=== PATIENT | male | born 1960 | race American Indian/Alaskan Native ===

== ENCOUNTER 2024-12-19 07:49 | Inpatient (IN) | payer OTHER ==
[~2024-12-19] VITALS: Ht 162.6 cm; Wt 119.7 kg
[2024-12-19] VITALS (8 sets, daily range): BP systolic 121–123; BP diastolic 53–71; PULSE 64–81; RESP 16–18; TEMP 98–98.7; O2SAT 94–100
--- NOTE | 2024-12-19 08:15 | ED.PDOC ---
GI ASSESSMENT HPI Comments 64 y/o M, BIBA, with PMHx of CVA, COPD, HTN, anemia, and asthma presents to the ED for CC of abdominal pain. EMS reports, patient is coming from home where he c/o RLQ abdominal pain radiating to his right groin area d/t preexisting right inguinal hernia x5days. EMS relays, patient reports taking tramadol at 0630 with no relief of symptoms. Patient denies fever, dysuria, fever, chills, sweats, nausea, vomiting, or diarrhea. No other associated symptoms, modifiers, recent injuries or sick contacts present at this time. Chief Complaint: Abdominal Pain Time Seen by MD: 08:05 Reviewed Notes: Nurses Notes, System Dispatcher Notes, Medications, Allergies Allergies: Coded Allergies: Ibuprofen (Verified Allergy, Severe, 12/19/24) Information Source: Patient, Emergency Med Personnel Mode of Arrival: EMS Timing: Days Duration: Since onset Prehospital treatment: None Quality: None Vomitus: None Stool: Normal Severity: Moderate Recent: None Recent Hx of: None Pain Location: RLQ Modifying Factors: Nothing Associated sign and symptoms: Abdominal Pain Past Medical History PAST MEDICAL HISTORY: Anemia, Asthma, COPD, CVA, HTN Surgical History: Denies all surgeries Family History Family History: Unknown Social History Smoker: Non-Smoker Alcohol: Denies ETOH Use Drugs: Denies Drug Use Lives In: Home Constitutional: denies: chills, diaphoresis, fatigue, fever, malaise, sweats, weakness, others EENTM: denies: blurred vision, double vision, ear bleeding, ear discharge, ear drainage, ear pain, ear ringing, eye pain, eye redness, hearing loss, mouth pain, mouth swelling, nasal discharge, nose bleeding, nose congestion, nose pain, photophobia, tearing, throat pain, throat swelling, voice changes, others Respiratory: denies: cough, hemoptysis, orthopnea, SOB at rest, shortness of breath, SOB with excertion, stridor, wheezing, others Cardiovascular: denies: chest pain, dizzy spells, diaphoresis, Dyspnea on exertion, edema, irregular heart beat, left arm pain, lightheadedness, palpitations, PND, syncope, others Gastrointestinal: reports: abdominal pain; denies: abdomen distended, blood streaked bowels, constipated, diarrhea, dysphagia, difficulty swallowing, hematemesis, melena, nausea, poor appetite, poor fluid intake, rectal bleeding, rectal pain, vomiting, others Genitourinary: denies: burning, dysuria, flank pain, frequency, hematuria, incontinence, penile discharge, penile sore, pain, testicle pain, testicle swelling, urgency, others Neurological: denies: dizziness, fainting, headache, left sided numbness, left sided weakness, numbness, paresthesia, pre-existing deficit, right sided numbness, right sided weakness, seizure, speech problems, tingling, tremors, weakness, others Musculoskeletal: denies: back pain, gout, joint pain, joint swelling, muscle pain, muscle stiffness, neck pain, others Integumetry: denies: bruises, change in color, change in hair/nails, dryness, laceration, lesions, lumps, rash, wounds, others Allergic/Immunocompromised: denies: Difficulty Healing, Frequent Infections, Hives, Itching, others Hematologic/Lymphatic: denies: anemia, blood clots, easy bleeding, easy bruising, swollen glands, others Endocrine: denies: excessive hunger, excessive sweating, excessive thirst, excessive urination, flushing, intolerance to cold, intolerance to heat, unexplained weight gain, unexplained weight loss, others Psychiatric: denies: anxiety, bipolar disorder, depression, hopeless, panic disorder, schizophrenia, sleepless, suicidal, others All Other Systems: Reviewed and Negative Physical Exam General Appearance: Moderate Distress HEENT: Pharynx Normal Neck: Normal Inspection Respiratory: No Respiratory Distress Cardiovascular: No Edema Breast Exam: Deferred Gastrointestinal: RLQ, Tenderness Genitalia: Deferred Pelvic: Deferred Rectal: Deferred Extremities: Normal range of motion Neurologic: No Motor Deficits Cerebellar Function: NOT DONE Reflexes: NOT DONE Skin: Normal Color Lymphatic: NOT DONE Was a procedure done? Was a procedure done?: No GI differential Dx Differential Diagnosis: Constipation, Hernia, Urolithiasis, Dehydration, Electrolyte Imbalance, Food Poisoning X-Ray, Labs, Meds, VS Vital Signs Date Time Temp Pulse Resp B/P (MAP) Pulse Ox O2 Delivery O2 Flow Rate FiO2 12/19/24 11:03 18 97 Nasal Cannula* 3 32 12/19/24 11:03 97 Nasal Cannula 3.0 12/19/24 11:03 97 Nasal Cannula* 3 32 12/19/24 10:50 98.7 75 16 121/60 (80) 97 98.7 12/19/24 09:07 78 18 112/54 12/19/24 08:37 78 18 112/54 12/19/24 08:36 98.8 78 18 112/54 (73) 91 98.8 12/19/24 07:56 98.4 78 16 118/41 (66) 94 98.4 Lab Test 12/19/24 08:09 Range/Units White Blood Count 17.6 H 4.4-10.8 10^3/uL Red Blood Count 5.81 4.5-5.90 10^6/uL Hemoglobin 10.8 L 13.5-17.5 g/dL Hematocrit 36.1 L 41.0-53.0 % Mean Corpuscular Volume 62.1 L 80.0-100.0 fL Mean Corpuscular Hemoglobin 18.6 L 28.0-32.0 pg Mean Corpuscular Hemoglobin Concent 30.0 L 32.0-36.0 g/dL Red Cell Distribution Width 17.3 H 11.8-14.3 % Platelet Count 244 140-450 10^3/uL Mean Platelet Volume 8.9 6.9-10.8 fL Neutrophils (%) (Auto) 76.8 37.0-80.0 % Lymphocytes (%) (Auto) 13.7 10.0-50.0 % Monocytes (%) (Auto) 8.6 0.0-12.0 % Eosinophils (%) (Auto) 0.8 0.0-7.0 % Basophils (%) (Auto) 0.1 0.0-2.0 % Neutrophils # (Auto) 13.5 H 1.6-8.6 10 ^3/uL Lymphocytes # (Auto) 2.4 0.4-5.4 10 ^3/uL Monocytes # (Auto) 1.5 H 0-1.3 10 ^3/uL Eosinophils # (Auto) 0.1 0-0.8 10 ^3/uL Basophils # (Auto) 0 0-0.2 10 ^3/uL Nucleated Red Blood Cells 0.1 % Sodium Level 140 136-145 mmol/L Potassium Level 4.6 3.5-5.1 mmol/L Chloride Level 104 98-107 mmol/L Carbon Dioxide Level 30 20-31 mmol/L Anion Gap 6 5-15 Blood Urea Nitrogen 20 9-23 mg/dL Creatinine 1.01 0.700-1.30 mg/dL Glomerular Filtration Rate Calc 84 >90 mL/min BUN/Creatinine Ratio 19.8 10.0-20.0 Serum Glucose 86 74-106 mg/dL Calcium Level 9.8 8.7-10.4 mg/dL [place] [id number] Ph: [phone] DIAGNOSTIC IMAGING Diagnostic Imaging Report : [id number] Signed PATIENT: DIEGO HUTCHINSON ACCT: [id number] UNIT: [id number] : 1960 LOC: ER ROOM / BED: / AGE / SEX: 64 / M ADM STATUS: REG ER SERVICE [id number] ORDERING PHYSICIAN: MARIELENA AARON MD PROCEDURE(s): ABPLIV - CT AB PEL WITH IV CON ONLY REASON: rlq abdominal pain, c/f incarcerated inguinal hernia ORDER NUMBER(s): [id number], ACCESSION NUMBER(s): [id number] Exam: CT CT AB PEL WITH IV CON ONLY History: rlq abdominal pain, c/f incarcerated inguinal hernia Comparison Study: None TECHNIQUE: A digital business programmer image was obtained. During the uneventful, intravenous administration of contrast material, multislice data acquisition was obtained through the abdomen and pelvis. The data set was subsequently reconstructed into axial images. Images were reviewed on a work station using a combination of axial and multiplanar using a variety of window levels and settings. Radiation Dose Information: CT Dose: CTDI volume is 25.92 mGy. Dose-length product is 1736.84 mGy*cm FINDINGS: Lung Bases: No acute or significant lung base finding. Normal heart size. No pleural or pericardial effusion. Liver: The liver is normal in size. No focal lesions. Normal hepatic vascular enhancement. 2 cm left renal cyst. Gallbladder and Biliary Tree: Unremarkable Spleen: Unremarkable Pancreas: The pancreas is normal in appearance without focal lesions or abnormal enhancement. Adrenal Glands: Unremarkable Kidneys: Kidneys demonstrate normal symmetric enhancement without focal lesions, calculi or hydronephrosis. Bladder: Unremarkable Bowel: The stomach is grossly normal in appearance. Small bowel and colon are normal in caliber and distribution. The appendix is not visualized; however, no secondary findings of acute appendicitis identified. Ascites: Absent Lymphadenopathy: No mesenteric, retroperitoneal or periportal lymphadenopathy. Abdominal Wall and Mesentery: Asymmetric soft tissue swelling involving the right inguinal canal. There is suboptimal evaluation due to incomplete visualization of the right inguinal canal. Repeat CT recommended due to motion artifact. Vasculature: The visualized abdominal aorta is normal in size and caliber. Abdominal and pelvic vessels demonstrate normal enhancement. Pelvic Organs: Unremarkable Musculoskeletal: No aggressive focal bony lesions, acute fractures or dislocation. Soft tissues: Unremarkable. IMPRESSION: Asymmetric soft tissue swelling involving the right inguinal canal. There is suboptimal evaluation due to incomplete visualization of the right inguinal canal. Repeat CT recommended due to motion artifact. All CT scans at this medical facility are performed using dose modulation techniques as appropriate to a performed exam including the following: Automated exposure control was utilized; adjustment of the MA and/or KV according to patient size; and use of iterative reconstruction technique. ATED BY: DEVON ASH MD DICTATED DATE/TIME: 12/19/24 105 SIGNED BY: DEVON ASH MD SIGNED DATE/TIME: 12/19/24 1056 CC: Time of 1ST Reevaluation: 08:35 Reevaluation 1ST: Unchanged Patient Education/Counseling: Diagnosis, Treatment Family Education/Counseling: No Family Present SEPSIS Sepsis Screen Date sepsis recognized/suspect: Dec 19, 2024 Time Sepsis recognized/suspect: 07 Recent Procedure: No On Antibiotic Therapy: No Respiratory Rate >20: No Heart Rate >90: No Temp<36 C (96.8 F) or >38.3 C: No SBP <90 or MAP <65 mmHG: No New Acute Mental Status Change: No Is the patient on CPAP, BIPAP,: No Physician Orders Ct Ab Pel With Iv Con Only (12/19/24 07:58) Ct Ab Pel Wo Con-No Oral Or Iv (12/19/24 12:03) Vital Signs Date Time Temp Pulse Resp B/P (MAP) Pulse Ox O2 Delivery O2 Flow Rate FiO2 12/19/24 11:03 18 97 Nasal Cannula* 3 32 12/19/24 11:03 97 Nasal Cannula 3.0 12/19/24 11:03 97 Nasal Cannula* 3 32 12/19/24 10:50 98.7 75 16 121/60 (80) 97 98.7 12/19/24 09:07 78 18 112/54 12/19/24 08:37 78 18 112/54 12/19/24 08:36 98.8 78 18 112/54 (73) 91 98.8 12/19/24 07:56 98.4 78 16 118/41 (66) 94 98.4 Laboratory Tests Test 12/19/24 08:09 White Blood Count 17.6 10^3/uL (4.4-10.8) H Departure 1 Departure Time of Disposition: 18:25 (Patient presented with abdominal pain that was concerning for possible appendicits, gastritis, cholecystitis, colitis, gastroenteritis, sbo, or orther possible surgical emergency. Data: 1. I ordered and reviewed the result of at least 3 labs including a CBC, BMP, and Urinalysis. 2. I independently interpreted the following tests: CT Abdoment and Pelvis is concerning for possible inguinal hernia .Risk:This patient has a high risk of morbidity due to further diagnostic testing or treatment and may suffer from an acute abdominal process disorder. Workup reveals respiratory failure and intractable abdominal pain and patient should be admitted for further workup. and possible expert consultation. ) Impression: Primary Impression: Intractable abdominal pain Additional Impression: Acute and chronic respiratory failure Disposition: ADMITTED INPATIENT Admit to: Med Surg Condition: Serious Critical Care Note Critical Care Time?: Yes Critical care comment: Intractable abdominal pain Authorized and Performed by: Marielena Aaron MD Total critical care time: Approximately 44 minutes Due to a high probability of clinically significant, life threatening deterioration, the patient required my highest level of preparedness to intervene emergently and I personally spent this critical care time directly and personally managing the patient. This critical care time included obtaining a history; examining the patient; pulse oximetry; ordering and review of studies; arranging urgent treatment with development of a management plan; evaluation of patient's response to treatment; frequent reassessment; and, discussions with other providers. This critical care time was performed to assess and manage the high probability of imminent, life-threatening deterioration that could result in multi-organ failure. It was exclusive of separately billable procedures and treating other patients and teaching time. Please see my other sections and the rest of the note for further information on patient assessment and treatment. Stability Stability form required: No Heart Score Heart Score: Heart Score Response (Comments) Value History N/A 0 EKG N/A 0 Age N/A 0 Risk Factors N/A 0 Troponin N/A 0 Total 0 I personally scribed for MARIELENA AARON MD ([email or web address]) on 12/19/24 at 08:15. Electronically submitted by Ngoc Laird ([email or web address]). I personally scribed for MARIELENA AARON MD ([email or web address]) on 12/19/24 at 08:23. Electronically submitted by Ngoc Laird ([email or web address]). I personally scribed for MARIELENA AARON MD ([email or web address]) on 12/19/24 at 11:01. Electronically submitted by Ngoc Laird ([email or web address]). MARIELENA AARON MD Dec 19, 2024 08:15
[2024-12-19] MEDS: MORPHINE SULFATE 4 MG/ML SYR/VIAL IV ONE (08:37)
[2024-12-19] MEDS: ONDANSETRON HCL 4 MG/2 ML VIAL IV ONE (08:37)
[2024-12-19] MEDS: SODIUM CHLORIDE 0.9% 1,000 ML IV ONE (08:37)
[2024-12-19 08:40] LABS: Hematocrit 36.1 % (41.0-53.0); Hemoglobin 10.8 g/dL (13.5-17.5); Mean Corpuscular Hemoglobin 18.6 pg (28.0-32.0); Mean Corpuscular Volume 62.1 fL (80.0-100.0); Nucleated Red Blood Cells % 0.1 %
[2024-12-19 08:58] LABS: Chloride 104 mmol/L (98-107); Potassium 4.6 mmol/L (3.5-5.1); Sodium 140 mmol/L (136-145)
[2024-12-19 08:59] LABS: Anion Gap 6 (5-15); Calcium 9.8 mg/dL (8.7-10.4); Carbon Dioxide 30 mmol/L (20-31)
[2024-12-19 09:04] LABS: BUN/Creatinine Ratio 19.8 (10.0-20.0); Blood Urea Nitrogen 20 mg/dL (9-23); Glucose 86 mg/dL (74-106)
[2024-12-19] MEDS: IOHEXOL 300 MG/ML 100ML BOTTLE IJ ONE (09:28)
--- NOTE | 2024-12-19 10:59 | DVH ---
Exam: CT CT AB PEL WITH IV CON ONLY History: rlq abdominal pain, c/f incarcerated inguinal hernia Comparison Study: None TECHNIQUE: A digital mechanical car checker image was obtained. During the uneventful, intravenous administration of c ontrast material, multislice data acquisition was obtained through the abdomen and pelvis. The data s et was subsequently reconstructed into axial images. Images were reviewed on a work station using a c ombination of axial and multiplanar using a variety of window levels and settings. Radiation Dose Information: CT Dose: CTDI volume is 25.92 mGy. Dose-length product is 1736.84 mGy*cm FINDINGS: Lung Bases: No acute or significant lung base finding. Normal heart size. No pleural or pericardial effusion. Liver: The liver is normal in size. No focal lesions. Normal hepatic vascular enhancement. 2 cm left renal cyst. Gallbladder and Biliary Tree: Unremarkable Spleen: Unremarkable Pancreas: The pancreas is normal in appearance without focal lesions or abnormal enhancement. Adrenal Glands: Unremarkable Kidneys: Kidneys demonstrate normal symmetric enhancement without focal lesions, calculi or hydroneph rosis. Bladder: Unremarkable Bowel: The stomach is grossly normal in appearance. Small bowel and colon are normal in caliber and d istribution. The appendix is not visualized; however, no secondary findings of acute appendicitis id entified. Ascites: Absent Lymphadenopathy: No mesenteric, retroperitoneal or periportal lymphadenopathy. Abdominal Wall and Mesentery: Asymmetric soft tissue swelling involving the right inguinal canal. The re is suboptimal evaluation due to incomplete visualization of the right inguinal canal. Repeat CT r ecommended due to motion artifact. Vasculature: The visualized abdominal aorta is normal in size and caliber. Abdominal and pelvic vess els demonstrate normal enhancement. Pelvic Organs: Unremarkable Musculoskeletal: No aggressive focal bony lesions, acute fractures or dislocation. Soft tissues: Unremarkable. IMPRESSION: Asymmetric soft tissue swelling involving the right inguinal canal. There is suboptimal evaluation du e to incomplete visualization of the right inguinal canal. Repeat CT recommended due to motion artif act. All CT scans at this medical facility are performed using dose modulation techniques as appropriate t o a performed exam including the following: Automated exposure control was utilized; adjustment of e MA and/or KV according to patient size; and use of iterative reconstruction technique.
[2024-12-19] MEDS: ALBUTEROL SULF 2.5 MG/0.5ML(0.5%) NEB SOLN NEB ONE (11:03)
[2024-12-19] MEDS: IPRATROPIUM BROM 0.5 MG/2.5ML INH SOL NEB ONE (11:03)
--- NOTE | 2024-12-19 13:16 | DVH ---
EXAM: CT CT AB PEL WO CON-NO ORAL OR IV HISTORY: repeat per rads, right inguinal hernia, patient motion artifact COMPARISON: CT scan of the abdomen and pelvis dated 12/19/2024 TECHNIQUE: Helical CT images of the abdomen and pelvis were performed without IV contrast. Sagittal a nd coronal reformatted images were obtained. This CT exam was performed using one or more of the foll owing dose reduction techniques: Automated exposure control, adjustment of the mA and/or kv according to patient size, or the use of iterative reconstruction techniques. Radiation Dose: Abdomen/Pelvis: CTDIvol 25.28 mGy, DLP 1635.51 mGy*cm. FINDINGS: CT abdomen: There is peribronchial thickening in the lung bases. There is marked bilateral gynecomast ia. The heart is not enlarged. The liver, spleen, gallbladder, pancreas, right kidney, and bilateral adrenal glands are unremarkable. There is a left renal superior pole simple cortical cysts. No abdom inal aortic aneurysm. CT pelvis: No abnormal bowel dilatation, free air, or free fluid. The appendix and urinary bladder ar e unremarkable. There are fatty bilateral inguinal indirect hernias, larger on the right. There is f at stranding in the right inguinal region with multiple enlarged lymph nodes present. There is mild l umbar degenerative disc disease. There is a bone island in the left acetabulum. IMPRESSION: 1. Reactive airways disease. The lungs are not fully imaged here. 2. Bilateral fatty inguinal indirect hernias, larger on the right. 3. Fat stranding and lymphadenopathy of the right inguinal region which may be due to cellulitis, lym phadenitis, or early hidradenitis suppurativa. 4. No evidence of bowel obstruction, acute appendicitis, or other acute process in the abdomen or pel vis.
[2024-12-19] MEDS: SODIUM CHLORIDE 0.9% 1,000 ML IV SCH (14:30)
[2024-12-19] MEDS ORDERED: DOCUSATE SOD 100 MG CAP PO PRN (14:30)
--- NOTE | 2024-12-19 14:44 | DVHHP2 ---
History of Present Illness Reason for Visit: Abdominal pain History of Present Illness Emmy Baires is a 64-year-old male with past medical history of COPD on 3L/NC at home, asthma, anemia, and CVA, who came to the hospital due to abdominal pain. Patient states he has been experiencing RLQ abdominal pain for the last 5 days. The pain was continuing to worsen prompting him to come to the hospital. Patient states he has had an inguinal hernia for years, but these last 5 days it has become larger and more painful. States the pain is making it difficult for him to sleep and do his daily activities. 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 Heme/Onc: Anemia NOS Past Surgical History: Other (right hand) Smoke: <1 pack per day ALCOHOL: none Drugs: Marijuana Lives: Other (Community home) Domestic Violence: Neg Review of Systems Constitutional: No: Fever, Chills, Sweats, Weakness, Malaise, Other Eyes: No: Pain, Vision change, Conjunctivae inflammation, Eyelid inflammation, Other, Redness ENT: No: Ear pain, Ear discharge, Nose pain, Nose discharge, Nose congestion, Mouth pain, Mouth swelling, Throat pain, Throat swelling, Other Respiratory: No: Cough, Dry, Shortness of breath, SOB with excertion, Wheezing, Hemoptysis, Pleuritic Pain, Sputum, Wheezing, Other Cardiovascular: No: Chest Pain, Palpitations, Orthopnea, Paroxysmal Noc. Dyspnea, Edema, Lt Headedness, Other Gastrointestinal: Abdominal Pain (RLQ/Pelvic); No: Nausea, Vomiting, Diarrhea, Constipation, Melena, Hematochezia, Other Genitourinary: No Dysuria, No Frequency, No Incontinence, No Hematuria, No Retention, No Other Musculoskeletal: No: other, neck pain, shoulder pain, arm pain, back pain, hand pain, leg pain, foot pain Skin: No: Rash, Lesions, Jaundice, Bruising, Other Neurological: No: Weakness, Numbness, Incoordination, Change in speech, Confusion, Seizures, Other Allergies: Coded Allergies: Ibuprofen (Verified Allergy, Severe, 12/19/24) Exam Vital Signs Vital Signs Date Time Temp Pulse Resp B/P (MAP) Pulse Ox O2 Delivery O2 Flow Rate FiO2 12/19/24 11:03 18 97 Nasal Cannula* 3 32 12/19/24 10:50 98.7 75 121/60 (80) 98.7 General Appearance: Alert, Oriented X3, Cooperative, mild distress HEENT: Atraumatic, PERRLA Respiratory: Clear to auscultation, Normal air movement Cardiovascular: Regular rate, Normal S1, Normal S2 Abdominal: Normal bowel sounds, Soft, Other (RLQ/pelvic pain) Extremities: No clubbing, No cyanosis, No edema, Normal pulses Skin: No rashes, No breakdown, No significant lesion Neuro: Normal gait, Normal speech, Strength at 5/5 X4 ext Psych/Mental Status: Mental status NL, Mood NL Labs/Xrays Labs Test 12/19/24 08:09 Range/Units White Blood Count 17.6 H 4.4-10.8 10^3/uL Red Blood Count 5.81 4.5-5.90 10^6/uL Hemoglobin 10.8 L 13.5-17.5 g/dL Hematocrit 36.1 L 41.0-53.0 % Mean Corpuscular Volume 62.1 L 80.0-100.0 fL Mean Corpuscular Hemoglobin 18.6 L 28.0-32.0 pg Mean Corpuscular Hemoglobin Concent 30.0 L 32.0-36.0 g/dL Red Cell Distribution Width 17.3 H 11.8-14.3 % Platelet Count 244 140-450 10^3/uL Mean Platelet Volume 8.9 6.9-10.8 fL Neutrophils (%) (Auto) 76.8 37.0-80.0 % Lymphocytes (%) (Auto) 13.7 10.0-50.0 % Monocytes (%) (Auto) 8.6 0.0-12.0 % Eosinophils (%) (Auto) 0.8 0.0-7.0 % Basophils (%) (Auto) 0.1 0.0-2.0 % Neutrophils # (Auto) 13.5 H 1.6-8.6 10 ^3/uL Lymphocytes # (Auto) 2.4 0.4-5.4 10 ^3/uL Monocytes # (Auto) 1.5 H 0-1.3 10 ^3/uL Eosinophils # (Auto) 0.1 0-0.8 10 ^3/uL Basophils # (Auto) 0 0-0.2 10 ^3/uL Nucleated Red Blood Cells 0.1 % Sodium Level 140 136-145 mmol/L Potassium Level 4.6 3.5-5.1 mmol/L Chloride Level 104 98-107 mmol/L Carbon Dioxide Level 30 20-31 mmol/L Anion Gap 6 5-15 Blood Urea Nitrogen 20 9-23 mg/dL Creatinine 1.01 0.700-1.30 mg/dL Glomerular Filtration Rate Calc 84 >90 mL/min BUN/Creatinine Ratio 19.8 10.0-20.0 Serum Glucose 86 74-106 mg/dL Calcium Level 9.8 8.7-10.4 mg/dL EXAM: CT CT AB PEL WO CON-NO ORAL OR IV FINDINGS: CT abdomen: There is peribronchial thickening in the lung bases. There is marked bilateral gynecomastia. The heart is not enlarged. The liver, spleen, gallbladder, pancreas, right kidney, and bilateral adrenal glands are unremarkable. There is a left renal superior pole simple cortical cysts. No abdominal aortic aneurysm. CT pelvis: No abnormal bowel dilatation, free air, or free fluid. The appendix and urinary bladder are unremarkable. There are fatty bilateral inguinal indirect hernias, larger on the right. There is fat stranding in the right inguinal region with multiple enlarged lymph nodes present. There is mild lumbar degenerative disc disease. There is a bone island in the left acetabulum. IMPRESSION: 1. Reactive airways disease. The lungs are not fully imaged here. 2. Bilateral fatty inguinal indirect hernias, larger on the right. 3. Fat stranding and lymphadenopathy of the right inguinal region which may be due to cellulitis, lymphadenitis, or early hidradenitis suppurativa. 4. No evidence of bowel obstruction, acute appendicitis, or other acute process in the abdomen or pelvis. SEPSIS Sepsis Screen Date sepsis recognized/suspect: Dec 19, 2024 Time Sepsis recognized/suspect: 0836 Recent Procedure: No On Antibiotic Therapy: No Respiratory Rate >20: No Heart Rate >90: No Temp<36 C (96.8 F) or >38.3 C: No SBP <90 or MAP <65 mmHG: No New Acute Mental Status Change: No Is the patient on CPAP, BIPAP,: No Physician Orders Ct Ab Pel With Iv Con Only (12/19/24 07:58) Ct Ab Pel Wo Con-No Oral Or Iv (12/19/24 12:03) Vital Signs Date Time Temp Pulse Resp B/P (MAP) Pulse Ox O2 Delivery O2 Flow Rate FiO2 12/19/24 11:03 18 97 Nasal Cannula* 3 32 12/19/24 10:50 98.7 75 16 121/60 (80) 97 98.7 12/19/24 09:07 78 18 112/54 12/19/24 08:37 78 18 112/54 12/19/24 08:36 98.8 78 18 112/54 (73) 91 98.8 12/19/24 07:56 98.4 78 16 118/41 (66) 94 98.4 Laboratory Tests Test 12/19/24 08:09 White Blood Count 17.6 10^3/uL (4.4-10.8) H Medications Medications Dose Ordered Sig/Sandra Route Start Time Stop Time Status Last Admin Dose Admin Albuterol 5 mg ONCE ONCE NEB 12/19/24 11:00 12/19/24 11:01 DC 12/19/24 11:03 5 MG Ipratropium [place] 0.5 mg ONCE ONCE NEB 12/19/24 11:00 12/19/24 11:01 DC 12/19/24 11:03 0.5 MG Morphine Sulfate 4 mg ONCE ONCE IV 12/19/24 08:00 12/19/24 08:01 DC 12/19/24 08:37 4 MG Ondansetron HCl 4 mg ONCE ONCE IV 12/19/24 08:00 12/19/24 08:01 DC 12/19/24 08:37 4 MG Sodium Chloride 1,000 ml @ 1,000 mls/hr Q1H ONCE IV 12/19/24 08:00 12/19/24 08:59 DC 12/19/24 08:37 1,000 MLS/HR Assessment/Plan Assessment/Plan Assessment: Inguinal hernia, Leukocytosis, COPD, Asthma, Plan: Admit to Med-Surg, Surgical consult, NPO, IV antibiotics, PT/PTT, Chest X-Ray, Urine analysis, Blood cultures, Breathing treatments as needed, Supplemental oxygen as needed, Plan discussed with: Patient Date of Service: Dec 19, 2024 Billing Provider: WINNIE EARLY Common Visit Codes: [id number] INP/OBS CARE (MOD) WINNIE EARLY Dec 19, 2024 14:44
--- NOTE | 2024-12-19 15:03 | DVH ---
CHEST RADIOGRAPH Indication: Pre-Op Technique: XY CHEST XRAY 1 VIEW COMPARISON: None FINDINGS: The cardiac silhouette is unremarkable. The lungs demonstrate bilateral patchy airspace opacities. Th e pulmonary vasculature is prominent. There is no pleural effusion. There is no pneumothorax. IMPRESSION: Pulmonary vascular congestion and bilateral patchy airspace opacities.
[2024-12-19] MEDS: HYDROcodone-ACET 5/325MG TAB PO PRN (15:57)
[2024-12-19] MEDS: cefTRIAXone 1GM/50ML D5W 50 ML IV ONE (15:57)
[2024-12-19 16:33] LABS: INR 0.95 (0.9-1.15); Partial Thromboplastin Time 26.3 SEC (24.5-34.5); Prothrombin Time 10.1 sec (9.3-11.8)
[2024-12-19] MEDS: ALBUTEROL SULF 2.5 MG/0.5ML(0.5%) NEB SOLN NEB SCH (18:11)
[2024-12-19] MEDS: IPRATROPIUM BROM 0.5 MG/2.5ML INH SOL NEB SCH (18:11)
[2024-12-19 20:05] LABS: Urine Protein, UAD 1+ (Negative)
[2024-12-19] MEDS: IPRATROPIUM BROM 0.5 MG/2.5ML INH SOL NEB PRN (22:59)
[2024-12-19] MEDS: ALBUTEROL SULF 2.5 MG/0.5ML(0.5%) NEB SOLN NEB PRN (22:59)
[2024-12-20] VITALS (12 sets, daily range): BP systolic 104–135; BP diastolic 43–61; PULSE 64–107; RESP 16–20; TEMP 97.1–98.7; O2SAT 50–100
[2024-12-20] MEDS: KETOROLAC TROMETH 30 MG/ML 1ML VIAL IV ONE (03:41)
[2024-12-20 07:43] LABS: Mean Corpuscular Volume 62.4 fL (80.0-100.0)
[2024-12-20 07:51] LABS: Hematocrit 34.3 % (41.0-53.0); Hemoglobin 10.3 g/dL (13.5-17.5); Mean Corpuscular Hemoglobin 18.7 pg (28.0-32.0); Nucleated Red Blood Cells % 0.0 %
[2024-12-20 07:58] LABS: Albumin 3.9 g/dL (3.2-4.8); Alkaline Phosphatase 83 U/L (46-116); Anion Gap 5 (5-15); BUN/Creatinine Ratio 18.9 (10.0-20.0); Bilirubin, Total 0.4 mg/dL (0.2-1.0); Blood Urea Nitrogen 21 mg/dL (9-23); Calcium 9.5 mg/dL (8.7-10.4); Chloride 104 mmol/L (98-107); Glucose 93 mg/dL (74-106); Potassium 4.3 mmol/L (3.5-5.1); Sodium 141 mmol/L (136-145); Total Protein 6.1 g/dL (5.7-8.2)
[2024-12-20 08:04] LABS: Alanine Aminotransferase 9 U/L (7-40); Carbon Dioxide 32 mmol/L (20-31)
[2024-12-20] MEDS: cefTRIAXone 1GM/50ML D5W 50 ML IV SCH (09:00)
--- NOTE | 2024-12-20 11:01 | DVHPN2 ---
Subjective Still complaining of lower abdominal pain especially in the right inguinal area Reviewed: Care Plan, H&P, Labs, Medications, Previous Orders, Radiology Changes from previous H/P or p: No Changes Objective Vitals Vital Signs Date Time Temp Pulse Resp B/P (MAP) Pulse Ox O2 Delivery O2 Flow Rate FiO2 12/20/24 09:30 97.1 64 16 135/57 (83) 98 97.1 12/20/24 08:00 Nasal Cannula* 3 32 Intake/Output Intake and Output 12/20/24 07:00 Intake Total 1000 ml Balance 1000 ml Intake Oral 0 ml IV Total 1000 ml # Voids 1 General Appearance: Alert, Oriented X3, Cooperative, moderate distress, Other (Morbidly obese) HEENT: Atraumatic Lungs: Other (Decreased air entry bilaterally with scattered wheezing) Cardiovascular: Regular rate, Normal S1, Normal S2 Abdomen: Normal bowel sounds, Soft, Other (Severe tenderness in right inguinal area; mild tenderness in other abdominal areas) Neuro: Normal speech, Cranial nerves 3-12 NL Skin: Other (Could not tolerate looking at abdominal fall in the right inguinal area due to severe pain) Psych/Mental Status: Mental status NL, Mood NL Medications Current Medications Medications Dose Ordered Sig/Sandra Route Start Time Stop Time Status Last Admin Dose Admin Sodium Chloride 1,000 ml @ 60 mls/hr [id number] IV 12/19/24 14:30 12/20/24 06:25 60 MLS/HR Acetaminophen/ Hydrocodone Bitart 1 tab Q4HP PRN PO 12/19/24 14:30 12/20/24 03:40 1 TAB Ondansetron HCl 4 mg Q4HP PRN IV 12/19/24 14:30 Docusate Sodium 100 mg BIDPRN PRN PO 12/19/24 14:30 Acetaminophen 650 mg Q6HP PRN PO 12/19/24 14:30 Ipratropium [place] 0.5 mg Q6HWA NEB 12/19/24 18:00 12/20/24 06:46 0.5 MG Albuterol 2.5 mg Q6HWA NEB 12/19/24 18:00 12/20/24 06:46 2.5 MG Metronidazole 100 ml @ 100 mls/hr Q8HR IV 12/19/24 22:00 12/20/24 06:20 100 MLS/HR Albuterol 2.5 mg Q4HPRN PRN NEB 12/19/24 18:00 12/19/24 22:59 2.5 MG Ipratropium [place] 0.5 mg Q4HPRN PRN NEB 12/19/24 18:00 12/19/24 22:59 0.5 MG Piperacillin Sod/ Tazobactam Sod 100 ml @ 25 mls/hr Q8HR IV 12/20/24 14:00 UNV Laboratory Results Laboratory Tests 12/20/24 06:58 Chemistry Test 12/20/24 06:58 Albumin 3.9 g/dL (3.2-4.8) Calcium Level 9.5 mg/dL (8.7-10.4) Total Protein 6.1 g/dL (5.7-8.2) Coagulation Test 12/19/24 15:36 Prothrombin Time 10.1 sec (9.3-11.8) Prothrombin Time INR 0.95 (0.9-1.15) Activated Partial Thromboplast Time 26.3 SEC (24.5-34.5) LFT Test 12/20/24 06:58 Alanine Aminotransferase (ALT) 9 U/L (7-40) Alkaline Phosphatase 83 U/L (46-116) Aspartate Amino Transferase (AST) 12 U/L (13-40) L Total Bilirubin 0.4 mg/dL (0.2-1.0) Urinalysis Test 12/19/24 18:47 Urine Color Yellow (Yellow) Urine Clarity Clear (Clear) Urine pH 6.0 (5.0-9.0) Urine Specific [place] > 1.050 (1.001-1.035) Urine Protein 1+ (Negative) H Urine Ketones Negative (Negative) Urine Blood Negative /uL (Negative) Urine Nitrite Negative (Negative) Urine Bilirubin Negative (Negative) Urine Urobilinogen Normal mg/dL (Negative) Urine Leukocyte Esterase Negative /uL (Negative) Urine RBC 8 /hpf (0 - 3) Urine Microscopic WBC 1 /HPF (0-3) Urine Squamous Epithelial Cells Few /hpf (<5) Urine Bacteria None seen /hpf (None Seen) Urine Mucus Few (None Seen) Urine Glucose Normal mg/dL (Normal) Labs and/or images reviewed: Labs reviewed by me, Image(s) reviewed by me Assessment/Plan Assessment/Plan A 64-year-old morbidly obese male patient; with past medical history of COPD on home oxygen 3 L/min via nasal cannula, and marijuana use disorder; who presented to the emergency department with severe lower abdominal pain. #Severe lower abdominal pain; unclear etiology; could be related to suspected soft tissue infection of the abdominal wall #Sepsis due to suspected soft tissue infection of the abdominal wall #COPD on home oxygen; not in exacerbation #Marijuana use disorder #Morbid obesity Reviewed available lab work and imaging studies Reviewed blood cultures Surgery consulted Kept NPO until evaluation by surgery Counseled the patient on the importance of adopting healthy lifestyle with diet and exercise in order to lose weight Change IV antibiotics to IV Zosyn for broad-spectrum coverage; to continue IV metronidazole Counseled on marijuana use cessation for 16 minutes Continue IV fluids Continue pain management Continue nebulizers and oxygen therapy as needed Continue monitoring Goals of care discussed with the patient for 20 minutes; full code Late Entry. This medical document was created using an electronic medical record system with computerized dictation system. Although this document has been carefully reviewed, there might still be some phonetic and typographical errors. These areas are purely typographical due to imperfections of the software programs, and do not reflect any compromise in the patient's medical care. Plan discussed with: Patient, Other (Nurse) My Orders Orders - KAELYN MORALES MD Procedure Category Date Status Time Piperacillin-Tazob PHA 12/20/24 Logged 3.375gm (Zosyn 3.375g 14:00 Piperacillin-Tazob PHA 12/20/24 Logged 3.375gm (Zosyn 3.375g 11:00 Basic Metabolic Panel LAB 12/21/24 Verified 04:00 Complete Blood Count LAB 12/21/24 Verified 04:00 Rapid Influenza A&B LAB 12/20/24 Transmitted 10:57 Covid19 Antigen Maureen LAB 12/20/24 Transmitted Date of Service: Dec 20, 2024 Billing Provider: KAELYN MORALES MD Common Visit Codes: [id number] INP/OBS CARE(HIGH) Secondary Visit Codes: 74249-[id number] CHNG SMOKING >10MIN (16 minutes counseling regarding marijuana use cessation), 44102-[id number] CARE PLAN 30 MINUTES (20 minutes) KAELYN MORALES MD Dec 20, 2024 11:01
[2024-12-20] MEDS: PIPERACILLIN-TAZOB 3.375GM 100 ML IV ONE (12:24)
[2024-12-20] MEDS: MORPHINE SULFATE INJ 2 MG/ml SYRG IV PRN (12:25)
[2024-12-20 12:39] LABS: Cannabinoid Screen, Urine Pos (NEGATIVE)
[2024-12-20 12:40] LABS: Amphetamine Screen, Urine Neg (NEGATIVE); Barbiturate Scree,Urine Neg (NEGATIVE); Benzodiazephine Screen, Urine Neg (NEGATIVE); Cocaine Screen, Urine Neg (NEGATIVE); Opiate Scree,Urine Pos (NEGATIVE); Phencyclidine Screen, Urine Neg (NEGATIVE)
[2024-12-20 13:09] LABS: COVID19 ANTIGEN SOFIA FIA NEGATIVE (NEGATIVE)
[2024-12-20] MEDS: PIPERACILLIN-TAZOB 3.375GM 100 ML IV SCH (14:00)
[2024-12-20] MEDS: ONDANSETRON HCL 4 MG/2 ML VIAL IV PRN (16:30)
[2024-12-21] VITALS (16 sets, daily range): BP systolic 110–148; BP diastolic 35–74; PULSE 69–90; RESP 16–20; TEMP 96.7–98.8; O2SAT 90–100
[2024-12-21 07:47] LABS: Base Excess 3.8 mmol/L (-2.0-3.0)
--- NOTE | 2024-12-21 09:22 | DVHPN2 ---
Subjective Still complaining of lower abdominal pain especially in the right inguinal area Reviewed: Care Plan, H&P, Labs, Medications, Previous Orders, Radiology, Other (Consultation) Changes from previous H/P or p: No Changes Objective Vitals Vital Signs Date Time Temp Pulse Resp B/P (MAP) Pulse Ox O2 Delivery O2 Flow Rate FiO2 12/21/24 07:22 81 18 96 12/21/24 07:12 Nasal Cannula* 6 44 12/21/24 05:00 98.0 110/58 (75) 98.0 Intake/Output Intake and Output 12/21/24 07:00 Intake Total 300 ml Output Total 400 ml Balance -100 ml Intake Oral 0 ml IV Total 300 ml Output Urine Total 400 ml General Appearance: Alert, Oriented X3, Cooperative, moderate distress, Other (Morbidly obese) HEENT: Atraumatic Lungs: Other (Decreased air entry bilaterally with scattered wheezing) Cardiovascular: Regular rate, Normal S1, Normal S2 Abdomen: Normal bowel sounds, Soft, Other (Severe tenderness in right inguinal area with signs of infection including redness and warmth; mild tenderness in other abdominal areas) Neuro: Normal speech, Cranial nerves 3-12 NL Skin: Other (Redness and warmth of right inguinal hernia along with abdominal found covering it) Psych/Mental Status: Mental status NL, Mood NL Medications Current Medications Medications Dose Ordered Sig/Sandra Route Start Time Stop Time Status Last Admin Dose Admin Sodium Chloride 1,000 ml @ 60 mls/hr [id number] IV 12/19/24 14:30 12/20/24 06:25 60 MLS/HR Acetaminophen/ Hydrocodone Bitart 1 tab Q4HP PRN PO 12/19/24 14:30 12/21/24 06:34 1 TAB Ondansetron HCl 4 mg Q4HP PRN IV 12/19/24 14:30 12/21/24 04:06 4 MG Docusate Sodium 100 mg BIDPRN PRN PO 12/19/24 14:30 Acetaminophen 650 mg Q6HP PRN PO 12/19/24 14:30 Ipratropium [place] 0.5 mg Q6HWA NEB 12/19/24 18:00 12/21/24 07:12 0.5 MG Albuterol 2.5 mg Q6HWA NEB 12/19/24 18:00 12/21/24 07:12 2.5 MG Metronidazole 100 ml @ 100 mls/hr Q8HR IV 12/19/24 22:00 12/21/24 05:22 100 MLS/HR Albuterol 2.5 mg Q4HPRN PRN NEB 12/19/24 18:00 12/19/24 22:59 2.5 MG Ipratropium [place] 0.5 mg Q4HPRN PRN NEB 12/19/24 18:00 12/19/24 22:59 0.5 MG Piperacillin Sod/ Tazobactam Sod 100 ml @ 25 mls/hr Q8HR IV 12/20/24 14:00 12/21/24 06:36 25 MLS/HR Morphine Sulfate 2 mg Q4HPRN PRN IV 12/20/24 11:45 12/21/24 04:11 2 MG Laboratory Results Laboratory Tests 12/20/24 06:58 Urinalysis Test 12/19/24 18:47 Urine Color Yellow (Yellow) Urine Clarity Clear (Clear) Urine pH 6.0 (5.0-9.0) Urine Specific [place] > 1.050 (1.001-1.035) Urine Protein 1+ (Negative) H Urine Ketones Negative (Negative) Urine Blood Negative /uL (Negative) Urine Nitrite Negative (Negative) Urine Bilirubin Negative (Negative) Urine Urobilinogen Normal mg/dL (Negative) Urine Leukocyte Esterase Negative /uL (Negative) Urine RBC 8 /hpf (0 - 3) Urine Microscopic WBC 1 /HPF (0-3) Urine Squamous Epithelial Cells Few /hpf (<5) Urine Bacteria None seen /hpf (None Seen) Urine Mucus Few (None Seen) Urine Glucose Normal mg/dL (Normal) Blood Gas Results Test 12/21/24 07:33 Arterial Blood pH 7.324 (7.350-7.450) FiO2 % 44.0 Microbiology Microbiology Date/Time Source Procedure Growth Status 12/19/24 15:36 Blood Blood Culture - Preliminary NO GROWTH AFTER 24 HOURS OF INCUBATION. Resulted Labs and/or images reviewed: Labs reviewed by me, Image(s) reviewed by me Assessment/Plan Assessment/Plan A 64-year-old morbidly obese male patient; with past medical history of COPD on home oxygen 3 L/min via nasal cannula, and marijuana use disorder; who presented to the emergency department with severe lower abdominal pain. # Severe lower abdominal pain; unclear etiology; could be related to suspected soft tissue infection of the abdominal wall # Sepsis with leukocytosis due to suspected soft tissue infection of the abdominal wall # COPD on home oxygen; not in exacerbation # Marijuana use disorder # Aggressive behavior # Morbid obesity Ordered EKG that showed QTc of 423 ms; started quetiapine 25 mg twice daily Reviewed available lab work and imaging studies Reviewed blood cultures Surgery evaluated the patient and recommended infectious disease consultation for suspected severe fungal infection of the abdominal wall Infectious disease consulted To advance diet as tolerated Counseled the patient on the importance of adopting healthy lifestyle with diet and exercise in order to lose weight Continue IV Zosyn for broad-spectrum coverage; to continue IV metronidazole Leukocytosis decreased after IV Zosyn Pending Infectious Disease evaluation to decide regarding starting antifungal medication Counseled on marijuana use cessation for 16 minutes Continue IV fluids Continue pain management Continue nebulizers and oxygen therapy as needed Continue monitoring Late Entry. This medical document was created using an electronic medical record system with computerized dictation system. Although this document has been carefully reviewed, there might still be some phonetic and typographical errors. These areas are purely typographical due to imperfections of the software programs, and do not reflect any compromise in the patient's medical care. Plan discussed with: Patient, Other (Nurse) My Orders Orders - KAELYN MORALES MD Procedure Category Date Status Time Piperacillin-Tazob PHA 12/20/24 In Process 3.375gm (Zosyn 3.375g 14:00 Basic Metabolic Panel LAB 12/21/24 Logged 04:00 Complete Blood Count LAB 12/21/24 Logged 04:00 Morphine Sulfate PHA 12/20/24 In Process Injection 11:45 Communication Order ORDERS 12/21/24 Transmitted 08:00 Abg W/ Co-Ox RT 12/21/24 Logged 07:25 Clear Liq Diet DIET 12/21/24 Transmitted Breakfast * Research And Evaluation Analyst CONS 12/21/24 Transmitted Consult Date of Service: Dec 21, 2024 Billing Provider: KAELYN MORALES MD Common Visit Codes: [id number] INP/OBS CARE(HIGH) KAELYN MORALES MD Dec 21, 2024 09:22
[2024-12-21 11:41] LABS: Mean Corpuscular Hemoglobin 18.6 pg (28.0-32.0); Nucleated Red Blood Cells % 0.1 %
[2024-12-21 11:46] LABS: Hematocrit 35.8 % (41.0-53.0); Hemoglobin 10.7 g/dL (13.5-17.5); Mean Corpuscular Volume 62.4 fL (80.0-100.0)
[2024-12-21 11:53] LABS: Chloride 103 mmol/L (98-107); Potassium 4.2 mmol/L (3.5-5.1); Sodium 140 mmol/L (136-145)
[2024-12-21 11:54] LABS: Anion Gap 6 (5-15); Calcium 9.0 mg/dL (8.7-10.4); Carbon Dioxide 31 mmol/L (20-31)
[2024-12-21 11:59] LABS: BUN/Creatinine Ratio 18.9 (10.0-20.0); Blood Urea Nitrogen 18 mg/dL (9-23)
--- NOTE | 2024-12-21 11:59 | ECG ---
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
[2024-12-21 12:02] LABS: Glucose 116 mg/dL (74-106)
--- NOTE | 2024-12-21 15:57 | DVHINCON2 ---
Date of service: Dec 21, 2024 Family History: FHx: breast cancer G8 MOTHER, Allergies: Coded Allergies: Ibuprofen (Verified Allergy, Severe, 12/19/24) Current Medications Current Medications Medications (Trade) Dose Ordered Sig/Sandra Route PRN Reason Start Time Stop Time Status Last Admin Quetiapine Fumarate (SEROquel TABLET) 25 mg BID PO 12/21/24 22:00 Vital Signs Vital Signs Date Time Temp Pulse Resp B/P (MAP) Pulse Ox O2 Delivery O2 Flow Rate FiO2 12/21/24 13:30 96.7 69 18 139/74 (95) 100 96.7 12/21/24 10:32 Nasal Cannula* 3 32 Labs/Diagnostic Data Labs Test 12/21/24 11:05 12/21/24 07:33 12/20/24 12:00 12/20/24 06:58 Range/Units White Blood Count 15.8 H 4.4-10.8 10^3/uL Red Blood Count 5.73 4.5-5.90 10^6/uL Hemoglobin 10.7 L 13.5-17.5 g/dL Hematocrit 35.8 L 41.0-53.0 % Mean Corpuscular Volume 62.4 L 80.0-100.0 fL Mean Corpuscular Hemoglobin 18.6 L 28.0-32.0 pg Mean Corpuscular Hemoglobin Concent 29.8 L 32.0-36.0 g/dL Red Cell Distribution Width 17.0 H 11.8-14.3 % Platelet Count 253 140-450 10^3/uL Mean Platelet Volume 8.9 6.9-10.8 fL Neutrophils (%) (Auto) 82.2 H 37.0-80.0 % Lymphocytes (%) (Auto) 11.1 10.0-50.0 % Monocytes (%) (Auto) 5.9 0.0-12.0 % Eosinophils (%) (Auto) 0.5 0.0-7.0 % Basophils (%) (Auto) 0.3 0.0-2.0 % Neutrophils # (Auto) 13.0 H 1.6-8.6 10 ^3/uL Lymphocytes # (Auto) 1.8 0.4-5.4 10 ^3/uL Monocytes # (Auto) 0.9 0-1.3 10 ^3/uL Eosinophils # (Auto) 0.1 0-0.8 10 ^3/uL Basophils # (Auto) 0 0-0.2 10 ^3/uL Nucleated Red Blood Cells 0.1 % Sodium Level 140 136-145 mmol/L Potassium Level 4.2 3.5-5.1 mmol/L Chloride Level 103 98-107 mmol/L Carbon Dioxide Level 31 20-31 mmol/L Anion Gap 6 5-15 Blood Urea Nitrogen 18 9-23 mg/dL Creatinine 0.95 0.700-1.30 mg/dL Glomerular Filtration Rate Calc 91 >90 mL/min BUN/Creatinine Ratio 18.9 10.0-20.0 Serum Glucose 116 H 74-106 mg/dL Calcium Level 9.0 8.7-10.4 mg/dL Blood Gas Specimen Type Arterial Blood Gas Sample Site Right radial Blood Gas Patient Temperature 37.0 Arterial Blood Date Drawn [id number] Arterial Blood pH 7.324 L 7.350-7.450 Arterial Blood Partial Pressure CO2 61.2 *H 35.0-48.0 mmHg Arterial Blood Partial Pressure O2 62.7 L 83.0-108.0 mmHg Arterial Blood HCO3 31.1 H 21.0-28.0 mmol/L Arterial Blood Oxygen Saturation 90.2 L 94.0-98.0 % Arterial Blood Base Excess 3.8 H -2.0-3.0 mmol/L Arterial Blood Oxyhemoglobin 89.0 L 94.0-98.0 % Arterial Blood Carboxyhemoglobin 1.0 0.5-1.5 % Arterial Blood Methemoglobin 0.3 0.0-1.5 % Artur Test Modified Blood Gas Total Hemoglobin 11.40 L 13.5-17.5 g/dL Blood Gas Liter Flow 6.00 Blood Gas Modality Nasal cannula FiO2 % 44.0 Blood Gas Critical Value Read Back Yes Blood Gas Notified Whom kevin [place] Blood Gas Notified Time [id number] Blood Gas Notified By Executive Administrative Asst jose ch Urine Opiates Screen Pos NEGATIVE Urine Fentanyl Screen Neg NEGATIVE Urine Barbiturates Screen Neg NEGATIVE Urine Phencyclidine Screen Neg NEGATIVE Urine Amphetamines Screen Neg NEGATIVE Urine Benzodiazepines Screen Neg NEGATIVE Urine Cocaine Screen Neg NEGATIVE Urine Cannabinoids Screen Pos NEGATIVE Influenza Type A Antigen Negative Negative Influenza Type B Antigen Negative Negative SARS-CoV-2 Antigen (Rapid) Negative NEGATIVE Total Bilirubin 0.4 0.2-1.0 mg/dL Aspartate Amino Transferase (AST) 12 L 13-40 U/L Alanine Aminotransferase (ALT) 9 7-40 U/L Alkaline Phosphatase 83 46-116 U/L B-Type Natriuretic Peptide 46.79 0-100 pg/mL Total Protein 6.1 5.7-8.2 g/dL Albumin 3.9 3.2-4.8 g/dL Test 12/19/24 18:47 12/19/24 15:36 Range/Units Urine Color Yellow Yellow Urine Clarity Clear Clear Urine pH 6.0 5.0-9.0 Urine Specific [place] > 1.050 H 1.001-1.035 Urine Protein 1+ H Negative Urine Ketones Negative Negative Urine Blood Negative Negative /uL Urine Nitrite Negative Negative Urine Bilirubin Negative Negative Urine Urobilinogen Normal Negative mg/dL Urine Leukocyte Esterase Negative Negative /uL Urine RBC 8 0 - 3 /hpf Urine Microscopic WBC 1 0-3 /HPF Urine Squamous Epithelial Cells Few <5 /hpf Urine Bacteria None seen None Seen /hpf Urine Mucus Few None Seen Urine Glucose Normal Normal mg/dL Prothrombin Time 10.1 9.3-11.8 sec Prothrombin Time INR 0.95 0.9-1.15 Activated Partial Thromboplast Time 26.3 24.5-34.5 SEC Microbiology Date/Time Source Procedure Growth Status 12/19/24 15:36 Blood Blood Culture - Preliminary NO GROWTH AFTER 24 HOURS OF INCUBATION. Resulted Assessment [id number] C/O R GROIN PAIN SWELLING SOME NAUSEA NO VOMITTING NO BM FLATUS + AFEBRILE VSS ABD SOFT NON ACUTE NO CLINICAL OR RADIOLOGICAL INCARCERATED/STRANGULATED RIH R/O SEVERE FUNGAL INFECTION CAUSING CELLULITES ID EVAL FOR THE R GROIN INFECTION CLOSE OBSERVATION Plan discussed with: Patient OLAMIDE BAILEY MD Dec 21, 2024 15:57
--- NOTE | 2024-12-21 16:08 | DVHINCON2 ---
DATE OF CONSULTATION: 12/21/2024 HISTORY OF PRESENT ILLNESS: I was asked to see him with regards to right groin pain. Apparently consult was requested two days ago but there was non-availability of a surgical consult at that time. So I was asked to see him. Currently, his main complaint is right groin pain. He has mild swelling as well. He has some nausea. No vomiting. No constipation or diarrhea. No hematemesis or melena. No bleeding per rectum. PAST MEDICAL HISTORY: Asthma, COPD, he is on home oxygen. PAST SURGICAL HISTORY: Right hand surgery. Nothing significant in the abdomen. PHYSICAL EXAMINATION: VITAL SIGNS: Afebrile. Stable signs. HEENT: No evidence of pallor, cyanosis, or jaundice. NECK: Supple and nontender with no thyromegaly or lymphadenopathy. CHEST AND LUNGS: Clear. HEART: Within normal limits. ABDOMEN: Soft. He is morbidly obese, difficult to evaluate. He has right groin lymphadenitis and he is tender because of possible fungal infection in the right groin. Rule out hidradenitis suppurativa but does not appear to have incarcerated or strangulated hernia in that location and the CAT scan does not also confirm any strangulated or incarcerated right inguinal hernia. NEUROLOGIC: So based upon that, neurologically, he is not assessed. EXTREMITY: Unremarkable. CLINICAL IMPRESSION: Right inguinal rule out fungal infection and possible cellulitis and lymphadenitis secondary to that as the CAT scan is indicating and at this point, the CAT scan also is not confirming any incarcerated or strangulated inguinal hernia. PLAN: Keep him under close observation and give him pain medication along with antifungal treatment and this case was discussed with Dr. Puckett and management will be ongoing based upon the discussion and the evaluation. MD NEMESIO Helton/ZEE TID: [id number] RECEIPT: [id number] cc: Reema Puckett MD
[2024-12-21] MEDS: LORazepam 2MG/ML-1ML VIAL IV PRN (16:17)
[2024-12-22] VITALS (12 sets, daily range): BP systolic 109–144; BP diastolic 41–83; PULSE 71–89; RESP 12–18; TEMP 87–98; O2SAT 93–100
[2024-12-22] MEDS: ACETAMINOPHEN 325 MG TAB PO PRN (03:23)
[2024-12-22 06:38] LABS: Hemoglobin 9.8 g/dL (13.5-17.5); Mean Corpuscular Volume 62.2 fL (80.0-100.0)
[2024-12-22 06:40] LABS: Hematocrit 32.0 % (41.0-53.0); Mean Corpuscular Hemoglobin 19.0 pg (28.0-32.0); Nucleated Red Blood Cells % 0.1 %
[2024-12-22 06:56] LABS: Alkaline Phosphatase 102 U/L (46-116); Anion Gap 7 (5-15); BUN/Creatinine Ratio 17.7 (10.0-20.0); Blood Urea Nitrogen 17 mg/dL (9-23); Calcium 9.6 mg/dL (8.7-10.4); Chloride 101 mmol/L (98-107); Potassium 4.6 mmol/L (3.5-5.1); Sodium 142 mmol/L (136-145); Total Protein 6.3 g/dL (5.7-8.2)
[2024-12-22 06:57] LABS: Albumin 4.0 g/dL (3.2-4.8); Bilirubin, Total 0.3 mg/dL (0.2-1.0)
[2024-12-22 06:58] LABS: Alanine Aminotransferase < 9 U/L (7-40); Carbon Dioxide 34 mmol/L (20-31); Glucose 113 mg/dL (74-106)
--- NOTE | 2024-12-22 09:13 | DVHPN2 ---
Subjective Still complaining of lower abdominal pain especially in the right inguinal area Reviewed: Care Plan, H&P, Labs, Medications, Previous Orders, Radiology, Other (Consultation) Changes from previous H/P or p: No Changes Objective Vitals Vital Signs Date Time Temp Pulse Resp B/P (MAP) Pulse Ox O2 Delivery O2 Flow Rate FiO2 12/22/24 08:15 93 Nasal Cannula* 4 36 12/22/24 05:55 97.0 72 12 109/41 (63) 97.0 Intake/Output Intake and Output 12/22/24 07:00 Intake Total 3400 ml Output Total 1875 ml Balance 1525 ml Intake Oral 2800 ml IV Total 600 ml Output Urine Total 1375 ml Emesis 500 ml General Appearance: Alert, Oriented X3, Cooperative, mild distress, Other (Morbidly obese) HEENT: Atraumatic Lungs: Other (Decreased air entry bilaterally with scattered wheezing) Cardiovascular: Regular rate, Normal S1, Normal S2 Abdomen: Normal bowel sounds, Soft, Other (Pus was seen coming from right inguinal hernia; severe tenderness of right inguinal area along with erythema) Neuro: Normal speech, Cranial nerves 3-12 NL Skin: Other (Redness and warmth of right inguinal hernia along with abdominal found covering it) Psych/Mental Status: Mental status NL, Mood NL Medications Current Medications Medications Dose Ordered Sig/Sandra Route Start Time Stop Time Status Last Admin Dose Admin Sodium Chloride 1,000 ml @ 60 mls/hr [id number] IV 12/19/24 14:30 12/20/24 06:25 60 MLS/HR Acetaminophen/ Hydrocodone Bitart 1 tab Q4HP PRN PO 12/19/24 14:30 12/21/24 22:39 1 TAB Ondansetron HCl 4 mg Q4HP PRN IV 12/19/24 14:30 12/22/24 04:44 4 MG Docusate Sodium 100 mg BIDPRN PRN PO 12/19/24 14:30 Acetaminophen 650 mg Q6HP PRN PO 12/19/24 14:30 12/22/24 03:23 650 MG Ipratropium [place]asio 0.5 mg Q6HWA NEB 12/19/24 18:00 12/22/24 06:05 0.5 MG Albuterol 2.5 mg Q6HWA NEB 12/19/24 18:00 12/22/24 06:05 2.5 MG Metronidazole 100 ml @ 100 mls/hr Q8HR IV 12/19/24 22:00 12/22/24 05:51 100 MLS/HR Albuterol 2.5 mg Q4HPRN PRN NEB 12/19/24 18:00 12/19/24 22:59 2.5 MG Ipratropium [place]asio 0.5 mg Q4HPRN PRN NEB 12/19/24 18:00 12/19/24 22:59 0.5 MG Piperacillin Sod/ Tazobactam Sod 100 ml @ 25 mls/hr Q8HR IV 12/20/24 14:00 12/22/24 05:52 25 MLS/HR Morphine Sulfate 2 mg Q4HPRN PRN IV 12/20/24 11:45 12/22/24 01:54 2 MG Quetiapine Fumarate 25 mg BID PO 12/21/24 22:00 Lorazepam 0.25 mg Q6HP PRN IV 12/21/24 15:45 12/21/24 23:59 0.25 MG Laboratory Results Laboratory Tests 12/22/24 05:35 Chemistry Test 12/21/24 11:05 12/22/24 05:35 Calcium Level 9.0 mg/dL (8.7-10.4) 9.6 mg/dL (8.7-10.4) Albumin 4.0 g/dL (3.2-4.8) Total Protein 6.3 g/dL (5.7-8.2) LFT Test 12/22/24 05:35 Alanine Aminotransferase (ALT) < 9 U/L (7-40) Alkaline Phosphatase 102 U/L (46-116) Aspartate Amino Transferase (AST) 16 U/L (13-40) Total Bilirubin 0.3 mg/dL (0.2-1.0) Urinalysis Test 12/19/24 18:47 Urine Color Yellow (Yellow) Urine Clarity Clear (Clear) Urine pH 6.0 (5.0-9.0) Urine Specific [place] > 1.050 (1.001-1.035) Urine Protein 1+ (Negative) H Urine Ketones Negative (Negative) Urine Blood Negative /uL (Negative) Urine Nitrite Negative (Negative) Urine Bilirubin Negative (Negative) Urine Urobilinogen Normal mg/dL (Negative) Urine Leukocyte Esterase Negative /uL (Negative) Urine RBC 8 /hpf (0 - 3) Urine Microscopic WBC 1 /HPF (0-3) Urine Squamous Epithelial Cells Few /hpf (<5) Urine Bacteria None seen /hpf (None Seen) Urine Mucus Few (None Seen) Urine Glucose Normal mg/dL (Normal) Microbiology Microbiology Date/Time Source Procedure Growth Status 12/19/24 15:36 Blood Blood Culture - Preliminary NO GROWTH AFTER 48 HOURS OF INCUBATION. Resulted Labs and/or images reviewed: Labs reviewed by me, Image(s) reviewed by me Assessment/Plan Assessment/Plan A 64-year-old morbidly obese male patient; with past medical history of COPD on home oxygen 3 L/min via nasal cannula, and marijuana use disorder; who presented to the emergency department with severe lower abdominal pain. # Severe lower abdominal pain; unclear etiology; could be related to suspected soft tissue infection of the abdominal wall # Sepsis with leukocytosis due to suspected soft tissue infection of the abdominal wall # COPD on home oxygen; not in exacerbation # Marijuana use disorder # Aggressive behavior; consulted tele psychiatry # Morbid obesity Ordered EKG that showed QTc of 423 ms; started quetiapine 25 mg twice daily but patient refused taking the medication and refused tele psychiatry Reviewed available lab work and imaging studies Reviewed blood cultures; ordered wound Gram stain and culture Surgery evaluated the patient and recommended infectious disease consultation for suspected severe fungal infection of the abdominal wall Infectious disease consulted To advance diet as tolerated Counseled the patient on the importance of adopting healthy lifestyle with diet and exercise in order to lose weight Continue IV Zosyn for broad-spectrum coverage; stopped IV metronidazole Leukocytosis decreased after IV Zosyn Pending Infectious Disease evaluation to decide regarding starting antifungal medication Counseled on marijuana use cessation Continue IV fluids Continue pain management Continue nebulizers and oxygen therapy as needed Continue monitoring Late Entry. This medical document was created using an electronic medical record system with computerized dictation system. Although this document has been carefully reviewed, there might still be some phonetic and typographical errors. These areas are purely typographical due to imperfections of the software programs, and do not reflect any compromise in the patient's medical care. Plan discussed with: Patient, Other (Nurse) My Orders Orders - KAELYN MORALES MD Procedure Category Date Status Time * Health Manager CONS 12/21/24 Transmitted Consult Communication Order ORDERS 12/21/24 Transmitted 10:42 Continuous Ekg CHRISTINA 12/21/24 In Process Monitoring 10:42 Electrocardigram EKG 12/21/24 Resulted 10:42 Electrocardigram EKG 12/21/24 Transmitted 11:42 Quetiapine Fumarate PHA 12/21/24 In Process Tablet (Seroquel Tab 22:00 * Infectious [place]- CONS 12/21/24 Transmitted K Willis 15:50 Regular Diet DIET 12/22/24 Transmitted Breakfast Abg W/ Co-Ox RT 12/23/24 Logged 08:00 * Wound Consult CONS 12/22/24 Transmitted Date of Service: Dec 22, 2024 Billing Provider: KAELYN MORALES MD Common Visit Codes: [id number] INP/OBS CARE(HIGH) KAELYN MORALES MD Dec 22, 2024 09:13
--- NOTE | 2024-12-22 13:31 | MEDREC ---
[facility] Intervention Section I [facility] Intervention: Duplication of therapy (CONSIDER DISCONTINUING METRONIDAZOLE DUE TO DUPLICATE ANAEROBIC COVERAGE WITH ZOSYN.) BLAINE [facility] RESIDENT Dec 22, 2024 13:31
[2024-12-23] VITALS (8 sets, daily range): BP systolic 134; BP diastolic 73; PULSE 72–80; RESP 18–22; TEMP 97.7; O2SAT 91–100
--- NOTE | 2024-12-23 10:16 | DVHPN2 ---
Subjective Still complaining of lower abdominal pain especially in the right inguinal area Reviewed: Care Plan, H&P, Labs, Medications, Previous Orders, Radiology, Other (Consultation) Changes from previous H/P or p: No Changes Objective Vitals Vital Signs Date Time Temp Pulse Resp B/P (MAP) Pulse Ox O2 Delivery O2 Flow Rate FiO2 12/23/24 08:00 Nasal Cannula* 4 36 12/23/24 06:48 75 18 95 12/22/24 16:54 98.0 140/83 (102) 98.0 Intake/Output Intake and Output 12/23/24 07:00 Intake Total 1120 ml Output Total 1600 ml Balance -480 ml Intake Oral 1120 ml Output Urine Total 1000 ml Emesis 600 ml General Appearance: Alert, Oriented X3, Cooperative, mild distress, Other (Morbidly obese) HEENT: Atraumatic Lungs: Other (Decreased air entry bilaterally with scattered wheezing) Cardiovascular: Regular rate, Normal S1, Normal S2 Abdomen: Normal bowel sounds, Soft, Other (Pus was seen coming from right inguinal hernia; severe tenderness of right inguinal area along with erythema) Neuro: Normal speech, Cranial nerves 3-12 NL Skin: Other (As above) Psych/Mental Status: Mental status NL, Mood NL Medications Current Medications Medications Dose Ordered Sig/Sandra Route Start Time Stop Time Status Last Admin Dose Admin Sodium Chloride 1,000 ml @ 60 mls/hr [id number] IV 12/19/24 14:30 12/20/24 06:25 60 MLS/HR Acetaminophen/ Hydrocodone Bitart 1 tab Q4HP PRN PO 12/19/24 14:30 12/21/24 22:39 1 TAB Ondansetron HCl 4 mg Q4HP PRN IV 12/19/24 14:30 12/22/24 16:55 4 MG Docusate Sodium 100 mg BIDPRN PRN PO 12/19/24 14:30 Acetaminophen 650 mg Q6HP PRN PO 12/19/24 14:30 12/22/24 03:23 650 MG Ipratropium [place] 0.5 mg Q6HWA NEB 12/19/24 18:00 12/23/24 06:40 0.5 MG Albuterol 2.5 mg Q6HWA NEB 12/19/24 18:00 12/23/24 06:40 2.5 MG Albuterol 2.5 mg Q4HPRN PRN NEB 12/19/24 18:00 12/19/24 22:59 2.5 MG Ipratropium [place] 0.5 mg Q4HPRN PRN NEB 12/19/24 18:00 12/19/24 22:59 0.5 MG Piperacillin Sod/ Tazobactam Sod 100 ml @ 25 mls/hr Q8HR IV 12/20/24 14:00 12/22/24 22:12 25 MLS/HR Morphine Sulfate 2 mg Q4HPRN PRN IV 12/20/24 11:45 12/22/24 14:00 2 MG Quetiapine Fumarate 25 mg BID PO 12/21/24 22:00 Lorazepam 0.25 mg Q6HP PRN IV 12/21/24 15:45 12/22/24 16:55 0.25 MG Laboratory Results Laboratory Tests 12/22/24 05:35 Urinalysis Test 12/19/24 18:47 Urine Color Yellow (Yellow) Urine Clarity Clear (Clear) Urine pH 6.0 (5.0-9.0) Urine Specific [place] > 1.050 (1.001-1.035) Urine Protein 1+ (Negative) H Urine Ketones Negative (Negative) Urine Blood Negative /uL (Negative) Urine Nitrite Negative (Negative) Urine Bilirubin Negative (Negative) Urine Urobilinogen Normal mg/dL (Negative) Urine Leukocyte Esterase Negative /uL (Negative) Urine RBC 8 /hpf (0 - 3) Urine Microscopic WBC 1 /HPF (0-3) Urine Squamous Epithelial Cells Few /hpf (<5) Urine Bacteria None seen /hpf (None Seen) Urine Mucus Few (None Seen) Urine Glucose Normal mg/dL (Normal) Microbiology Microbiology Date/Time Source Procedure Growth Status 12/19/24 15:36 Blood Blood Culture - Preliminary NO GROWTH AFTER 72 HOURS OF INCUBATION. Resulted Labs and/or images reviewed: Labs reviewed by me, Image(s) reviewed by me Assessment/Plan Assessment/Plan A 64-year-old morbidly obese male patient; with past medical history of COPD on home oxygen 3 L/min via nasal cannula, and marijuana use disorder; who presented to the emergency department with severe lower abdominal pain. # Severe lower abdominal pain; unclear etiology; could be related to suspected soft tissue infection of the abdominal wall # Sepsis with leukocytosis due to suspected soft tissue infection of the abdominal wall # COPD on home oxygen; not in exacerbation # Marijuana use disorder # Aggressive behavior; consulted tele psychiatry # Morbid obesity Ordered EKG that showed QTc of 423 ms; started quetiapine 25 mg twice daily but patient refused taking the medication and refused tele psychiatry Reviewed available lab work and imaging studies Negative blood cultures; pending wound Gram stain and culture Surgery evaluated the patient To advance diet as tolerated Counseled the patient on the importance of adopting healthy lifestyle with diet and exercise in order to lose weight Continue IV Zosyn for broad-spectrum coverage Leukocytosis decreased after IV Zosyn Counseled on marijuana use cessation Continue IV fluids Continue pain management Continue nebulizers and oxygen therapy as needed Continue monitoring Late Entry. This medical document was created using an electronic medical record system with computerized dictation system. Although this document has been carefully reviewed, there might still be some phonetic and typographical errors. These areas are purely typographical due to imperfections of the software programs, and do not reflect any compromise in the patient's medical care. Plan discussed with: Patient, Other (Nurse) My Orders Orders - KAELYN MORALES MD Procedure Category Date Status Time Soc Telemed Psych CONS 12/22/24 Transmitted Consult 14:25 Wound Culture W/ Gs TANYA 12/22/24 In Process 16:25 Complete Blood Count LAB 12/24/24 Verified 04:00 Comprehensive LAB 12/24/24 Verified Metabolic Panel 04:00 Date of Service: Dec 23, 2024 Billing Provider: KAELYN MORALES MD Common Visit Codes: [id number] INP/OBS CARE(HIGH) KAELYN MORALES MD Dec 23, 2024 10:16
--- NOTE | 2024-12-23 16:49 | DVHINCON2 ---
Date of Service if different f: Dec 23, 2024 Time of Service: 16:46 Consultation ([facility]) Consulting Physician: SADIA THOMAS MD Labs Laboratory Tests Test 12/19/24 15:36 12/19/24 18:47 12/20/24 06:58 12/20/24 12:00 Prothrombin Time 10.1 sec (9.3-11.8) Prothromb Time International Ratio 0.95 (0.9-1.15) Activated Partial Thromboplast Time 26.3 SEC (24.5-34.5) Urine Color Yellow (Yellow) Urine Clarity Clear (Clear) Urine pH 6.0 (5.0-9.0) Urine Specific [place] > 1.050 (1.001-1.035) Urine Protein 1+ (Negative) Urine Ketones Negative (Negative) Urine Blood Negative /uL (Negative) Urine Nitrite Negative (Negative) Urine Bilirubin Negative (Negative) Urine Urobilinogen Normal mg/dL (Negative) Urine Leukocyte Esterase Negative /uL (Negative) Urine RBC 8 /hpf (0 - 3) Urine Microscopic WBC 1 /HPF (0-3) Urine Squamous Epithelial Cells Few /hpf (<5) Urine Bacteria None seen /hpf (None Seen) Urine Mucus Few (None Seen) Urine Glucose Normal mg/dL (Normal) B-Type Natriuretic Peptide 46.79 pg/mL (0-100) Urine Opiates Screen Pos (NEGATIVE) Urine Fentanyl Screen Neg (NEGATIVE) Urine Barbiturates Screen Neg (NEGATIVE) Urine Phencyclidine Screen Neg (NEGATIVE) Urine Amphetamines Screen Neg (NEGATIVE) Urine Benzodiazepines Screen Neg (NEGATIVE) Urine Cocaine Screen Neg (NEGATIVE) Urine Cannabinoids Screen Pos (NEGATIVE) Influenza Type A Antigen Negative (Negative) Influenza Type B Antigen Negative (Negative) SARS-CoV-2 Antigen (Rapid) Negative (NEGATIVE) Test 12/21/24 07:33 12/22/24 05:35 Blood Gas Specimen Type Arterial Blood Gas Sample Site Right radial Blood Gas Patient Temperature 37.0 Arterial Blood Date Drawn [id number] Arterial Blood pH 7.324 (7.350-7.450) Arterial Blood Partial Pressure CO2 61.2 mmHg (35.0-48.0) Arterial Blood Partial Pressure O2 62.7 mmHg (83.0-108.0) Arterial Blood HCO3 31.1 mmol/L (21.0-28.0) Arterial Blood Oxygen Saturation 90.2 % (94.0-98.0) Arterial Blood Base Excess 3.8 mmol/L (-2.0-3.0) Arterial Blood Oxyhemoglobin 89.0 % (94.0-98.0) Arterial Blood Carboxyhemoglobin 1.0 % (0.5-1.5) Arterial Blood Methemoglobin 0.3 % (0.0-1.5) Artur Test Modified Blood Gas Total Hemoglobin 11.40 g/dL (13.5-17.5) Blood Gas Liter Flow 6.00 Blood Gas Modality Nasal cannula FiO2 % 44.0 Blood Gas Critical Value Read Back Yes Blood Gas Notified Whom kevin [place] Blood Gas Notified Time [id number] Blood Gas Notified By [employer]room Supervisor jose ch White Blood Count 12.1 10^3/uL (4.4-10.8) Red Blood Count 5.14 10^6/uL (4.5-5.90) Hemoglobin 9.8 g/dL (13.5-17.5) Hematocrit 32.0 % (41.0-53.0) Mean Corpuscular Volume 62.2 fL (80.0-100.0) Mean Corpuscular Hemoglobin 19.0 pg (28.0-32.0) Mean Corpuscular Hemoglobin Concent 30.6 g/dL (32.0-36.0) Red Cell Distribution Width 17.0 % (11.8-14.3) Platelet Count 265 10^3/uL (140-450) Mean Platelet Volume 8.9 fL (6.9-10.8) Neutrophils (%) (Auto) 84.2 % (37.0-80.0) Lymphocytes (%) (Auto) 9.3 % (10.0-50.0) Monocytes (%) (Auto) 4.8 % (0.0-12.0) Eosinophils (%) (Auto) 1.2 % (0.0-7.0) Basophils (%) (Auto) 0.5 % (0.0-2.0) Neutrophils # (Auto) 10.2 10 ^3/uL (1.6-8.6) Lymphocytes # (Auto) 1.1 10 ^3/uL (0.4-5.4) Monocytes # (Auto) 0.6 10 ^3/uL (0-1.3) Eosinophils # (Auto) 0.1 10 ^3/uL (0-0.8) Basophils # (Auto) 0.1 10 ^3/uL (0-0.2) Nucleated Red Blood Cells 0.1 % Sodium Level 142 mmol/L (136-145) Potassium Level 4.6 mmol/L (3.5-5.1) Chloride Level 101 mmol/L (98-107) Carbon Dioxide Level 34 mmol/L (20-31) Anion Gap 7 (5-15) Blood Urea Nitrogen 17 mg/dL (9-23) Creatinine 0.96 mg/dL (0.700-1.30) Glomerular Filtration Rate Calc 89 mL/min (>90) BUN/Creatinine Ratio 17.7 (10.0-20.0) Serum Glucose 113 mg/dL (74-106) Calcium Level 9.6 mg/dL (8.7-10.4) Total Bilirubin 0.3 mg/dL (0.2-1.0) Aspartate Amino Transf (AST/SGOT) 16 U/L (13-40) Alanine Aminotransferase (ALT/SGPT) < 9 U/L (7-40) Alkaline Phosphatase 102 U/L (46-116) Total Protein 6.3 g/dL (5.7-8.2) Albumin 4.0 g/dL (3.2-4.8) Microbiology Date/Time Source Procedure Growth Status 12/22/24 16:25 Groin Gram Stain - Final Resulted 12/22/24 16:25 Groin Wound Culture - Preliminary Resulted 12/19/24 15:36 Blood Blood Culture - Preliminary NO GROWTH AFTER 72 HOURS OF INCUBATION. Resulted Vitals Vital Signs Date Time Temp Pulse Resp B/P (MAP) Pulse Ox O2 Delivery O2 Flow Rate FiO2 12/23/24 12:03 79 18 100 12/23/24 11:55 Nasal Cannula 3.0 12/23/24 11:55 32 12/22/24 16:54 98.0 140/83 (102) 98.0 Current medications Current Medications Medications Dose Ordered Sig/Sandra Route Start Time Stop Time Status Last Admin Dose Admin Sodium Chloride 1,000 ml @ 60 mls/hr [id number] IV 12/19/24 14:30 12/20/24 06:25 60 MLS/HR Acetaminophen/ Hydrocodone Bitart 1 tab Q4HP PRN PO 7/28/25 14:30 12/23/24 16:03 1 TAB Ondansetron HCl 4 mg Q4HP PRN IV 12/19/24 14:30 12/22/24 16:55 4 MG Docusate Sodium 100 mg BIDPRN PRN PO 12/19/24 14:30 Acetaminophen 650 mg Q6HP PRN PO 12/19/24 14:30 12/22/24 03:23 650 MG Ipratropium [place]al 0.5 mg Q6HWA NEB 12/19/24 18:00 12/23/24 11:55 0.5 MG Albuterol 2.5 mg Q6HWA NEB 12/19/24 18:00 12/23/24 11:55 2.5 MG Albuterol 2.5 mg Q4HPRN PRN NEB 12/19/24 18:00 12/19/24 22:59 2.5 MG Ipratropium Ideal 0.5 mg Q4HPRN PRN NEB 12/19/24 18:00 12/19/24 22:59 0.5 MG Piperacillin Sod/ Tazobactam Sod 100 ml @ 25 mls/hr Q8HR IV 12/20/24 14:00 12/23/24 14:38 25 MLS/HR Morphine Sulfate 2 mg Q4HPRN PRN IV 12/20/24 11:45 12/22/24 14:00 2 MG Quetiapine Fumarate 25 mg BID PO 12/21/24 22:00 Lorazepam 0.25 mg Q6HP PRN IV 12/21/24 15:45 12/22/24 16:55 0.25 MG PSYCHIATRY CONSULTATION BRIEF NOTE Tele-psych consulted for agitation. However, pt declined to interview. Re- consult if pt amenable to engage. SUZANNE MACKEY MD Dec 23, 2024 16:49
[2024-12-24] VITALS (13 sets, daily range): BP systolic 103–125; BP diastolic 52–68; PULSE 62–77; RESP 16–22; TEMP 98–98.9; O2SAT 92–100
[2024-12-24 07:11] LABS: Hematocrit 33.6 % (41.0-53.0); Hemoglobin 10.2 g/dL (13.5-17.5); Mean Corpuscular Hemoglobin 18.9 pg (28.0-32.0); Mean Corpuscular Volume 62.0 fL (80.0-100.0); Nucleated Red Blood Cells % 0.0 %
[2024-12-24 07:23] LABS: Alkaline Phosphatase 66 U/L (46-116); BUN/Creatinine Ratio 16.0 (10.0-20.0); Blood Urea Nitrogen 17 mg/dL (9-23); Calcium 9.1 mg/dL (8.7-10.4); Chloride 100 mmol/L (98-107); Potassium 4.1 mmol/L (3.5-5.1); Sodium 145 mmol/L (136-145); Total Protein 6.2 g/dL (5.7-8.2)
[2024-12-24 07:24] LABS: Albumin 3.7 g/dL (3.2-4.8)
[2024-12-24 07:28] LABS: Alanine Aminotransferase 9 U/L (7-40); Anion Gap 4.99999 (5-15); Glucose 128 mg/dL (74-106)
[2024-12-24 07:29] LABS: Bilirubin, Total 0.3 mg/dL (0.2-1.0)
[2024-12-24 07:31] LABS: Carbon Dioxide > 40 mmol/L (20-31)
[2024-12-24] MEDS ORDERED: VANCOMYCIN PER PHARMACY 0 MG IV SCH (12:15)
--- NOTE | 2024-12-24 12:18 | DVHPN2 ---
Subjective Still complaining of lower abdominal pain especially in the right inguinal area with pus coming out Reviewed: Care Plan, H&P, Labs, Medications, Previous Orders, Radiology, Other (Consultation) Changes from previous H/P or p: No Changes Objective Vitals Vital Signs Date Time Temp Pulse Resp B/P (MAP) Pulse Ox O2 Delivery O2 Flow Rate FiO2 12/24/24 12:09 70 20 100 12/24/24 08:21 Nasal Cannula* 4 36 12/24/24 06:45 126/68 12/24/24 05:00 98.6 98.6 Intake/Output Intake and Output 12/24/24 07:00 Intake Total 1700 ml Output Total 800 ml Balance 900 ml Intake Oral 1600 ml IV Total 100 ml Output Urine Total 800 ml # Voids 4 General Appearance: Alert, Oriented X3, Cooperative, mild distress, Other (Morbidly obese) HEENT: Atraumatic Lungs: Other (Decreased air entry bilaterally with scattered wheezing) Cardiovascular: Regular rate, Normal S1, Normal S2 Abdomen: Normal bowel sounds, Soft, Other (Pus was seen coming from right inguinal hernia; severe tenderness of right inguinal area along with erythema) Neuro: Normal speech, Cranial nerves 3-12 NL Skin: Other (As above) Psych/Mental Status: Mental status NL, Mood NL Medications Current Medications Medications Dose Ordered Sig/Sandra Route Start Time Stop Time Status Last Admin Dose Admin Sodium Chloride 1,000 ml @ 60 mls/hr [id number] IV 12/19/24 14:30 12/20/24 06:25 60 MLS/HR Acetaminophen/ Hydrocodone Bitart 1 tab Q4HP PRN PO 12/19/24 14:30 12/23/24 21:32 1 TAB Ondansetron HCl 4 mg Q4HP PRN IV 12/19/24 14:30 12/22/24 16:55 4 MG Docusate Sodium 100 mg BIDPRN PRN PO 12/19/24 14:30 Acetaminophen 650 mg Q6HP PRN PO 12/19/24 14:30 12/22/24 03:23 650 MG Ipratropium [place] 0.5 mg Q6HWA NEB 12/19/24 18:00 12/24/24 12:05 0.5 MG Albuterol 2.5 mg Q6HWA NEB 12/19/24 18:00 12/24/24 12:05 2.5 MG Albuterol 2.5 mg Q4HPRN PRN NEB 12/19/24 18:00 12/19/24 22:59 2.5 MG Ipratropium [place] 0.5 mg Q4HPRN PRN NEB 12/19/24 18:00 12/19/24 22:59 0.5 MG Piperacillin Sod/ Tazobactam Sod 100 ml @ 25 mls/hr Q8HR IV 12/20/24 14:00 12/24/24 06:13 25 MLS/HR Morphine Sulfate 2 mg Q4HPRN PRN IV 12/20/24 11:45 12/24/24 06:13 2 MG Quetiapine Fumarate 25 mg BID PO 12/21/24 22:00 Lorazepam 0.25 mg Q6HP PRN IV 12/21/24 15:45 12/22/24 16:55 0.25 MG Vancomycin HCl 0 ml @ 0 mls/hr UD IV 12/24/24 12:15 UNV Laboratory Results Laboratory Tests 12/24/24 06:18 Chemistry Test 12/24/24 06:18 Albumin 3.7 g/dL (3.2-4.8) Calcium Level 9.1 mg/dL (8.7-10.4) Total Protein 6.2 g/dL (5.7-8.2) LFT Test 12/24/24 06:18 Alanine Aminotransferase (ALT) 9 U/L (7-40) Alkaline Phosphatase 66 U/L (46-116) Aspartate Amino Transferase (AST) 13 U/L (13-40) Total Bilirubin 0.3 mg/dL (0.2-1.0) Urinalysis Test 12/19/24 18:47 Urine Color Yellow (Yellow) Urine Clarity Clear (Clear) Urine pH 6.0 (5.0-9.0) Urine Specific [place] > 1.050 (1.001-1.035) Urine Protein 1+ (Negative) H Urine Ketones Negative (Negative) Urine Blood Negative /uL (Negative) Urine Nitrite Negative (Negative) Urine Bilirubin Negative (Negative) Urine Urobilinogen Normal mg/dL (Negative) Urine Leukocyte Esterase Negative /uL (Negative) Urine RBC 8 /hpf (0 - 3) Urine Microscopic WBC 1 /HPF (0-3) Urine Squamous Epithelial Cells Few /hpf (<5) Urine Bacteria None seen /hpf (None Seen) Urine Mucus Few (None Seen) Urine Glucose Normal mg/dL (Normal) Microbiology Microbiology Date/Time Source Procedure Growth Status 12/22/24 16:25 Groin Gram Stain - Final Resulted 12/22/24 16:25 Wound Culture - Preliminary Methicillin Resistant S.aureus Resulted 12/19/24 15:36 Blood Blood Culture - Preliminary NO GROWTH AFTER 72 HOURS OF INCUBATION. Resulted Labs and/or images reviewed: Labs reviewed by me, Image(s) reviewed by me Assessment/Plan Assessment/Plan A 64-year-old morbidly obese male patient; with past medical history of COPD on home oxygen 3 L/min via nasal cannula, and marijuana use disorder; who presented to the emergency department with severe lower abdominal pain. # Severe lower abdominal pain; unclear etiology; could be related to MRSA soft tissue infection of the abdominal wall # Sepsis with leukocytosis due to suspected soft tissue infection of the abdominal wall # COPD on home oxygen; not in exacerbation # Marijuana use disorder # Aggressive behavior; consulted tele psychiatry # Morbid obesity One-to-one sitter due to aggressive behavior; to prevent self-harm Ordered CT pelvis with IV contrast to rule abscess of right inguinal/groin area Ordered EKG that showed QTc of 423 ms; started quetiapine 25 mg twice daily but patient refused taking the medication and refused tele psychiatry Reviewed available lab work and imaging studies Negative blood cultures; MRSA growth in wound Gram stain and culture; contact precautions Surgery evaluated the patient To advance diet as tolerated Counseled the patient on the importance of adopting healthy lifestyle with diet and exercise in order to lose weight Continue IV Zosyn for broad-spectrum coverage; added IV vancomycin as per pharmacy Leukocytosis decreased after IV Zosyn Counseled on marijuana use cessation Continue IV fluids Continue pain management as needed Continue nebulizers and oxygen therapy as needed Continue monitoring Late Entry. This medical document was created using an electronic medical record system with computerized dictation system. Although this document has been carefully reviewed, there might still be some phonetic and typographical errors. These areas are purely typographical due to imperfections of the software programs, and do not reflect any compromise in the patient's medical care. Plan discussed with: Patient, Other (Nurse) My Orders Orders - KAELYN MORALES MD Procedure Category Date Status Time Cleanse Wound With CHRISTINA 12/23/24 In Process Wound Clean 10:52 * Dietary Consult CONS 12/23/24 Transmitted 15:21 Vancomycin Per PHA 12/24/24 Logged Pharmacy 12:15 Date of Service: Dec 24, 2024 Billing Provider: KAELYN MORALES MD Common Visit Codes: [id number] INP/OBS CARE(HIGH) KAELYN MORALES MD Dec 24, 2024 12:18
[2024-12-24] MEDS: VANCOMYCIN 1.75GM/350ML 350 ML IV ONE (13:45)
[2024-12-24] MEDS: IOHEXOL 300 MG/ML 100ML BOTTLE IJ ONE (15:34)
--- NOTE | 2024-12-24 19:00 | DVH ---
Exam: CT PELVIS WITH CONTRAST ONLY History: To rule out right inguinal/groin abscess. Thank You! Comparison Study: CT CT AB PEL WO CON-NO ORAL OR IV on DOS: 12/19/24, CT CT AB PEL WITH IV CON ONLY on DOS: 12/19/24 Technique: Multidetector CT of the pelvis was performed from iliac crests to pubic symphysis after th e administration of intravenous contrast was administered during this examination. Portal venous imag ing was obtained. Axial, coronal and sagittal multiplanar reformats were performed by the [employer] t on a separate workstation. Radiation Dose : CT Dose: CTDI volume is 27.43 mGy. Dose-length product is 2.96 mGy*cm Findings: Visualized bowel: No bowel wall thickening or dilatation. Ascites: Absent Lymphadenopathy: No pelvic or mesenteric lymphadenopathy. Vasculature: The visualized abdominal aorta is normal in size and caliber. Abdominal and pelvic vesse ls demonstrate normal enhancement. Pelvic Organs: Small fat containing right inguinal hernia measuring 2.8 to 2.9 cm. There is inflammat ory stranding of the right inguinal subcutaneous fat. Measuring 3.8 by 5.3 cm. There does not appear to be any drainable fluid collections. Musculoskeletal: No acute osseous abnormality. Bladder: Unremarkable Soft tissues: On the right there is a 8.6 x 4.1 cm spigelian hernia just above the iliac crest on the right containing fat and muscle. ( Series 2 images 10- 27) IMPRESSION: 1. Small right inguinal hernia containing fat measuring proximally 2.9 cm in diameter 2. Inflammatory stranding in the right inguinal fat with no drainable fluid collections. Stranding of the fat measures 5.3 cm in transverse dimension 3.8 cm in AP dimension. Correlate for history of иван or inguinal surgery. 3. Possible right spigelian hernia or lipoma measuring 8.6 by 4.1 cm ( series 2 images 10 - 27). HS:Y All CT scans at this medical facility are performed using dose modulation techniques as appropriate t o a performed exam including the following: Automated exposure control was utilized; adjustment of th e MA and/or KV according to patient size; and use of iterative reconstruction technique.
[2024-12-25] VITALS (9 sets, daily range): BP systolic 93–125; BP diastolic 45–70; PULSE 71–86; RESP 16–22; TEMP 97.1–99.2; O2SAT 90–100
[2024-12-25 07:49] LABS: Hematocrit 34.0 % (41.0-53.0); Hemoglobin 10.4 g/dL (13.5-17.5); Mean Corpuscular Hemoglobin 18.7 pg (28.0-32.0); Mean Corpuscular Volume 61.2 fL (80.0-100.0); Nucleated Red Blood Cells % 0.1 %
[2024-12-25 07:54] LABS: Calcium 9.3 mg/dL (8.7-10.4); Chloride 100 mmol/L (98-107); Potassium 4.2 mmol/L (3.5-5.1); Sodium 144 mmol/L (136-145)
[2024-12-25 08:00] LABS: BUN/Creatinine Ratio 15.8 (10.0-20.0); Blood Urea Nitrogen 15 mg/dL (9-23); Glucose 104 mg/dL (74-106)
[2024-12-25 08:12] LABS: Anion Gap 3.99999 (5-15); Carbon Dioxide > 40 mmol/L (20-31)
--- NOTE | 2024-12-25 15:32 | DVHPN2 ---
Subjective Still complaining of lower abdominal pain especially in the right inguinal area with pus coming out Reviewed: Care Plan, H&P, Labs, Medications, Previous Orders, Radiology, Other (Consultation) Changes from previous H/P or p: No Changes Objective Vitals Vital Signs Date Time Temp Pulse Resp B/P (MAP) Pulse Ox O2 Delivery O2 Flow Rate FiO2 12/25/24 12:00 83 91 101/49 12/25/24 11:23 98 Nasal Cannula 4.0 12/25/24 11:23 24 12/24/24 16:45 98.9 98.9 Intake/Output Intake and Output 12/25/24 07:00 Intake Total 2220 ml Output Total 750 ml Balance 1470 ml Intake Oral 1470 ml IV Total 750 ml Output Urine Total 750 ml # Voids 9 General Appearance: Alert, Oriented X3, Cooperative, mild distress, Other (Morbidly obese) HEENT: Atraumatic Lungs: Other (Decreased air entry bilaterally with scattered wheezing) Cardiovascular: Regular rate, Normal S1, Normal S2 Abdomen: Normal bowel sounds, Soft, Other (Pus was seen coming from right inguinal hernia; severe tenderness of right inguinal area along with erythema) Neuro: Normal speech, Cranial nerves 3-12 NL Skin: Other (As above) Psych/Mental Status: Mental status NL, Mood NL Medications Current Medications Medications Dose Ordered Sig/Sandra Route Start Time Stop Time Status Last Admin Dose Admin Sodium Chloride 1,000 ml @ 60 mls/hr [id number] IV 12/19/24 14:30 12/24/24 11:10 60 MLS/HR Acetaminophen/ Hydrocodone Bitart 1 tab Q4HP PRN PO 12/19/24 14:30 12/24/24 19:22 1 TAB Ondansetron HCl 4 mg Q4HP PRN IV 12/19/24 14:30 12/22/24 16:55 4 MG Docusate Sodium 100 mg BIDPRN PRN PO 12/19/24 14:30 Acetaminophen 650 mg Q6HP PRN PO 12/19/24 14:30 12/22/24 03:23 650 MG Ipratropium [place] 0.5 mg Q6HWA NEB 12/19/24 18:00 12/25/24 06:00 0.5 MG Albuterol 2.5 mg Q6HWA NEB 12/19/24 18:00 12/25/24 06:00 2.5 MG Albuterol 2.5 mg Q4HPRN PRN NEB 12/19/24 18:00 12/19/24 22:59 2.5 MG Ipratropium [place] 0.5 mg Q4HPRN PRN NEB 12/19/24 18:00 12/19/24 22:59 0.5 MG Piperacillin Sod/ Tazobactam Sod 100 ml @ 25 mls/hr Q8HR IV 12/20/24 14:00 12/25/24 14:04 25 MLS/HR Morphine Sulfate 2 mg Q4HPRN PRN IV 12/20/24 11:45 12/25/24 11:12 2 MG Quetiapine Fumarate 25 mg BID PO 12/21/24 22:00 12/25/24 00:21 25 MG Lorazepam 0.25 mg Q6HP PRN IV 12/21/24 15:45 12/22/24 16:55 0.25 MG Vancomycin HCl 0 ml @ 0 mls/hr UD IV 12/24/24 12:15 Vancomycin HCl 300 ml @ 200 mls/hr Q12H IV 12/25/24 11:00 12/25/24 11:00 200 MLS/HR Laboratory Results Laboratory Tests 12/25/24 06:39 Chemistry Test 12/25/24 06:39 Calcium Level 9.3 mg/dL (8.7-10.4) Urinalysis Test 12/19/24 18:47 Urine Color Yellow (Yellow) Urine Clarity Clear (Clear) Urine pH 6.0 (5.0-9.0) Urine Specific [place] > 1.050 (1.001-1.035) Urine Protein 1+ (Negative) H Urine Ketones Negative (Negative) Urine Blood Negative /uL (Negative) Urine Nitrite Negative (Negative) Urine Bilirubin Negative (Negative) Urine Urobilinogen Normal mg/dL (Negative) Urine Leukocyte Esterase Negative /uL (Negative) Urine RBC 8 /hpf (0 - 3) Urine Microscopic WBC 1 /HPF (0-3) Urine Squamous Epithelial Cells Few /hpf (<5) Urine Bacteria None seen /hpf (None Seen) Urine Mucus Few (None Seen) Urine Glucose Normal mg/dL (Normal) Microbiology Microbiology Date/Time Source Procedure Growth Status 12/22/24 16:25 Groin Gram Stain - Final Resulted 12/22/24 16:25 Wound Culture - Preliminary Methicillin Resistant S.aureus Presumptive Kailey albicans Resulted 12/19/24 15:36 Blood Blood Culture - Final NO GROWTH AFTER 5 DAYS OF INCUBATION. Complete Labs and/or images reviewed: Labs reviewed by me, Image(s) reviewed by me Assessment/Plan Assessment/Plan A 64-year-old morbidly obese male patient; with past medical history of COPD on home oxygen 3 L/min via nasal cannula, and marijuana use disorder; who presented to the emergency department with severe lower abdominal pain. # Severe lower abdominal pain due to MRSA/presumptive Kailey albicans soft tissue infection of the abdominal wall # Sepsis with leukocytosis due to suspected soft tissue infection of the abdominal wall # COPD on home oxygen; not in exacerbation # Marijuana use disorder # Aggressive behavior # Morbid obesity One-to-one sitter due to aggressive behavior; to prevent self-harm Reviewed CT pelvis with IV contrast to rule abscess of right inguinal/groin area that showed no collections Ordered EKG that showed QTc of 423 ms; started quetiapine 25 mg twice daily but patient refused taking the medication and refused tele psychiatry Reviewed available lab work and imaging studies Negative blood cultures; MRSA growth in wound Gram stain and culture; contact precautions Surgery evaluated the patient To advance diet as tolerated Counseled the patient on the importance of adopting healthy lifestyle with diet and exercise in order to lose weight Continue IV Zosyn for broad-spectrum coverage; continue IV vancomycin as per pharmacy; added IV fluconazole Counseled on marijuana use cessation Continue IV fluids Continue pain management as needed Continue nebulizers and oxygen therapy as needed Continue monitoring Final wound Gram stain and culture results: Report Moderate growth: Gram Positive Rods resembling Diphtheroids Susceptibility testing not routinely done on this isolate. Organism 1 Methicillin Resistant S.aureus QUANTITATION MODERATE GROWTH: Organism 2 Presumptive Kailey albicans QUANTITATION RARE GROWTH: Late Entry. This medical document was created using an electronic medical record system with computerized dictation system. Although this document has been carefully reviewed, there might still be some phonetic and typographical errors. These areas are purely typographical due to imperfections of the software programs, and do not reflect any compromise in the patient's medical care. Plan discussed with: Patient, Other (Nurse) My Orders Orders - KAELYN MORALES MD Procedure Category Date Status Time Vancomycin 1.5gm/300ml PHA 12/25/24 In Process 11:00 Vancomycin,Trough LAB 12/26/24 Verified 10:00 Vancomycin Per CHRISTINA 12/26/24 In Process Pharmacy Protoc 11:00 Creatinine LAB 12/26/24 Verified 10:00 Date of Service: Dec 25, 2024 Billing Provider: KAELYN MORALES MD Common Visit Codes: [id number] INP/OBS CARE(HIGH) KAELYN MORALES MD Dec 25, 2024 15:32
[2024-12-25] MEDS: FLUCONAZOLE 200MG/100ML 100 ML IV ONE (16:39)
[2024-12-26] VITALS (12 sets, daily range): BP systolic 106–124; BP diastolic 41–90; PULSE 65–80; RESP 17–20; TEMP 98–98.8; O2SAT 93–100
[2024-12-26 07:17] LABS: Hemoglobin 11.4 g/dL (13.5-17.5)
[2024-12-26 07:21] LABS: Hematocrit 37.5 % (41.0-53.0); Mean Corpuscular Hemoglobin 18.8 pg (28.0-32.0); Mean Corpuscular Volume 62.1 fL (80.0-100.0); Nucleated Red Blood Cells % 0.1 %
[2024-12-26 07:48] LABS: Albumin 3.9 g/dL (3.2-4.8); Alkaline Phosphatase 63 U/L (46-116); Anion Gap 8 (5-15); BUN/Creatinine Ratio 11.4 (10.0-20.0); Blood Urea Nitrogen 12 mg/dL (9-23); Calcium 9.3 mg/dL (8.7-10.4); Chloride 100 mmol/L (98-107); Glucose 101 mg/dL (74-106); Potassium 4.7 mmol/L (3.5-5.1); Sodium 143 mmol/L (136-145); Total Protein 6.7 g/dL (5.7-8.2)
[2024-12-26 07:49] LABS: Bilirubin, Total 0.3 mg/dL (0.2-1.0)
[2024-12-26 07:55] LABS: Alanine Aminotransferase < 9 U/L (7-40); Carbon Dioxide 35 mmol/L (20-31)
[2024-12-26] MEDS: FLUCONAZOLE 200MG/100ML 100 ML IV SCH (08:51)
--- NOTE | 2024-12-26 15:34 | DVHPN2 ---
Assessment/Plan Assessment/Plan progress note 64 yo m with COPD on home o2, marijuana use, aggressive behavior admitted for cellulitis. pt [facility] exam on o2 AOx3 clear breath sounds no wheezing s1 s2 rrr morbidly obese erythematous R lower abd wall with puss, poorly demarcated trace le edema scrotal hernia reducible labs ekg imaging reviewed assessment and plan interactable abdominal pain from cellulitis lower abdominal wall cellulitis superimposed lexie intertrig? COPD on home o2 marijuana use morbid obesity aggressive behavior? OHS/PAMELLA? refused tele psych c/w vanc zosyn and Diflucan refused Seroquel, will dc for now, haldol PRN agitation pain management resume home o2 likely need sleep study will need psych as outpatient, with med noncompliant patient might be candidate for SOLOMON diet cardiac dvt ppx lovenox full code Plan discussed with: Patient My Orders Orders - CAMELIA PANCHAL MD Procedure Category Date Status Time Haloperidol Lactate PHA 12/26/24 Logged Injection (Haldol) 15:45 Basic Metabolic Panel LAB 12/27/24 Verified 04:00 Complete Blood Count LAB 12/27/24 Verified 04:00 Date of Service: Dec 26, 2024 Billing Provider: CAMELIA PANCHAL MD Common Visit Codes: [id number] INP/OBS CARE(HIGH) CAMELIA PANCHAL MD Dec 26, 2024 15:34
[2024-12-26] MEDS ORDERED: HALOPERIDOL LACTATE 5 MG/ML INJ VIAL IM PRN (15:45)
[2024-12-26] MEDS: MORPHINE SULFATE INJ 2 MG/ml SYRG IV PRN (16:10)
[2024-12-27] VITALS (13 sets, daily range): BP systolic 108–128; BP diastolic 35–83; PULSE 61–72; RESP 14–22; TEMP 97.6–98.5; O2SAT 92–100
--- NOTE | 2024-12-27 15:17 | DVHPN2 ---
Assessment/Plan Assessment/Plan progress note 64 yo m with COPD on home o2, marijuana use, aggressive behavior admitted for cellulitis. pt comes [facility] seen today, wound improving, on iv abx. possible transition to oral. plan for dc tomorrow. discussed plan with patient. encourage ambulation physical exam on o2 AOx3 clear breath sounds no wheezing s1 s2 rrr morbidly obese erythematous R lower abd wall with puss, poorly demarcated trace le edema scrotal hernia reducible labs ekg imaging reviewed assessment and plan interactable abdominal pain from cellulitis lower abdominal wall cellulitis superimposed lexie intertrig? COPD on home o2 marijuana use morbid obesity aggressive behavior? OHS/PAMELLA? refused tele psych c/w vanc zosyn and Diflucan refused Seroquel, will dc for now, haldol PRN agitation pain management resume home o2 likely need sleep study will need psych as outpatient, with med noncompliant patient might be candidate for SOLOMON diet cardiac dvt ppx lovenox full code Plan discussed with: Patient My Orders Orders - CAMELIA PANCHAL MD Procedure Category Date Status Time Haloperidol Lactate PHA 12/26/24 In Process Injection (Haldol) 15:45 Date of Service: Dec 27, 2024 Billing Provider: CAMELIA PANCHAL MD Common Visit Codes: [id number] INP/OBS CARE(HIGH) CAMELIA PANCHAL MD Dec 27, 2024 15:17
[2024-12-27] MEDS: FAMOTIDINE 20 MG TAB PO SCH (21:45)
[2024-12-28] VITALS (15 sets, daily range): BP systolic 108–137; BP diastolic 37–61; PULSE 56–137; RESP 16–22; TEMP 98–98.4; O2SAT 94–100
[2024-12-28 07:41] LABS: Chloride 98 mmol/L (98-107); Potassium 4.4 mmol/L (3.5-5.1); Sodium 139 mmol/L (136-145)
[2024-12-28 07:42] LABS: Anion Gap 6 (5-15); Calcium 9.5 mg/dL (8.7-10.4); Hemoglobin 10.4 g/dL (13.5-17.5)
[2024-12-28 07:45] LABS: Hematocrit 34.2 % (41.0-53.0); Mean Corpuscular Hemoglobin 18.8 pg (28.0-32.0); Mean Corpuscular Volume 61.5 fL (80.0-100.0); Nucleated Red Blood Cells % 0.1 %
[2024-12-28 07:47] LABS: BUN/Creatinine Ratio 11.7 (10.0-20.0); Blood Urea Nitrogen 15 mg/dL (9-23)
[2024-12-28 07:48] LABS: Carbon Dioxide 35 mmol/L (20-31); Glucose 140 mg/dL (74-106)
[2024-12-28] MEDS: HALOPERIDOL LACTATE 5 MG/ML INJ VIAL IM ONE (09:15)
[2024-12-28] MEDS ORDERED: AUG875T PO (09:59)
[2024-12-28] MEDS ORDERED: FAMO-12 PO (09:59)
[2024-12-28] MEDS ORDERED: FLUC200T50 PO (10:01)
--- NOTE | 2024-12-28 10:03 | DVHDS2 ---
Discharge Summary Date of Admission Dec 19, 2024 at 14:24 Date of Discharge: Dec 28, 2024 Labs/Diagnostic Data: Laboratory Results Test 12/28/24 05:32 12/26/24 06:24 12/26/24 01:25 12/21/24 07:33 White Blood Count 6.1 10^3/uL (4.4-10.8) Red Blood Count 5.56 10^6/uL (4.5-5.90) Hemoglobin 10.4 g/dL (13.5-17.5) Hematocrit 34.2 % (41.0-53.0) Mean Corpuscular Volume 61.5 fL (80.0-100.0) Mean Corpuscular Hemoglobin 18.8 pg (28.0-32.0) Mean Corpuscular Hemoglobin Concent 30.5 g/dL (32.0-36.0) Red Cell Distribution Width 16.9 % (11.8-14.3) Platelet Count 304 10^3/uL (140-450) Mean Platelet Volume 8.8 fL (6.9-10.8) Neutrophils (%) (Auto) 59.5 % (37.0-80.0) Lymphocytes (%) (Auto) 28.5 % (10.0-50.0) Monocytes (%) (Auto) 7.2 % (0.0-12.0) Eosinophils (%) (Auto) 3.9 % (0.0-7.0) Basophils (%) (Auto) 0.9 % (0.0-2.0) Neutrophils # (Auto) 3.6 10 ^3/uL (1.6-8.6) Lymphocytes # (Auto) 1.7 10 ^3/uL (0.4-5.4) Monocytes # (Auto) 0.4 10 ^3/uL (0-1.3) Eosinophils # (Auto) 0.2 10 ^3/uL (0-0.8) Basophils # (Auto) 0.1 10 ^3/uL (0-0.2) Nucleated Red Blood Cells 0.1 % Sodium Level 139 mmol/L (136-145) Potassium Level 4.4 mmol/L (3.5-5.1) Chloride Level 98 mmol/L (98-107) Carbon Dioxide Level 35 mmol/L (20-31) Anion Gap 6 (5-15) Blood Urea Nitrogen 15 mg/dL (9-23) Creatinine 1.28 mg/dL (0.700-1.30) Glomerular Filtration Rate Calc 63 mL/min (>90) BUN/Creatinine Ratio 11.7 (10.0-20.0) Serum Glucose 140 mg/dL (74-106) Calcium Level 9.5 mg/dL (8.7-10.4) Random Vancomycin Level 3.8 ug/mL (5-10) Total Bilirubin 0.3 mg/dL (0.2-1.0) Aspartate Amino Transferase (AST) 17 U/L (13-40) Alanine Aminotransferase (ALT) < 9 U/L (7-40) Alkaline Phosphatase 63 U/L (46-116) Total Protein 6.7 g/dL (5.7-8.2) Albumin 3.9 g/dL (3.2-4.8) Vancomycin Level Trough 20.4 ug/mL (5-10) Blood Gas Specimen Type Arterial Blood Gas Sample Site Right radial Blood Gas Patient Temperature 37.0 Arterial Blood Date Drawn [id number] Arterial Blood pH 7.324 (7.350-7.450) Arterial Blood Partial Pressure CO2 61.2 mmHg (35.0-48.0) Arterial Blood Partial Pressure O2 62.7 mmHg (83.0-108.0) Arterial Blood HCO3 31.1 mmol/L (21.0-28.0) Arterial Blood Oxygen Saturation 90.2 % (94.0-98.0) Arterial Blood Base Excess 3.8 mmol/L (-2.0-3.0) Arterial Blood Oxyhemoglobin 89.0 % (94.0-98.0) Arterial Blood Carboxyhemoglobin 1.0 % (0.5-1.5) Arterial Blood Methemoglobin 0.3 % (0.0-1.5) Artur Test Modified Blood Gas Total Hemoglobin 11.40 g/dL (13.5-17.5) Blood Gas Liter Flow 6.00 Blood Gas Modality Nasal cannula FiO2 % 44.0 Blood Gas Critical Value Read Back Yes Blood Gas Notified Whom kevin [place] Blood Gas Notified Time [id number] Blood Gas Notified By jose Gomez 12/20/24 12:00 12/20/24 06:58 12/19/24 18:47 12/19/24 15:36 Urine Opiates Screen Pos (NEGATIVE) Urine Fentanyl Screen Neg (NEGATIVE) Urine Barbiturates Screen Neg (NEGATIVE) Urine Phencyclidine Screen Neg (NEGATIVE) Urine Amphetamines Screen Neg (NEGATIVE) Urine Benzodiazepines Screen Neg (NEGATIVE) Urine Cocaine Screen Neg (NEGATIVE) Urine Cannabinoids Screen Pos (NEGATIVE) Influenza Type A Antigen Negative (Negative) Influenza Type B Antigen Negative (Negative) SARS-CoV-2 Antigen (Rapid) Negative (NEGATIVE) B-Type Natriuretic Peptide 46.79 pg/mL (0-100) Urine Color Yellow (Yellow) Urine Clarity Clear (Clear) Urine pH 6.0 (5.0-9.0) Urine Specific [place] > 1.050 (1.001-1.035) Urine Protein 1+ (Negative) Urine Ketones Negative (Negative) Urine Blood Negative /uL (Negative) Urine Nitrite Negative (Negative) Urine Bilirubin Negative (Negative) Urine Urobilinogen Normal mg/dL (Negative) Urine Leukocyte Esterase Negative /uL (Negative) Urine RBC 8 /hpf (0 - 3) Urine Microscopic WBC 1 /HPF (0-3) Urine Squamous Epithelial Cells Few /hpf (<5) Urine Bacteria None seen /hpf (None Seen) Urine Mucus Few (None Seen) Urine Glucose Normal mg/dL (Normal) Prothrombin Time 10.1 sec (9.3-11.8) Prothrombin Time INR 0.95 (0.9-1.15) Activated Partial Thromboplast Time 26.3 SEC (24.5-34.5) Other Laboratory Tests 12/28/24 05:32 Brief Hx & Hospital Course: 64 yo m with COPD on home o2, marijuana use, aggressive behavior admitted for cellulitis. [facility] initially has aggressive behavour, refused tele psych, now stable. possible delirium which improved. stable to dc home with oral abx and antifungal. already have o2 at home. Condition at Discharge: Good Final Diagnosis/Problems List interactable abdominal pain from cellulitis lower abdominal wall cellulitis superimposed lexie intertrig? COPD on home o2 marijuana use morbid obesity aggressive behavior? delirium? metabolic encephalopathy? OHS/PAMELLA? Discharge Disposition: Home ([facility]) Discharge Instruct/Medications Diet: Consistent carbohydrate, Cardiac 2g Na,low cholest Activity: No Restrictions, As Tolerated Follow Up/Referral: pcp Medications: augmentin pepcid fluconazole Scheduled Amoxicillin & Pot Clavulanate (Augmentin Tablet), 875 MG PO BID Famotidine (Famotidine), 20 MG PO Q12HR Fluconazole (Fluconazole), 1 TAB PO DAILY Discharge Statement: "Patient was advised to return to the ER or call 911 if any headaches, dizziness, shortness of breath, chest pain, abdominal pain, bleeding, fevers, or worsening of medical condition. Patient was counseled about treatment plan, medications, possible side effects, patientverbalized understanding. All questions were answered to the best of my ability. This discharge took greater then 30 minutes in planning, reviewing documentation, counseling the patient, and discussing with other team members." ASSESSMENT ASSESSMENT Assessment celulitis Date of Service: Dec 28, 2024 Billing Provider: CAMELIA PANCHAL MD Common Visit Codes: [id number] DISCH DAY >30min CAMELIA PANCHAL MD Dec 28, 2024 10:03
== END 2024-12-28 17:30 | disposition home or self-care (01) | DRG 720 ==
LOC: EDBD 07:49 → ER 07:55 → OVERFLOW 14:24 → WEST WING 22:40
PROVIDERS: ADMIT Student in an Organized Health Care Education/Training Program; ATTEND Student in an Organized Health Care Education/Training Program
DX: A41.9 Sepsis, unspecified organism (principal); G93.41 Metabolic encephalopathy; J96.11 Chronic respiratory failure with hypoxia; L03.311 Cellulitis of abdominal wall; Z99.81 Dependence on supplemental oxygen; F12.10 Cannabis abuse, uncomplicated; B37.2 Candidiasis of skin and nail; E66.01 Morbid (severe) obesity due to excess calories; G47.33 Obstructive sleep apnea (adult) (pediatric); Z20.822 Contact with and (suspected) exposure to COVID-19; Z68.41 Body mass index [BMI] 40.0-44.9, adult; K40.90 Unilateral inguinal hernia, without obstruction or gangrene, not specified as recurrent; J44.89 Other specified chronic obstructive pulmonary disease; R41.0 Disorientation, unspecified; I10 Essential (primary) hypertension; Z80.3 Family history of malignant neoplasm of breast; Z86.73 Personal history of transient ischemic attack (TIA), and cerebral infarction without residual deficits; Z87.891 Personal history of nicotine dependence; Z88.6 Allergy status to analgesic agent
CPT/HCPCS: 36415; 36600; 71045; 72193; 74176; 74177; 80048; 80053; 80202; 80307; 81001; 82805; 83880; 85025; 85610; 85730; 87040; 87077; 87186; 87205; 87426; 87804; 93005; 94640; 96361; 96374; G0378; J1450; J1885; J2405; J2543; J3490

== ENCOUNTER 2025-03-04 20:10 | Inpatient (IN) | payer OTHER ==
[~2025-03-04] VITALS: Ht 175.3 cm; Wt 125.0 kg
[~2025-03-04 20:10] MED LIST: AUG875T PO; FAMO-12 PO; FLUC200T50 PO
--- NOTE | 2025-03-04 21:11 | ED.PDOC ---
SOB-HPI HPI Comments 64-year-old male who came to ER by EMS for shortness a breath. Patient has history of COPD, has been short of breath for the past few months, that progressively worsened today. Inhalers has offered no relief Chief Complaint: Shortness of Breath Time Seen by MD: 21:11 Reviewed notes: Nurses Notes Information Source: Patient Mode of Arrival: EMS Severity: Moderate Timing: Days Duration: Intermittent Context: With Light Exertion History of: COPD Past Medical History PAST MEDICAL HISTORY: Anemia, Asthma, COPD, CVA, HTN Surgical History: Denies all surgeries Family History Family History: Unknown Social History Smoker: Non-Smoker Alcohol: Denies ETOH Use Drugs: Denies Drug Use Lives In: Assisted Care Constitutional: denies: chills, diaphoresis, fatigue, fever, malaise, sweats, weakness, others EENTM: denies: blurred vision, double vision, ear bleeding, ear discharge, ear drainage, ear pain, ear ringing, eye pain, eye redness, hearing loss, mouth pain, mouth swelling, nasal discharge, nose bleeding, nose congestion, nose pain, photophobia, tearing, throat pain, throat swelling, voice changes, others Respiratory: reports: SOB at rest, shortness of breath; denies: cough, hemoptysis, orthopnea, SOB with excertion, stridor, wheezing, others Cardiovascular: denies: chest pain, dizzy spells, diaphoresis, Dyspnea on exertion, edema, irregular heart beat, left arm pain, lightheadedness, palpitations, PND, syncope, others Gastrointestinal: denies: abdomen distended, abdominal pain, blood streaked bowels, constipated, diarrhea, dysphagia, difficulty swallowing, hematemesis, melena, nausea, poor appetite, poor fluid intake, rectal bleeding, rectal pain, vomiting, others Genitourinary: denies: burning, dysuria, flank pain, frequency, hematuria, incontinence, penile discharge, penile sore, pain, testicle pain, testicle swelling, urgency, others Neurological: denies: dizziness, fainting, headache, left sided numbness, left sided weakness, numbness, paresthesia, pre-existing deficit, right sided num bness, right sided weakness, seizure, speech problems, tingling, tremors, weakness, others Musculoskeletal: denies: back pain, gout, joint pain, joint swelling, muscle pain, muscle stiffness, neck pain, others Integumetry: denies: bruises, change in color, change in hair/nails, dryness, laceration, lesions, lumps, rash, wounds, others Allergic/Immunocompromised: denies: Difficulty Healing, Frequent Infections, Hives, Itching, others Hematologic/Lymphatic: denies: anemia, blood clots, easy bleeding, easy bruising, swollen glands, others Endocrine: denies: excessive hunger, excessive sweating, excessive thirst, excessive urination, flushing, intolerance to cold, intolerance to heat, unexplained weight gain, unexplained weight loss, others Psychiatric: denies: anxiety, bipolar disorder, depression, hopeless, panic disorder, schizophrenia, sleepless, suicidal, others Physical Exam General Appearance: No Apparent Distress, Normal HEENT: Normal ENT Inspection, Pharynx Normal, TMs Normal Neck: Full Range of Motion, Non-Tender, Normal, Normal Inspection Respiratory: Chest Non-Tender, Lungs Clear, No Accessory Muscle Use, No Respiratory Distress, Normal Breath Sounds Cardiovascular: No Edema, No JVD, No Murmur, No Gallop, Normal Peripheral Pulses, Regular Rate/Rhythm Breast Exam: Deferred Gastrointestinal: No Organomegaly, Non Tender, No Pulsatile Mass, Normal Bowel Sounds, Soft Genitalia: Deferred Pelvic: Deferred Rectal: Deferred Extremities: No calf tenderness, Normal capillary refill, Normal inspection, Normal range of motion, Non-tender, No pedal edema Musculoskeletal : Apperance: Normal Neurologic: Alert, nuclear physician II-XII nml as Tested, No Motor Deficits, Normal Affect, Normal Mood, No Sensory Deficits Cerebellar Function: Normal Reflexes: Normal Skin: Dry, Normal Color, Warm Lymphatic: No Adenopathy Was a procedure done? Was a procedure done?: No Differential Dx Differential Diagnosis: Anxiety, Asthma, Bronchitis, COPD, Pneumonia, Respiratory Distress X-Ray, Labs, Meds, VS Vital Signs Date Time Temp Pulse Resp B/P (MAP) Pulse Ox O2 Delivery O2 Flow Rate FiO2 03/04/25 21:28 24 94 Room Air* 0 21 Lab Test 03/04/25 21:36 Range/Units White Blood Count 6.8 4.4-10.8 10^3/uL Red Blood Count 5.85 4.5-5.90 10^6/uL Hemoglobin 10.9 L 13.5-17.5 g/dL Hematocrit 36.0 L 41.0-53.0 % Mean Corpuscular Volume 61.5 L 80.0-100.0 fL Mean Corpuscular Hemoglobin 18.6 L 28.0-32.0 pg Mean Corpuscular Hemoglobin Concent 30.3 L 32.0-36.0 g/dL Red Cell Distribution Width 17.4 H 11.8-14.3 % Platelet Count 226 140-450 10^3/uL Mean Platelet Volume 8.5 6.9-10.8 fL Neutrophils (%) (Auto) 57.6 37.0-80.0 % Lymphocytes (%) (Auto) 33.4 10.0-50.0 % Monocytes (%) (Auto) 5.0 0.0-12.0 % Eosinophils (%) (Auto) 2.5 0.0-7.0 % Basophils (%) (Auto) 1.5 0.0-2.0 % Neutrophils # (Auto) 3.9 1.6-8.6 10 ^3/uL Lymphocytes # (Auto) 2.3 0.4-5.4 10 ^3/uL Monocytes # (Auto) 0.3 0-1.3 10 ^3/uL Eosinophils # (Auto) 0.2 0-0.8 10 ^3/uL Basophils # (Auto) 0.1 0-0.2 10 ^3/uL Nucleated Red Blood Cells 0.1 % Sodium Level 141 136-145 mmol/L Potassium Level 4.3 3.5-5.1 mmol/L Chloride Level 107 98-107 mmol/L Carbon Dioxide Level 28 20-31 mmol/L Anion Gap 6 5-15 Blood Urea Nitrogen 17 9-23 mg/dL Creatinine 0.98 0.700-1.30 mg/dL Glomerular Filtration Rate Calc 87 >90 mL/min BUN/Creatinine Ratio 17.3 10.0-20.0 Serum Glucose 116 H 74-106 mg/dL Calcium Level 8.8 8.7-10.4 mg/dL Troponin I High Sensitivity 16 </=54 ng/L B-Type Natriuretic Peptide 54.84 0-100 pg/mL Current Medications Medications (Trade) Dose Ordered Sig/Sandra Route Start Time Stop Time Status Last Admin Albuterol (Ventolin Medneb) 5 mg ONCE ONCE NEB 03/04/25 21:15 03/04/25 21:16 DC 03/04/25 21:28 Ipratropium [place] (Atrovent Medneb) 0.5 mg ONCE ONCE NEB 03/04/25 21:15 03/04/25 21:16 DC 03/04/25 21:30 EXAM: XY CHEST PORTABLE HISTORY: sob TECHNIQUE: 1 view of the chest COMPARISON: XY CHEST XRAY 1 VIEW on DOS: 12/19/24 FINDINGS/IMPRESSION: LUNGS: No pleural effusion, consolidation, or pneumothorax. MEDIASTINUM: Unremarkable. BONES: No acute osseous abnormality. OTHER: None. Time of 1ST Reevaluation: 21:07 Reevaluation 1ST: Unchanged Patient Education/Counseling: Diagnosis, Treatment Family Education/Counseling: No Family Present SEPSIS Sepsis Screen Physician Orders Chest Portable (03/04/25 21:11) Vital Signs Date Time Temp Pulse Resp B/P (MAP) Pulse Ox O2 Delivery O2 Flow Rate FiO2 03/04/25 21:28 24 94 Room Air* 0 21 Laboratory Tests Test 03/04/25 21:36 White Blood Count 6.8 10^3/uL (4.4-10.8) Medications Medications Dose Ordered Sig/Sandra Route Start Time Stop Time Status Last Admin Dose Admin Albuterol 5 mg ONCE ONCE NEB 03/04/25 21:15 03/04/25 21:16 DC 03/04/25 21:28 Ipratropium [place] 0.5 mg ONCE ONCE NEB 03/04/25 21:15 03/04/25 21:16 DC 03/04/25 21:30 Departure 1 Departure Time of Disposition: 23:10 (Patient presented with acute shortness of breath concerning for acute on chronic COPD Exacerbation, Pneumonia, ACS, CHF, Pneumothorax. Less likely PE, Dissection. Data: 1. I ordered and reviewed the result of at least 3 labs including a CBC, BMP, and Troponin. 2. I independently interpreted the following tests: Chest X-ray shows benign chest .Risk:This patient has a high risk of morbidity due to further diagnostic testing or treatment and may suffer from respiratory or cardiac etiology . Workup reveals a likely COPD Exacerbation and patient should be admitted for further workup. and possible expert consultation.) Impression: Primary Impression: Acute and chronic respiratory failure Additional Impression: Acute exacerbation of COPD with asthma Disposition: ADMITTED INPATIENT Admit to: [facility] Condition: Guarded Critical Care Note Critical Care Time?: No Stability Stability form required: No Heart Score Heart Score: Heart Score Response (Comments) Value History N/A 0 EKG N/A 0 Age N/A 0 Risk Factors N/A 0 Troponin N/A 0 Total 0 I personally scribed for MARIELENA SEBASTIAN MD ([facility]) on 03/04/25 at 21:11. Electronically submitted by Danilo Jefferson ([facility]). I personally scribed for MARIELENA SEBASTIAN MD ([facility]) on 03/04/25 at 21:59. Electronically submitted by Danilo Jefferson ([facility]). MARIELENA SEBASTIAN MD Mar 04, 2025 21:11
[2025-03-04] MEDS: ALBUTEROL SULF 2.5 MG/0.5ML(0.5%) NEB SOLN NEB ONE (21:28)
[2025-03-04] MEDS: IPRATROPIUM BROM 0.5 MG/2.5ML INH SOL NEB ONE (21:30)
[2025-03-04 21:47] LABS: Hemoglobin 10.9 g/dL (13.5-17.5); Nucleated Red Blood Cells % 0.1 %
[2025-03-04 21:49] LABS: Hematocrit 36.0 % (41.0-53.0); Mean Corpuscular Hemoglobin 18.6 pg (28.0-32.0); Mean Corpuscular Volume 61.5 fL (80.0-100.0)
--- NOTE | 2025-03-04 21:49 | DVH ---
EXAM: XY CHEST PORTABLE HISTORY: sob TECHNIQUE: 1 view of the chest COMPARISON: XY CHEST XRAY 1 VIEW on DOS: 12/19/24 FINDINGS/IMPRESSION: LUNGS: No pleural effusion, consolidation, or pneumothorax. MEDIASTINUM: Unremarkable. BONES: No acute osseous abnormality. OTHER: None.
[2025-03-04 21:57] LABS: Potassium 4.3 mmol/L (3.5-5.1); Sodium 141 mmol/L (136-145)
[2025-03-04 21:58] LABS: Anion Gap 6 (5-15); Carbon Dioxide 28 mmol/L (20-31)
[2025-03-04 21:59] LABS: Calcium 8.8 mg/dL (8.7-10.4)
[2025-03-04 22:04] LABS: BUN/Creatinine Ratio 17.3 (10.0-20.0); Blood Urea Nitrogen 17 mg/dL (9-23)
[2025-03-04 22:05] LABS: Chloride 107 mmol/L (98-107); Glucose 116 mg/dL (74-106)
[2025-03-04] MEDS ORDERED: MORPHINE SULFATE INJ 2 MG/ml SYRG IV PRN (23:30)
[2025-03-04] MEDS ORDERED: ACETAMINOPHEN 325 MG TAB PO PRN (23:30)
[2025-03-04] MEDS ORDERED: DOCUSATE SOD 100 MG CAP PO PRN (23:30)
[2025-03-04] MEDS ORDERED: NITROGLYCERIN 0.4 MG SL TAB SL PRN (23:30)
--- NOTE | 2025-03-04 23:34 | DVHHP2 ---
History of Present Illness Reason for Visit: Acute and chronic respiratory failure History of Present Illness The patient is a 64-year-old male with past medical history of anemia, COPD, asthma, CVA, and hypertension who presented to [facility] ED with complaint of shortness of breaths. Patient reports he has been experiencing difficulty breathing, unrelieved with his inhaler medication at home, increased work of breathing, progressively worsening today that prompted this visit. Patient was seen and evaluated in the ED, laboratory data shows WBC 6.8, hemoglobin 10.9, hematocrit 36.0, platelets 226, sodium 141, potassium 4.3, BUN 17, creatinine 0.98, glucose 116, calcium 8.8, troponin 16, BNP 54.84. Please see medication orders section in the computer. On my assessment, patient denied chest pain, no headache, dizziness, diaphoresis, currently on oxygen, no diarrhea, nausea, vomiting, fever, chills. Patient was admitted for further evaluation and medical management. Pulmonary: Asthma Past Medical History Anemia, Asthma, COPD, CVA, HTN Past Surgical History Denies all surgeries Family History Reviewed, noncontributory to the management of this case. Past Social History The patient lives at assisted care living home, denies smoking, alcohol or illicit drugs abuse. Review of Systems Constitutional: Yes: Weakness; No: Fever, Chills, Sweats, Malaise, Other Eyes: No: Pain, Vision change, Conjunctivae inflammation, Eyelid inflammation, Other, Redness ENT: No: Ear pain, Ear discharge, Nose pain, Nose discharge, Nose congestion, Mouth pain, Mouth swelling, Throat pain, Throat swelling, Other Respiratory: Shortness of breath, Other (SOB at rest); No: Cough, Dry, SOB with excertion, Wheezing, Hemoptysis, Pleuritic Pain, Sputum, Wheezing Cardiovascular: No: Chest Pain, Palpitations, Orthopnea, Paroxysmal Noc. Dyspnea, Edema, Lt Headedness, Other Gastrointestinal: No: Nausea, Vomiting, Abdominal Pain, Diarrhea, Constipation, Melena, Hematochezia, Other Genitourinary: No Dysuria, No Frequency, No Incontinence, No Hematuria, No Re tention, No Other Musculoskeletal: No: other, neck pain, shoulder pain, arm pain, back pain, hand pain, leg pain, foot pain Skin: No: Rash, Lesions, Jaundice, Bruising, Other Neurological: No: Weakness, Numbness, Incoordination, Change in speech, Confusion, Seizures, Other Allergies: Coded Allergies: Ibuprofen (Verified Allergy, Severe, 12/19/24) Exam Vital Signs Vital Signs Date Time Temp Pulse Resp B/P (MAP) Pulse Ox O2 Delivery O2 Flow Rate FiO2 03/04/25 21:28 24 94 Room Air* 0 21 General Appearance: Alert, Oriented X3, Cooperative, No acute distress HEENT: Atraumatic, PERRLA, EOMI, Mucous membr. moist/pink Respiratory: Normal air movement Cardiovascular: Regular rate, Normal S1, Normal S2, No murmurs Abdominal: Normal bowel sounds, Soft, No tenderness, No hepatospenomegaly, No masses Extremities: No clubbing, No cyanosis, No edema, Normal pulses, No tenderness/swelling Skin: No rashes, No breakdown, No significant lesion Neuro: Normal speech, Normal tone, Sensation intact, Cranial nerves 3-12 NL, Reflexes 2+, Other (Generalized weakness) Psych/Mental Status: Mental status NL, Mood NL Labs/Xrays Labs Test 03/04/25 21:36 Range/Units White Blood Count 6.8 4.4-10.8 10^3/uL Red Blood Count 5.85 4.5-5.90 10^6/uL Hemoglobin 10.9 L 13.5-17.5 g/dL Hematocrit 36.0 L 41.0-53.0 % Mean Corpuscular Volume 61.5 L 80.0-100.0 fL Mean Corpuscular Hemoglobin 18.6 L 28.0-32.0 pg Mean Corpuscular Hemoglobin Concent 30.3 L 32.0-36.0 g/dL Red Cell Distribution Width 17.4 H 11.8-14.3 % Platelet Count 226 140-450 10^3/uL Mean Platelet Volume 8.5 6.9-10.8 fL Neutrophils (%) (Auto) 57.6 37.0-80.0 % Lymphocytes (%) (Auto) 33.4 10.0-50.0 % Monocytes (%) (Auto) 5.0 0.0-12.0 % Eosinophils (%) (Auto) 2.5 0.0-7.0 % Basophils (%) (Auto) 1.5 0.0-2.0 % Neutrophils # (Auto) 3.9 1.6-8.6 10 ^3/uL Lymphocytes # (Auto) 2.3 0.4-5.4 10 ^3/uL Monocytes # (Auto) 0.3 0-1.3 10 ^3/uL Eosinophils # (Auto) 0.2 0-0.8 10 ^3/uL Basophils # (Auto) 0.1 0-0.2 10 ^3/uL Nucleated Red Blood Cells 0.1 % Sodium Level 141 136-145 mmol/L Potassium Level 4.3 3.5-5.1 mmol/L Chloride Level 107 98-107 mmol/L Carbon Dioxide Level 28 20-31 mmol/L Anion Gap 6 5-15 Blood Urea Nitrogen 17 9-23 mg/dL Creatinine 0.98 0.700-1.30 mg/dL Glomerular Filtration Rate Calc 87 >90 mL/min BUN/Creatinine Ratio 17.3 10.0-20.0 Serum Glucose 116 H 74-106 mg/dL Calcium Level 8.8 8.7-10.4 mg/dL Troponin I High Sensitivity 16 </=54 ng/L B-Type Natriuretic Peptide 54.84 0-100 pg/mL PATIENT: DIEGO HUTCHINSON ACCT: [id number] UNIT: [id number] : 1960 LOC: ER ROOM / BED: / AGE / SEX: 64 / M ADM STATUS: REG ER SERVICE 10 ORDERING PHYSICIAN: MARIELENA SEBASTIAN MD PROCEDURE(s): CXRP - CHEST PORTABLE REASON: sob ORDER NUMBER(s): [id number], ACCESSION NUMBER(s): [id number] EXAM: XY CHEST PORTABLE HISTORY: sob TECHNIQUE: 1 view of the chest COMPARISON: XY CHEST XRAY 1 VIEW on DOS: 12/19/24 FINDINGS/IMPRESSION: LUNGS: No pleural effusion, consolidation, or pneumothorax. MEDIASTINUM: Unremarkable. BONES: No acute osseous abnormality. OTHER: None. SEPSIS Sepsis Screen Date sepsis recognized/suspect: Mar 05, 2025 Physician Orders Chest Portable (03/04/25 21:11) Acetaminophen Tablet (Tylenol Tablet) (03/04/25 23:45) Methylprednisolone Sod Succ (Solu Medrol (03/05/25 06:00) Famotidine Injection (Pepcid Injection) (03/05/25 10:00) Albuterol Medneb (Ventolin Medneb) (03/04/25 23:30) Ipratropium Medneb (Atrovent Medneb) (03/04/25 23:30) Vital Signs Date Time Temp Pulse Resp B/P (MAP) Pulse Ox O2 Delivery O2 Flow Rate FiO2 03/04/25 21:28 24 94 Room Air* 0 21 Laboratory Tests Test 03/04/25 21:36 White Blood Count 6.8 10^3/uL (4.4-10.8) Medications Medications Dose Ordered Sig/Sandra Route Start Time Stop Time Status Last Admin Dose Admin Albuterol 5 mg ONCE ONCE NEB 03/04/25 21:15 03/04/25 21:16 DC 03/04/25 21:28 5 MG Ipratropium [place] 0.5 mg ONCE ONCE NEB 03/04/25 21:15 03/04/25 21:16 DC 03/04/25 21:30 0.5 MG Assessment/Plan Assessment/Plan Acute and chronic respiratory failure Acute exacerbation of COPD with asthma Generalized weakness Plan 1. Admit to telemetry unit 2. Breathing treatment 3. Pain control management 4. Management of fluids and electrolytes 5. Consultation for hospitalist 6. Diagnostic tests chest x-ray 7. DVT prophylaxis -on SCDs 8. Repeat labs CBC, CMP in a.m. 9. Continue with current medical management 10. Treatment plan discussed with patient and RN. Patient verbalized understanding. Plan discussed with: Patient, Other (RN) My Orders Orders - JARRETT MUNOZ DNP Procedure Category Date Status Time Methylprednisolone PHA 03/05/25 Verified Sod Succ (Solu Medrol 06:00 Famotidine Injection PHA 03/05/25 Verified (Pepcid Injection) 10:00 Albuterol Medneb PHA 03/04/25 Verified (Ventolin Medneb) 23:30 Ipratropium Medneb PHA 03/04/25 Verified (Atrovent Medneb) 23:30 Problem List: (1) Acute and chronic respiratory failure (2) Acute exacerbation of COPD with asthma (3) Generalized weakness Date of Service: Mar 04, 2025 Billing Provider: JARRETT MUNOZ DNP Common Visit Codes: [id number] INP/OBS CARE (HIGH) JARRETT MUNOZ DNP Mar 04, 2025 23:33
[2025-03-04 23:42] VITALS: PULSE 74; RESP 20; O2SAT 94
[2025-03-04] MEDS: AZITHROMYCIN 250 MG TAB PO ONE (23:49)
[2025-03-04] MEDS: methylPREDNISolone SOD SUCC 125 MG/2 ML VL IV ONE (23:49)
[2025-03-04] MEDS: HYDROcodone-ACET 5/325MG TAB PO PRN (23:52)
[2025-03-05] VITALS (18 sets, daily range): BP systolic 125–149; BP diastolic 67–84; PULSE 64–78; RESP 14–20; TEMP 96.9–97.8; O2SAT 92–99
[2025-03-05] MEDS: ACETAMINOPHEN 325 MG TAB PO ONE (01:45)
[2025-03-05] MEDS: HYDROmorphone HCL 2 MG/ML VL/or syr IV PRN (03:38)
[2025-03-05] MEDS: SODIUM CHLOR 0.9% PF (SALINE LOCK) 10ML VIAL/SYR IV SCH (05:04)
[2025-03-05] MEDS: methylPREDNISolone SOD SUCC 40 MG/ML VL IV SCH (05:07)
[2025-03-05 06:07] LABS: Nucleated Red Blood Cells % 0.1 %
[2025-03-05] MEDS: IPRATROPIUM BROM 0.5 MG/2.5ML INH SOL NEB PRN (06:09)
[2025-03-05] MEDS: ALBUTEROL SULF 2.5 MG/0.5ML(0.5%) NEB SOLN NEB PRN (06:09)
[2025-03-05 06:10] LABS: Hematocrit 36.8 % (41.0-53.0); Hemoglobin 11.3 g/dL (13.5-17.5); Mean Corpuscular Hemoglobin 19.0 pg (28.0-32.0); Mean Corpuscular Volume 62.2 fL (80.0-100.0)
[2025-03-05 06:24] LABS: Alanine Aminotransferase 10 U/L (7-40); Albumin 4.3 g/dL (3.2-4.8); Alkaline Phosphatase 89 U/L (46-116); Anion Gap 9 (5-15); BUN/Creatinine Ratio 19.2 (10.0-20.0); Bilirubin, Total 0.3 mg/dL (0.2-1.0); Blood Urea Nitrogen 19 mg/dL (9-23); Calcium 9.3 mg/dL (8.7-10.4); Carbon Dioxide 26 mmol/L (20-31); Potassium 4.6 mmol/L (3.5-5.1); Sodium 142 mmol/L (136-145); Total Protein 7.7 g/dL (5.7-8.2)
[2025-03-05 06:53] LABS: Chloride 107 mmol/L (98-107); Glucose 162 mg/dL (74-106)
--- NOTE | 2025-03-05 07:10 | ECG ---
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
[2025-03-05] MEDS ORDERED: ALBUAER3 IN (07:37)
[2025-03-05] MEDS ORDERED: OXY5T PO (07:37)
[2025-03-05] MEDS: FAMOTIDINE (10MG/ML) 2ML VL IV SCH (11:13)
--- NOTE | 2025-03-05 13:04 | DVHPN2 ---
Subjective Patient is seen and examined at bedside. Complain of chest pain. Reviewed: Care Plan, H&P, Labs, Medications, Previous Orders, Radiology Changes from previous H/P or p: No Changes Eyes: No Pain, No Vision change, No Conjunctivae inflammation, No Eyelid inflammation, No Other, No Redness ENT: No Ear pain, No Ear discharge, No Nose pain, No Nose discharge, No Nose congestion, No Mouth pain, No Mouth swelling, No Throat pain, No Throat swelling, No Other Cardiovascular: No Chest Pain, No Palpitations, No Orthopnea, No Paroxysmal Noc. Dyspnea, No Edema, No Lt Headedness, No Other Respiratory: No Cough, No Dry; Shortness of breath; No SOB with excertion, No Wheezing, No Hemoptysis, No Pleuritic Pain, No Sputum; Other (SOB at rest) Gastrointestinal: No Nausea, No Vomiting, No Abdominal Pain, No Diarrhea, No Constipation, No Melena, No Hematochezia, No Other Genitourinary: No Dysuria, No Frequency, No Incontinence, No Hematuria, No Retention, No Other Musculoskeletal: No other, No neck pain, No shoulder pain, No arm pain, No back pain, No hand pain, No leg pain, No foot pain Skin: No Rash, No Lesions, No Jaundice, No Bruising, No Other Objective Vitals Vital Signs Date Time Temp Pulse Resp B/P (MAP) Pulse Ox O2 Delivery O2 Flow Rate FiO2 03/05/25 12:00 65 16 161/65 (97) 93 03/05/25 08:00 Nasal Cannula* 2 28 03/05/25 08:00 96.9 96.9 General Appearance: Alert, Oriented X3, Cooperative, No acute distress HEENT: Atraumatic, PERRLA, EOMI, Mucous membr. moist/pink Neck: Supple Lungs: Clear to auscultation, Normal air movement Cardiovascular: Regular rate, Normal S1, Normal S2, No murmurs, Gallops, Rubs Abdomen: Normal bowel sounds, Soft, No tenderness Neuro: Cranial nerves 3-12 NL Psych/Mental Status: Mental status NL Medications Current Medications Medications Dose Ordered Sig/Sandra Route Start Time Stop Time Status Last Admin Dose Admin Methylprednisolone Sodium Succinate 40 mg Q8HR IV 03/05/25 06:00 03/05/25 05:07 40 MG Famotidine 20 mg Q12HR IV 03/05/25 10:00 03/05/25 11:13 20 MG Albuterol 2.5 mg Q4HPRN PRN NEB 03/04/25 23:30 03/05/25 06:09 2.5 MG Ipratropium [place] 0.5 mg Q4HPRN PRN NEB 03/04/25 23:30 03/05/25 06:09 0.5 MG Sodium Chloride 10 ml Q8HR IV 03/05/25 06:00 03/05/25 05:04 10 ML Acetaminophen/ Hydrocodone Bitart 1 tab Q4HP PRN PO 03/04/25 23:30 03/04/25 23:52 1 TAB Ondansetron HCl 4 mg Q4HP PRN IV 03/04/25 23:30 Docusate Sodium 100 mg BIDPRN PRN PO 03/04/25 23:30 Acetaminophen 650 mg Q6HP PRN PO 03/04/25 23:30 Nitroglycerin 0.4 mg Q5MINP PRN SL 03/04/25 23:30 Morphine Sulfate 2 mg Q30M PRN IV 03/04/25 23:30 Hydromorphone HCl 0.5 mg Q6HP PRN IV 03/05/25 06:00 03/05/25 03:38 0.5 MG Laboratory Results Laboratory Tests 03/05/25 05:40 Chemistry Test 03/04/25 21:36 03/05/25 05:40 Calcium Level 8.8 mg/dL (8.7-10.4) 9.3 mg/dL (8.7-10.4) Albumin 4.3 g/dL (3.2-4.8) Total Protein 7.7 g/dL (5.7-8.2) Cardiac Markers Test 03/04/25 21:36 B-Type Natriuretic Peptide 54.84 pg/mL (0-100) LFT Test 03/05/25 05:40 Alanine Aminotransferase (ALT) 10 U/L (7-40) Alkaline Phosphatase 89 U/L (46-116) Aspartate Amino Transferase (AST) 12 U/L (13-40) L Total Bilirubin 0.3 mg/dL (0.2-1.0) Labs and/or images reviewed: Labs reviewed by me Assessment/Plan Assessment/Plan Acute and chronic respiratory failure Acute exacerbation of COPD with asthma Generalized weakness Plan Continuing current manage Continuing with nebulizer Continuing with Solu-Medrol and IV antibiotic. Continuing with oxygen support This medical document was created using an electronic medical record system with [employer] direct computerized dictation system. Although this document has been carefully reviewed, there may still be some phonetic and typographical errors. These areas are purely typographical due to imperfections of the software programs, and do not reflect any compromise in the patient's medical care. Plan discussed with: Patient Date of Service: Mar 05, 2025 Billing Provider: ULICES RUBALCAVA MD Common Visit Codes: [id number] INP/OBS CARE(HIGH) ULICES RUBALCAVA MD Mar 05, 2025 13:04
[2025-03-05] MEDS: ONDANSETRON HCL 4 MG/2 ML VIAL IV PRN (14:10)
[2025-03-05] MEDS: ALBUTEROL SULF 2.5 MG/0.5ML(0.5%) NEB SOLN ONE (18:46)
[2025-03-05] MEDS: IPRATROPIUM BROM 0.5 MG/2.5ML INH SOL NEB SCH (18:46)
[2025-03-05] MEDS: ALBUTEROL SULF 2.5 MG/0.5ML(0.5%) NEB SOLN NEB SCH (18:46)
[2025-03-05] MEDS: IPRATROPIUM BROM 0.5 MG/2.5ML INH SOL ONE (18:46)
[2025-03-06] VITALS (16 sets, daily range): BP systolic 121–158; BP diastolic 60–77; PULSE 63–90; RESP 16–25; TEMP 97.1–98; O2SAT 90–100
--- NOTE | 2025-03-06 14:28 | DVHPN2 ---
Reviewed: Care Plan, H&P, Labs, Medications, Previous Orders, Radiology Changes from previous H/P or p: No Changes General: Per HPI Eyes: No Pain, No Vision change, No Conjunctivae inflammation, No Eyelid inflammation, No Other, No Redness ENT: No Ear pain, No Ear discharge, No Nose pain, No Nose discharge, No Nose congestion, No Mouth pain, No Mouth swelling, No Throat pain, No Throat swelling, No Other Cardiovascular: No Chest Pain, No Palpitations, No Orthopnea, No Paroxysmal Noc. Dyspnea, No Edema, No Lt Headedness, No Other Respiratory: No Cough, No Dry; Shortness of breath; No SOB with excertion, No Wheezing, No Hemoptysis, No Pleuritic Pain, No Sputum; Other (SOB at rest) Gastrointestinal: No Nausea, No Vomiting, No Abdominal Pain, No Diarrhea, No Constipation, No Melena, No Hematochezia, No Other Genitourinary: No Dysuria, No Frequency, No Incontinence, No Hematuria, No Retention, No Other Musculoskeletal: No other, No neck pain, No shoulder pain, No arm pain, No back pain, No hand pain, No leg pain, No foot pain Skin: No Rash, No Lesions, No Jaundice, No Bruising, No Other Objective Vitals Vital Signs Date Time Temp Pulse Resp B/P (MAP) Pulse Ox O2 Delivery O2 Flow Rate FiO2 03/06/25 13:00 97.8 67 19 145/75 (98) 97 97.8 03/06/25 09:37 Room Air* 0 21 Intake/Output Intake and Output 03/06/25 07:00 Intake Total 600 ml Output Total 320 ml Balance 280 ml Intake Oral 600 ml Output Urine Total 320 ml # Voids 3 Exam General Appearance: Alert, Oriented X3, Cooperative, No acute distress HEENT: Atraumatic, PERRLA, EOMI, Mucous membr. moist/pink Respiratory: Normal air movement Cardiovascular: Regular rate, Normal S1, Normal S2, No murmurs Abdominal: Normal bowel sounds, Soft, No tenderness, No hepatospenomegaly, No masses Extremities: No clubbing, No cyanosis, No edema, Normal pulses, No tenderness/swelling Skin: No rashes, No breakdown, No significant lesion Neuro: Normal speech, Normal tone, Sensation intact, Cranial nerves 3-12 NL, Reflexes 2+, Other (Generalized weakness) Psych/Mental Status: Mental status NL, Mood NL General Appearance: Alert, Oriented X3, Cooperative, No acute distress HEENT: Atraumatic, PERRLA, EOMI, Mucous membr. moist/pink Neck: Supple Lungs: Clear to auscultation, Normal air movement Cardiovascular: Regular rate, Normal S1, Normal S2, No murmurs, Gallops, Rubs Abdomen: Normal bowel sounds, Soft, No tenderness Neuro: Cranial nerves 3-12 NL Psych/Mental Status: Mental status NL Medications Current Medications Medications Dose Ordered Sig/Sandra Route Start Time Stop Time Status Last Admin Dose Admin Methylprednisolone Sodium Succinate 40 mg Q8HR IV 03/05/25 06:00 03/06/25 05:24 40 MG Famotidine 20 mg Q12HR IV 03/05/25 10:00 03/06/25 08:39 20 MG Sodium Chloride 10 ml Q8HR IV 03/05/25 06:00 03/06/25 05:24 10 ML Acetaminophen/ Hydrocodone Bitart 1 tab Q4HP PRN PO 03/04/25 23:30 03/04/25 23:52 1 TAB Ondansetron HCl 4 mg Q4HP PRN IV 03/04/25 23:30 03/05/25 14:10 4 MG Docusate Sodium 100 mg BIDPRN PRN PO 03/04/25 23:30 Acetaminophen 650 mg Q6HP PRN PO 03/04/25 23:30 Nitroglycerin 0.4 mg Q5MINP PRN SL 03/04/25 23:30 Morphine Sulfate 2 mg Q30M PRN IV 03/04/25 23:30 Hydromorphone HCl 0.5 mg Q6HP PRN IV 03/05/25 06:00 03/06/25 08:42 0.5 MG Albuterol 2.5 mg Q4H NEB 03/05/25 18:00 03/06/25 09:37 2.5 MG Ipratropium Alviso 0.5 mg Q4H NEB 03/05/25 18:00 03/06/25 09:37 0.5 MG Azithromycin 250 ml @ 125 mls/hr DAILY IV 03/06/25 10:45 Laboratory Results Laboratory Tests 03/05/25 05:40 Labs and/or images reviewed: Labs reviewed by me, Image(s) reviewed by me Assessment/Plan Assessment/Plan 64-year-old male with past medical history of anemia, COPD, asthma, CVA, and hypertension who presented to [facility] ED with complaint of shortness of breaths. Patient reports he has been experiencing difficulty breathing, unrelieved with his inhaler medication at home, increased work of breathing, progressively worsening today that prompted this visit. 03/06: Patient is on 5 L oxygen, no wheezing. We will continue treatment to deescalate oxygen. Communicated with nurse. Diagnosis: COPD exacerbation Acute on chronic hypoxic respiratory failure Generalized weakness History of CVA Hypertension Chronic tobacco dependence Plan: Duo nebs Azithromycin Solu-Medrol 40 IV b.i.d. Tobacco cessation counseling, patient denied any measures Continue other home medications Telemetry Full code Plan discussed with: Patient My Orders Orders - CECILIA MURPHY MD Procedure Category Date Status Time Azithromycin 500mg/ PHA 03/06/25 In Process 250ml (Zithromax 50 10:45 Date of Service: Mar 06, 2025 Billing Provider: CECILIA MURPHY MD Common Visit Codes: [id number] INP/OBS CARE(HIGH) CECILIA MURPHY MD Mar 06, 2025 14:28
[2025-03-06] MEDS: AZITHROMYCIN 500MG/ 250ML 250 ML IV SCH (15:54)
[2025-03-07] VITALS (10 sets, daily range): BP systolic 146–179; BP diastolic 63–98; PULSE 60–82; RESP 17–24; TEMP 96.6–98.3; O2SAT 94–100
[2025-03-07] MEDS ORDERED: AZIT500T66 PO (13:18)
[2025-03-07] MEDS ORDERED: PRED20TA2 PO (13:18)
--- NOTE | 2025-03-07 13:20 | DVHDS2 ---
Discharge Summary Date of Admission Mar 04, 2025 at 23:28 Date of Discharge: Mar 07, 2025 Labs/Diagnostic Data: Laboratory Results Test 03/05/25 05:40 03/04/25 21:36 White Blood Count 7.6 10^3/uL (4.4-10.8) Red Blood Count 5.92 10^6/uL (4.5-5.90) Hemoglobin 11.3 g/dL (13.5-17.5) Hematocrit 36.8 % (41.0-53.0) Mean Corpuscular Volume 62.2 fL (80.0-100.0) Mean Corpuscular Hemoglobin 19.0 pg (28.0-32.0) Mean Corpuscular Hemoglobin Concent 30.6 g/dL (32.0-36.0) Red Cell Distribution Width 17.3 % (11.8-14.3) Platelet Count 248 10^3/uL (140-450) Mean Platelet Volume 8.7 fL (6.9-10.8) Neutrophils (%) (Auto) 89.3 % (37.0-80.0) Lymphocytes (%) (Auto) 9.2 % (10.0-50.0) Monocytes (%) (Auto) 0.9 % (0.0-12.0) Eosinophils (%) (Auto) 0.1 % (0.0-7.0) Basophils (%) (Auto) 0.5 % (0.0-2.0) Neutrophils # (Auto) 6.8 10 ^3/uL (1.6-8.6) Lymphocytes # (Auto) 0.7 10 ^3/uL (0.4-5.4) Monocytes # (Auto) 0.1 10 ^3/uL (0-1.3) Eosinophils # (Auto) 0 10 ^3/uL (0-0.8) Basophils # (Auto) 0 10 ^3/uL (0-0.2) Nucleated Red Blood Cells 0.1 % Platelet Estimate Adequate Hypochromasia (manual) Slight Microcytosis Slight Sodium Level 142 mmol/L (136-145) Potassium Level 4.6 mmol/L (3.5-5.1) Chloride Level 107 mmol/L (98-107) Carbon Dioxide Level 26 mmol/L (20-31) Anion Gap 9 (5-15) Blood Urea Nitrogen 19 mg/dL (9-23) Creatinine 0.99 mg/dL (0.700-1.30) Glomerular Filtration Rate Calc 86 mL/min (>90) BUN/Creatinine Ratio 19.2 (10.0-20.0) Serum Glucose 162 mg/dL (74-106) Calcium Level 9.3 mg/dL (8.7-10.4) Total Bilirubin 0.3 mg/dL (0.2-1.0) Aspartate Amino Transferase (AST) 12 U/L (13-40) Alanine Aminotransferase (ALT) 10 U/L (7-40) Alkaline Phosphatase 89 U/L (46-116) Total Protein 7.7 g/dL (5.7-8.2) Albumin 4.3 g/dL (3.2-4.8) Troponin I High Sensitivity 16 ng/L (</=54) B-Type Natriuretic Peptide 54.84 pg/mL (0-100) Other Laboratory Tests 03/05/25 05:40 Brief Hx & Hospital Course: 64-year-old male with past medical history of anemia, COPD, asthma, CVA, and hypertension who presented to [facility] ED with complaint of shortness of breaths. Patient reports he has been experiencing difficulty breathing, unrelieved with his inhaler medication at home, increased work of breathing, progressively worsening today that prompted this visit. 03/06: Patient is on 5 L oxygen, no wheezing. We will continue treatment to deescalate oxygen. Communicated with nurse. 03/07: No wheezing today, patient back to his baseline. Patient is medically cleared wants to get evaluated by high risk case manager before departing. Lots of stable, blood pressure improved, stable for discharge as per plan below. Diagnosis: Acute on chronic hypoxic respiratory failure acute on Chronic COPD, in acute exacerbation, with pneumonitis Generalized weakness History of CVA Hypertension Chronic tobacco dependence, current Plan: [facility] - Prednisone long taper. 60 mg x3 days, 40 mg x4 days, 20 mg x5 days, 10 mg x4 days - Azithromycin 500 mg daily for 5 days - continue home inhalers - Continue other home medications. - follow up with primary tower erector Follow up with PCP to review discharge, PCP to evaluate patient for options for quitting smoking Condition at Discharge: Fair Final Diagnosis/Problems List Acute on chronic hypoxic respiratory failure acute on Chronic COPD, in acute exacerbation, with pneumonitis Generalized weakness History of CVA Hypertension Chronic tobacco dependence, current Discharge Disposition: Home Discharge Instruct/Medications Scheduled Albuterol Sulfate (Ventolin Mdi), 90 MCG IN DAILY, (Reported) Amoxicillin & Pot Clavulanate (Augmentin Tablet), 875 MG PO BID Famotidine (Famotidine), 20 MG PO Q12HR Fluconazole (Fluconazole), 1 TAB PO DAILY Oxycodone Hcl (Oxycodone Hcl), 5 MG PO DAILY, (Reported) Discharge Statement: "Patient was advised to return to the ER or call 911 if any headaches, dizziness, shortness of breath, chest pain, abdominal pain, bleeding, fevers, or worsening of medical condition. Patient was counseled about treatment plan, medications, possible side effects, patientverbalized understanding. All questions were answered to the best of my ability. This discharge took greater then 30 minutes in planning, reviewing documentation, counseling the patient, and discussing with other team members." ASSESSMENT ASSESSMENT Assessment Date of Service: Mar 07, 2025 Billing Provider: CECILIA MURPHY MD Common Visit Codes: [id number]/OBS DISCH DAY >30min CECILIA MURPHY MD Mar 07, 2025 13:20
[2025-03-07 15:17] LABS: Hemoglobin 11.1 g/dL (13.5-17.5)
[2025-03-07 15:18] LABS: Hematocrit 36.9 % (41.0-53.0); Mean Corpuscular Hemoglobin 18.7 pg (28.0-32.0); Mean Corpuscular Volume 62.3 fL (80.0-100.0); Nucleated Red Blood Cells % 0.0 %
[2025-03-07 15:32] LABS: Alanine Aminotransferase 11 U/L (7-40); Albumin 4.1 g/dL (3.2-4.8); Alkaline Phosphatase 70 U/L (46-116); Anion Gap 6 (5-15); BUN/Creatinine Ratio 25.0 (10.0-20.0); Calcium 9.1 mg/dL (8.7-10.4); Carbon Dioxide 31 mmol/L (20-31); Chloride 103 mmol/L (98-107); Potassium 4.6 mmol/L (3.5-5.1); Sodium 140 mmol/L (136-145); Total Protein 7.2 g/dL (5.7-8.2)
[2025-03-07 15:33] LABS: Bilirubin, Total 0.3 mg/dL (0.2-1.0); Blood Urea Nitrogen 25 mg/dL (9-23); Glucose 194 mg/dL (74-106)
[2025-03-07] MEDS ORDERED: IPRATROPIUM BROM 0.5 MG/2.5ML INH SOL NEB SCH (16:00)
[2025-03-07] MEDS ORDERED: ALBUTEROL SULF 2.5 MG/0.5ML(0.5%) NEB SOLN NEB SCH (16:00)
[2025-03-07] MEDS: IPRATROPIUM BROM 0.5 MG/2.5ML INH SOL NEB SCH (17:58)
[2025-03-07] MEDS: ALBUTEROL SULF 2.5 MG/0.5ML(0.5%) NEB SOLN NEB SCH (17:58)
[2025-03-07] MEDS ORDERED: methylPREDNISolone SOD SUCC 40 MG/ML VL IV SCH (22:00)
--- NOTE | 2025-03-09 09:18 | ECG ---
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
== END 2025-03-07 20:00 | disposition home or self-care (01) | DRG 144 ==
LOC: EDBD 20:10 → ER 20:14 → OVERFLOW 23:28 → TELE-EAST 03-05 16:36
PROVIDERS: ADMIT Student in an Organized Health Care Education/Training Program; ATTEND Student in an Organized Health Care Education/Training Program
DX: J98.4 Other disorders of lung (principal); J96.21 Acute and chronic respiratory failure with hypoxia; J44.1 Chronic obstructive pulmonary disease with (acute) exacerbation; I10 Essential (primary) hypertension; F17.200 Nicotine dependence, unspecified, uncomplicated; Z88.6 Allergy status to analgesic agent; Z86.73 Personal history of transient ischemic attack (TIA), and cerebral infarction without residual deficits
CPT/HCPCS: 36415; 71045; 80048; 80053; 83880; 84484; 85025; 93005; 94640; 96374; G0378; J2405; J3490

== ENCOUNTER 2025-04-11 18:46 | Inpatient (IN) | payer OTHER ==
[~2025-04-11] VITALS: Ht 180.3 cm; Wt 117.9 kg
[~2025-04-11 18:46] MED LIST changes: +ALBUAER3 IN; -AUG875T PO; +AZIT500T66 PO; +OXY5T PO; +PRED20TA2 PO
--- NOTE | 2025-04-11 19:13 | ECG ---
[facility] Test Date: 2025-04-11 Test Time: 19:01:50 Pat Name: DIEGO HUTCHINSON Department: ED Room: [facility] Gender: M Aesthetician: EDI : 1960 Requested By: JOHN KHAN Order Number: [id number] Reading MD: John Fuchs Measurements Intervals [place] Rate: 80 P: 50 [place]: 149 QRS: 54 QRSD: 106 T: 59 QT: 390 QTc: 450 Interpretive Statements Sinus rhythm Low voltage, precordial leads Electronically Signed On 04-12-2025 18:54:37 PST by John Fuchs Please click the below link to view image of tracing.
[2025-04-11] MEDS: ALBUTEROL SULF 2.5 MG/0.5ML(0.5%) NEB SOLN NEB ONE (19:35)
--- NOTE | 2025-04-11 19:46 | ED.PDOC ---
History of Present Illness HPI Comments 65-year-old male brought in by ambulance with a prior medical history of anemia, asthma, COPD, CVA, hypertension, tomorrow and lower extremity and the chief complaint of shortness of breath. EMS report on getting a call from [facility], due from the patient having had shortness breath for 3 hours in them trying a DuoNeb which did not work. When EMS arrived on scene the patient had a heart rate of 78 and was satting on 92% room air and was given 7.5 albuterol and 0.5 Atrovent which brought the patient satting at 100% on DuoNeb. Patient notes on having chronic chest pain for 2 days. Denies any other symptoms at this time. PHYSICAL EXAM: General: Awake, alert and oriented. No acute distress. Skin: Skin in warm, dry and intact. Appropriate color for ethnicity. HEENT: The head is normocephalic and atraumatic. Conjunctivae are clear without exudates or hemorrhage. Sclera is non-icteric. Eyelids are normal in appearance without swelling or lesions. Oral mucosa is pink and moist Neck: The neck is supple with normal range of motion. No JVD. Cardiac: Heart rate and rhythm are normal. No murmurs, gallops, or rubs are auscultated. Respiratory: Positive signs of respiratory distress.+ wheezing B/L Abdominal: Abdomen is soft, non-tender without distention, guarding or rigidity. Bowel sounds are present and normoactive in all four quadrants. Extremities: Upper and lower extremities are atraumatic in appearance without deformity or edema. Neurological: The patient is awake, alert and oriented to person, place, and time with normal speech. Speech is clear. There is no facial asymmetry. Psychiatric: Appropriate mood and affect. Good judgement and insight. REVIEW OF SYSTEMS: General: No fever, no chills, or fatigue HEENT: No sore throat, no earache, no congestion, no neck pain. Cardiac: + chest pain. No palpitations. Lungs: +shortness of breath. no cough. GI: No nausea, no vomiting, no diarrhea, no constipation, no abdominal pain : No dysuria, frequency, or urgency. No hematuria. Musculoskeletal: No joint pain , no joint swelling, no extremity edema. Skin: No rash, no itching. Neuro: No headache, no dizziness, no weakness (And as sated in HPI) Chief Complaint: Shortness of Breath Time Seen by MD: 19:10 Reviewed Notes: Nurses Notes, Chainstitch Sewing Machine Operator Notes, Medications, Allergies Allergies: Coded Allergies: Ibuprofen (Verified Allergy, Severe, 12/19/24) Home Meds Active Scripts Azithromycin (Azithromycin) 500 Mg Tab, 1 TAB PO DAILY, #5 TAB Prov:CECILIA MURPHY MD 03/07/25 Prednisone (Prednisone) 20 Mg Tab, 60 MG PO DAILY for 16 Days, #24 MG 0 Refills 3tab x3day, 2tab x4day, 1tab x5day, 1/2tab x4day Prov:CECILIA MURPHY MD 03/07/25 Fluconazole (Fluconazole) 200 Mg Tab, 1 TAB PO DAILY for 7 Days, #7 TAB Prov:CAMELIA PANCHAL MD 12/28/24 Famotidine (Famotidine) 20 Mg Tab, 20 MG PO Q12HR for 90 Days, #180 TAB 1 Refill Prov:CAMELIA PANCHAL MD 12/28/24 Reported Medications Oxycodone Hcl (OXYCODONE HCL) 5 Mg Tb, 5 MG PO DAILY, TAB 03/05/25 Albuterol Sulfate (VENTOLIN MDI) 90 Mcg Ih, 90 MCG IN DAILY, INH 03/05/25 Information Source: Patient, Emergency Med Personnel Mode of Arrival: EMS Severity: Moderate Timing: Hours Duration: Since onset, Hours Prehospital treatment: 12 Lead EKG, Scaffold Erector, Oxygen (DuoNeb), Treatment (DuoNeb) Past Medical History PAST MEDICAL HISTORY: Anemia, Asthma, 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 Was a procedure done?: No EKG EKG : Pulse Rate (adult): 80 [place]: Normal Cardiac Rhythm: NSR Block: None Hypertrophy: None ST: Normal Differential Dx Considerations may include: Differential diagnoses considered includebut arenot limited to acute Bronchitis, Asthma, COPD, Pneumothorax, PE, CHF, Pulmonary HTN, Anemia, CO Poisoning, Methemoglobinemia, Hyperventilation, Metabolic Acidosis, Pulmonary Edema, Pneumonia, ACS, Pericardial Tamponade, Anxiety, other X-Ray, Labs, Meds, VS Vital Signs Date Time Temp Pulse Resp B/P (MAP) Pulse Ox O2 Delivery O2 Flow Rate FiO2 04/11/25 19:46 80 04/11/25 19:36 18 97 Nasal Cannula* 3 32 04/11/25 19:01 80 04/11/25 18:57 98.9 89 22 149/88 100 98.9 Lab Test 04/11/25 20:55 04/11/25 20:52 04/11/25 19:53 04/11/25 19:47 Range/Units Influenza Type A Antigen Pending Influenza Type B Antigen Pending SARS-CoV-2 Antigen (Rapid) Pending Troponin I High Sensitivity Pending 19 </=54 ng/L Blood Gas Specimen Type Arterial Blood Gas Sample Site Right radial Blood Gas Patient Temperature 37.0 Arterial Blood Date Drawn [id number] Arterial Blood pH 7.325 L 7.350-7.450 Arterial Blood Partial Pressure CO2 58.0 H 35.0-48.0 mmHg Arterial Blood Partial Pressure O2 65.1 L 83.0-108.0 mmHg Arterial Blood HCO3 29.6 H 21.0-28.0 mmol/L Arterial Blood Oxygen Saturation 91.3 L 94.0-98.0 % Arterial Blood Base Excess 2.4 -2.0-3.0 mmol/L Arterial Blood Oxyhemoglobin 87.9 L 94.0-98.0 % Arterial Blood Carboxyhemoglobin 3.2 H 0.5-1.5 % Arterial Blood Methemoglobin 0.5 0.0-1.5 % Artur Test Yes Blood Gas Total Hemoglobin 11.90 L 13.5-17.5 g/dL Blood Gas Liter Flow 3.00 Blood Gas Modality Nasal cannula FiO2 % 32.0 White Blood Count 7.0 4.4-10.8 10^3/uL Red Blood Count 5.87 4.5-5.90 10^6/uL Hemoglobin 11.1 L 13.5-17.5 g/dL Hematocrit 37.0 L 41.0-53.0 % Mean Corpuscular Volume 63.0 L 80.0-100.0 fL Mean Corpuscular Hemoglobin 18.9 L 28.0-32.0 pg Mean Corpuscular Hemoglobin Concent 30.0 L 32.0-36.0 g/dL Red Cell Distribution Width 17.0 H 11.8-14.3 % Platelet Count 215 140-450 10^3/uL Mean Platelet Volume 8.7 6.9-10.8 fL Neutrophils (%) (Auto) 58.8 37.0-80.0 % Lymphocytes (%) (Auto) 31.7 10.0-50.0 % Monocytes (%) (Auto) 5.4 0.0-12.0 % Eosinophils (%) (Auto) 2.4 0.0-7.0 % Basophils (%) (Auto) 1.7 0.0-2.0 % Neutrophils # (Auto) 4.1 1.6-8.6 10 ^3/uL Lymphocytes # (Auto) 2.2 0.4-5.4 10 ^3/uL Monocytes # (Auto) 0.4 0-1.3 10 ^3/uL Eosinophils # (Auto) 0.2 0-0.8 10 ^3/uL Basophils # (Auto) 0.1 0-0.2 10 ^3/uL Nucleated Red Blood Cells 0.6 % Platelet Estimate Pending D-Dimer, Quantitative < 0.19 0.0-0.49 mg/L FEU Sodium Level 144 136-145 mmol/L Potassium Level 4.3 3.5-5.1 mmol/L Chloride Level 106 98-107 mmol/L Carbon Dioxide Level 27 20-31 mmol/L Anion Gap 11 5-15 Blood Urea Nitrogen 18 9-23 mg/dL Creatinine 0.97 0.700-1.30 mg/dL Glomerular Filtration Rate Calc 88 >90 mL/min BUN/Creatinine Ratio 18.6 10.0-20.0 Serum Glucose 123 H 74-106 mg/dL Lactic Acid Level 1.6 0.4-2.0 mmol/L Calcium Level 8.9 8.7-10.4 mg/dL Total Bilirubin 0.2 0.2-1.0 mg/dL Aspartate Amino Transferase (AST) 25 13-40 U/L Alanine Aminotransferase (ALT) 10 7-40 U/L Alkaline Phosphatase 90 46-116 U/L B-Type Natriuretic Peptide 3.42 0-100 pg/mL Total Protein 6.6 5.7-8.2 g/dL Albumin 4.0 3.2-4.8 g/dL Current Medications Medications (Trade) Dose Ordered Sig/Sandra Route Start Time Stop Time Status Last Admin Albuterol (Ventolin Medneb) 5 mg ONCE ONCE NEB 04/11/25 19:30 04/11/25 19:31 DC 04/11/25 19:35 Methylprednisolone Sodium Succinate (Solu Medrol) 80 mg ONCE ONCE IV 04/11/25 19:30 04/11/25 19:31 DC 04/11/25 20:52 Aspirin (Ecotrin Enteric Coated Tablet) 325 mg ONCE ONCE PO 04/11/25 21:00 04/11/25 21:01 DC 04/11/25 21:05 PATIENT: MARI HUTCHINSONCCT: [id number]: [id number] : 1960 LOC: ER ROOM / BED: / AGE / SEX: 65 / M ADM STATUS: REG ER SERVICE 18 ORDERING PHYSICIAN: JOHN KHAN MD PROCEDURE(s): CXR1 - CHEST XRAY 1 VIEW REASON: Shortness of breath ORDER NUMBER(s): [id number], ACCESSION NUMBER(s): [id number] CHEST RADIOGRAPH Indication: Shortness of breath Technique: Single frontal view of the chest was obtained Comparison: XY CHEST PORTABLE on DOS: 03/04/25, XY CHEST XRAY 1 VIEW on DOS: 12/19/24, XR CHEST 1 VIEW on DOS: 11/05/24 FINDINGS: Lines and Tubes: None Lungs: No focal consolidation. Pleura: No effusion. No pneumothorax. Cardiomediastinal contours: Unremarkable Bones: No acute osseous abnormality. IMPRESSION: 1. No acute cardiopulmonary disease. 2. No significant change from 03/04/2025. Time of 1ST Reevaluation: 19:40 Reevaluation 1ST: Unchanged Patient Education/Counseling: Diagnosis, Treatment, Prognosis Family Education/Counseling: No Family Present SEPSIS Sepsis Screen Date sepsis recognized/suspect: Apr 11, 2025 Time Sepsis recognized/suspect: 1854 Recent Procedure: No On Antibiotic Therapy: No Respiratory Rate >20: No Heart Rate >90: No Temp<36 C (96.8 F) or >38.3 C: No SBP <90 or MAP <65 mmHG: No New Acute Mental Status Change: No Is the patient on CPAP, BIPAP,: No Physician Orders Complete Blood Count (04/11/25 19:19) Abg W/ Co-Ox (04/11/25 19:19) Covid19 Antigen Maureen (04/11/25 ) Rapid Influenza A&B (04/11/25 19:19) Chest Xray 1 View (04/11/25 19:19) Troponin-I Hs (04/11/25 20:19) Troponin-I Hs (04/11/25 22:19) Rbc Morphology (04/11/25 19:47) Vital Signs Date Time Temp Pulse Resp B/P (MAP) Pulse Ox O2 Delivery O2 Flow Rate FiO2 04/11/25 19:46 80 04/11/25 19:36 18 97 Nasal Cannula* 3 32 04/11/25 19:01 80 04/11/25 18:57 98.9 89 22 149/88 100 98.9 Laboratory Tests Test 04/11/25 19:47 Lactic Acid Level 1.6 mmol/L (0.4-2.0) White Blood Count 7.0 10^3/uL (4.4-10.8) Medications Medications Dose Ordered Sig/Sandra Route Start Time Stop Time Status Last Admin Dose Admin Albuterol 5 mg ONCE ONCE NEB 04/11/25 19:30 04/11/25 19:31 DC 04/11/25 19:35 Aspirin 325 mg ONCE ONCE PO 04/11/25 21:00 04/11/25 21:01 DC 04/11/25 21:05 Methylprednisolone Sodium Succinate 80 mg ONCE ONCE IV 04/11/25 19:30 04/11/25 19:31 DC 04/11/25 20:52 Departure 1 Departure Time of Disposition: 21:30 Impression: Primary Impression: Asthma exacerbation Additional Impression: Chest pain Disposition: ADMITTED INPATIENT Condition: Stable Comments MDM: 65-year-old male with hypoxia, hypoxemia, asthma exacerbation, ongoing chest pain. Requiring oxygen supplementation. Stabilized in the ED. Patient admitted to hospitalist service for further treatment, evaluation and monitoring. Extensive evaluation was performed in attempt to identify or rule out: (See differential diagnosis section) The following tests were ordered, and results were reviewed by me and discussed with patient: (See diagnostic results section) The following test were independently interpreted by me: EKG, chest x-ray-no acute disease I reviewed and agreed with the following test results read by other providers: Chest x-ray I reviewed the following notes from the pt's past medical encounters: N/A Additional information was gathered from interviewing the following independent historians: EMS personnel Discussion of management or test interpretation with external physician/other qualified health animal care specialist: N/A Addressed an acute or chronic illness that poses a threat to life or bodily function: Acute asthma exacerbation, chest pain concerning for ACS Decision regarding hospitalization or escalation of hospital level of care: Risk and benefits of admission for further treatment of patient's condition was considered. Due to patient's current clinical condition, high risk of decline and poor outcome if discharged and need for further inpatient management and monitoring, patient will be admitted to the hospital. Drug therapy requiring intensive monitoring for toxicity: IV methylprednisolone Critical Care Note Critical Care Time?: No Stability Stability form required: No Heart Score Heart Score: Heart Score Response (Comments) Value History N/A 0 EKG N/A 0 Age N/A 0 Risk Factors N/A 0 Troponin N/A 0 Total 0 I personally scribed for JOHN KHAN MD ([email or web address]) on 04/11/25 at 19:46. Electronically submitted by Dann Graves ([email or web address]). JOHN KHAN MD Apr 11, 2025 19:46
--- NOTE | 2025-04-11 19:53 | DVH ---
CHEST RADIOGRAPH Indication: Shortness of breath Technique: Single frontal view of the chest was obtained Comparison: XY CHEST PORTABLE on DOS: 03/04/25, XY CHEST XRAY 1 VIEW on DOS: 12/19/24, XR CHEST 1 VIEW on DOS: 11/05/24 FINDINGS: Lines and Tubes: None Lungs: No focal consolidation. Pleura: No effusion. No pneumothorax. Cardiomediastinal contours: Unremarkable Bones: No acute osseous abnormality. IMPRESSION: 1. No acute cardiopulmonary disease. 2. No significant change from 03/04/2025.
[2025-04-11 20:00] LABS: Base Excess 2.4 mmol/L (-2.0-3.0)
[2025-04-11 20:06] LABS: Hematocrit 37.0 % (41.0-53.0); Hemoglobin 11.1 g/dL (13.5-17.5); Mean Corpuscular Hemoglobin 18.9 pg (28.0-32.0); Mean Corpuscular Volume 63.0 fL (80.0-100.0); Nucleated Red Blood Cells % 0.6 %
[2025-04-11] MEDS: methylPREDNISolone SOD SUCC 125 MG/2 ML VL IV ONE (20:52)
[2025-04-11 20:57] LABS: Alanine Aminotransferase 10 U/L (7-40); Albumin 4.0 g/dL (3.2-4.8); Alkaline Phosphatase 90 U/L (46-116); Anion Gap 11 (5-15); BUN/Creatinine Ratio 18.6 (10.0-20.0); Bilirubin, Total 0.2 mg/dL (0.2-1.0); Blood Urea Nitrogen 18 mg/dL (9-23); Calcium 8.9 mg/dL (8.7-10.4); Carbon Dioxide 27 mmol/L (20-31); Chloride 106 mmol/L (98-107); Glucose 123 mg/dL (74-106); Potassium 4.3 mmol/L (3.5-5.1); Sodium 144 mmol/L (136-145); Total Protein 6.6 g/dL (5.7-8.2)
[2025-04-11] MEDS: ASPirin-EC 325mg tab PO ONE (21:05)
[2025-04-11 21:42] LABS: COVID19 ANTIGEN SOFIA FIA NEGATIVE (NEGATIVE)
[2025-04-11 22:11] LABS: Anisocytosis Moderate
--- NOTE | 2025-04-11 23:10 | DVHHPRES ---
Review of Systems Allergies: Coded Allergies: Ibuprofen (Verified Allergy, Severe, 12/19/24) Exam Vital Signs Vital Signs Date Time Temp Pulse Resp B/P (MAP) Pulse Ox O2 Delivery O2 Flow Rate FiO2 04/11/25 19:46 80 04/11/25 19:36 18 97 Nasal Cannula* 3 32 04/11/25 18:57 98.9 149/88 98.9 Labs/Xrays Labs Test 04/11/25 22:46 04/11/25 20:55 04/11/25 19:53 04/11/25 19:47 Range/Units Influenza Type A Antigen Negative Negative Influenza Type B Antigen Negative Negative SARS-CoV-2 Antigen (Rapid) Negative NEGATIVE Blood Gas Specimen Type Arterial Blood Gas Sample Site Right radial Blood Gas Patient Temperature 37.0 Arterial Blood Date Drawn [id number] Arterial Blood pH 7.325 L 7.350-7.450 Arterial Blood Partial Pressure CO2 58.0 H 35.0-48.0 mmHg Arterial Blood Partial Pressure O2 65.1 L 83.0-108.0 mmHg Arterial Blood HCO3 29.6 H 21.0-28.0 mmol/L Arterial Blood Oxygen Saturation 91.3 L 94.0-98.0 % Arterial Blood Base Excess 2.4 -2.0-3.0 mmol/L Arterial Blood Oxyhemoglobin 87.9 L 94.0-98.0 % Arterial Blood Carboxyhemoglobin 3.2 H 0.5-1.5 % Arterial Blood Methemoglobin 0.5 0.0-1.5 % Artur Test Yes Blood Gas Total Hemoglobin 11.90 L 13.5-17.5 g/dL Blood Gas Liter Flow 3.00 Blood Gas Modality Nasal cannula FiO2 % 32.0 White Blood Count 7.0 4.4-10.8 10^3/uL Red Blood Count 5.87 4.5-5.90 10^6/uL Hemoglobin 11.1 L 13.5-17.5 g/dL Hematocrit 37.0 L 41.0-53.0 % Mean Corpuscular Volume 63.0 L 80.0-100.0 fL Mean Corpuscular Hemoglobin 18.9 L 28.0-32.0 pg Mean Corpuscular Hemoglobin Concent 30.0 L 32.0-36.0 g/dL Red Cell Distribution Width 17.0 H 11.8-14.3 % Platelet Count 215 140-450 10^3/uL Mean Platelet Volume 8.7 6.9-10.8 fL Neutrophils (%) (Auto) 58.8 37.0-80.0 % Lymphocytes (%) (Auto) 31.7 10.0-50.0 % Monocytes (%) (Auto) 5.4 0.0-12.0 % Eosinophils (%) (Auto) 2.4 0.0-7.0 % Basophils (%) (Auto) 1.7 0.0-2.0 % Neutrophils # (Auto) 4.1 1.6-8.6 10 ^3/uL Lymphocytes # (Auto) 2.2 0.4-5.4 10 ^3/uL Monocytes # (Auto) 0.4 0-1.3 10 ^3/uL Eosinophils # (Auto) 0.2 0-0.8 10 ^3/uL Basophils # (Auto) 0.1 0-0.2 10 ^3/uL Nucleated Red Blood Cells 0.6 % Platelet Estimate Adequate Hypochromasia (manual) Marked Anisocytosis (manual) Moderate Microcytosis Marked D-Dimer, Quantitative < 0.19 0.0-0.49 mg/L FEU Sodium Level 144 136-145 mmol/L Potassium Level 4.3 3.5-5.1 mmol/L Chloride Level 106 98-107 mmol/L Carbon Dioxide Level 27 20-31 mmol/L Anion Gap 11 5-15 Blood Urea Nitrogen 18 9-23 mg/dL Creatinine 0.97 0.700-1.30 mg/dL Glomerular Filtration Rate Calc 88 >90 mL/min BUN/Creatinine Ratio 18.6 10.0-20.0 Serum Glucose 123 H 74-106 mg/dL Lactic Acid Level 1.6 0.4-2.0 mmol/L Calcium Level 8.9 8.7-10.4 mg/dL Total Bilirubin 0.2 0.2-1.0 mg/dL Aspartate Amino Transferase (AST) 25 13-40 U/L Alanine Aminotransferase (ALT) 10 7-40 U/L Alkaline Phosphatase 90 46-116 U/L B-Type Natriuretic Peptide 3.42 0-100 pg/mL Total Protein 6.6 5.7-8.2 g/dL Albumin 4.0 3.2-4.8 g/dL SEPSIS Sepsis Screen Date sepsis recognized/suspect: Apr 11, 2025 Time Sepsis recognized/suspect: 1854 Recent Procedure: No On Antibiotic Therapy: No Respiratory Rate >20: No Heart Rate >90: No Temp<36 C (96.8 F) or >38.3 C: No SBP <90 or MAP <65 mmHG: No New Acute Mental Status Change: No Is the patient on CPAP, BIPAP,: No Physician Orders Abg W/ Co-Ox (04/11/25 19:19) Chest Xray 1 View (04/11/25 19:19) Troponin-I Hs (04/11/25 22:19) Admit (04/11/25 23:04) Code Status (04/11/25 23:04) Acetaminophen Tablet (Tylenol Tablet) (04/11/25 23:15) Enoxaparin Sodium (Lovenox) (04/12/25 10:00) Echo 2d Mode Cardiac Dop (04/11/25 23:04) Notify Md Of Changes From Base (04/11/25 23:04) Nitroglycerin Sublingual (Ntrostat Subli (04/11/25 23:15) Azithromycin 500mg/ 250ml (Zithromax 50 (04/11/25 23:15) Azithromycin Tablet (Zithromax Tablet) (04/12/25 10:00) Albuterol Medneb (Ventolin Medneb) (04/12/25 02:00) Ipratropium Medneb (Atrovent Medneb) (04/12/25 02:00) Urinalysis (04/11/25 23:04) Drug Screen (04/11/25 23:04) Vital Signs Date Time Temp Pulse Resp B/P (MAP) Pulse Ox O2 Delivery O2 Flow Rate FiO2 04/11/25 19:46 80 04/11/25 19:36 18 97 Nasal Cannula* 3 32 04/11/25 19:01 80 04/11/25 18:57 98.9 89 22 149/88 100 98.9 Laboratory Tests Test 04/11/25 19:47 Lactic Acid Level 1.6 mmol/L (0.4-2.0) White Blood Count 7.0 10^3/uL (4.4-10.8) Medications Medications Dose Ordered Sig/Sandra Route Start Time Stop Time Status Last Admin Dose Admin Albuterol 5 mg ONCE ONCE NEB 04/11/25 19:30 04/11/25 19:31 DC 04/11/25 19:35 5 MG Aspirin 325 mg ONCE ONCE PO 04/11/25 21:00 04/11/25 21:01 DC 04/11/25 21:05 325 MG Methylprednisolone Sodium Succinate 80 mg ONCE ONCE IV 04/11/25 19:30 04/11/25 19:31 DC 04/11/25 20:52 80 MG Assessment/Plan My Orders Orders - NAEEM BUCK RESIDENT Procedure Category Date Status Time Admit ADMIT 04/11/25 Transmitted 23:04 Code Status CODE 04/11/25 Transmitted 23:04 Acetaminophen Tablet PHA 04/11/25 Transmitted (Tylenol Tablet) 23:15 Enoxaparin Sodium PHA 04/12/25 Transmitted (Lovenox) 10:00 Echo 2d Mode Cardiac US 04/11/25 Logged DOP 23:04 Notify Of Changes CHRISTINA 04/11/25 Transmitted From Base 23:04 Nitroglycerin PHA 04/11/25 Transmitted Sublingual (Ntrostat 23:15 Azithromycin 500mg/ PHA 04/11/25 Transmitted 250ml (Zithromax 50 23:15 Azithromycin Tablet PHA 04/12/25 Transmitted (Zithromax Tablet) 10:00 Albuterol Medneb PHA 04/12/25 Transmitted (Ventolin Medneb) 02:00 Ipratropium Medneb PHA 04/12/25 Transmitted (Atrovent Medneb) 02:00 Urinalysis LAB 04/11/25 Transmitted 23:04 Drug Screen LAB 04/11/25 Transmitted 23:04 NAEEM BUCK RESIDENT Apr 11, 2025 23:10
[2025-04-11] MEDS ORDERED: NITROGLYCERIN 0.4 MG SL TAB SL PRN ×2 (23:15→23:30)
[2025-04-11] MEDS ORDERED: ACETAMINOPHEN 325 MG TAB PO PRN ×2 (23:15→23:30)
--- NOTE | 2025-04-11 23:21 | DVHHP2 ---
History of Present Illness HPI 65-year-old male brought in by ambulance with a prior medical history of anemia, asthma, COPD, CVA, hypertension, tomorrow and lower extremity and the chief complaint of shortness of breath. [facility], due from the patient having had shortness breath for 3 hours in them trying a DuoNeb which did not work. When EMS arrived on scene the patient had a heart rate of 78 and was satting on 92% room air and was given 7.5 albuterol and 0.5 Atrovent which brought the patient satting at 100% on DuoNeb. Patient notes on having chronic chest pain for 2 days. Denies any other symptoms at this time. Home Meds Active Scripts Azithromycin (Azithromycin) 500 Mg Tab, 1 TAB PO DAILY, #5 TAB Prov:CECILIA MURPHY MD 03/07/25 Prednisone (Prednisone) 20 Mg Tab, 60 MG PO DAILY for 16 Days, #24 MG 0 Refills 3tab x3day, 2tab x4day, 1tab x5day, 1/2tab x4day Prov:CECILIA MURPHY MD 03/07/25 Fluconazole (Fluconazole) 200 Mg Tab, 1 TAB PO DAILY for 7 Days, #7 TAB Prov:CAMELIA PANCHAL MD 12/28/24 Famotidine (Famotidine) 20 Mg Tab, 20 MG PO Q12HR for 90 Days, #180 TAB 1 Refill Prov:CAMELIA PANCHAL MD 12/28/24 Reported Medications Oxycodone Hcl (OXYCODONE HCL) 5 Mg Tb, 5 MG PO DAILY, TAB 03/05/25 Albuterol Sulfate (VENTOLIN MDI) 90 Mcg Ih, 90 MCG IN DAILY, INH 03/05/25 Past Medical History Patient Family History: FHx: breast cancer G8 MOTHER, , Cause: Breast cancer Review of Systems Constitutional: No symptom reported Eyes: No symptom reported Pulmonary/Respiratory: Dyspnea Gastrointestinal: Nausea H&P Exam Vital Signs Vital Signs Date Time Temp Pulse Resp B/P (MAP) Pulse Ox O2 Delivery O2 Flow Rate FiO2 04/11/25 19:46 80 04/11/25 19:36 18 97 Nasal Cannula* 3 32 04/11/25 18:57 98.9 149/88 98.9 General Appeara: Well developed, Well nourished Nasal Exam: Normal inspection SEPSIS Sepsis Screen Date sepsis recognized/suspect: Apr 11, 2025 Time Sepsis recognized/suspect: 1854 Recent Procedure: No On Antibiotic Therapy: No Respiratory Rate >20: No Heart Rate >90: No Temp<36 C (96.8 F) or >38.3 C: No SBP <90 or MAP <65 mmHG: No New Acute Mental Status Change: No Is the patient on CPAP, BIPAP,: No Physician Orders Abg W/ Co-Ox (04/11/25 19:19) Chest Xray 1 View (04/11/25 19:19) Admit (04/11/25 23:04) Acetaminophen Tablet (Tylenol Tablet) (04/11/25 23:15) Enoxaparin Sodium (Lovenox) (04/12/25 10:00) Echo 2d Mode Cardiac Dop (04/11/25 23:04) Notify Md Of Changes From Base (04/11/25 23:04) Nitroglycerin Sublingual (Ntrostat Subli (04/11/25 23:15) Azithromycin 500mg/ 250ml (Zithromax 50 (04/11/25 23:15) Azithromycin Tablet (Zithromax Tablet) (04/12/25 10:00) Albuterol Medneb (Ventolin Medneb) (04/12/25 02:00) Ipratropium Medneb (Atrovent Medneb) (04/12/25 02:00) Urinalysis (04/11/25 23:04) Drug Screen (04/11/25 23:04) Admit (04/11/25 23:19) Code Status (04/11/25 23:19) Hydrocodone-Acet 5/325mg Tab ([place] 5/32 (04/11/25 23:30) Ondansetron Hcl (Zofran) (04/11/25 23:30) Docusate Sodium Capsule (Colace Capsule) (04/11/25 23:30) Enoxaparin Sodium (Lovenox) (04/12/25 10:00) Complete Blood Count (04/12/25 04:00) Comprehensive Metabolic Panel (04/12/25 04:00) Condition: Serious (04/11/25 23:19) Acetaminophen Tablet (Tylenol Tablet) (04/11/25 23:30) Morphine Sulfate Injection (04/11/25 23:30) Nitroglycerin Sublingual (Ntrostat Subli (04/11/25 23:30) Vital Signs Date Time Temp Pulse Resp B/P (MAP) Pulse Ox O2 Delivery O2 Flow Rate FiO2 04/11/25 19:46 80 04/11/25 19:36 18 97 Nasal Cannula* 3 32 04/11/25 19:01 80 04/11/25 18:57 98.9 89 22 149/88 100 98.9 Laboratory Tests Test 04/11/25 19:47 Lactic Acid Level 1.6 mmol/L (0.4-2.0) White Blood Count 7.0 10^3/uL (4.4-10.8) Medications Medications Dose Ordered Sig/Sandra Route Start Time Stop Time Status Last Admin Dose Admin Albuterol 5 mg ONCE ONCE NEB 04/11/25 19:30 04/11/25 19:31 DC 04/11/25 19:35 5 MG Aspirin 325 mg ONCE ONCE PO 04/11/25 21:00 04/11/25 21:01 DC 04/11/25 21:05 325 MG Methylprednisolone Sodium Succinate 80 mg ONCE ONCE IV 04/11/25 19:30 04/11/25 19:31 DC 04/11/25 20:52 80 MG Labs/Xrays Labs Test 04/11/25 22:46 04/11/25 20:55 04/11/25 19:53 04/11/25 19:47 Range/Units Troponin I High Sensitivity 25 </=54 ng/L Influenza Type A Antigen Negative Negative Influenza Type B Antigen Negative Negative SARS-CoV-2 Antigen (Rapid) Negative NEGATIVE Blood Gas Specimen Type Arterial Blood Gas Sample Site Right radial Blood Gas Patient Temperature 37.0 Arterial Blood Date Drawn [id number] Arterial Blood pH 7.325 L 7.350-7.450 Arterial Blood Partial Pressure CO2 58.0 H 35.0-48.0 mmHg Arterial Blood Partial Pressure O2 65.1 L 83.0-108.0 mmHg Arterial Blood HCO3 29.6 H 21.0-28.0 mmol/L Arterial Blood Oxygen Saturation 91.3 L 94.0-98.0 % Arterial Blood Base Excess 2.4 -2.0-3.0 mmol/L Arterial Blood Oxyhemoglobin 87.9 L 94.0-98.0 % Arterial Blood Carboxyhemoglobin 3.2 H 0.5-1.5 % Arterial Blood Methemoglobin 0.5 0.0-1.5 % Artur Test Yes Blood Gas Total Hemoglobin 11.90 L 13.5-17.5 g/dL Blood Gas Liter Flow 3.00 Blood Gas Modality Nasal cannula FiO2 % 32.0 White Blood Count 7.0 4.4-10.8 10^3/uL Red Blood Count 5.87 4.5-5.90 10^6/uL Hemoglobin 11.1 L 13.5-17.5 g/dL Hematocrit 37.0 L 41.0-53.0 % Mean Corpuscular Volume 63.0 L 80.0-100.0 fL Mean Corpuscular Hemoglobin 18.9 L 28.0-32.0 pg Mean Corpuscular Hemoglobin Concent 30.0 L 32.0-36.0 g/dL Red Cell Distribution Width 17.0 H 11.8-14.3 % Platelet Count 215 140-450 10^3/uL Mean Platelet Volume 8.7 6.9-10.8 fL Neutrophils (%) (Auto) 58.8 37.0-80.0 % Lymphocytes (%) (Auto) 31.7 10.0-50.0 % Monocytes (%) (Auto) 5.4 0.0-12.0 % Eosinophils (%) (Auto) 2.4 0.0-7.0 % Basophils (%) (Auto) 1.7 0.0-2.0 % Neutrophils # (Auto) 4.1 1.6-8.6 10 ^3/uL Lymphocytes # (Auto) 2.2 0.4-5.4 10 ^3/uL Monocytes # (Auto) 0.4 0-1.3 10 ^3/uL Eosinophils # (Auto) 0.2 0-0.8 10 ^3/uL Basophils # (Auto) 0.1 0-0.2 10 ^3/uL Nucleated Red Blood Cells 0.6 % Platelet Estimate Adequate Hypochromasia (manual) Marked Anisocytosis (manual) Moderate Microcytosis Marked D-Dimer, Quantitative < 0.19 0.0-0.49 mg/L FEU Sodium Level 144 136-145 mmol/L Potassium Level 4.3 3.5-5.1 mmol/L Chloride Level 106 98-107 mmol/L Carbon Dioxide Level 27 20-31 mmol/L Anion Gap 11 5-15 Blood Urea Nitrogen 18 9-23 mg/dL Creatinine 0.97 0.700-1.30 mg/dL Glomerular Filtration Rate Calc 88 >90 mL/min BUN/Creatinine Ratio 18.6 10.0-20.0 Serum Glucose 123 H 74-106 mg/dL Lactic Acid Level 1.6 0.4-2.0 mmol/L Calcium Level 8.9 8.7-10.4 mg/dL Total Bilirubin 0.2 0.2-1.0 mg/dL Aspartate Amino Transferase (AST) 25 13-40 U/L Alanine Aminotransferase (ALT) 10 7-40 U/L Alkaline Phosphatase 90 46-116 U/L B-Type Natriuretic Peptide 3.42 0-100 pg/mL Total Protein 6.6 5.7-8.2 g/dL Albumin 4.0 3.2-4.8 g/dL Assessment/Plan Primary Diagnosis 65-year-old male brought in by ambulance with a prior medical history of anemia, asthma, COPD, CVA, hypertension, tomorrow and lower extremity and the chief complaint of shortness of breath. EMS report on getting a call from [facility], due from the patient having had shortness breath for 3 hours in them trying a DuoNeb which did not work. When EMS arrived on scene the patient had a heart rate of 78 and was satting on 92% room air and was given 7.5 albuterol and 0.5 Atrovent which brought the patient satting at 100% on DuoNeb. Patient notes on having chronic chest pain for 2 days. Denies any other symptoms at this time. left leg pain acute hypoxic resp failure Asthma exacerbation acute hypoxic resp failure obesity weakness in left leg anemia, chronic chest pain admitted to med/surg consult to cardio if needed consult to pulm supplemental O2 Plan discussed with: Patient ZURITAKEERTHI StonerHUMBLE Pierce DO Apr 11, 2025 23:21
[2025-04-11] MEDS ORDERED: MORPHINE SULFATE INJ 2 MG/ml SYRG IV PRN (23:30)
[2025-04-11] MEDS ORDERED: DOCUSATE SOD 100 MG CAP PO PRN (23:30)
[2025-04-11 23:40] VITALS: O2SAT 97
[2025-04-11 23:41] VITALS: BP 149/88; PULSE 80; RESP 18; TEMP 98.9; O2SAT 97
[2025-04-12] VITALS (15 sets, daily range): BP systolic 116–126; BP diastolic 68–74; PULSE 63–86; RESP 14–20; TEMP 98–98.6; O2SAT 94–99
[2025-04-12] MEDS ORDERED: ALBUTEROL SULF 2.5 MG/0.5ML(0.5%) NEB SOLN NEB ONE (00:15)
[2025-04-12] MEDS: AZITHROMYCIN 500MG/250ML 250 ML IV ONE (00:50)
[2025-04-12] MEDS: ALBUTEROL SULF 2.5 MG/0.5ML(0.5%) NEB SOLN NEB SCH (01:06)
[2025-04-12] MEDS: IPRATROPIUM BROM 0.5 MG/2.5ML INH SOL NEB SCH (01:06)
[2025-04-12] MEDS: ONDANSETRON HCL 4 MG/2 ML VIAL IV PRN (02:26)
[2025-04-12] MEDS: MORPHINE SULFATE INJ 2 MG/ml SYRG IV PRN (02:26)
[2025-04-12 04:57] LABS: Hematocrit 39.2 % (41.0-53.0); Hemoglobin 11.7 g/dL (13.5-17.5)
[2025-04-12 05:00] LABS: Mean Corpuscular Hemoglobin 18.7 pg (28.0-32.0); Mean Corpuscular Volume 62.6 fL (80.0-100.0); Nucleated Red Blood Cells % 0.0 %
[2025-04-12 05:15] LABS: Alkaline Phosphatase 96 U/L (46-116); Anion Gap 8 (5-15); BUN/Creatinine Ratio 15.2 (10.0-20.0); Blood Urea Nitrogen 14 mg/dL (9-23); Calcium 9.2 mg/dL (8.7-10.4); Carbon Dioxide 26 mmol/L (20-31); Potassium 4.5 mmol/L (3.5-5.1); Sodium 142 mmol/L (136-145); Total Protein 7.7 g/dL (5.7-8.2)
[2025-04-12 05:16] LABS: Albumin 4.6 g/dL (3.2-4.8)
[2025-04-12 05:22] LABS: Alanine Aminotransferase < 9 U/L (7-40); Bilirubin, Total 0.3 mg/dL (0.2-1.0); Chloride 108 mmol/L (98-107); Glucose 167 mg/dL (74-106)
[2025-04-12] MEDS: AZITHROMYCIN 250 MG TAB PO SCH (07:42)
[2025-04-12] MEDS: HYDROcodone-ACET 5/325MG TAB PO PRN (07:43)
[2025-04-12] MEDS: ENOXAPARIN SOD 40 MG/0.4 ML SYRINGE SC SCH (07:44)
[2025-04-12] MEDS ORDERED: ENOXAPARIN SOD 40 MG/0.4 ML SYRINGE SC SCH (10:00)
--- NOTE | 2025-04-12 18:25 | DVHSR ---
APPROVED REPORT EXAM: Two-dimensional and M-mode echocardiogram with Doppler and color Doppler. Blood Pressure: 127/74 mmHg INDICATION R/O cardiac disease RISK FACTORS Height: 5'8", Weight: 250 DIMENSIONS LVDd 4.6 (3.8-5.7cm) LA (2D) (1.9-4.0cm) Aortic Root (2.0-3.7cm) LVDs 3.2 (2.5-4.0cm) LA (MM) (1.9-4.0cm) Aortic Cusp Exc (1.5-2.0cm) EF (%) 60.0 (55-70%) Rt. Atrium (1.9-4.0cm) Asc. Aorta cm Mitral Valve Mitral Mitral Stenosis E/A ratio 0.0 2D MVA cm2 Other Information Quality : Technically Limited Rhythm : Technically limited study due to body habitus. Conclusion Study. Difficult acoustic windows. Limited views. Chamber sizes appear to be within normal limits. Valves appear to be normal. EF is about 60% with normal RV function. Dopplers unremarkable. No pericardial effusion masses or vegetations.
[2025-04-13] VITALS (18 sets, daily range): BP systolic 121–142; BP diastolic 69–94; PULSE 65–77; RESP 14–20; TEMP 97.6–98.7; O2SAT 91–100
--- NOTE | 2025-04-13 13:12 | DVHPN2 ---
Progress Note Date Seen: Apr 13, 2025 Medical Necessity Reason Pt with a Central, PICC or Fol: No Objective vital signs Vital Sign Date Time Temp Pulse Resp B/P (MAP) Pulse Ox O2 Delivery O2 Flow Rate FiO2 04/13/25 11:47 70 18 148/72 04/13/25 09:35 100 04/13/25 09:27 Nasal Cannula* 2 28 04/13/25 05:00 98.2 98.2 Total Intake and Output 04/12/25 04/12/25 04/13/25 15:00 23:00 07:00 Intake Total 400 ml 280 ml Output Total 600 ml Balance -200 ml 280 ml medications Current Medications Medications Dose Ordered Sig/Sandra Route Start Time Stop Time Status Last Admin Dose Admin Enoxaparin Sodium 40 mg DAILY SC 04/12/25 10:00 04/13/25 08:47 40 MG Azithromycin 250 mg DAILY PO 04/12/25 10:00 04/13/25 08:46 250 MG Albuterol 2.5 mg Q4HR NEB 04/12/25 02:00 04/13/25 09:27 2.5 MG Ipratropium [place] 0.5 mg Q4HR NEB 04/12/25 02:00 04/13/25 09:27 0.5 MG Acetaminophen/ Hydrocodone Bitart 1 tab Q4HP PRN PO 04/11/25 23:30 Ondansetron HCl 4 mg Q4HP PRN IV 04/11/25 23:30 04/12/25 08:05 4 MG Docusate Sodium 100 mg BIDPRN PRN PO 04/11/25 23:30 Acetaminophen 650 mg Q6HP PRN PO 04/11/25 23:30 Morphine Sulfate 2 mg Q4HPRN PRN IV 04/11/25 23:30 04/13/25 11:47 2 MG Nitroglycerin 0.4 mg Q5MINP PRN SL 04/11/25 23:30 Morphine Sulfate 2 mg Q30M PRN IV 04/11/25 23:30 laboratory and microbiology Laboratory Tests 04/12/25 04:32 Test 04/12/25 04:32 Range/Units Serum Glucose 167 H 74-106 mg/dL Labs and/or images reviewed: Labs reviewed by me, Image(s) reviewed by me Problem List/Assessment/Plan Problem List/Assessment/Plan 65-year-old male brought in by ambulance with a prior medical history of anemia, asthma, COPD, CVA, hypertension, tomorrow and lower extremity and the chief complaint of shortness of breath. EMS report on getting a call from [facility] facility, due from the patient having had shortness breath for 3 hours in them trying a DuoNeb which did not work. When EMS arrived on scene the patient had a heart rate of 78 and was satting on 92% room air and was given 7.5 albuterol and 0.5 Atrovent which brought the patient satting at 100% on DuoNeb. Patient notes on having chronic chest pain for 2 days. Denies any other symptoms at this time. left leg pain acute hypoxic resp failure Asthma exacerbation acute hypoxic resp failure obesity weakness in left leg anemia, chronic chest pain admitted to med/surg consult to cardio if needed consult to pulm supplemental O2 04/12/2025: remains on supplemental O2 04/13/25: pt still complains of leg pain, obtain a left leg CT Plan discussed with: Patient My Orders My Orders Orders - HERSON ZURITA DO Procedure Category Date Status Time Left Lower Extremity CT 04/13/25 Logged W/O Con 13:06 *Consult CONS 04/13/25 Transmitted 13:06 HERSON ZURITA DO Apr 13, 2025 13:12
--- NOTE | 2025-04-13 13:12 | DVHPN2 ---
Progress Note Date Seen: Apr 12, 2025 Medical Necessity Reason Pt with a Central, PICC or Fol: No Objective vital signs Vital Sign Date Time Temp Pulse Resp B/P (MAP) Pulse Ox O2 Delivery O2 Flow Rate FiO2 04/13/25 11:47 70 18 148/72 04/13/25 09:35 100 04/13/25 09:27 Nasal Cannula* 2 28 04/13/25 05:00 98.2 98.2 Total Intake and Output 04/12/25 04/12/25 04/13/25 15:00 23:00 07:00 Intake Total 400 ml 280 ml Output Total 600 ml Balance -200 ml 280 ml medications Current Medications Medications Dose Ordered Sig/Sandra Route Start Time Stop Time Status Last Admin Dose Admin Enoxaparin Sodium 40 mg DAILY SC 04/12/25 10:00 04/13/25 08:47 40 MG Azithromycin 250 mg DAILY PO 04/12/25 10:00 04/13/25 08:46 250 MG Albuterol 2.5 mg Q4HR NEB 04/12/25 02:00 04/13/25 09:27 2.5 MG Ipratropium [place] 0.5 mg Q4HR NEB 04/12/25 02:00 04/13/25 09:27 0.5 MG Acetaminophen/ Hydrocodone Bitart 1 tab Q4HP PRN PO 04/11/25 23:30 Ondansetron HCl 4 mg Q4HP PRN IV 04/11/25 23:30 04/12/25 08:05 4 MG Docusate Sodium 100 mg BIDPRN PRN PO 04/11/25 23:30 Acetaminophen 650 mg Q6HP PRN PO 04/11/25 23:30 Morphine Sulfate 2 mg Q4HPRN PRN IV 04/11/25 23:30 04/13/25 11:47 2 MG Nitroglycerin 0.4 mg Q5MINP PRN SL 04/11/25 23:30 Morphine Sulfate 2 mg Q30M PRN IV 04/11/25 23:30 laboratory and microbiology Laboratory Tests 04/12/25 04:32 Test 04/12/25 04:32 Range/Units Serum Glucose 167 H 74-106 mg/dL Labs and/or images reviewed: Labs reviewed by me, Image(s) reviewed by me Problem List/Assessment/Plan Problem List/Assessment/Plan 65-year-old male brought in by ambulance with a prior medical history of anemia, asthma, COPD, CVA, hypertension, tomorrow and lower extremity and the chief complaint of shortness of breath. EMS report on getting a call from [facility], due from the patient having had shortness breath for 3 hours in them trying a DuoNeb which did not work. When EMS arrived on scene the patient had a heart rate of 78 and was satting on 92% room air and was given 7.5 albuterol and 0.5 Atrovent which brought the patient satting at 100% on DuoNeb. Patient notes on having chronic chest pain for 2 days. Denies any other symptoms at this time. left leg pain acute hypoxic resp failure Asthma exacerbation acute hypoxic resp failure obesity weakness in left leg anemia, chronic chest pain admitted to med/surg consult to cardio if needed consult to pulm supplemental O2 04/12/2025: remains on supplemental O2 Plan discussed with: Patient My Orders My Orders Orders - HERSNO ZURITA DO Procedure Category Date Status Time Left Lower Extremity CT 04/13/25 Logged W/O Con 13:06 *Consult CONS 04/13/25 Transmitted 13:06 HERSON ZURITA DO Apr 13, 2025 13:12
--- NOTE | 2025-04-13 17:52 | DVH ---
EXAM: LEFT LOWER EXTREMITY W/O CON INDICATION: left leg pain/left knee pain TECHNIQUE: Axial images of left lower extremity without contrast have been obtained along with coronal and sagittal reformatted images. All CT scans at this facility use dose modulation, iterative reconstruction, and/or weight based dosing when appropriate to reduce radiation dose to as low as reasonably achievable. COMPARISON: US DOPPLER ARTERIAL LEG LEFT on DOS: 10/15/24 FINDINGS: BONES: No CT evidence of an acute fracture or aggressive osseous lesion. limited evaluation of the level of the calf secondary to patient motion. Possible bone island in the ischial tuberosity and left acetabulum. MUSCLES: No abnormal attenuation. JOINT SPACES: No joint effusion. TENDONS/LIGAMENTS: Intact. OTHER: Small fat containing right inguinal hernia IMPRESSION: 1. No CT evidence of an acute fracture. No joint effusion. No visualized significant degenerative change of the left hip or left knee.
[2025-04-14] VITALS (18 sets, daily range): BP systolic 103–153; BP diastolic 41–85; PULSE 58–102; RESP 15–20; TEMP 97.5–98.3; O2SAT 92–100
--- NOTE | 2025-04-14 10:26 | ECG ---
[facility] Test Date: 2025-04-12 Test Time: 12:25:31 Pat Name: DIEGO HUTCHINSON Department: Room: 0272 A Gender: M [employer] Operator: GB : [id number] Requested By: HERSON ZURITA Order Number: [id number] Reading MD: John Fuchs Measurements Intervals [place] Rate: 88 P: 65 NC: 153 QRS: 65 QRSD: 101 T: 51 QT: 357 QTc: 432 Interpretive Statements Sinus rhythm Electronically Signed On 04-14-2025 10:32:36 PST by John Fuchs Please click the below link to view image of tracing.
--- NOTE | 2025-04-14 14:34 | DVHINCON2 ---
Date of service: Apr 14, [address] atkinson Reason for Consultation copd/asthma History of Present Illness History Source: Patient Exam Limitations: No limitations HPI patient is a 65-year old gentleman with a history of nicotine dependency, asthma, COPD and recent diagnosis of left leg tumor who presented with abdominal pain. was seen in the emergency room where he required supplemental oxygen and was admitted for further workup. Chest x-ray shows no acute abnormalities and pulmonology was consulted to assist in management. Home Meds Active Scripts Azithromycin (Azithromycin) 500 Mg Tab, 1 TAB PO DAILY, #5 TAB Prov:CECILIA MURPHY MD 03/07/25 Prednisone (Prednisone) 20 Mg Tab, 60 MG PO DAILY for 16 Days, #24 MG 0 Refills 3tab x3day, 2tab x4day, 1tab x5day, 1/2tab x4day Prov:CECILIA MURPHY MD 03/07/25 Fluconazole (Fluconazole) 200 Mg Tab, 1 TAB PO DAILY for 7 Days, #7 TAB Prov:CAMELIA PANCHAL MD 12/28/24 Famotidine (Famotidine) 20 Mg Tab, 20 MG PO Q12HR for 90 Days, #180 TAB 1 Refill Prov:CAMELIA PANCHAL MD 12/28/24 Reported Medications Oxycodone Hcl (OXYCODONE HCL) 5 Mg Tb, 5 MG PO DAILY, TAB 03/05/25 Albuterol Sulfate (VENTOLIN MDI) 90 Mcg Ih, 90 MCG IN DAILY, INH 03/05/25 Past Medical History Cardiac: No pertinent Hx Pulmonary: Asthma, COPD Central Nervous System: No pertinent Hx GI: No pertinent Hx Hemotology/Oncology: No pertinent Hx Hepatobiliary: No pertinent Hx Psychiatric: No pertinent Hx Musculoskeletal: No pertinent Hx Rheumotologic: No pertinent Hx Infectious Disease: No peritnent Hx ENT: No pertinent Hx Renal/: No pertinent Hx Endocrine: No pertinent Hx Dermatology: No pertinent Hx Past Surgical History: No pertinent Hx Family History: Cancer Patient Family History: FHx: breast cancer G8 MOTHER, , Cause: Breast cancer Smoker: Positive Alocohol: None Drugs: None Lives with: With family Domestic Violence: Neg Review of Systems Constitutional: No symptom reported Ears, Nose, & Throat: No symptom reported Eyes: No symptom reported Pulmonary/Respiratory: No symptom reported Cardiovascular: No symptom reported Gastrointestinal: Abdominal Pain Genitourinary: No symptom reported Musculoskeletal: No symptom reported Skin: No symptom reported Psychiatric: No symptom reported Endocrine: No symptom reported Hemotologic/Lymphatic: No symptom reported H&P Exam Vital Signs Vital Signs Date Time Temp Pulse Resp B/P (MAP) Pulse Ox O2 Delivery O2 Flow Rate FiO2 04/14/25 14:09 66 18 99 04/14/25 14:02 Nasal Cannula 2.0 04/14/25 14:02 28 04/14/25 13:20 130/49 04/14/25 12:37 98.3 98.3 General Appeara: Well developed, Well nourished, Normal Appearance Head Exam: Normal inspection, Contusion Neck Exam: Normal inspection, Non-tender, Normal alignment Eye Exam: bilateral eye Normal inspection, bilateral eye PERRL, bilateral eye EOMI Ear Exam: bilateral ear Auricle normal, bilateral ear Canal normal, bilateral ear TM normal Nasal Exam: Normal inspection Mouth: Normal Inspection Pulmonary/Respiratory: Decreased breath sounds Cardiovascular/Chest: Normal inspection Peripheral Pulses: 4+ Radial (R), 4+ Radial (L), 4+ Brachial (R), 4+ Brachial (L) Abdominal Exam: Normal bowel sounds Labs/Xrays Labs Test 04/12/25 04:32 04/11/25 22:46 04/11/25 20:55 04/11/25 19:53 Range/Units White Blood Count 6.7 4.4-10.8 10^3/uL Red Blood Count 6.26 H 4.5-5.90 10^6/uL Hemoglobin 11.7 L 13.5-17.5 g/dL Hematocrit 39.2 L 41.0-53.0 % Mean Corpuscular Volume 62.6 L 80.0-100.0 fL Mean Corpuscular Hemoglobin 18.7 L 28.0-32.0 pg Mean Corpuscular Hemoglobin Concent 29.9 L 32.0-36.0 g/dL Red Cell Distribution Width 17.4 H 11.8-14.3 % Platelet Count 222 140-450 10^3/uL Mean Platelet Volume 8.7 6.9-10.8 fL Neutrophils (%) (Auto) 89.1 H 37.0-80.0 % Lymphocytes (%) (Auto) 8.6 L 10.0-50.0 % Monocytes (%) (Auto) 0.8 0.0-12.0 % Eosinophils (%) (Auto) 1.3 0.0-7.0 % Basophils (%) (Auto) 0.2 0.0-2.0 % Neutrophils # (Auto) 6.0 1.6-8.6 10 ^3/uL Lymphocytes # (Auto) 0.6 0.4-5.4 10 ^3/uL Monocytes # (Auto) 0.1 0-1.3 10 ^3/uL Eosinophils # (Auto) 0.1 0-0.8 10 ^3/uL Basophils # (Auto) 0 0-0.2 10 ^3/uL Nucleated Red Blood Cells 0.0 % Sodium Level 142 136-145 mmol/L Potassium Level 4.5 3.5-5.1 mmol/L Chloride Level 108 H 98-107 mmol/L Carbon Dioxide Level 26 20-31 mmol/L Anion Gap 8 5-15 Blood Urea Nitrogen 14 9-23 mg/dL Creatinine 0.92 0.700-1.30 mg/dL Glomerular Filtration Rate Calc 93 >90 mL/min BUN/Creatinine Ratio 15.2 10.0-20.0 Serum Glucose 167 H 74-106 mg/dL Calcium Level 9.2 8.7-10.4 mg/dL Total Bilirubin 0.3 0.2-1.0 mg/dL Aspartate Amino Transferase (AST) 14 13-40 U/L Alanine Aminotransferase (ALT) < 9 7-40 U/L Alkaline Phosphatase 96 46-116 U/L Total Protein 7.7 5.7-8.2 g/dL Albumin 4.6 3.2-4.8 g/dL Troponin I High Sensitivity 25 </=54 ng/L Influenza Type A Antigen Negative Negative Influenza Type B Antigen Negative Negative SARS-CoV-2 Antigen (Rapid) Negative NEGATIVE Blood Gas Specimen Type Arterial Blood Gas Sample Site Right radial Blood Gas Patient Temperature 37.0 Arterial Blood Date Drawn [id number] Arterial Blood pH 7.325 L 7.350-7.450 Arterial Blood Partial Pressure CO2 58.0 H 35.0-48.0 mmHg Arterial Blood Partial Pressure O2 65.1 L 83.0-108.0 mmHg Arterial Blood HCO3 29.6 H 21.0-28.0 mmol/L Arterial Blood Oxygen Saturation 91.3 L 94.0-98.0 % Arterial Blood Base Excess 2.4 -2.0-3.0 mmol/L Arterial Blood Oxyhemoglobin 87.9 L 94.0-98.0 % Arterial Blood Carboxyhemoglobin 3.2 H 0.5-1.5 % Arterial Blood Methemoglobin 0.5 0.0-1.5 % Artur Test Yes Blood Gas Total Hemoglobin 11.90 L 13.5-17.5 g/dL Blood Gas Liter Flow 3.00 Blood Gas Modality Nasal cannula FiO2 % 32.0 Test 04/11/25 19:47 Range/Units Platelet Estimate Adequate Hypochromasia (manual) Marked Anisocytosis (manual) Moderate Microcytosis Marked D-Dimer, Quantitative < 0.19 0.0-0.49 mg/L FEU Lactic Acid Level 1.6 0.4-2.0 mmol/L B-Type Natriuretic Peptide 3.42 0-100 pg/mL Assessment/Plan Plan Impression Acute hypoxemic respiratory failure Morbid obesity Atelectasis Asthma- stable Patient seen and examined Events Low oxygen requirements On 2 liters nasal cannula Vital signs stable Labs and imaging reviewed Chest x-ray unremarkable Management Supplemental oxygen Titrate to maintain sats 90% or above Incentive spirometry Bronchodilators No indication for steroids Monitor renal function Monitor electrolytes Supplement as needed DVT prophylaxis Plan discussed with: Patient GRETA CULVER MD Apr 14, 2025 14:34
[2025-04-14] MEDS: CYCLOBENZAPRINE HCL 10 MG TAB PO PRN (15:08)
[2025-04-15] VITALS (18 sets, daily range): BP systolic 99–115; BP diastolic 51–87; PULSE 64–81; RESP 15–22; TEMP 97.1–98.5; O2SAT 94–100
--- NOTE | 2025-04-15 10:59 | DVHPN2 ---
Progress Note Date Seen: Apr 14, 2025 Medical Necessity Reason Pt with a Central, PICC or Fol: No Subjective Review of Systems: HEENT:Normal, CVS:Normal Objective vital signs Vital Sign Date Time Temp Pulse Resp B/P (MAP) Pulse Ox O2 Delivery O2 Flow Rate FiO2 04/15/25 09:57 66 18 104/68 04/15/25 09:34 99 04/15/25 09:28 Nasal Cannula* 3 32 04/15/25 09:00 98.5 98.5 Total Intake and Output 04/14/25 04/14/25 04/15/25 14:59 22:59 06:59 Intake Total 1050 ml 675 ml Balance 1050 ml 675 ml medications Current Medications Medications Dose Ordered Sig/Sandra Route Start Time Stop Time Status Last Admin Dose Admin Enoxaparin Sodium 40 mg DAILY SC 04/12/25 10:00 04/15/25 09:54 40 MG Azithromycin 250 mg DAILY PO 04/12/25 10:00 04/15/25 09:54 250 MG Albuterol 2.5 mg Q4HR NEB 04/12/25 02:00 04/15/25 09:28 2.5 MG Ipratropium [place] 0.5 mg Q4HR NEB 04/12/25 02:00 04/15/25 09:27 0.5 MG Acetaminophen/ Hydrocodone Bitart 1 tab Q4HP PRN PO 04/11/25 23:30 04/15/25 10:00 1 TAB Ondansetron HCl 4 mg Q4HP PRN IV 04/11/25 23:30 04/12/25 08:05 4 MG Docusate Sodium 100 mg BIDPRN PRN PO 04/11/25 23:30 Acetaminophen 650 mg Q6HP PRN PO 04/11/25 23:30 Morphine Sulfate 2 mg Q4HPRN PRN IV 04/11/25 23:30 04/15/25 09:57 2 MG Nitroglycerin 0.4 mg Q5MINP PRN SL 04/11/25 23:30 Morphine Sulfate 2 mg Q30M PRN IV 04/11/25 23:30 Cyclobenzaprine HCl 10 mg BIDPRN PRN PO 04/14/25 11:30 04/14/25 15:08 10 MG Examination: GENERAL:Normal, HEENT:Normal, NECK:Normal, LUNGS:Normal laboratory and microbiology Laboratory Tests 04/12/25 04:32 Test 04/12/25 04:32 Range/Units Serum Glucose 167 H 74-106 mg/dL Labs and/or images reviewed: Labs reviewed by me, Image(s) reviewed by me Problem List/Assessment/Plan Problem List/Assessment/Plan 65-year-old male brought in by ambulance with a prior medical history of anemia, asthma, COPD, CVA, hypertension, tomorrow and lower extremity and the chief complaint of shortness of breath. EMS report on getting a call from [facility], due from the patient having had shortness breath for 3 hours in them trying a DuoNeb which did not work. When EMS arrived on scene the patient had a heart rate of 78 and was satting on 92% room air and was given 7.5 albuterol and 0.5 Atrovent which brought the patient satting at 100% on DuoNeb. Patient notes on having chronic chest pain for 2 days. Denies any other symptoms at this time. left leg pain acute hypoxic resp failure Asthma exacerbation acute hypoxic resp failure obesity weakness in left leg anemia, chronic chest pain admitted to med/surg consult to cardio if needed consult to pulm supplemental O2 04/12/2025: remains on supplemental O2 04/13/25: pt still complains of leg pain, obtain a left leg CT 04/14/2025: still hypoxic above 4L discussed results of CT of leg, no tumor, infection, no fracture Plan discussed with: Patient My Orders My Orders Orders - HERSON ZURITA DO Procedure Category Date Status Time Cyclobenzaprine PHA 04/14/25 In Process Tablet (Flexeril 11:30 HERSON ZURITA DO Apr 15, 2025 10:59
--- NOTE | 2025-04-15 10:59 | DVHPN2 ---
Progress Note Date Seen: Apr 15, 2025 Medical Necessity Reason Pt with a Central, PICC or Fol: No Objective vital signs Vital Sign Date Time Temp Pulse Resp B/P (MAP) Pulse Ox O2 Delivery O2 Flow Rate FiO2 04/15/25 09:57 66 18 104/68 04/15/25 09:34 99 04/15/25 09:28 Nasal Cannula* 3 32 04/15/25 09:00 98.5 98.5 Total Intake and Output 04/14/25 04/14/25 04/15/25 14:59 22:59 06:59 Intake Total 1050 ml 675 ml Balance 1050 ml 675 ml medications Current Medications Medications Dose Ordered Sig/Sandra Route Start Time Stop Time Status Last Admin Dose Admin Enoxaparin Sodium 40 mg DAILY SC 04/12/25 10:00 04/15/25 09:54 40 MG Azithromycin 250 mg DAILY PO 04/12/25 10:00 04/15/25 09:54 250 MG Albuterol 2.5 mg Q4HR NEB 04/12/25 02:00 04/15/25 09:28 2.5 MG Ipratropium [place] 0.5 mg Q4HR NEB 04/12/25 02:00 04/15/25 09:27 0.5 MG Acetaminophen/ Hydrocodone Bitart 1 tab Q4HP PRN PO 04/11/25 23:30 04/15/25 10:00 1 TAB Ondansetron HCl 4 mg Q4HP PRN IV 04/11/25 23:30 04/12/25 08:05 4 MG Docusate Sodium 100 mg BIDPRN PRN PO 04/11/25 23:30 Acetaminophen 650 mg Q6HP PRN PO 04/11/25 23:30 Morphine Sulfate 2 mg Q4HPRN PRN IV 04/11/25 23:30 04/15/25 09:57 2 MG Nitroglycerin 0.4 mg Q5MINP PRN SL 04/11/25 23:30 Morphine Sulfate 2 mg Q30M PRN IV 04/11/25 23:30 Cyclobenzaprine HCl 10 mg BIDPRN PRN PO 04/14/25 11:30 04/14/25 15:08 10 MG laboratory and microbiology Laboratory Tests 04/12/25 04:32 Test 04/12/25 04:32 Range/Units Serum Glucose 167 H 74-106 mg/dL Labs and/or images reviewed: Labs reviewed by me, Image(s) reviewed by me Problem List/Assessment/Plan Problem List/Assessment/Plan 65-year-old male brought in by ambulance with a prior medical history of anemia, asthma, COPD, CVA, hypertension, tomorrow and lower extremity and the chief complaint of shortness of breath. EMS report on getting a call from [facility], due from the patient having had shortness breath for 3 hours in them trying a DuoNeb which did not work. When EMS arrived on scene the patient had a heart rate of 78 and was satting on 92% room air and was given 7.5 albuterol and 0.5 Atrovent which brought the patient satting at 100% on DuoNeb. Patient notes on having chronic chest pain for 2 days. Denies any other symptoms at this time. left leg pain acute hypoxic resp failure Asthma exacerbation acute hypoxic resp failure obesity weakness in left leg anemia, chronic chest pain admitted to med/surg consult to cardio if needed consult to pulm supplemental O2 04/12/2025: remains on supplemental O2 04/13/25: pt still complains of leg pain, obtain a left leg CT 04/14/2025: still hypoxic above 4L discussed results of CT of leg, no tumor, infection, no fracture 04/15/2025: still hypoxic weaning down on supplemental O2 Plan discussed with: Patient My Orders My Orders Orders - HERSON ZURITA DO Procedure Category Date Status Time Cyclobenzaprine PHA 04/14/25 In Process Tablet (Flexeril 11:30 HERSON ZURITA DO Apr 15, 2025 10:59
--- NOTE | 2025-04-15 13:36 | DVHPN2 ---
Progress Note - Dictate Date Seen: Apr 15, 2025 Medical Necessity Reason Pt with a Central, PICC or Fol: No vital signs Vital Sign Date Time Temp Pulse Resp B/P (MAP) Pulse Ox O2 Delivery O2 Flow Rate FiO2 04/15/25 09:57 66 18 104/68 04/15/25 09:34 99 04/15/25 09:28 Nasal Cannula* 3 32 04/15/25 09:00 98.5 98.5 Total Intake and Output 04/14/25 04/14/25 04/15/25 15:00 23:00 07:00 Intake Total 1050 ml 675 ml Balance 1050 ml 675 ml medications Current Medications Medications Dose Ordered Sig/Sandra Route Start Time Stop Time Status Last Admin Dose Admin Enoxaparin Sodium 40 mg DAILY SC 04/12/25 10:00 04/15/25 09:54 40 MG Azithromycin 250 mg DAILY PO 04/12/25 10:00 04/15/25 09:54 250 MG Albuterol 2.5 mg Q4HR NEB 04/12/25 02:00 04/15/25 09:28 2.5 MG Ipratropium [place] 0.5 mg Q4HR NEB 04/12/25 02:00 04/15/25 09:27 0.5 MG Acetaminophen/ Hydrocodone Bitart 1 tab Q4HP PRN PO 04/11/25 23:30 04/15/25 10:00 1 TAB Ondansetron HCl 4 mg Q4HP PRN IV 04/11/25 23:30 04/12/25 08:05 4 MG Docusate Sodium 100 mg BIDPRN PRN PO 04/11/25 23:30 Acetaminophen 650 mg Q6HP PRN PO 04/11/25 23:30 Morphine Sulfate 2 mg Q4HPRN PRN IV 04/11/25 23:30 04/15/25 09:57 2 MG Nitroglycerin 0.4 mg Q5MINP PRN SL 04/11/25 23:30 Morphine Sulfate 2 mg Q30M PRN IV 04/11/25 23:30 Cyclobenzaprine HCl 10 mg BIDPRN PRN PO 04/14/25 11:30 04/14/25 15:08 10 MG laboratory and microbiology Laboratory Tests 04/12/25 04:32 Test 04/12/25 04:32 Range/Units Serum Glucose 167 H 74-106 mg/dL Assessment/Plan Impression Acute hypoxemic respiratory failure Morbid obesity Atelectasis Asthma- stable Patient seen and examined Events Low oxygen requirements On 2 liters nasal cannula No acute events Labs and imaging reviewed Chest x-ray unremarkable Management Supplemental oxygen Titrate to maintain sats 90% or above Incentive spirometry Bronchodilators No indication for steroids Monitor renal function Monitor electrolytes Supplement as needed DVT prophylaxis Plan discussed with: Patient GRETA CULVER MD Apr 15, 2025 13:36
[2025-04-16] VITALS (15 sets, daily range): BP systolic 101–132; BP diastolic 48–98; PULSE 66–87; RESP 16–20; TEMP 97.2–98.8; O2SAT 90–100
--- NOTE | 2025-04-16 11:26 | DVHDS2 ---
Discharge Summary Date of Admission Apr 11, 2025 at 23:04 Date of Discharge: Apr 16, 2025 Labs/Diagnostic Data: Laboratory Results Test 04/12/25 04:32 04/11/25 22:46 04/11/25 20:55 04/11/25 19:53 White Blood Count 6.7 10^3/uL (4.4-10.8) Red Blood Count 6.26 10^6/uL (4.5-5.90) Hemoglobin 11.7 g/dL (13.5-17.5) Hematocrit 39.2 % (41.0-53.0) Mean Corpuscular Volume 62.6 fL (80.0-100.0) Mean Corpuscular Hemoglobin 18.7 pg (28.0-32.0) Mean Corpuscular Hemoglobin Concent 29.9 g/dL (32.0-36.0) Red Cell Distribution Width 17.4 % (11.8-14.3) Platelet Count 222 10^3/uL (140-450) Mean Platelet Volume 8.7 fL (6.9-10.8) Neutrophils (%) (Auto) 89.1 % (37.0-80.0) Lymphocytes (%) (Auto) 8.6 % (10.0-50.0) Monocytes (%) (Auto) 0.8 % (0.0-12.0) Eosinophils (%) (Auto) 1.3 % (0.0-7.0) Basophils (%) (Auto) 0.2 % (0.0-2.0) Neutrophils # (Auto) 6.0 10 ^3/uL (1.6-8.6) Lymphocytes # (Auto) 0.6 10 ^3/uL (0.4-5.4) Monocytes # (Auto) 0.1 10 ^3/uL (0-1.3) Eosinophils # (Auto) 0.1 10 ^3/uL (0-0.8) Basophils # (Auto) 0 10 ^3/uL (0-0.2) Nucleated Red Blood Cells 0.0 % Sodium Level 142 mmol/L (136-145) Potassium Level 4.5 mmol/L (3.5-5.1) Chloride Level 108 mmol/L (98-107) Carbon Dioxide Level 26 mmol/L (20-31) Anion Gap 8 (5-15) Blood Urea Nitrogen 14 mg/dL (9-23) Creatinine 0.92 mg/dL (0.700-1.30) Glomerular Filtration Rate Calc 93 mL/min (>90) BUN/Creatinine Ratio 15.2 (10.0-20.0) Serum Glucose 167 mg/dL (74-106) Calcium Level 9.2 mg/dL (8.7-10.4) Total Bilirubin 0.3 mg/dL (0.2-1.0) Aspartate Amino Transferase (AST) 14 U/L (13-40) Alanine Aminotransferase (ALT) < 9 U/L (7-40) Alkaline Phosphatase 96 U/L (46-116) Total Protein 7.7 g/dL (5.7-8.2) Albumin 4.6 g/dL (3.2-4.8) Troponin I High Sensitivity 25 ng/L (</=54) Influenza Type A Antigen Negative (Negative) Influenza Type B Antigen Negative (Negative) SARS-CoV-2 Antigen (Rapid) Negative (NEGATIVE) Blood Gas Specimen Type Arterial Blood Gas Sample Site Right radial Blood Gas Patient Temperature 37.0 Arterial Blood Date Drawn [id number] Arterial Blood pH 7.325 (7.350-7.450) Arterial Blood Partial Pressure CO2 58.0 mmHg (35.0-48.0) Arterial Blood Partial Pressure O2 65.1 mmHg (83.0-108.0) Arterial Blood HCO3 29.6 mmol/L (21.0-28.0) Arterial Blood Oxygen Saturation 91.3 % (94.0-98.0) Arterial Blood Base Excess 2.4 mmol/L (-2.0-3.0) Arterial Blood Oxyhemoglobin 87.9 % (94.0-98.0) Arterial Blood Carboxyhemoglobin 3.2 % (0.5-1.5) Arterial Blood Methemoglobin 0.5 % (0.0-1.5) Artur Test Yes Blood Gas Total Hemoglobin 11.90 g/dL (13.5-17.5) Blood Gas Liter Flow 3.00 Blood Gas Modality Nasal cannula FiO2 % 32.0 Test 04/11/25 19:47 Platelet Estimate Adequate Hypochromasia (manual) Marked Anisocytosis (manual) Moderate Microcytosis Marked D-Dimer, Quantitative < 0.19 mg/L FEU (0.0-0.49) Lactic Acid Level 1.6 mmol/L (0.4-2.0) B-Type Natriuretic Peptide 3.42 pg/mL (0-100) Other Laboratory Tests 04/12/25 04:32 Brief Hx & Hospital Course: 65-year-old male brought in by ambulance with a prior medical history of anemia, asthma, COPD, CVA, hypertension, tomorrow and lower extremity and the chief complaint of shortness of breath. EMS report on getting a call from [facility], due from the patient having had shortness breath for 3 hours in them trying a DuoNeb which did not work. When EMS arrived on scene the patient had a heart rate of 78 and was satting on 92% room air and was given 7.5 albuterol and 0.5 Atrovent which brought the patient satting at 100% on DuoNeb. Patient notes on having chronic chest pain for 2 days. Denies any other symptoms at this time. left leg pain acute hypoxic resp failure Asthma exacerbation acute hypoxic resp failure obesity weakness in left leg anemia, chronic chest pain admitted to med/surg consult to cardio if needed consult to pulm supplemental O2 04/12/2025: remains on supplemental O2 04/13/25: pt still complains of leg pain, obtain a left leg CT 04/14/2025: still hypoxic above 4L discussed results of CT of leg, no tumor, infection, no fracture 04/15/2025: still hypoxic weaning down on supplemental O2 04/16/2025: pt able to go back to [facility] with 2L Condition at Discharge: Fair Final Diagnosis/Problems List see above Discharge Disposition: Assisted Living Facility Discharge Instruct/Medications Diet: Cardiac 2g Na,low cholest Activity: No Restrictions, As Tolerated Scheduled Albuterol Sulfate (Ventolin Mdi), 90 MCG IN DAILY, (Reported) Azithromycin (Azithromycin), 1 TAB PO DAILY Famotidine (Famotidine), 20 MG PO Q12HR Fluconazole (Fluconazole), 1 TAB PO DAILY Oxycodone Hcl (Oxycodone Hcl), 5 MG PO DAILY, (Reported) Prednisone (Prednisone), 60 MG PO DAILY Discharge Statement: "Patient was advised to return to the ER or call 911 if any headaches, dizziness, shortness of breath, chest pain, abdominal pain, bleeding, fevers, or worsening of medical condition. Patient was counseled about treatment plan, medications, possible side effects, patientverbalized understanding. All questions were answered to the best of my ability. This discharge took greater then 30 minutes in planning, reviewing documentation, counseling the patient, and discussing with other team members." ASSESSMENT ASSESSMENT Assessment HERSON ZURITA DO Apr 16, 2025 11:26
--- NOTE | 2025-04-16 14:56 | DVHPN2 ---
Progress Note - Dictate Date Seen: Apr 16, 2025 Medical Necessity Reason Pt with a Central, PICC or Fol: No vital signs Vital Sign Date Time Temp Pulse Resp B/P (MAP) Pulse Ox O2 Delivery O2 Flow Rate FiO2 04/16/25 14:18 92 20 129/88 04/16/25 12:39 97.2 96 97.2 04/16/25 10:43 Nasal Cannula* 3 32 Total Intake and Output 04/15/25 04/15/25 04/16/25 15:00 23:00 07:00 Intake Total 700 ml 1000 ml Balance 700 ml 1000 ml medications Current Medications Medications Dose Ordered Sig/Sandra Route Start Time Stop Time Status Last Admin Dose Admin Enoxaparin Sodium 40 mg DAILY SC 04/12/25 10:00 04/16/25 08:36 40 MG Azithromycin 250 mg DAILY PO 04/12/25 10:00 04/16/25 08:36 250 MG Albuterol 2.5 mg Q4HR NEB 04/12/25 02:00 04/16/25 10:26 2.5 MG Ipratropium [place] 0.5 mg Q4HR NEB 04/12/25 02:00 04/16/25 10:26 0.5 MG Acetaminophen/ Hydrocodone Bitart 1 tab Q4HP PRN PO 04/11/25 23:30 04/16/25 08:36 1 TAB Ondansetron HCl 4 mg Q4HP PRN IV 04/11/25 23:30 04/12/25 08:05 4 MG Docusate Sodium 100 mg BIDPRN PRN PO 04/11/25 23:30 Acetaminophen 650 mg Q6HP PRN PO 04/11/25 23:30 Morphine Sulfate 2 mg Q4HPRN PRN IV 04/11/25 23:30 04/16/25 14:18 2 MG Nitroglycerin 0.4 mg Q5MINP PRN SL 04/11/25 23:30 Morphine Sulfate 2 mg Q30M PRN IV 04/11/25 23:30 Cyclobenzaprine HCl 10 mg BIDPRN PRN PO 04/14/25 11:30 04/14/25 15:08 10 MG laboratory and microbiology Laboratory Tests 04/12/25 04:32 Test 04/12/25 04:32 Range/Units Serum Glucose 167 H 74-106 mg/dL Assessment/Plan Impression Acute hypoxemic respiratory failure Morbid obesity Atelectasis Asthma- stable Patient seen and examined Events Low oxygen requirements On 2 liters nasal cannula No distress Labs and imaging reviewed Management Supplemental oxygen Titrate to maintain sats 90% or above Incentive spirometry Bronchodilators No indication for steroids Monitor renal function Monitor electrolytes Supplement as needed Disposition as per primary team DVT prophylaxis Plan discussed with: Patient GRETA CULVER MD Apr 16, 2025 14:56
== END 2025-04-16 15:30 | disposition home or self-care (01) | DRG 133 ==
LOC: ER 18:46 → EDBD 18:46 → OVERFLOW 23:04 → WEST WING 04-12 09:23
PROVIDERS: ADMIT Internal Medicine; ATTEND Internal Medicine
DX: J96.01 Acute respiratory failure with hypoxia (principal); J45.901 Unspecified asthma with (acute) exacerbation; D64.9 Anemia, unspecified; I10 Essential (primary) hypertension; E66.01 Morbid (severe) obesity due to excess calories; Z20.822 Contact with and (suspected) exposure to COVID-19; G89.29 Other chronic pain; J98.11 Atelectasis; Z68.36 Body mass index [BMI] 36.0-36.9, adult; Z86.73 Personal history of transient ischemic attack (TIA), and cerebral infarction without residual deficits; Z88.6 Allergy status to analgesic agent; Z80.3 Family history of malignant neoplasm of breast; Z87.891 Personal history of nicotine dependence
CPT/HCPCS: 36415; 36600; 71045; 73700; 80053; 82805; 83605; 83880; 84484; 85025; 85379; 87426; 87804; 93005; 93306; 94640; 96374; G0378; J2405

== ENCOUNTER 2025-04-20 17:20 | Inpatient (IN) | payer OTHER ==
[~2025-04-20] VITALS: Ht 175.3 cm; Wt 120.7 kg
[2025-04-20 17:43] VITALS: PULSE 92
[2025-04-20] MEDS: IPRATROPIUM BROM 0.5 MG/2.5ML INH SOL NEB ONE ×2 (18:15→21:39)
[2025-04-20] MEDS: ALBUTEROL SULF 2.5 MG/0.5ML(0.5%) NEB SOLN NEB ONE ×2 (18:15→21:39)
[2025-04-20] MEDS: predniSONE 20 MG TAB PO ONE (18:27)
[2025-04-20 19:07] LABS: Hematocrit 38.3 % (41.0-53.0); Hemoglobin 11.2 g/dL (13.5-17.5); Mean Corpuscular Hemoglobin 18.9 pg (28.0-32.0); Mean Corpuscular Volume 64.8 fL (80.0-100.0); Nucleated Red Blood Cells % 0.2 %
--- NOTE | 2025-04-20 19:07 | ECG ---
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
[2025-04-20 19:21] LABS: Alanine Aminotransferase 13 U/L (7-40); Albumin 4.1 g/dL (3.2-4.8); Alkaline Phosphatase 100 U/L (46-116); Anion Gap 9 (5-15); BUN/Creatinine Ratio 14.3 (10.0-20.0); Blood Urea Nitrogen 15 mg/dL (9-23); Calcium 9.3 mg/dL (8.7-10.4); Carbon Dioxide 31 mmol/L (20-31); Glucose 97 mg/dL (74-106); Potassium 4.0 mmol/L (3.5-5.1); Total Protein 6.9 g/dL (5.7-8.2)
[2025-04-20 19:22] LABS: Bilirubin, Total 0.2 mg/dL (0.2-1.0); Chloride 107 mmol/L (98-107); Sodium 147 mmol/L (136-145)
--- NOTE | 2025-04-20 19:28 | DVH ---
CHEST RADIOGRAPH Indication: SOB Technique: Single frontal view of the chest was obtained COMPARISON: XY CHEST XRAY 1 VIEW on DOS: 04/11/25, XY CHEST PORTABLE on DOS: 03/04/25, XY CHEST XRAY 1 VIEW on DOS: 12/19/24, XR CHEST 1 VIEW on DOS: 11/05/24, XR CHEST 1 VIEW on DOS: 10/15/24 FINDINGS: Lungs and pleural spaces are clear. Cardiac silhouette and hailey are within normal limits. Bones and soft tissues demonstrate no significant abnormality. IMPRESSION: No acute disease.
[2025-04-20 19:46] VITALS: PULSE 87; RESP 19; O2SAT 94
--- NOTE | 2025-04-20 20:09 | ED.PDOC ---
SOB-HPI HPI Comments 65-year-old male who came to ER for shortness of breath. Patient discharged here 5 days ago, diagnosed with 1, acute hypoxic resp failure, 2. Asthma exacerbation, 3. acute hypoxic resp failure, 4. obesity, 5. weakness in left leg, 6. anemia, chronic, 7. chest pain. Patient states he woke up earlier today with sudden onset shortness of breath, chest pressure, palpitations, and bilateral leg cramping. Patient is saturating 100% on room air by arrival Chief Complaint: Shortness of Breath Time Seen by MD: 20:09 Reviewed notes: Nurses Notes Information Source: Patient Mode of Arrival: EMS Severity: Moderate Past Medical History PAST MEDICAL HISTORY: Anemia, Asthma, Cancer, COPD, CVA, HTN Surgical History: Denies all surgeries Family History Family History: Reviewed,noncontributory to illness, Unknown Social History Smoker: Cigarettes Alcohol: Denies ETOH Use Drugs: Denies Drug Use Lives In: Assisted Care Constitutional: denies: chills, diaphoresis, fatigue, fever, malaise, sweats, weakness, others EENTM: denies: blurred vision, double vision, ear bleeding, ear discharge, ear drainage, ear pain, ear ringing, eye pain, eye redness, hearing loss, mouth pain, mouth swelling, nasal discharge, nose bleeding, nose congestion, nose pain, photophobia, tearing, throat pain, throat swelling, voice changes, others Respiratory: reports: SOB at rest, shortness of breath; denies: cough, hemoptysis, orthopnea, SOB with excertion, stridor, wheezing, others Cardiovascular: reports: chest pain, palpitations; denies: dizzy spells, diaphoresis, Dyspnea on exertion, edema, irregular heart beat, left arm pain, lightheadedness, PND, syncope, others Gastrointestinal: denies: abdomen distended, abdominal pain, blood streaked bowels, constipated, diarrhea, dysphagia, difficulty swallowing, hematemesis, melena, nausea, poor appetite, poor fluid intake, rectal bleeding, rectal pain, vomiting, others Genitourinary: denies: burning, dysuria, flank pain, frequency, hematuria, incontinence, penile discharge, penile sore, pain, testicle pain, testicle swelling, urgency, others Neurological: denies: dizziness, fainting, headache, left sided numbness, left sided weakness, numbness, paresthesia, pre-existing deficit, right sided numbness, right sided weakness, seizure, speech problems, tingling, tremors, weakness, others Musculoskeletal: denies: back pain, gout, joint pain, joint swelling, muscle pain, muscle stiffness, neck pain, others Integumetry: denies: bruises, change in color, change in hair/nails, dryness, laceration, lesions, lumps, rash, wounds, others Allergic/Immunocompromised: denies: Difficulty Healing, Frequent Infections, Hives, Itching, others Hematologic/Lymphatic: denies: anemia, blood clots, easy bleeding, easy bruising, swollen glands, others Endocrine: denies: excessive hunger, excessive sweating, excessive thirst, excessive urination, flushing, intolerance to cold, intolerance to heat, unexplained weight gain, unexplained weight loss, others Psychiatric: denies: anxiety, bipolar disorder, depression, hopeless, panic disorder, schizophrenia, sleepless, suicidal, others Physical Exam General Appearance: No Apparent Distress, Normal HEENT: Normal ENT Inspection, Pharynx Normal, TMs Normal Neck: Full Range of Motion, Non-Tender, Normal, Normal Inspection Respiratory: Chest Non-Tender, Lungs Clear, No Accessory Muscle Use, No Respiratory Distress, Normal Breath Sounds Cardiovascular: No Edema, No JVD, No Murmur, No Gallop, Normal Peripheral Pulses, Regular Rate/Rhythm Breast Exam: Deferred Gastrointestinal: No Organomegaly, Non Tender, No Pulsatile Mass, Normal Bowel Sounds, Soft Genitalia: Deferred Pelvic: Deferred Rectal: Deferred Extremities: No calf tenderness, Normal capillary refill, Normal inspection, Normal range of motion, Non-tender, No pedal edema Musculoskeletal : Apperance: Normal Neurologic: Alert, supervisor assembly stock II-XII nml as Tested, No Motor Deficits, Normal Affect, Normal Mood, No Sensory Deficits Cerebellar Function: Normal Reflexes: Normal Skin: Dry, Normal Color, Warm Lymphatic: No Adenopathy EKG EKG : Pulse Rate (adult): 81 Cardiac Rhythm: NSR Was a procedure done? Was a procedure done?: No Differential Dx Differential Diagnosis: Asthma, CHF, COPD, Respiratory Distress X-Ray, Labs, Meds, VS Vital Signs Date Time Temp Pulse Resp B/P (MAP) Pulse Ox O2 Delivery O2 Flow Rate FiO2 04/20/25 20:09 81 04/20/25 18:50 20 89 Nasal Cannula* 2 28 04/20/25 17:43 97.3 92 18 151/57 (88) 92 97.3 04/20/25 17:43 92 04/20/25 17:32 81 04/20/25 17:20 97.9 77 24 150/78 100 97.9 Lab Test 04/20/25 19:35 04/20/25 18:47 04/20/25 18:35 Range/Units Magnesium Level Pending Troponin I High Sensitivity Pending 65 *H </=54 ng/L White Blood Count 7.2 4.4-10.8 10^3/uL Red Blood Count 5.92 H 4.5-5.90 10^6/uL Hemoglobin 11.2 L 13.5-17.5 g/dL Hematocrit 38.3 L 41.0-53.0 % Mean Corpuscular Volume 64.8 L 80.0-100.0 fL Mean Corpuscular Hemoglobin 18.9 L 28.0-32.0 pg Mean Corpuscular Hemoglobin Concent 29.2 L 32.0-36.0 g/dL Red Cell Distribution Width 17.4 H 11.8-14.3 % Platelet Count 227 140-450 10^3/uL Mean Platelet Volume 8.6 6.9-10.8 fL Neutrophils (%) (Auto) 69.3 37.0-80.0 % Lymphocytes (%) (Auto) 21.6 10.0-50.0 % Monocytes (%) (Auto) 5.9 0.0-12.0 % Eosinophils (%) (Auto) 2.5 0.0-7.0 % Basophils (%) (Auto) 0.7 0.0-2.0 % Neutrophils # (Auto) 5.0 1.6-8.6 10 ^3/uL Lymphocytes # (Auto) 1.5 0.4-5.4 10 ^3/uL Monocytes # (Auto) 0.4 0-1.3 10 ^3/uL Eosinophils # (Auto) 0.2 0-0.8 10 ^3/uL Basophils # (Auto) 0 0-0.2 10 ^3/uL Nucleated Red Blood Cells 0.2 % Sodium Level 147 H 136-145 mmol/L Potassium Level 4.0 3.5-5.1 mmol/L Chloride Level 107 98-107 mmol/L Carbon Dioxide Level 31 20-31 mmol/L Anion Gap 9 5-15 Blood Urea Nitrogen 15 9-23 mg/dL Creatinine 1.05 0.700-1.30 mg/dL Glomerular Filtration Rate Calc 80 >90 mL/min BUN/Creatinine Ratio 14.3 10.0-20.0 Serum Glucose 97 74-106 mg/dL Calcium Level 9.3 8.7-10.4 mg/dL Total Bilirubin 0.2 0.2-1.0 mg/dL Aspartate Amino Transferase (AST) 13 13-40 U/L Alanine Aminotransferase (ALT) 13 7-40 U/L Alkaline Phosphatase 100 46-116 U/L B-Type Natriuretic Peptide Pending Total Protein 6.9 5.7-8.2 g/dL Albumin 4.1 3.2-4.8 g/dL Blood Gas Specimen Type Venous Blood Gas Sample Site Vbg - n/a Blood Gas Patient Temperature 37.0 Arterial Blood Date Drawn [id number] Artur Test N/a Venous Blood pH 7.228 L 7.320-7.430 Venous Blood pCO2 at Patient Temp 82.6 *H 38.0-54.0 mmHg Venous Blood pO2 at Patient Temp < 36.5 23.0-48.0 mmHg Venous Blood HCO3 33.7 H 22.0-29.0 mmol/L Venous Blood Base Excess 3.0 -2.0-3.0 mmol/L Blood Gas Liter Flow 10.00 Blood Gas Modality Mask - simple FiO2 % 60.0 Specimen Drawn By Lab Blood Gas Critical Value Read Back Yes Blood Gas Notified Whom aidee Valente Blood Gas Notified Time [id number] Blood Gas Notified By Adult Probation Officer john decker Current Medications Medications (Trade) Dose Ordered Sig/Sandra Route Start Time Stop Time Status Last Admin Prednisone 40 mg ONCE ONCE PO 04/20/25 18:15 04/20/25 18:16 DC 04/20/25 18:27 Albuterol (Ventolin Medneb) 5 mg ONCE ONCE NEB 04/20/25 18:15 04/20/25 18:16 DC 04/20/25 18:15 Ipratropium [place] (Atrovent Medneb) 0.5 mg ONCE ONCE NEB 04/20/25 18:15 04/20/25 18:16 DC 04/20/25 18:15 CHEST RADIOGRAPH Indication: SOB Technique: Single frontal view of the chest was obtained COMPARISON: XY CHEST XRAY 1 VIEW on DOS: 04/11/25, XY CHEST PORTABLE on DOS: 03/04/25, XY CHEST XRAY 1 VIEW on DOS: 12/19/24, XR CHEST 1 VIEW on DOS: 11/05/24, XR CHEST 1 VIEW on DOS: 10/15/24 FINDINGS: Lungs and pleural spaces are clear. Cardiac silhouette and hailey are within normal limits. Bones and soft tissues demonstrate no significant abnormality. IMPRESSION: No acute disease. ATED BY: SILVA ASH MD DICTATED DATE/TIME: 04/20/251925 Time of 1ST Reevaluation: 20:06 Reevaluation 1ST: Unchanged Patient Education/Counseling: Diagnosis, Treatment Family Education/Counseling: No Family Present SEPSIS Sepsis Screen Date sepsis recognized/suspect: Apr 20, 2025 Time Sepsis recognized/suspect: 1729 Recent Procedure: No On Antibiotic Therapy: No Respiratory Rate >20: No Heart Rate >90: No Temp<36 C (96.8 F) or >38.3 C: No SBP <90 or MAP <65 mmHG: No New Acute Mental Status Change: No Is the patient on CPAP, BIPAP,: No Physician Orders Chest Portable (04/20/25 18:13) B-Type Natriuretic Peptide (04/20/25 18:13) Troponin-I Hs (04/20/25 19:13) Troponin-I Hs (04/20/25 21:13) Venous Blood Gas (04/20/25 18:15) Magnesium (04/20/25 20:06) Magnesium Sulfate 1gm/100ml (04/20/25 20:15) Vital Signs Date Time Temp Pulse Resp B/P (MAP) Pulse Ox O2 Delivery O2 Flow Rate FiO2 04/20/25 20:09 81 04/20/25 18:50 20 89 Nasal Cannula* 2 28 04/20/25 17:43 97.3 92 18 151/57 (88) 92 97.3 04/20/25 17:43 92 04/20/25 17:32 81 04/20/25 17:20 97.9 77 24 150/78 100 97.9 Laboratory Tests Test 04/20/25 18:47 White Blood Count 7.2 10^3/uL (4.4-10.8) Medications Medications Dose Ordered Sig/Sandra Route Start Time Stop Time Status Last Admin Dose Admin Albuterol 5 mg ONCE ONCE NEB 04/20/25 18:15 04/20/25 18:16 DC 04/20/25 18:15 Ipratropium [place] 0.5 mg ONCE ONCE NEB 04/20/25 18:15 04/20/25 18:16 DC 04/20/25 18:15 Prednisone 40 mg ONCE ONCE PO 04/20/25 18:15 04/20/25 18:16 DC 04/20/25 18:27 Departure 1 Departure Time of Disposition: :27 Impression: Primary Impression: Acute exacerbation of COPD with asthma Additional Impression: Respiratory failure with hypercapnia Disposition: ADMITTED INPATIENT Admit to: Med Surg Condition: Guarded Comments Patient with COPD flare, PCO2 elevated. will admit to Dr Morin, I discussed the case with Dr Morin who agrees to admission Critical Care Note Critical Care Time?: Yes (35 min-critical care time only) Critical care comment: Total critical care time: Approximately 36 minutes Due to a high probability of clinically significant, life threatening deterioration, the patient required my highest level of preparedness to intervene emergently and I personally spent this critical care time directly and personally managing the patient. This critical care time included obtaining a history; examining the patient; pulse oximetry; ordering and review of studies; arranging urgent treatment with development of a management plan; evaluation of patient's response to treatment; frequent reassessment; and, discussions with other providers. This critical care time was performed to assess and manage the high probability of imminent, life-threatening deterioration that could result in multi-organ failure. It was exclusive of separately billable procedures and treating other patients. Stability Stability form required: No Heart Score Heart Score: Heart Score Response (Comments) Value History Slightly Suspicious 0 EKG Repolarization Disturb 1 Age 45-64 1 Risk Factors 1 or 2 risk factors 1 Troponin Normal limit 0 Total 3 I personally scribed for AIDEE SEVILLA MD ([email or web address]) on 04/20/25 at 20:09. Electronically submitted by Danilo Jefferson ([email or web address]). I personally scribed for AIDEE SEVILLA MD ([email or web address]) on 04/20/25 at 20:09. Electronically submitted by Danilo Jefferson ([email or web address]). AIDEE SEVILLA MD Apr 20, 2025 20:09
[2025-04-20] MEDS: MAGNESIUM SULFATE 1GM/100ML 100 ML IV ONE (21:06)
[2025-04-20] MEDS: ALBUTEROL SULF 2.5 MG/0.5ML(0.5%) NEB SOLN ONE (21:13)
[2025-04-20] MEDS: IPRATROPIUM BROM 0.5 MG/2.5ML INH SOL ONE (21:13)
--- NOTE | 2025-04-20 22:19 | DVHHP2 ---
History of Present Illness HPI 65-year-old male who came to ER for shortness of breath. Patient discharged here 5 days ago, diagnosed with 1, acute hypoxic resp failure, 2. Asthma exacerbation, 3. acute hypoxic resp failure, 4. obesity, 5. weakness in left leg, 6. anemia, chronic, 7. chest pain. Patient states he woke up earlier today with sudden onset shortness of breath, chest pressure, palpitations, and bilateral leg cramping. Home Meds Active Scripts Azithromycin (Zithromax Z-Jhony) 250 Mg Tab, 250 MG PO DAILY for 5 Days, #5 TAB Prov:GYPSY TANG CHIEF COMMERCIAL OFFICER 04/27/25 Prednisone (Prednisone) 20 Mg Tab, 40 MG PO DAILY for 5 Days, #10 MG Prov:[facility] 04/27/25 Reported Medications Ipratropium-Albuterol (COMBIVENT RESPIMAT) Respimat Aer, 1 IN Q4HPRN PRN for SHORTNESS OF BREATH, AER 04/21/25 Ropinirole Hydrochloride (Ropinirole Hcl) 0.25 Mg Tab, 0.25 MG PO HS, TAB 04/21/25 Atorvastatin Calcium (ATORVASTATIN CALCIUM) 20 Mg Tab, 1 TAB PO HS, #30 TAB 5 Refills 04/21/25 Gabapentin (Gabapentin) 100 Mg Cap, 100 MG PO BID for 30 Days, MG 04/21/25 Fluticasone-Salmeterol (Advair Diskus 250/50) 1 Puff Ih, 1 PUFF INH BID, #3 INHALER 3 Refills 04/21/25 Hydrochlorothiazide (Hydrochlorothiazide) 25 Mg Tab, 1 TAB PO DAILY, #30 TAB 5 Refills 04/21/25 Hydrochlorothiazide (Hydrochlorothiazide) 25 Mg Tab, 25 MG PO DAILY for 30 Days, MG 04/21/25 Aspirin (Aspir-Low) 81 Mg Tab, 81 MG PO DAILY for 30 Days, MG 04/21/25 Oxycodone W/ Acetaminophen (Endocet) 1 Tab Tab, 1 TAB PO Q6HPRN PRN for BREAKTHROUGH PAIN, TAB 04/21/25 Naproxen (NAPROSYN TABLET) 500 Mg Tb, 1 TAB PO BID PRN for PAIN SCALE 1 THRU 6, #60 TAB 1 Refill 04/21/25 Cyclobenzaprine Hcl (Cyclobenzaprine Hcl) 10 Mg Tab, 5 MG PO Q8HP PRN for muscle spasm for 30 Days, MG 04/21/25 Ergocalciferol (VITAMIN D2) 400 Unit Tab, 03127 UNIT PO once a week, TAB 04/21/25 Albuterol Sulfate (VENTOLIN MDI) 90 Mcg Ih, 90 MCG IN DAILY, INH 03/05/25 Past Medical History Patient Family History: FHx: breast cancer G8 MOTHER, , Cause: Breast cancer Review of Systems Constitutional: No symptom reported Ears, Nose, & Throat: No symptom reported Pulmonary/Respiratory: Dyspnea Cardiovascular: Chest Pain Genitourinary: No symptom reported Skin: No symptom reported Psychiatric: No symptom reported H&P Exam Vital Signs Vital Signs Date Time Temp Pulse Resp B/P (MAP) Pulse Ox O2 Delivery O2 Flow Rate FiO2 04/20/25 21:39 24 96 Nasal Cannula* 6 44 04/20/25 20:09 81 04/20/25 19:46 98.8 115/63 (80) 98.8 General Appeara: Well developed, Well nourished Pulmonary/Respiratory: Normal inspection Cardiovascular/Chest: Normal inspection SEPSIS Sepsis Screen Date sepsis recognized/suspect: Apr 20, 2025 Time Sepsis recognized/suspect: 2045 Recent Procedure: No On Antibiotic Therapy: No Respiratory Rate >20: No Heart Rate >90: No Temp<36 C (96.8 F) or >38.3 C: No SBP <90 or MAP <65 mmHG: No New Acute Mental Status Change: No Is the patient on CPAP, BIPAP,: No Physician Orders Chest Portable (04/20/25 18:13) Troponin-I Hs (04/20/25 21:13) Venous Blood Gas (04/20/25 18:15) Vital Signs Date Time Temp Pulse Resp B/P (MAP) Pulse Ox O2 Delivery O2 Flow Rate FiO2 04/20/25 21:39 24 96 Nasal Cannula* 6 44 04/20/25 20:09 81 04/20/25 19:46 87 19 94 Nasal Cannula* 3 32 04/20/25 19:46 98.8 87 19 115/63 (80) 94 98.8 04/20/25 18:50 20 89 Nasal Cannula* 2 28 04/20/25 17:43 97.3 92 18 151/57 (88) 92 97.3 04/20/25 17:43 92 04/20/25 17:32 81 04/20/25 17:20 97.9 77 24 150/78 100 97.9 Laboratory Tests Test 04/20/25 18:47 White Blood Count 7.2 10^3/uL (4.4-10.8) Medications Medications Dose Ordered Sig/Sandra Route Start Time Stop Time Status Last Admin Dose Admin Albuterol 2.5 mg ONCE ONCE NEB 04/20/25 21:30 04/20/25 21:31 DC 04/20/25 21:39 2.5 MG Albuterol 5 mg ONCE ONCE NEB 04/20/25 18:15 04/20/25 18:16 DC 04/20/25 18:15 5 MG Aspirin 162 mg ONCE ONCE PO 04/20/25 20:15 04/20/25 20:16 DC 04/20/25 21:04 162 MG Ipratropium [place] 0.5 mg ONCE ONCE NEB 04/20/25 18:15 04/20/25 18:16 DC 04/20/25 18:15 0.5 MG Ipratropium [place] 0.5 mg ONCE ONCE NEB 04/20/25 21:30 04/20/25 21:31 DC 04/20/25 21:39 0.5 MG Magnesium Sulfate/ Dextrose 100 ml @ 100 mls/hr ONCE ONCE IV 04/20/25 20:15 04/20/25 21:14 DC 04/20/25 21:06 100 MLS/HR Prednisone 40 mg ONCE ONCE PO 04/20/25 18:15 04/20/25 18:16 DC 04/20/25 18:27 40 MG Labs/Xrays Labs Test 04/20/25 21:42 04/20/25 19:35 04/20/25 18:47 04/20/25 18:35 Range/Units Magnesium Level 1.7 1.6-2.6 mg/dL White Blood Count 7.2 4.4-10.8 10^3/uL Red Blood Count 5.92 H 4.5-5.90 10^6/uL Hemoglobin 11.2 L 13.5-17.5 g/dL Hematocrit 38.3 L 41.0-53.0 % Mean Corpuscular Volume 64.8 L 80.0-100.0 fL Mean Corpuscular Hemoglobin 18.9 L 28.0-32.0 pg Mean Corpuscular Hemoglobin Concent 29.2 L 32.0-36.0 g/dL Red Cell Distribution Width 17.4 H 11.8-14.3 % Platelet Count 227 140-450 10^3/uL Mean Platelet Volume 8.6 6.9-10.8 fL Neutrophils (%) (Auto) 69.3 37.0-80.0 % Lymphocytes (%) (Auto) 21.6 10.0-50.0 % Monocytes (%) (Auto) 5.9 0.0-12.0 % Eosinophils (%) (Auto) 2.5 0.0-7.0 % Basophils (%) (Auto) 0.7 0.0-2.0 % Neutrophils # (Auto) 5.0 1.6-8.6 10 ^3/uL Lymphocytes # (Auto) 1.5 0.4-5.4 10 ^3/uL Monocytes # (Auto) 0.4 0-1.3 10 ^3/uL Eosinophils # (Auto) 0.2 0-0.8 10 ^3/uL Basophils # (Auto) 0 0-0.2 10 ^3/uL Nucleated Red Blood Cells 0.2 % Sodium Level 147 H 136-145 mmol/L Potassium Level 4.0 3.5-5.1 mmol/L Chloride Level 107 98-107 mmol/L Carbon Dioxide Level 31 20-31 mmol/L Anion Gap 9 5-15 Blood Urea Nitrogen 15 9-23 mg/dL Creatinine 1.05 0.700-1.30 mg/dL Glomerular Filtration Rate Calc 80 >90 mL/min BUN/Creatinine Ratio 14.3 10.0-20.0 Serum Glucose 97 74-106 mg/dL Calcium Level 9.3 8.7-10.4 mg/dL Total Bilirubin 0.2 0.2-1.0 mg/dL Aspartate Amino Transferase (AST) 13 13-40 U/L Alanine Aminotransferase (ALT) 13 7-40 U/L Alkaline Phosphatase 100 46-116 U/L B-Type Natriuretic Peptide 50.53 0-100 pg/mL Total Protein 6.9 5.7-8.2 g/dL Albumin 4.1 3.2-4.8 g/dL Blood Gas Specimen Type Venous Blood Gas Sample Site Vbg - n/a Blood Gas Patient Temperature 37.0 Arterial Blood Date Drawn [id number] Artur Test N/a Venous Blood pH 7.228 L 7.320-7.430 Venous Blood pCO2 at Patient Temp 82.6 *H 38.0-54.0 mmHg Venous Blood pO2 at Patient Temp < 36.5 23.0-48.0 mmHg Venous Blood HCO3 33.7 H 22.0-29.0 mmol/L Venous Blood Base Excess 3.0 -2.0-3.0 mmol/L Blood Gas Liter Flow 10.00 Blood Gas Modality Mask - simple FiO2 % 60.0 Specimen Drawn By Lab Blood Gas Critical Value Read Back Yes Blood Gas Notified Whom aidee Valente Blood Gas Notified Time [id number] Blood Gas Notified By Senior Chemical Process Engineer john decker Assessment/Plan Primary Diagnosis 65-year-old male who came to ER for shortness of breath. Patient discharged here 5 days ago, diagnosed with 1, acute hypoxic resp failure, 2. Asthma exacerbation, 3. acute hypoxic resp failure, 4. obesity, 5. weakness in left leg, 6. anemia, chronic, 7. chest pain. Patient states he woke up earlier today with sudden onset shortness of breath, chest pressure, palpitations, and bilateral leg cramping. Acute exacerbation of COPD with asthma. Respiratory failure with hypercapnia. CHF with hypoxia Elevated troponin, ACS rule out HTN Plan discussed with: Patient ZURITAHERSON Stoner Kari SANCHEZ Apr 20, 2025 22:19
[2025-04-20] MEDS ORDERED: HYDROcodone-ACET 5/325MG TAB PO PRN (22:30)
[2025-04-20] MEDS ORDERED: MORPHINE SULFATE INJ 2 MG/ml SYRG IV PRN (22:30)
[2025-04-20] MEDS ORDERED: NITROGLYCERIN 0.4 MG SL TAB SL PRN (22:30)
[2025-04-20] MEDS ORDERED: ACETAMINOPHEN 325 MG TAB PO PRN (22:30)
[2025-04-21] VITALS (27 sets, daily range): BP systolic 149–186; BP diastolic 70–92; PULSE 80–109; RESP 18–25; TEMP 97.9–100.4; O2SAT 90–100
[2025-04-21] MEDS: MORPHINE SULFATE INJ 2 MG/ml SYRG IV PRN (00:09)
[2025-04-21] MEDS: ALBUTEROL SULF 2.5 MG/0.5ML(0.5%) NEB SOLN NEB PRN ×2 (00:12→13:33)
[2025-04-21 05:51] LABS: Hematocrit 36.6 % (41.0-53.0); Hemoglobin 10.9 g/dL (13.5-17.5); Mean Corpuscular Hemoglobin 18.8 pg (28.0-32.0); Mean Corpuscular Volume 62.8 fL (80.0-100.0); Nucleated Red Blood Cells % 0.1 %
[2025-04-21 06:10] LABS: Alanine Aminotransferase 11 U/L (7-40); Alkaline Phosphatase 84 U/L (46-116); Anion Gap 7 (5-15); Calcium 9.1 mg/dL (8.7-10.4); Carbon Dioxide 30 mmol/L (20-31); Chloride 105 mmol/L (98-107); Potassium 4.7 mmol/L (3.5-5.1); Sodium 142 mmol/L (136-145)
[2025-04-21 06:11] LABS: Albumin 4.1 g/dL (3.2-4.8); BUN/Creatinine Ratio 16.3 (10.0-20.0); Blood Urea Nitrogen 14 mg/dL (9-23); Glucose 143 mg/dL (74-106)
[2025-04-21 06:12] LABS: Total Protein 6.8 g/dL (5.7-8.2)
[2025-04-21 06:14] LABS: Bilirubin, Total 0.3 mg/dL (0.2-1.0)
[2025-04-21] MEDS ORDERED: IPRAAER6 IN (07:34)
[2025-04-21] MEDS ORDERED: CYCL-839 PO (07:34)
[2025-04-21] MEDS ORDERED: ERGO400T PO (07:34)
[2025-04-21] MEDS ORDERED: OXYC-113 PO (07:34)
[2025-04-21] MEDS ORDERED: ROPI5TAB20 PO (07:34)
[2025-04-21] MEDS ORDERED: GABA-1308 PO (07:34)
[2025-04-21] MEDS ORDERED: NAP500T PO (07:34)
[2025-04-21] MEDS ORDERED: FLUT250M2 INH (07:34)
[2025-04-21] MEDS ORDERED: ASPI-543 PO (07:34)
[2025-04-21] MEDS ORDERED: ATOR20TA50 PO (07:34)
[2025-04-21] MEDS ORDERED: HYDR25TA4 PO (07:34)
[2025-04-21] MEDS: ENOXAPARIN SOD 40 MG/0.4 ML SYRINGE SC SCH (09:16)
[2025-04-21] MEDS: ALPRAZolam 0.5 MG TAB PO ONE (14:15)
--- NOTE | 2025-04-21 15:11 | DVHINCON2 ---
Date of service: Apr 21, 2025 Referring Physician Kathryn Reason for Consultation CHF History of Present Illness This is a 65-year-old male with a PMH of Anemia, Asthma, Cancer, COPD, CVA, HTN who presented to the ED with complaints of shortness of breath. Patient states he woke up earlier today with sudden onset shortness of breath, chest pressure, palpitations, and bilateral leg cramping Patient was recently discharged from [facility] 5 days ago. TROP 65 > 71 > 92. Chest x-ray shows NAD. EKG is NSR at 81. Patient was admitted to the hospital. I am asked to consult on this patient. Past Medical History Anemia, Asthma, Cancer, COPD, CVA, HTN Family History: FHx: breast cancer G8 MOTHER, , Cause: Breast cancer Allergies: Coded Allergies: Ibuprofen (Verified Allergy, Severe, 12/19/24) Home Meds Reported Medications Ipratropium-Albuterol (COMBIVENT RESPIMAT) Respimat Aer, 1 IN Q4HPRN PRN for SHORTNESS OF BREATH, AER 04/21/25 Ropinirole Hydrochloride (Ropinirole Hcl) 0.25 Mg Tab, 0.25 MG PO HS, TAB 04/21/25 Atorvastatin Calcium (ATORVASTATIN CALCIUM) 20 Mg Tab, 1 TAB PO HS, #30 TAB 5 Refills 04/21/25 Gabapentin (Gabapentin) 100 Mg Cap, 100 MG PO BID for 30 Days, MG 04/21/25 Fluticasone-Salmeterol (Advair Diskus 250/50) 1 Puff Ih, 1 PUFF INH BID, #3 INHALER 3 Refills 04/21/25 Hydrochlorothiazide (Hydrochlorothiazide) 25 Mg Tab, 1 TAB PO DAILY, #30 TAB 5 Refills 04/21/25 Hydrochlorothiazide (Hydrochlorothiazide) 25 Mg Tab, 25 MG PO DAILY for 30 Days, MG 04/21/25 Aspirin (Aspir-Low) 81 Mg Tab, 81 MG PO DAILY for 30 Days, MG 04/21/25 Oxycodone W/ Acetaminophen (Endocet) 1 Tab Tab, 1 TAB PO Q6HPRN PRN for BREAKTHROUGH PAIN, TAB 04/21/25 Naproxen (NAPROSYN TABLET) 500 Mg Tb, 1 TAB PO BID PRN for PAIN SCALE 1 THRU 6, #60 TAB 1 Refill 04/21/25 Cyclobenzaprine Hcl (Cyclobenzaprine Hcl) 10 Mg Tab, 5 MG PO Q8HP PRN for muscle spasm for 30 Days, MG 04/21/25 Ergocalciferol (VITAMIN D2) 400 Unit Tab, 03206 UNIT PO once a week, TAB 04/21/25 Albuterol Sulfate (VENTOLIN MDI) 90 Mcg Ih, 90 MCG IN DAILY, INH 03/05/25 Current Medications Current Medications Medications (Trade) Dose Ordered Sig/Sandra Route PRN Reason Start Time Stop Time Status Last Admin Acetaminophen/ Hydrocodone Bitart ([place] 5/325MG Tab) 1 tab Q4HP PRN PO MODERATE PAIN (4-6 PAIN SCALE) 04/20/25 22:30 Enoxaparin Sodium (Lovenox) 40 mg DAILY SC 04/21/25 10:00 04/21/25 09:16 Acetaminophen (Tylenol Tablet) 650 mg Q6HP PRN PO PAIN SCALE 1-3 OR TEMP>100.4 04/20/25 22:30 Morphine Sulfate 2 mg Q4HPRN PRN IV SEVERE PAIN (7-10 PAIN SCALE) 04/20/25 22:30 04/21/25 12:38 Nitroglycerin (Ntrostat Sublingual) 0.4 mg Q5MINP PRN SL FOR CHEST PAIN 04/20/25 22:30 Morphine Sulfate 2 mg Q30M PRN IV FOR CHEST PAIN 04/20/25 22:30 Albuterol (Ventolin Medneb) 2.5 mg Q6HPRN PRN NEB SHORTNESS OF BREATH 04/21/25 00:00 04/21/25 12:17 DC 04/21/25 07:01 Albuterol (Ventolin Medneb) 2.5 mg Q4HP PRN NEB SHORTNESS OF BREATH 04/21/25 12:15 04/21/25 13:33 Hydralazine HCl (Apresoline Injection) 10 mg Q4HP PRN IV SBP>150 04/21/25 12:15 Alprazolam (Xanax Tablet) 2 mg BID PO 04/21/25 22:00 UNV Review of Systems Constitutional: denies: chills, diaphoresis, fatigue, fever, malaise, sweats, weakness, others EENTM: denies: blurred vision, double vision, ear bleeding, ear discharge, ear drainage, ear pain, ear ringing, eye pain, eye redness, hearing loss, mouth pain, mouth swelling, nasal discharge, nose bleeding, nose congestion, nose pain, photophobia, tearing, throat pain, throat swelling, voice changes, others Respiratory: reports: SOB at rest, shortness of breath; denies: cough, hemoptysis, orthopnea, SOB with excertion, stridor, wheezing, others Cardiovascular: reports: chest pain, palpitations; denies: dizzy spells, diaphoresis, Dyspnea on exertion, edema, irregular heart beat, left arm pain, lightheadedness, PND, syncope, others Gastrointestinal: denies: abdomen distended, abdominal pain, blood streaked bowels, constipated, diarrhea, dysphagia, difficulty swallowing, hematemesis, melena, nausea, poor appetite, poor fluid intake, rectal bleeding, rectal pain, vomiting, others Genitourinary: denies: burning, dysuria, flank pain, frequency, hematuria, incontinence, penile discharge, penile sore, pain, testicle pain, testicle swelling, urgency, others Neurological: denies: dizziness, fainting, headache, left sided numbness, left sided weakness, numbness, paresthesia, pre-existing deficit, right sided numbness, right sided weakness, seizure, speech problems, tingling, tremors, weakness, others Musculoskeletal: denies: back pain, gout, joint pain, joint swelling, muscle pain, muscle stiffness, neck pain, others Integumetry: denies: bruises, change in color, change in hair/nails, dryness, laceration, lesions, lumps, rash, wounds, others Allergic/Immunocompromised: denies: Difficulty Healing, Frequent Infections, Hives, Itching, others Hematologic/Lymphatic: denies: anemia, blood clots, easy bleeding, easy bruising, swollen glands, others Endocrine: denies: excessive hunger, excessive sweating, excessive thirst, excessive urination, flushing, intolerance to cold, intolerance to heat, unexplained weight gain, unexplained weight loss, others Psychiatric: denies: anxiety, bipolar disorder, depression, hopeless, panic disorder, schizophrenia, sleepless, suicidal, others Vital Signs Vital Signs Date Time Temp Pulse Resp B/P (MAP) Pulse Ox O2 Delivery O2 Flow Rate FiO2 04/21/25 13:33 105 24 90 04/21/25 13:25 167/85 04/21/25 13:00 98.0 98.0 04/21/25 09:54 Nasal Cannula* 3 32 Physical Exam GENERAL: Alert and oriented x 3. No acute distress. EYES: PERRL, EOMI. Anicteric. HENT: Moist mucous membranes. LUNGS: Clear to auscultation bilaterally. CARDIOVASCULAR: Regular rate and rhythm. ABDOMEN: Soft, nontender and nondistended. EXTREMITIES: No edema. NEUROLOGIC: No focal neurological deficits. SKIN: Warm, dry. Labs/Diagnostic Data Labs Test 04/21/25 04:40 04/20/25 21:42 04/20/25 19:35 04/20/25 18:47 Range/Units White Blood Count 6.5 4.4-10.8 10^3/uL Red Blood Count 5.82 4.5-5.90 10^6/uL Hemoglobin 10.9 L 13.5-17.5 g/dL Hematocrit 36.6 L 41.0-53.0 % Mean Corpuscular Volume 62.8 L 80.0-100.0 fL Mean Corpuscular Hemoglobin 18.8 L 28.0-32.0 pg Mean Corpuscular Hemoglobin Concent 29.9 L 32.0-36.0 g/dL Red Cell Distribution Width 17.5 H 11.8-14.3 % Platelet Count 213 140-450 10^3/uL Mean Platelet Volume 9.0 6.9-10.8 fL Neutrophils (%) (Auto) 93.5 H 37.0-80.0 % Lymphocytes (%) (Auto) 4.1 L 10.0-50.0 % Monocytes (%) (Auto) 1.9 0.0-12.0 % Eosinophils (%) (Auto) 0.1 0.0-7.0 % Basophils (%) (Auto) 0.4 0.0-2.0 % Neutrophils # (Auto) 6.1 1.6-8.6 10 ^3/uL Lymphocytes # (Auto) 0.3 L 0.4-5.4 10 ^3/uL Monocytes # (Auto) 0.1 0-1.3 10 ^3/uL Eosinophils # (Auto) 0 0-0.8 10 ^3/uL Basophils # (Auto) 0 0-0.2 10 ^3/uL Nucleated Red Blood Cells 0.1 % Sodium Level 142 # 136-145 mmol/L Potassium Level 4.7 3.5-5.1 mmol/L Chloride Level 105 98-107 mmol/L Carbon Dioxide Level 30 20-31 mmol/L Anion Gap 7 5-15 Blood Urea Nitrogen 14 9-23 mg/dL Creatinine 0.86 0.700-1.30 mg/dL Glomerular Filtration Rate Calc 97 >90 mL/min BUN/Creatinine Ratio 16.3 10.0-20.0 Serum Glucose 143 H 74-106 mg/dL Calcium Level 9.1 8.7-10.4 mg/dL Total Bilirubin 0.3 0.2-1.0 mg/dL Aspartate Amino Transferase (AST) 14 13-40 U/L Alanine Aminotransferase (ALT) 11 7-40 U/L Alkaline Phosphatase 84 46-116 U/L Total Protein 6.8 5.7-8.2 g/dL Albumin 4.1 3.2-4.8 g/dL Troponin I High Sensitivity 92 *H </=54 ng/L Magnesium Level 1.7 1.6-2.6 mg/dL B-Type Natriuretic Peptide 50.53 0-100 pg/mL Test 04/20/25 18:35 Range/Units Blood Gas Specimen Type Venous Blood Gas Sample Site Vbg - n/a Blood Gas Patient Temperature 37.0 Arterial Blood Date Drawn [id number] Artur Test N/a Venous Blood pH 7.228 L 7.320-7.430 Venous Blood pCO2 at Patient Temp 82.6 *H 38.0-54.0 mmHg Venous Blood pO2 at Patient Temp < 36.5 23.0-48.0 mmHg Venous Blood HCO3 33.7 H 22.0-29.0 mmol/L Venous Blood Base Excess 3.0 -2.0-3.0 mmol/L Blood Gas Liter Flow 10.00 Blood Gas Modality Mask - simple FiO2 % 60.0 Specimen Drawn By Lab Blood Gas Critical Value Read Back Yes Blood Gas Notified Whom aidee Valente Blood Gas Notified Time [id number] Blood Gas Notified By john Nelson Microbiology Date/Time Source Procedure Growth Status 04/21/25 00:00 Nose MRSA Screen - Final Methicillin Resistant S.aureus Complete Assessment Acute exacerbation of COPD with asthma. Respiratory failure with hypercapnia. CHF. Elevated troponin. HTN. Plan/Recommendation I agree with your ongoing assessment and care of plan. Nitro SL. DVT prophylactics. IV Hydralazine for SBP > 150. Morphine and [place] for pain management. Additional plan as per the hospital course. A total of 45 minutes was spent reviewing the patient record, examining the patient, making a diagnostic and therapeutic plan, discussing this plan with medical personnel, following up on diagnostic studies and following the patient for clinical stability excluding any and all procedures. At least 50% of this time was spent in direct, [id number] contact. Plan discussed with: Patient JESSICA DHILLON MD Apr 21, 2025 14:38
[2025-04-22] VITALS (23 sets, daily range): BP systolic 119–166; BP diastolic 69–98; PULSE 65–104; RESP 14–23; TEMP 97.6–100; O2SAT 90–99
[2025-04-22] MEDS: ALPRAZolam 0.5 MG TAB PO SCH (00:25)
[2025-04-22] MEDS: methylPREDNISolone SOD SUCC 125 MG/2 ML VL IV ONE (01:58)
[2025-04-22 02:19] LABS: Base Excess 2.2 mmol/L (-2.0-3.0)
[2025-04-22] MEDS: ALBUTEROL SULF 2.5 MG/0.5ML(0.5%) NEB SOLN NEB PRN (04:21)
--- NOTE | 2025-04-22 05:14 | DVH ---
CHEST RADIOGRAPH Indication: shortness of breath Technique: Single frontal view of the chest was obtained COMPARISON: XY CHEST PORTABLE on DOS: 04/20/25, XY CHEST XRAY 1 VIEW on DOS: 04/11/25, XY CHEST PORTABLE on DOS: 03/04/25, XY CHEST XRAY 1 VIEW on DOS: 12/19/24, XR CHEST 1 VIEW on DOS: 11/05/24 FINDINGS: Lines and Tubes: None Lungs: Slightly increased diffuse pulmonary vascular congestion. Pleura: No effusion. No pneumothorax. Cardiomediastinal contours: Unremarkable Bones: Unremarkable IMPRESSION: Slightly increased diffuse pulmonary vascular congestion.
[2025-04-22] MEDS: ALBUTEROL SULF 2.5 MG/0.5ML(0.5%) NEB SOLN NEB SCH (06:12)
[2025-04-22] MEDS: methylPREDNISolone SOD SUCC 40 MG/ML VL IV SCH (10:40)
[2025-04-22] MEDS: hydrALAZINE HCL 20 MG/ML VL IV PRN (13:27)
[2025-04-22] MEDS: FUROSEMIDE 100 MG/10ML VIAL IV ONE (14:38)
[2025-04-22] MEDS: FUROSEMIDE 40 MG/4 ML VIAL ONE (14:51)
--- NOTE | 2025-04-22 18:24 | DVHPN2 ---
Progress Note - Dictate Date Seen: Apr 22, 2025 Medical Necessity Reason Pt with a Central, PICC or Fol: No Subjective Patient was seen and evaluated in follow up. [place] is on 4 LPM NC. Overnight, the patient was verbally aggressive/agitated toward nursing staff. Sitter is now at bedside. Patient is on 3 LPM NC. BS are WNL. Chest x-ray shows slightly increased diffuse pulmonary vascular congestion. Telemetry reviewed. vital signs Vital Sign Date Time Temp Pulse Resp B/P (MAP) Pulse Ox O2 Delivery O2 Flow Rate FiO2 04/22/25 09:58 70 16 97 04/22/25 09:52 Nasal Cannula* 3 32 04/22/25 09:02 98.1 143/83 (103) 98.1 Total Intake and Output 04/21/25 04/21/25 04/22/25 15:00 23:00 07:00 Intake Total 500 ml Output Total 800 ml 400 ml Balance -300 ml -400 ml medications Current Medications Medications Dose Ordered Sig/Sandra Route Start Time Stop Time Status Last Admin Dose Admin Acetaminophen/ Hydrocodone Bitart 1 tab Q4HP PRN PO 04/20/25 22:30 Enoxaparin Sodium 40 mg DAILY SC 04/21/25 10:00 04/22/25 10:39 40 MG Acetaminophen 650 mg Q6HP PRN PO 04/20/25 22:30 Morphine Sulfate 2 mg Q4HPRN PRN IV 04/20/25 22:30 04/21/25 23:47 2 MG Nitroglycerin 0.4 mg Q5MINP PRN SL 04/20/25 22:30 Morphine Sulfate 2 mg Q30M PRN IV 04/20/25 22:30 Hydralazine HCl 10 mg Q4HP PRN IV 04/21/25 12:15 Alprazolam 2 mg BID PO 04/21/25 22:00 04/22/25 00:25 2 MG Methylprednisolone Sodium Succinate 40 mg BID IV 04/22/25 10:00 04/22/25 10:40 40 MG Albuterol 2.5 mg Q2HPRN PRN NEB 04/22/25 02:15 04/22/25 04:21 2.5 MG Albuterol 2.5 mg Q4HR NEB 04/22/25 06:00 04/22/25 09:52 2.5 MG objective GENERAL: Alert and oriented x 3. No acute distress. EYES: PERRL, EOMI. Anicteric. HENT: Moist mucous membranes. LUNGS: Clear to auscultation bilaterally. CARDIOVASCULAR: Regular rate and rhythm. ABDOMEN: Soft, nontender and nondistended. EXTREMITIES: No edema. NEUROLOGIC: No focal neurological deficits. SKIN: Warm, dry. laboratory and microbiology Laboratory Tests 04/21/25 04:40 Test 04/21/25 04:40 Range/Units Serum Glucose 143 H 74-106 mg/dL Problem List Acute exacerbation of COPD with asthma. Respiratory failure with hypercapnia. CHF. Elevated troponin. HTN. Assessment/Plan Continued all current supportive medical care. Morphine and [place] for pain management. DVT prophylactics. Diuretics with Lasix. IV Hydralazine for SBP >150. Nitro SL. Additional plan as per the hospital course. Plan discussed with: Patient JESSICA DHILLON MD Apr 22, 2025 12:26
[2025-04-23] VITALS (12 sets, daily range): BP systolic 118–129; BP diastolic 73–90; PULSE 68–87; RESP 17–20; TEMP 97.1–98; O2SAT 91–100
[2025-04-23] MEDS: FUROSEMIDE 100 MG/10ML VIAL IV SCH (05:35)
--- NOTE | 2025-04-23 20:56 | DVHPN2 ---
Progress Note - Dictate Date Seen: Apr 23, 2025 Medical Necessity Reason Pt with a Central, PICC or Fol: No Subjective Patient was seen and evaluated in follow up. No overnight events. Patient is on 4 LPM NC. Sitter is at bedside. Patient appears more calm today. Telemetry reviewed. vital signs Vital Sign Date Time Temp Pulse Resp B/P (MAP) Pulse Ox O2 Delivery O2 Flow Rate FiO2 04/23/25 09:54 87 18 97 04/23/25 09:44 Nasal Cannula* 4 36 04/23/25 09:00 97.8 118/77 (91) 97.8 Total Intake and Output 04/22/25 04/22/25 04/23/25 15:00 23:00 07:00 Intake Total 150 ml 240 ml Output Total 1500 ml 200 ml Balance -1350 ml 40 ml medications Current Medications Medications Dose Ordered Sig/Sandra Route Start Time Stop Time Status Last Admin Dose Admin Acetaminophen/ Hydrocodone Bitart 1 tab Q4HP PRN PO 04/20/25 22:30 Enoxaparin Sodium 40 mg DAILY SC 04/21/25 10:00 04/23/25 10:21 40 MG Acetaminophen 650 mg Q6HP PRN PO 04/20/25 22:30 Morphine Sulfate 2 mg Q4HPRN PRN IV 04/20/25 22:30 04/23/25 08:15 2 MG Nitroglycerin 0.4 mg Q5MINP PRN SL 04/20/25 22:30 Morphine Sulfate 2 mg Q30M PRN IV 04/20/25 22:30 Hydralazine HCl 10 mg Q4HP PRN IV 04/21/25 12:15 04/22/25 13:27 10 MG Alprazolam 2 mg BID PO 04/21/25 22:00 04/23/25 10:21 2 MG Methylprednisolone Sodium Succinate 40 mg BID IV 04/22/25 10:00 04/23/25 10:21 40 MG Albuterol 2.5 mg Q2HPRN PRN NEB 04/22/25 02:15 04/23/25 08:14 2.5 MG Albuterol 2.5 mg Q4HR NEB 04/22/25 06:00 04/23/25 09:44 2.5 MG Furosemide 80 mg BIDD IV 04/23/25 06:00 04/23/25 05:35 80 MG objective GENERAL: Alert and oriented x 3. No acute distress. EYES: PERRL, EOMI. Anicteric. HENT: Moist mucous membranes. LUNGS: Clear to auscultation bilaterally. CARDIOVASCULAR: Regular rate and rhythm. ABDOMEN: Soft, nontender and nondistended. EXTREMITIES: No edema. NEUROLOGIC: No focal neurological deficits. SKIN: Warm, dry. laboratory and microbiology Laboratory Tests 04/21/25 04:40 Test 04/21/25 04:40 Range/Units Serum Glucose 143 H 74-106 mg/dL Problem List Acute exacerbation of COPD with asthma. Respiratory failure with hypercapnia. CHF. Elevated troponin. HTN. Assessment/Plan Continued all current supportive medical care. Morphine and [place] for pain management. DVT prophylactics. Diuretics with Lasix. Nitro SL. IV Solu-Medrol. Nebulized breathing treatments. Additional plan as per the hospital course. Plan discussed with: Patient JESSICA DHILLON MD Apr 23, 2025 13:37
--- NOTE | 2025-04-25 07:50 | ECG ---
[facility] Test Date: 2025-04-21 Test Time: 03:22:18 Pat Name: DIEGO HUTCHINSON Department: Respiratoy Room: 0232T A Gender: M [employer]: THERESE : 1960 Requested By: HERSON ZURITA Order Number: [id number] Reading MD: John Fuchs Measurements Intervals [place] Rate: 82 P: 53 MO: 151 QRS: 71 QRSD: 103 T: 55 QT: 381 QTc: 445 Interpretive Statements Sinus rhythm Electronically Signed On 04-25-2025 9:48:30 PST by John Fuchs Please click the below link to view image of tracing.
--- NOTE | 2025-04-28 21:49 | DVHPN2 ---
Progress Note Date Seen: Apr 21, 2025 Medical Necessity Reason Pt with a Central, PICC or Fol: No Subjective Patient reports: No new complaints Review of Systems: HEENT:Normal Objective Examination: GENERAL:Normal laboratory and microbiology Laboratory Tests 04/21/25 04:40 Test 04/21/25 04:40 Range/Units Serum Glucose 143 H 74-106 mg/dL Microbiology Date/Time Source Procedure Growth Status 04/21/25 00:00 Nose MRSA Screen - Final Methicillin Resistant S.aureus Complete Labs and/or images reviewed: Labs reviewed by me, Image(s) reviewed by me Problem List/Assessment/Plan Problem List/Assessment/Plan 65-year-old male who came to ER for shortness of breath. Patient discharged here 5 days ago, diagnosed with 1, acute hypoxic resp failure, 2. Asthma exacerbation, 3. acute hypoxic resp failure, 4. obesity, 5. weakness in left leg, 6. anemia, chronic, 7. chest pain. Patient states he woke up earlier today with sudden onset shortness of breath, chest pressure, palpitations, and bilateral leg cramping. Acute exacerbation of COPD with asthma. Respiratory failure with hypercapnia. CHF with hypoxia Elevated troponin, ACS rule out HTN chronic anemia weakness Plan discussed with: Patient HERSON ZURITA DO Apr 28, 2025 21:49
--- NOTE | 2025-04-28 21:57 | DVHPN2 ---
Progress Note Date Seen: Apr 22, 2025 Medical Necessity Reason Pt with a Central, PICC or Fol: No Subjective Review of Systems: HEENT:Normal Objective Examination: GENERAL:Normal laboratory and microbiology Laboratory Tests 04/21/25 04:40 Test 04/21/25 04:40 Range/Units Serum Glucose 143 H 74-106 mg/dL Microbiology Date/Time Source Procedure Growth Status 04/21/25 00:00 Nose MRSA Screen - Final Methicillin Resistant S.aureus Complete Problem List/Assessment/Plan Problem List/Assessment/Plan 65-year-old male who came to ER for shortness of breath. Patient discharged here 5 days ago, diagnosed with 1, acute hypoxic resp failure, 2. Asthma exacerbation, 3. acute hypoxic resp failure, 4. obesity, 5. weakness in left leg, 6. anemia, chronic, 7. chest pain. Patient states he woke up earlier today with sudden onset shortness of breath, chest pressure, palpitations, and bilateral leg cramping. Acute exacerbation of COPD with asthma. Respiratory failure with hypercapnia. CHF with hypoxia Elevated troponin, ACS rule out HTN chronic anemia weakness Plan discussed with: Other (nursing) HERSON ZURITA DO Apr 28, 2025 21:57
--- NOTE | 2025-04-28 21:57 | DVHDS2 ---
Discharge Summary Date of Admission Apr 20, 2025 at 22:19 Date of Discharge: Apr 23, 2025 Labs/Diagnostic Data: Laboratory Results Test 04/22/25 10:49 04/22/25 02:04 04/21/25 04:40 04/20/25 21:42 POC Glucose 177 mg/dl (70-106) Blood Gas Specimen Type Arterial Blood Gas Sample Site Left radial Blood Gas Patient Temperature 37.0 Arterial Blood Date Drawn [id number] Arterial Blood pH 7.338 (7.350-7.450) Arterial Blood Partial Pressure CO2 55.2 mmHg (35.0-48.0) Arterial Blood Partial Pressure O2 98.4 mmHg (83.0-108.0) Arterial Blood HCO3 29.0 mmol/L (21.0-28.0) Arterial Blood Oxygen Saturation 96.9 % (94.0-98.0) Arterial Blood Base Excess 2.2 mmol/L (-2.0-3.0) Arterial Blood Oxyhemoglobin 96.1 % (94.0-98.0) Arterial Blood Carboxyhemoglobin 0.5 % (0.5-1.5) Arterial Blood Methemoglobin 0.3 % (0.0-1.5) Arterial Blood Deoxyhemoglobin 3.1 % (0.0-5.0) Artur Test Modified Blood Gas Total Hemoglobin 12.10 g/dL (13.5-17.5) Blood Gas Liter Flow 5.00 Blood Gas Modality Nasal cannula FiO2 % 40.0 White Blood Count 6.5 10^3/uL (4.4-10.8) Red Blood Count 5.82 10^6/uL (4.5-5.90) Hemoglobin 10.9 g/dL (13.5-17.5) Hematocrit 36.6 % (41.0-53.0) Mean Corpuscular Volume 62.8 fL (80.0-100.0) Mean Corpuscular Hemoglobin 18.8 pg (28.0-32.0) Mean Corpuscular Hemoglobin Concent 29.9 g/dL (32.0-36.0) Red Cell Distribution Width 17.5 % (11.8-14.3) Platelet Count 213 10^3/uL (140-450) Mean Platelet Volume 9.0 fL (6.9-10.8) Neutrophils (%) (Auto) 93.5 % (37.0-80.0) Lymphocytes (%) (Auto) 4.1 % (10.0-50.0) Monocytes (%) (Auto) 1.9 % (0.0-12.0) Eosinophils (%) (Auto) 0.1 % (0.0-7.0) Basophils (%) (Auto) 0.4 % (0.0-2.0) Neutrophils # (Auto) 6.1 10 ^3/uL (1.6-8.6) Lymphocytes # (Auto) 0.3 10 ^3/uL (0.4-5.4) Monocytes # (Auto) 0.1 10 ^3/uL (0-1.3) Eosinophils # (Auto) 0 10 ^3/uL (0-0.8) Basophils # (Auto) 0 10 ^3/uL (0-0.2) Nucleated Red Blood Cells 0.1 % Sodium Level 142 mmol/L (136-145) Potassium Level 4.7 mmol/L (3.5-5.1) Chloride Level 105 mmol/L (98-107) Carbon Dioxide Level 30 mmol/L (20-31) Anion Gap 7 (5-15) Blood Urea Nitrogen 14 mg/dL (9-23) Creatinine 0.86 mg/dL (0.700-1.30) Glomerular Filtration Rate Calc 97 mL/min (>90) BUN/Creatinine Ratio 16.3 (10.0-20.0) Serum Glucose 143 mg/dL (74-106) Calcium Level 9.1 mg/dL (8.7-10.4) Total Bilirubin 0.3 mg/dL (0.2-1.0) Aspartate Amino Transferase (AST) 14 U/L (13-40) Alanine Aminotransferase (ALT) 11 U/L (7-40) Alkaline Phosphatase 84 U/L (46-116) Total Protein 6.8 g/dL (5.7-8.2) Albumin 4.1 g/dL (3.2-4.8) Troponin I High Sensitivity 92 ng/L (</=54) Test 04/20/25 19:35 04/20/25 18:47 04/20/25 18:35 Magnesium Level 1.7 mg/dL (1.6-2.6) B-Type Natriuretic Peptide 50.53 pg/mL (0-100) Venous Blood pH 7.228 (7.320-7.430) Venous Blood pCO2 at Patient Temp 82.6 mmHg (38.0-54.0) Venous Blood pO2 at Patient Temp < 36.5 mmHg (23.0-48.0) Venous Blood HCO3 33.7 mmol/L (22.0-29.0) Venous Blood Base Excess 3.0 mmol/L (-2.0-3.0) Specimen Drawn By Lab Blood Gas Critical Value Read Back Yes Blood Gas Notified Whom aidee Valente Blood Gas Notified Time [id number] Blood Gas Notified By Retail Aide john decker Other Laboratory Tests 04/21/25 04:40 Brief Hx & Hospital Course: 65-year-old male who came to ER for shortness of breath. Patient discharged here 5 days ago, diagnosed with 1, acute hypoxic resp failure, 2. Asthma exacerbation, 3. acute hypoxic resp failure, 4. obesity, 5. weakness in left leg, 6. anemia, chronic, 7. chest pain. Patient states he woke up earlier today with sudden onset shortness of breath, chest pressure, palpitations, and bilateral leg cramping. Acute exacerbation of COPD with asthma. Respiratory failure with hypercapnia. CHF with hypoxia Elevated troponin, ACS rule out HTN chronic anemia weakness pt eloped Condition at Discharge: Fair Final Diagnosis/Problems List chest pain Discharge Disposition: Eloped Discharge Instruct/Medications Scheduled Albuterol Sulfate (Ventolin Mdi), 90 MCG IN DAILY, (Reported) Aspirin (Aspir-Low), 81 MG PO DAILY, (Reported) Atorvastatin Calcium (Atorvastatin Calcium), 1 TAB PO HS, (Reported) Azithromycin (Zithromax Z-Jhony), 250 MG PO DAILY Ergocalciferol (Vitamin D2), 50,000 UNIT PO once a week, (Reported) Fluticasone-Salmeterol (Advair Diskus 250/50), 1 PUFF INH BID, (Reported) Gabapentin (Gabapentin), 100 MG PO BID, (Reported) Hydrochlorothiazide (Hydrochlorothiazide), 25 MG PO DAILY, (Reported) Hydrochlorothiazide (Hydrochlorothiazide), 1 TAB PO DAILY, (Reported) Prednisone (Prednisone), 40 MG PO DAILY Ropinirole Hydrochloride (Ropinirole Hcl), 0.25 MG PO HS, (Reported) Scheduled PRN Cyclobenzaprine Hcl (Cyclobenzaprine Hcl), 5 MG PO Q8HP PRN for muscle spasm, (Reported) Ipratropium-Albuterol (Combivent Respimat), 1 IN Q4HPRN PRN for SHORTNESS OF BREATH, (Reported) Naproxen (Naprosyn Tablet), 1 TAB PO BID PRN for PAIN SCALE 1 THRU 6, (Reported) Oxycodone W/ Acetaminophen (Endocet), 1 TAB PO Q6HPRN PRN for BREAKTHROUGH PAIN, (Reported) Discharge Statement: "Patient was advised to return to the ER or call 911 if any headaches, dizziness, shortness of breath, chest pain, abdominal pain, bleeding, fevers, or worsening of medical condition. Patient was counseled about treatment plan, medications, possible side effects, patientverbalized understanding. All questions were answered to the best of my ability. This discharge took greater then 30 minutes in planning, reviewing documentation, counseling the patient, and discussing with other team members." ASSESSMENT ASSESSMENT Assessment HERSON ZURITA DO Apr 28, 2025 21:57
== END 2025-04-23 13:35 | disposition left against medical advice (07) | DRG 140 ==
LOC: ER 17:20 → EDBD 17:20 → EDUNIT# 17:20 → OVERFLOW 22:19 → EAST 23:51 → TELE-EAST 04-21 02:53
PROVIDERS: ADMIT Internal Medicine; ATTEND Internal Medicine
DX: J44.1 Chronic obstructive pulmonary disease with (acute) exacerbation (principal); J96.01 Acute respiratory failure with hypoxia; J96.02 Acute respiratory failure with hypercapnia; Z79.02 Long term (current) use of antithrombotics/antiplatelets; I11.0 Hypertensive heart disease with heart failure; J45.901 Unspecified asthma with (acute) exacerbation; E66.9 Obesity, unspecified; D53.9 Nutritional anemia, unspecified; F17.210 Nicotine dependence, cigarettes, uncomplicated; R79.89 Other specified abnormal findings of blood chemistry; Z53.21 Procedure and treatment not carried out due to patient leaving prior to being seen by health care provider; I50.32 Chronic diastolic (congestive) heart failure; Z80.3 Family history of malignant neoplasm of breast; Z86.73 Personal history of transient ischemic attack (TIA), and cerebral infarction without residual deficits; Z79.899 Other long term (current) drug therapy; Z85.89 Personal history of malignant neoplasm of other organs and systems; Z88.8 Allergy status to other drugs, medicaments and biological substances; Z68.39 Body mass index [BMI] 39.0-39.9, adult
CPT/HCPCS: 36415; 36600; 71045; 80053; 82805; 82962; 83735; 83880; 84484; 85025; 87081; 93005; 94640; 99291; G0378

== ENCOUNTER 2025-04-27 20:03 | Emergency (ER) | payer OTHER ==
[~2025-04-27] VITALS: Ht 172.7 cm; Wt 113.6 kg
[~2025-04-27 20:03] MED LIST changes: +ASPI-543 PO; +ATOR20TA50 PO; -AZIT500T66 PO; +CYCL-839 PO; +ERGO400T PO; -FAMO-12 PO; -FLUC200T50 PO; +FLUT250M2 INH; +GABA-1308 PO; +HYDR25TA4 PO; +IPRAAER6 IN; +NAP500T PO; -OXY5T PO; +OXYC-113 PO; -PRED20TA2 PO; +ROPI5TAB20 PO
--- NOTE | 2025-04-27 20:31 | ED.PDOC ---
SOB-HPI HPI Comments 65 y/o M, with PMHx of anemia, asthma, cancer, COPD, CVA, and HTN presents to the ED for CC of shortness of breath. 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 Patient states, to recently have been admitted to a hospital for SS and endorses being discharged today (04/27/25). En route to the ED, patient was given Atrovent and a breathing Tx however, experienced no relief. Patient denies palpitations, dizziness, faintness, cough, nasal congestion, or sick contacts. Chief Complaint: Shortness of Breath Time Seen by MD: 20:20 Reviewed notes: Nurses Notes, Grinding Operator Notes, Medications, Allergies Information Source: Patient, Emergency Med Personnel Past Medical History PAST MEDICAL HISTORY: Anemia, Asthma, Cancer, COPD, CVA, HTN Surgical History: Denies all surgeries Family History Family History: Reviewed,noncontributory to illness, Unknown Social History Smoker: Cigarettes Alcohol: Denies ETOH Use Drugs: Denies Drug Use Lives In: Assisted Care Constitutional: denies: chills, diaphoresis, fatigue, fever, malaise, sweats, weakness, others EENTM: denies: blurred vision, double vision, ear bleeding, ear discharge, ear drainage, ear pain, ear ringing, eye pain, eye redness, hearing loss, mouth nathalia n, mouth swelling, nasal discharge, nose bleeding, nose congestion, nose pain, photophobia, tearing, throat pain, throat swelling, voice changes, others Respiratory: reports: shortness of breath; denies: cough, hemoptysis, orthopnea, SOB at rest, SOB with excertion, stridor, wheezing, others Cardiovascular: denies: chest pain, dizzy spells, diaphoresis, Dyspnea on exertion, edema, irregular heart beat, left arm pain, lightheadedness, palpitati ons, PND, syncope, others Gastrointestinal: denies: abdomen distended, abdominal pain, blood streaked bowels, constipated, diarrhea, dysphagia, difficulty swallowing, hematemesis, melena, nausea, poor appetite, poor fluid intake, rectal bleeding, rectal pain, vomiting, others Genitourinary: denies: burning, dysuria, flank pain, frequency, hematuria, incontinence, penile discharge, penile sore, pain, testicle pain, testicle swelling, urgency, others Neurological: denies: dizziness, fainting, headache, left sided numbness, left sided weakness, numbness, paresthesia, pre-existing deficit, right sided numbness, right sided weakness, seizure, speech problems, tingling, tremors, weakness, others Musculoskeletal: denies: back pain, gout, joint pain, joint swelling, muscle pain, muscle stiffness, neck pain, others Integumetry: denies: bruises, change in color, change in hair/nails, dryness, laceration, lesions, lumps, rash, wounds, others Allergic/Immunocompromised: denies: Difficulty Healing, Frequent Infections, Hives, Itching, others Hematologic/Lymphatic: denies: anemia, blood clots, easy bleeding, easy bruising, swollen glands, others Endocrine: denies: excessive hunger, excessive sweating, excessive thirst, excessive urination, flushing, intolerance to cold, intolerance to heat, unexplained weight gain, unexplained weight loss, others Psychiatric: denies: anxiety, bipolar disorder, depression, hopeless, panic disorder, schizophrenia, sleepless, suicidal, others All Other Systems: Reviewed and Negative Physical Exam General Appearance: No Apparent Distress, Normal HEENT: Normal ENT Inspection, Pharynx Normal Neck: Full Range of Motion, Non-Tender, Normal, Normal Inspection Respiratory: Chest Non-Tender, Lungs Clear, No Accessory Muscle Use, No Respiratory Distress, Normal Breath Sounds Cardiovascular: No Edema, No Murmur, No Gallop, Normal Peripheral Pulses, Regular Rate/Rhythm Breast Exam: Deferred Gastrointestinal: No Organomegaly, Non Tender, No Pulsatile Mass, Normal Bowel Sounds, Soft Genitalia: Deferred Pelvic: Deferred Rectal: Deferred Extremities: No calf tenderness, Normal capillary refill, Normal inspection, Normal range of motion, Non-tender, No pedal edema Musculoskeletal : Apperance: Normal Neurologic: Alert, defensive secondary coach II-XII nml as Tested, No Motor Deficits, Normal Affect, Normal Mood, No Sensory Deficits Cerebellar Function: Normal Reflexes: Normal Skin: Dry, Normal Color, Warm Lymphatic: No Adenopathy Was a procedure done? Was a procedure done?: No Differential Dx Differential Diagnosis: Asthma, COPD, Sinusitis, Pharyngitis, URI X-Ray, Labs, Meds, VS Vital Signs Date Time Temp Pulse Resp B/P (MAP) Pulse Ox O2 Delivery O2 Flow Rate FiO2 04/27/25 22:56 98.0 70 16 127/78 (94) 94 98.0 04/27/25 21:08 20 98 Nasal Cannula* 3 32 04/27/25 20:23 98.9 72 22 163/85 98 98.9 04/27/25 20:12 70 Lab Test 04/27/25 21:44 04/27/25 21:30 04/27/25 20:38 Range/Units Troponin I High Sensitivity 7 7 </=54 ng/L Urine Color Light-yellow Yellow Urine Clarity Clear Clear Urine pH 7.0 5.0-9.0 Urine Specific Berry 1.031 1.001-1.035 Urine Protein 1+ H Negative Urine Ketones Negative Negative Urine Blood Negative Negative /uL Urine Nitrite Negative Negative Urine Bilirubin Negative Negative Urine Urobilinogen Normal Negative mg/dL Urine Leukocyte Esterase Negative Negative /uL Urine RBC None seen 0 - 3 /hpf Urine Microscopic WBC < 1 0-3 /HPF Urine Squamous Epithelial Cells Few <5 /hpf Urine Bacteria None seen None Seen /hpf Urine Glucose Normal Normal mg/dL White Blood Count 7.1 4.4-10.8 10^3/uL Red Blood Count 6.90 H 4.5-5.90 10^6/uL Hemoglobin 13.0 #L 13.5-17.5 g/dL Hematocrit 43.3 # 41.0-53.0 % Mean Corpuscular Volume 62.9 L 80.0-100.0 fL Mean Corpuscular Hemoglobin 18.9 L 28.0-32.0 pg Mean Corpuscular Hemoglobin Concent 30.0 L 32.0-36.0 g/dL Red Cell Distribution Width 17.3 H 11.8-14.3 % Platelet Count 238 140-450 10^3/uL Mean Platelet Volume 8.9 6.9-10.8 fL Neutrophils (%) (Auto) 67.4 37.0-80.0 % Lymphocytes (%) (Auto) 29.4 10.0-50.0 % Monocytes (%) (Auto) 2.0 0.0-12.0 % Eosinophils (%) (Auto) 0.9 0.0-7.0 % Basophils (%) (Auto) 0.3 0.0-2.0 % Neutrophils # (Auto) 4.8 1.6-8.6 10 ^3/uL Lymphocytes # (Auto) 2.1 0.4-5.4 10 ^3/uL Monocytes # (Auto) 0.1 0-1.3 10 ^3/uL Eosinophils # (Auto) 0.1 0-0.8 10 ^3/uL Basophils # (Auto) 0 0-0.2 10 ^3/uL Nucleated Red Blood Cells 0.2 % Sodium Level 142 136-145 mmol/L Potassium Level 5.4 H 3.5-5.1 mmol/L Chloride Level 103 98-107 mmol/L Carbon Dioxide Level 31 20-31 mmol/L Anion Gap 8 5-15 Blood Urea Nitrogen 37 H 9-23 mg/dL Creatinine 1.16 0.700-1.30 mg/dL Glomerular Filtration Rate Calc 71 >90 mL/min BUN/Creatinine Ratio 31.9 H 10.0-20.0 Serum Glucose 149 H 74-106 mg/dL Calcium Level 10.0 8.7-10.4 mg/dL Total Bilirubin 0.4 0.2-1.0 mg/dL Aspartate Amino Transferase (AST) 12 L 13-40 U/L Alanine Aminotransferase (ALT) 14 7-40 U/L Alkaline Phosphatase 75 46-116 U/L Total Protein 7.2 5.7-8.2 g/dL Albumin 4.3 3.2-4.8 g/dL Current Medications Medications (Trade) Dose Ordered Sig/Sandra Route Start Time Stop Time Status Last Admin Albuterol (Ventolin Medneb) 2.5 mg ONCE ONCE NEB 04/27/25 20:45 04/27/25 20:46 DC 04/27/25 21:08 Ipratropium [place] (Atrovent Medneb) 0.5 mg ONCE ONCE NEB 04/27/25 20:45 04/27/25 20:46 DC 04/27/25 21:08 Methylprednisolone Sodium Succinate (Solu Medrol) 125 mg ONCE ONCE IM 04/27/25 20:45 04/27/25 20:46 DC 04/27/25 21:36 X-Ray, Labs, Meds, VS Comment Imaging was reviewed by this provider, there is no obvious pathological or acute disease process. Pending radiology review Labs were reviewed by this provider, no abnormalities Vital signs reviewed by this provider, clinically stable Time of 1ST Reevaluation: 20:50 Reevaluation 1ST: Unchanged Patient Education/Counseling: Diagnosis, Treatment, Need For Follow Up (Follow up with PCP next available appointment. Return to emergency department if symptoms worsen.) Family Education/Counseling: No Family Present SEPSIS Sepsis Screen Physician Orders Chest Xray 1 View (04/27/25 20:31) Electrocardigram (04/27/25 21:03) Vital Signs Date Time Temp Pulse Resp B/P (MAP) Pulse Ox O2 Delivery O2 Flow Rate FiO2 04/27/25 22:56 98.0 70 16 127/78 (94) 94 98.0 04/27/25 21:08 20 98 Nasal Cannula* 3 32 04/27/25 20:23 98.9 72 22 163/85 98 98.9 04/27/25 20:12 70 Laboratory Tests Test 04/27/25 20:38 White Blood Count 7.1 10^3/uL (4.4-10.8) Medications Medications Dose Ordered Sig/Sandra Route Start Time Stop Time Status Last Admin Dose Admin Albuterol 2.5 mg ONCE ONCE NEB 04/27/25 20:45 04/27/25 20:46 DC 04/27/25 21:08 Ipratropium [place] 0.5 mg ONCE ONCE NEB 04/27/25 20:45 04/27/25 20:46 DC 04/27/25 21:08 Methylprednisolone Sodium Succinate 125 mg ONCE ONCE IM 04/27/25 20:45 04/27/25 20:46 DC 04/27/25 21:36 Departure 1 Departure Time of Disposition: 23:03 Impression: Primary Impression: Asthma exacerbation Qualified Codes: J45.41 - Moderate persistent asthma with (acute) exacerbation Disposition: 01 HOME / SELF CARE / HOMELESS Condition: Stable e-Prescriptions Azithromycin (Zithromax Z-Jhony) 250 Mg Tab 250 MG PO DAILY for 5 Days, #5 TAB Prov: GYPSY TANGP 04/27/25 Prednisone (Prednisone) 20 Mg Tab 40 MG PO DAILY for 5 Days, #10 MG Prov: GYPSY TANG COTTON PROGRAM TECHNICIAN 04/27/25 Discharged With: Self Critical Care Note Critical Care Time?: No Stability Stability form required: No Heart Score Heart Score: Heart Score Response (Comments) Value History N/A 0 EKG N/A 0 Age N/A 0 Risk Factors N/A 0 Troponin N/A 0 Total 0 I personally scribed for HINES*,CHRISTOPHER E COTTON PROGRAM TECHNICIAN (DVRUICH) on 04/27/25 at 20:31. Electronically submitted by Ngoc Laird ([employer]). I personally scribed for HINES*,CHRISTOPHER E COTTON PROGRAM TECHNICIAN ([place]) on 04/27/25 at 20:41. Electronically submitted by Ngoc Laird ([employer]). I personally scribed for HINES*,CHRISTOPHER E COTTON PROGRAM TECHNICIAN ([place]) on 04/27/25 at 20:44. Electronically submitted by Ngoc Laird ([employer]). HINES*,CHRISTOPHER E COTTON PROGRAM TECHNICIAN Apr 27, 2025 20:31
[2025-04-27 21:02] LABS: Nucleated Red Blood Cells % 0.2 %
[2025-04-27 21:05] LABS: Hematocrit 43.3 % (41.0-53.0); Hemoglobin 13.0 g/dL (13.5-17.5); Mean Corpuscular Hemoglobin 18.9 pg (28.0-32.0); Mean Corpuscular Volume 62.9 fL (80.0-100.0)
[2025-04-27] MEDS: ALBUTEROL SULF 2.5 MG/0.5ML(0.5%) NEB SOLN NEB ONE (21:08)
[2025-04-27] MEDS: IPRATROPIUM BROM 0.5 MG/2.5ML INH SOL NEB ONE (21:08)
[2025-04-27 21:10] LABS: Alanine Aminotransferase 14 U/L (7-40); Albumin 4.3 g/dL (3.2-4.8); Alkaline Phosphatase 75 U/L (46-116); Anion Gap 8 (5-15); BUN/Creatinine Ratio 31.9 (10.0-20.0); Bilirubin, Total 0.4 mg/dL (0.2-1.0); Calcium 10.0 mg/dL (8.7-10.4); Chloride 103 mmol/L (98-107); Sodium 142 mmol/L (136-145); Total Protein 7.2 g/dL (5.7-8.2)
--- NOTE | 2025-04-27 21:10 | DVH ---
EXAM: XY CHEST XRAY 1 VIEW HISTORY: sob TECHNIQUE: 1 view of the chest COMPARISON: XR CHEST 1 VIEW on DOS: 04/23/25 FINDINGS/IMPRESSION: LUNGS: No pleural effusion, consolidation, or pneumothorax. Peribronchial thickening, which is nonspecific however may represent infectious versus inflammatory bronchitis. Question peripheral interstitial edema. MEDIASTINUM: Unremarkable. BONES: No acute osseous abnormality. Degenerative change of the left glenohumeral joint OTHER: None.
[2025-04-27 21:19] LABS: Blood Urea Nitrogen 37 mg/dL (9-23); Carbon Dioxide 31 mmol/L (20-31); Glucose 149 mg/dL (74-106); Potassium 5.4 mmol/L (3.5-5.1)
[2025-04-27] MEDS: methylPREDNISolone SOD SUCC 125 MG/2 ML VL IM ONE (21:36)
[2025-04-27 22:16] LABS: Urine Protein, UAD 1+ (Negative)
[2025-04-27 22:56] VITALS: TEMP 98; O2SAT 94
[2025-04-27] MEDS ORDERED: PRED20TA2 PO (23:05)
[2025-04-27] MEDS ORDERED: AZITTAB PO (23:05)
[2025-04-27] MEDS: MORPHINE SULFATE INJ 2 MG/ml SYRG IV ONE (23:45)
[2025-04-28 00:22] VITALS: BP 127/78; PULSE 70; RESP 15
[2025-04-28] MEDS: MORPHINE SULFATE 4 MG/ML SYR/VIAL IV ONE (00:22)
--- NOTE | 2025-04-28 03:51 | ECG ---
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
== END 2025-04-28 01:57 | disposition home or self-care (01) ==
LOC: EDUNIT# 20:03 → EDBD 20:03 → ER 20:09
DX: J44.1 Chronic obstructive pulmonary disease with (acute) exacerbation (principal); F17.210 Nicotine dependence, cigarettes, uncomplicated; I10 Essential (primary) hypertension; Z86.73 Personal history of transient ischemic attack (TIA), and cerebral infarction without residual deficits
CPT/HCPCS: 36415; 71045; 80053; 81001; 84484; 85025; 93005; 94640; 96372; 96374; 99285; J2270; J2919

== ENCOUNTER 2025-05-06 04:56 | Inpatient (IN) | payer MEDICAID, OTHER ==
[~2025-05-06] VITALS: Ht 175.3 cm; Wt 120.0 kg
[2025-05-06] VITALS (20 sets, daily range): BP systolic 101–128; BP diastolic 45–71; PULSE 68–107; RESP 16–26; TEMP 97–98.4; O2SAT 93–100
[~2025-05-06 04:56] MED LIST changes: +AZITTAB PO; +PRED20TA2 PO
--- NOTE | 2025-05-06 05:08 | ED.PDOC ---
SOB-HPI HPI Comments 65-year-old male who came to ER via EMS for chest pains. Patient has history of asthma and COPD. Started having shortness of breath again yesterday, progressively worsening. Patient was on a rebreather with the paramedics came. Saturating 85% on non-rebreather. Patient was given breathing treatments, albuterol 2 times, Atrovent once. Patient is started complaining of chest pain and tightness, was given [address] to the emergency room Chief Complaint: Chest Pain Time Seen by MD: 05:08 Reviewed notes: [employer] Notes Information Source: Patient, Emergency Med Personnel Mode of Arrival: EMS Past Medical History PAST MEDICAL HISTORY: Anemia, Asthma, Cancer, COPD, CVA, HTN Surgical History: Denies all surgeries Family History Family History: Reviewed,noncontributory to illness, Unknown Social History Smoker: Cigarettes Alcohol: Denies ETOH Use Drugs: Denies Drug Use Lives In: Assisted Care Constitutional: denies: chills, diaphoresis, fatigue, fever, malaise, sweats, weakness, others EENTM: denies: blurred vision, double vision, ear bleeding, ear discharge, ear drainage, ear pain, ear ringing, eye pain, eye redness, hearing loss, mouth pain, mouth swelling, nasal discharge, nose bleeding, nose congestion, nose pain, photophobia, tearing, throat pain, throat swelling, voice changes, others Respiratory: reports: cough, shortness of breath, wheezing; denies: hemoptysis, orthopnea, SOB at rest, SOB with excertion, stridor, others Cardiovascular: reports: chest pain; denies: dizzy spells, diaphoresis, Dyspnea on exertion, edema, irregular heart beat, left arm pain, lightheadedness, palpitations, PND, syncope, others Gastrointestinal: denies: abdomen distended, abdominal pain, blood streaked bowels, constipated, diarrhea, dysphagia, difficulty swallowing, hematemesis, melena, nausea, poor appetite, poor fluid intake, rectal bleeding, rectal pain, vomiting, others Genitourinary: denies: burning, dysuria, flank pain, frequency, hematuria, inco ntinence, penile discharge, penile sore, pain, testicle pain, testicle swelling, urgency, others Neurological: denies: dizziness, fainting, headache, left sided numbness, left sided weakness, numbness, paresthesia, pre-existing deficit, right sided numbness, right sided weakness, seizure, speech problems, tingling, tremors, weakness, others Musculoskeletal: denies: back pain, gout, joint pain, joint swelling, muscle pain, muscle stiffness, neck pain, others Integumetry: denies: bruises, change in color, change in hair/nails, dryness, laceration, lesions, lumps, rash, wounds, others Allergic/Immunocompromised: denies: Difficulty Healing, Frequent Infections, Hives, Itching, others Hematologic/Lymphatic: denies: anemia, blood clots, easy bleeding, easy bruising, swollen glands, others Endocrine: denies: excessive hunger, excessive sweating, excessive thirst, excessive urination, flushing, intolerance to cold, intolerance to heat, unexplained weight gain, unexplained weight loss, others Psychiatric: denies: anxiety, bipolar disorder, depression, hopeless, panic disorder, schizophrenia, sleepless, suicidal, others Physical Exam General Appearance: No Apparent Distress, Normal HEENT: Normal ENT Inspection, Pharynx Normal, TMs Normal Neck: Full Range of Motion, Non-Tender, Normal, Normal Inspection Respiratory: Chest Non-Tender, No Accessory Muscle Use, Respiratory Distress, Wheezing Cardiovascular: No Edema, No JVD, No Murmur, No Gallop, Normal Peripheral Pulses, Regular Rate/Rhythm Breast Exam: Deferred Gastrointestinal: No Organomegaly, Non Tender, No Pulsatile Mass, Normal Bowel Sounds, Soft Genitalia: Deferred Pelvic: Deferred Rectal: Deferred Extremities: No calf tenderness, Normal capillary refill, Normal inspection, Normal range of motion, Non-tender, No pedal edema Musculoskeletal : Apperance: Normal 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 Was a procedure done?: No Differential Dx Differential Diagnosis: Anxiety, Asthma, COPD X-Ray, Labs, Meds, VS Vital Signs Date Time Temp Pulse Resp B/P (MAP) Pulse Ox O2 Delivery O2 Flow Rate FiO2 05/06/25 05:35 16 94 Nasal Cannula* 4 36 05/06/25 05:20 100 16 95 Nasal Cannula* 4 36 05/06/25 05:19 98.4 100 16 144/54 (84) 95 98.4 05/06/25 05:16 96 05/06/25 05:14 98.5 100 20 149/68 98 98.5 Lab Test 05/06/25 05:17 Range/Units White Blood Count 12.4 H 4.4-10.8 10^3/uL Red Blood Count 5.75 4.5-5.90 10^6/uL Hemoglobin 10.5 L 13.5-17.5 g/dL Hematocrit 35.2 L 41.0-53.0 % Mean Corpuscular Volume 61.2 L 80.0-100.0 fL Mean Corpuscular Hemoglobin 18.3 L 28.0-32.0 pg Mean Corpuscular Hemoglobin Concent 29.9 L 32.0-36.0 g/dL Red Cell Distribution Width 17.1 H 11.8-14.3 % Platelet Count 235 140-450 10^3/uL Mean Platelet Volume 9.1 6.9-10.8 fL Neutrophils (%) (Auto) 71.6 37.0-80.0 % Lymphocytes (%) (Auto) 19.6 10.0-50.0 % Monocytes (%) (Auto) 5.3 0.0-12.0 % Eosinophils (%) (Auto) 2.1 0.0-7.0 % Basophils (%) (Auto) 1.4 0.0-2.0 % Neutrophils # (Auto) 8.9 H 1.6-8.6 10 ^3/uL Lymphocytes # (Auto) 2.4 0.4-5.4 10 ^3/uL Monocytes # (Auto) 0.7 0-1.3 10 ^3/uL Eosinophils # (Auto) 0.3 0-0.8 10 ^3/uL Basophils # (Auto) 0.2 0-0.2 10 ^3/uL Nucleated Red Blood Cells 0.1 % Platelet Estimate Pending Sodium Level 141 136-145 mmol/L Potassium Level 3.7 3.5-5.1 mmol/L Chloride Level 106 98-107 mmol/L Carbon Dioxide Level 27 20-31 mmol/L Anion Gap 8 5-15 Blood Urea Nitrogen 10 9-23 mg/dL Creatinine 0.77 0.700-1.30 mg/dL Glomerular Filtration Rate Calc 101 >90 mL/min BUN/Creatinine Ratio 13.0 10.0-20.0 Serum Glucose 130 H 74-106 mg/dL Lactic Acid Level Pending Calcium Level 8.9 8.7-10.4 mg/dL Magnesium Level 1.8 1.6-2.6 mg/dL Total Bilirubin 0.7 0.2-1.0 mg/dL Aspartate Amino Transferase (AST) 12 L 13-40 U/L Alanine Aminotransferase (ALT) 10 7-40 U/L Alkaline Phosphatase 70 46-116 U/L Troponin I High Sensitivity 21 </=54 ng/L B-Type Natriuretic Peptide 22.76 0-100 pg/mL Total Protein 6.5 5.7-8.2 g/dL Albumin 4.0 3.2-4.8 g/dL Current Medications Medications (Trade) Dose Ordered Sig/Sandra Route Start Time Stop Time Status Last Admin Magnesium Sulfate/ Dextrose 100 ml @ 100 mls/hr ONCE ONCE IV 05/06/25 05:15 05/06/25 06:14 05/06/25 05:46 Prednisone 40 mg ONCE ONCE PO 05/06/25 05:15 05/06/25 05:16 DC 05/06/25 05:45 Albuterol (Ventolin Medneb) 5 mg ONCE ONCE NEB 05/06/25 05:15 05/06/25 05:16 DC 05/06/25 05:33 Time of 1ST Reevaluation: 05:03 Reevaluation 1ST: Unchanged Patient Education/Counseling: Diagnosis, Treatment Family Education/Counseling: No Family Present SEPSIS Sepsis Screen Physician Orders Comprehensive Metabolic Panel (05/06/25 05:02) Magnesium (05/06/25 05:02) Oxygen (05/06/25 05:02) Pulse Oximetry (05/06/25 05:02) Electrocardigram (05/06/25 05:02) Troponin-I Hs (05/06/25 06:02) Troponin-I Hs (05/06/25 08:02) Venous Blood Gas (05/06/25 05:02) Lactic Acid W/ Reflex Order (05/06/25 05:02) Blood Culture (05/06/25 05:02) Magnesium Sulfate 1gm/100ml (05/06/25 05:15) Complete Blood Count (05/06/25 05:03) Chest Portable (05/06/25 05:03) Rbc Morphology (05/06/25 05:17) Morphine Sulfate Injection (05/06/25 06:00) Ondansetron Hcl (Zofran) (05/06/25 06:00) Vital Signs Date Time Temp Pulse Resp B/P (MAP) Pulse Ox O2 Delivery O2 Flow Rate FiO2 05/06/25 05:35 16 94 Nasal Cannula* 4 36 05/06/25 05:20 100 16 95 Nasal Cannula* 4 36 05/06/25 05:19 98.4 100 16 144/54 (84) 95 98.4 05/06/25 05:16 96 05/06/25 05:14 98.5 100 20 149/68 98 98.5 Laboratory Tests Test 05/06/25 05:17 Lactic Acid Level Pending White Blood Count 12.4 10^3/uL (4.4-10.8) H Medications Medications Dose Ordered Sig/Sandra Route Start Time Stop Time Status Last Admin Dose Admin Albuterol 5 mg ONCE ONCE NEB 05/06/25 05:15 05/06/25 05:16 DC 05/06/25 05:33 Magnesium Sulfate/ Dextrose 100 ml @ 100 mls/hr ONCE ONCE IV 05/06/25 05:15 05/06/25 06:14 05/06/25 05:46 Prednisone 40 mg ONCE ONCE PO 05/06/25 05:15 05/06/25 05:16 DC 05/06/25 05:45 Departure 1 Departure Time of Disposition: 05:55 Impression: Primary Impression: Acute and chronic respiratory failure Additional Impression: Acute exacerbation of COPD with asthma Disposition: ADMITTED INPATIENT Admit to: Med Surg Condition: Guarded Discharged With: Self Comments Patient with COPD, still short of breath after treatment. no major infiltrate or CHF on CXR. will need admission for supportive care and further workup Critical Care Note Critical Care Time?: Yes (35 min-critical care time only) Critical care comment: Total critical care time: Approximately 36 minutes Due to a high probability of clinically significant, life threatening deterioration, the patient required my highest level of preparedness to intervene emergently and I personally spent this critical care time directly and personally managing the patient. This critical care time included obtaining a history; examining the patient; pulse oximetry; ordering and review of studies; arranging urgent treatment with development of a management plan; evaluation of patient's response to treatment; frequent reassessment; and, discussions with other providers. This critical care time was performed to assess and manage the high probability of imminent, life-threatening deterioration that could result in multi-organ failure. It was exclusive of separately billable procedures and treating other patients. Stability Stability form required: No Heart Score Heart Score: Heart Score Response (Comments) Value History Moderate Suspicious 1 EKG Normal 0 Age 45-64 1 Risk Factors 1 or 2 risk factors 1 Troponin Normal limit 0 Total 3 I personally scribed for DYLON SEVILLA MD ([email or web address]) on 05/06/25 at 05:08. Electronically submitted by Danilo Jefferson ([email or web address]). DYLON SEVILLA MD May 06, 2025 05:08
[2025-05-06] MEDS: ALBUTEROL SULF 2.5 MG/0.5ML(0.5%) NEB SOLN NEB ONE (05:33)
[2025-05-06 05:42] LABS: Hematocrit 35.2 % (41.0-53.0); Hemoglobin 10.5 g/dL (13.5-17.5); Mean Corpuscular Hemoglobin 18.3 pg (28.0-32.0); Mean Corpuscular Volume 61.2 fL (80.0-100.0); Nucleated Red Blood Cells % 0.1 %
[2025-05-06] MEDS: predniSONE 20 MG TAB PO ONE (05:45)
[2025-05-06] MEDS: MAGNESIUM SULFATE 1GM/100ML 100 ML IV ONE (05:46)
[2025-05-06 05:52] LABS: Alanine Aminotransferase 10 U/L (7-40); Albumin 4.0 g/dL (3.2-4.8); Alkaline Phosphatase 70 U/L (46-116); Anion Gap 8 (5-15); BUN/Creatinine Ratio 13.0 (10.0-20.0); Bilirubin, Total 0.7 mg/dL (0.2-1.0); Blood Urea Nitrogen 10 mg/dL (9-23); Calcium 8.9 mg/dL (8.7-10.4); Carbon Dioxide 27 mmol/L (20-31); Chloride 106 mmol/L (98-107); Glucose 130 mg/dL (74-106); Magnesium 1.8 mg/dL (1.6-2.6); Potassium 3.7 mmol/L (3.5-5.1); Sodium 141 mmol/L (136-145); Total Protein 6.5 g/dL (5.7-8.2)
[2025-05-06] MEDS: ONDANSETRON HCL 4 MG/2 ML VIAL IV ONE (05:59)
[2025-05-06] MEDS: MORPHINE SULFATE 4 MG/ML SYR/VIAL IV ONE (06:00)
--- NOTE | 2025-05-06 06:00 | DVH ---
CHEST RADIOGRAPH INDICATION: CHEST PAIN TECHNIQUE: Single frontal view of the chest was obtained COMPARISON: XY CHEST XRAY 1 VIEW on DOS: 04/27/25, XR CHEST 1 VIEW on DOS: 04/23/25, XY CHEST XRAY 1 VIEW on DOS: 04/22/25, XY CHEST PORTABLE on DOS: 04/20/25, XY CHEST XRAY 1 VIEW on DOS: 04/11/25 FINDINGS: Lines and Tubes: None Lungs: Clear Pleura: No effusion. No pneumothorax. Cardiomediastinal contours: Unremarkable Bones: Unremarkable IMPRESSION: 1. No acute disease.
[2025-05-06 06:38] LABS: Ovalocytes FEW; Stomatocytes Few
--- NOTE | 2025-05-06 07:54 | DVHHP2 ---
History of Present Illness Reason for Visit: shortness of breath History of Present Illness 65-year-old male with past medical history significant for asthma, COPD, anemia, cancer in remission, CVA, and hypertension presents from an assisted living facility with two days of cough and midsternal chest pain. The patient reports t hat he could not breathe, and at approximately 1:00 AM, his symptoms worsened, prompting him to call 911 for evaluation. He states he has had asthma since infancy and has never required intubation. At home, he uses albuterol and a compressed air nebulizer machine, though he reports the machine has not been working well. He denies fever, denies sputum production, and denies leg swel ling. On arrival, the patient was found to be hypoxic to 85%, requiring supplemental oxygen via non-rebreather mask. In the ED, he received Zofran, morphine, albuterol, prednisone, and magnesium. Laboratory evaluation revealed WBC 12.4, hemoglobin 10.5 / hematocrit 35.2, troponin negative, BNP 22.76, and glucose 130. Chest X-ray was unremarkable. Patient reports a history of smoking and marijuana use, but denies alcohol or other illicit drug use. Given ongoing hypoxia and wheezing consistent with acute asthma/COPD exacerbation, patient will be admitted for acute hypoxic respiratory failure, requiring scheduled bronchodilator therapy and systemic steroids. Past Medical History See HPI above Past Surgical History See HPI above Family History Reviewed, non-contributory to the management of this case. Past Social History The patient lives at home, denies smoking, alcohol or illicit drugs abuse. Review of Systems Constitutional: No: Fever, Chills, Sweats, Weakness, Malaise, Other Eyes: No: Pain, Vision change, Conjunctivae inflammation, Eyelid inflammation, Other, Redness ENT: No: Ear pain, Ear discharge, Nose pain, Nose discharge, Nose congestion, Mouth pain, Mouth swelling, Throat pain, Throat swelling, Other Respiratory: Cough, Shortness of breath, SOB with excertion, Wheezing; No: Dry, Hemoptysis, Pleuritic Pain, Sputum, Wheezing, Other Cardiovascular: Chest Pain; No: Palpitations, Orthopnea, Paroxysmal Noc. Dyspnea, Edema, Lt Headedness, Other Gastrointestinal: No: Nausea, Vomiting, Abdominal Pain, Diarrhea, Constipation, Melena, Hematochezia, Other Genitourinary: No Dysuria, No Frequency, No Incontinence, No Hematuria, No Retention, No Other Musculoskeletal: No: other, neck pain, shoulder pain, arm pain, back pain, hand pain, leg pain, foot pain Skin: No: Rash, Lesions, Jaundice, Bruising, Other Neurological: No: Weakness, Numbness, Incoordination, Change in speech, Confusion, Seizures, Other Allergies: Coded Allergies: Ibuprofen (Verified Allergy, Severe, 12/19/24) Medications Current Medications Medications Dose Ordered Sig/Sandra Route Start Time Stop Time Status Last Admin Dose Admin Albuterol 2.5 mg Q4HR NEB 05/06/25 10:00 UNV Ipratropium [place] 0.5 mg Q4HR NEB 05/06/25 10:00 UNV Methylprednisolone Sodium Succinate 40 mg Q8HR IV 05/06/25 14:00 UNV Pantoprazole Sodium 40 mg DAILY IV 05/06/25 10:00 UNV Aspirin 81 mg DAILY PO 05/06/25 10:00 UNV Atorvastatin Calcium 20 mg HS PO 05/06/25 22:00 UNV Cyclobenzaprine HCl 5 mg Q8HP PRN PO 05/06/25 08:00 UNV Gabapentin 100 mg BID PO 05/06/25 10:00 UNV Hydrochlorothiazide 25 mg DAILY PO 05/06/25 10:00 UNV Patient Own Medication 1 puff BID INH 05/06/25 10:00 UNV Patient Own Medication 0.25 mg HS PO 05/06/25 22:00 UNV Sodium Chloride 1,000 ml @ 70 mls/hr [id number] IV 05/06/25 08:00 UNV Temazepam 15 mg QHSP PRN PO 05/06/25 08:00 UNV Ondansetron HCl 4 mg Q4HP PRN IV 05/06/25 08:00 UNV Enoxaparin Sodium 40 mg DAILY SC 05/06/25 10:00 UNV Exam Vital Signs Vital Signs Date Time Temp Pulse Resp B/P (MAP) Pulse Ox O2 Delivery O2 Flow Rate FiO2 05/06/25 07:18 97.0 107 18 119/66 (83) 100 97.0 05/06/25 05:35 Nasal Cannula* 4 36 General Appearance: Alert, Oriented X3, Cooperative, mild distress HEENT: Atraumatic, PERRLA, EOMI, Mucous membr. moist/pink Respiratory: Other (Coarse wheezes heard throughout) Cardiovascular: Regular rate, Normal S1, Normal S2, No murmurs Abdominal: Normal bowel sounds, Soft, No tenderness, No hepatospenomegaly, No masses Extremities: No clubbing, No cyanosis, No edema, Normal pulses, No tenderness/swelling Skin: No rashes, No breakdown, No significant lesion Neuro: Other (Neuro nonfocal) Psych/Mental Status: Mental status NL, Mood NL Labs/Xrays Chest x-ray unremarkable I reviewed labs, imaging CT scan abdomen pelvis, EKG and all diagnostic studies on this patient from ED records and the medical chart Labs Test 05/06/25 06:45 05/06/25 05:17 Range/Units Troponin I High Sensitivity 21 </=54 ng/L White Blood Count 12.4 H 4.4-10.8 10^3/uL Red Blood Count 5.75 4.5-5.90 10^6/uL Hemoglobin 10.5 L 13.5-17.5 g/dL Hematocrit 35.2 L 41.0-53.0 % Mean Corpuscular Volume 61.2 L 80.0-100.0 fL Mean Corpuscular Hemoglobin 18.3 L 28.0-32.0 pg Mean Corpuscular Hemoglobin Concent 29.9 L 32.0-36.0 g/dL Red Cell Distribution Width 17.1 H 11.8-14.3 % Platelet Count 235 140-450 10^3/uL Mean Platelet Volume 9.1 6.9-10.8 fL Neutrophils (%) (Auto) 71.6 37.0-80.0 % Lymphocytes (%) (Auto) 19.6 10.0-50.0 % Monocytes (%) (Auto) 5.3 0.0-12.0 % Eosinophils (%) (Auto) 2.1 0.0-7.0 % Basophils (%) (Auto) 1.4 0.0-2.0 % Neutrophils # (Auto) 8.9 H 1.6-8.6 10 ^3/uL Lymphocytes # (Auto) 2.4 0.4-5.4 10 ^3/uL Monocytes # (Auto) 0.7 0-1.3 10 ^3/uL Eosinophils # (Auto) 0.3 0-0.8 10 ^3/uL Basophils # (Auto) 0.2 0-0.2 10 ^3/uL Nucleated Red Blood Cells 0.1 % Platelet Estimate Adequate Hypochromasia (manual) Moderate Microcytosis Moderate Ovalocytes Few Stomatocytes Few Sodium Level 141 136-145 mmol/L Potassium Level 3.7 3.5-5.1 mmol/L Chloride Level 106 98-107 mmol/L Carbon Dioxide Level 27 20-31 mmol/L Anion Gap 8 5-15 Blood Urea Nitrogen 10 9-23 mg/dL Creatinine 0.77 0.700-1.30 mg/dL Glomerular Filtration Rate Calc 101 >90 mL/min BUN/Creatinine Ratio 13.0 10.0-20.0 Serum Glucose 130 H 74-106 mg/dL Lactic Acid Level 1.3 0.4-2.0 mmol/L Calcium Level 8.9 8.7-10.4 mg/dL Magnesium Level 1.8 1.6-2.6 mg/dL Total Bilirubin 0.7 0.2-1.0 mg/dL Aspartate Amino Transferase (AST) 12 L 13-40 U/L Alanine Aminotransferase (ALT) 10 7-40 U/L Alkaline Phosphatase 70 46-116 U/L B-Type Natriuretic Peptide 22.76 0-100 pg/mL Total Protein 6.5 5.7-8.2 g/dL Albumin 4.0 3.2-4.8 g/dL SEPSIS Sepsis Screen Date sepsis recognized/suspect: May 06, 2025 Time Sepsis recognized/suspect: 519 Recent Procedure: No On Antibiotic Therapy: No Respiratory Rate >20: No Heart Rate >90: Yes Temp<36 C (96.8 F) or >38.3 C: No SBP <90 or MAP <65 mmHG: No New Acute Mental Status Change: No Is the patient on CPAP, BIPAP,: No Physician Orders Oxygen (05/06/25 05:02) Pulse Oximetry (05/06/25 05:02) Electrocardigram (05/06/25 05:02) Troponin-I Hs (05/06/25 08:02) Blood Culture (05/06/25 05:02) Chest Portable (05/06/25 05:03) Albuterol Medneb (Ventolin Medneb) (05/06/25 10:00) Ipratropium Medneb (Atrovent Medneb) (05/06/25 10:00) Methylprednisolone Sod Succ (Solu Medrol (05/06/25 14:00) Pantoprazole (Protonix) (05/06/25 08:00) Pantoprazole (Protonix) (05/06/25 10:00) Aspirin Enteric Coated Tablet (Ecotrin E (05/06/25 10:00) Atorvastatin (Lipitor) (05/06/25 22:00) Cyclobenzaprine Tablet (Flexeril Tablet) (05/06/25 08:00) Gabapentin Capsule (Neurontin Capsule) (05/06/25 10:00) Hydrochlorothiazide Tablet (Hydrochlorot (05/06/25 10:00) (Nf) Fluticasone-Salmeterol (Advair Disk (05/06/25 10:00) (Nf) Ropinirole Hydrochloride (Ropinirol (05/06/25 22:00) Admit (05/06/25 07:47) Code Status (05/06/25 07:47) 0.9% Ns 1000 Ml (05/06/25 08:00) Temazepam (Restoril) (05/06/25 08:00) Ondansetron Hcl (Zofran) (05/06/25 08:00) Enoxaparin Sodium (Lovenox) (05/06/25 10:00) Complete Blood Count (05/07/25 04:00) Comprehensive Metabolic Panel (05/07/25 04:00) Cardiac Diet-2gna,Lofat,Lochol (05/06/25 Breakfast) Condition: Stable (05/06/25 07:47) BRP (05/06/25 07:47) Morphine Sulfate Injection (05/06/25 08:00) Sequential Compression Device (05/06/25 ) Nitroglycerin Sublingual (Ntrostat Subli (05/06/25 08:00) Stat Ekg For Chest Pain (05/06/25 07:47) Notify Of Changes From Base (05/06/25 07:47) Rn Traveling For 24 Hours (05/06/25 07:47) Emergency Dysrhythmia Protocol (05/06/25 07:47) Rhythm Strips Once Every Shift (05/06/25 07:47) Oxygen By Nasal Cannula (05/06/25 07:47) Vital Signs Date Time Temp Pulse Resp B/P (MAP) Pulse Ox O2 Delivery O2 Flow Rate FiO2 05/06/25 07:18 97.0 107 18 119/66 (83) 100 97.0 05/06/25 06:30 80 15 122/47 (72) 99 05/06/25 06:30 80 15 122/47 05/06/25 06:00 84 21 105/41 05/06/25 05:35 16 94 Nasal Cannula* 4 36 05/06/25 05:20 100 16 95 Nasal Cannula* 4 36 05/06/25 05:19 98.4 100 16 144/54 (84) 95 98.4 05/06/25 05:16 96 05/06/25 05:14 98.5 100 20 149/68 98 98.5 Laboratory Tests Test 05/06/25 05:17 Lactic Acid Level 1.3 mmol/L (0.4-2.0) White Blood Count 12.4 10^3/uL (4.4-10.8) H Medications Medications Dose Ordered Sig/Sandra Route Start Time Stop Time Status Last Admin Dose Admin Albuterol 5 mg ONCE ONCE NEB 05/06/25 05:15 05/06/25 05:16 DC 05/06/25 05:33 5 MG Magnesium Sulfate/ Dextrose 100 ml @ 100 mls/hr ONCE ONCE IV 05/06/25 05:15 05/06/25 06:14 DC 05/06/25 05:46 100 MLS/HR Morphine Sulfate 4 mg ONCE ONCE IV 05/06/25 06:00 05/06/25 06:01 DC 05/06/25 06:00 4 MG Ondansetron HCl 4 mg ONCE ONCE IV 05/06/25 06:00 05/06/25 06:01 DC 05/06/25 05:59 4 MG Prednisone 40 mg ONCE ONCE PO 05/06/25 05:15 05/06/25 05:16 DC 05/06/25 05:45 40 MG Assessment/Plan Assessment/Plan 65-year-old male admitted for acute hypoxic respiratory failure secondary to acute asthma and COPD exacerbation, requiring oxygen therapy, systemic steroids, and scheduled bronchodilator treatments. Acute hypoxic respiratory failure Likely secondary to asthma/COPD exacerbation Supplemental oxygen to maintain SpO2 >92% Continuous pulse oximetry ordered steriods atc ordered treatment atc for now ordered ppi protection while on steroids protonix cxr normal ordered covid and influenza fu results Acute asthma exacerbation Long-standing asthma since childhood Scheduled nebulized bronchodilators (Duonebs/albuterol and atrovent) ordered Systemic steroids IV Monitor respiratory status closely Acute COPD exacerbation Overlapping symptoms with asthma Continue bronchodilator therapy No antibiotics at this time given lack of infectious signs acute Leukocytosis Likely reactive due to acute exacerbation and steroids WBC 12.4 No fever or infectious source identified acute Chest pain, midsternal Likely pleuritic/musculoskeletal from coughing Troponin negative Monitor symptoms cxr normal chronic problems Anemia Monitor CBC Tobacco and marijuana use Smoking cessation counseling/Avoid smoking during admission, decline nicotine patch History of CVA No acute neurologic deficits Cancer in remission No active oncologic issues Asthma COPD Hypertension Cancer in remission Tobacco use Marijuana use FEN / PPx Fluids: IV fluids Electrolytes: Monitor BMP Nutrition: Regular diet as tolerated DVT Prophylaxis: SCDs heparin GI Prophylaxis: PPI while on systemic steroids Disposition Admit to medicine for management of acute hypoxic respiratory failure due to asthma and COPD exacerbation. Continue scheduled bronchodilator therapy, systemic steroids, and oxygen support. No antibiotics indicated at this time. Monitor respiratory status closely and wean oxygen as tolerated. Plan discussed with: Patient My Orders Orders - CONSUELO ANDERSON DNP Procedure Category Date Status Time Albuterol Medneb PHA 05/06/25 Logged (Ventolin Medneb) 10:00 Ipratropium Medneb PHA 05/06/25 Logged (Atrovent Medneb) 10:00 Methylprednisolone PHA 05/06/25 Logged Sod Succ (Solu Medrol 14:00 Pantoprazole PHA 05/06/25 Logged (Protonix) 08:00 Pantoprazole PHA 05/06/25 Logged (Protonix) 10:00 Aspirin Enteric PHA 05/06/25 Logged Coated Tablet 10:00 Atorvastatin (Lipitor) PHA 05/06/25 Logged 22:00 Cyclobenzaprine PHA 05/06/25 Logged Tablet (Flexeril 08:00 Gabapentin Capsule PHA 05/06/25 Logged (Neurontin Capsule) 10:00 Hydrochlorothiazide PHA 05/06/25 Logged Tablet (Hydrochlorot 10:00 (NF) PHA 05/06/25 Logged Fluticasone-Salmeterol 10:00 (Nf) Ropinirole PHA 05/06/25 Transmitted Hydrochloride 22:00 Admit ADMIT 05/06/25 Transmitted 07:47 Code Status CODE 05/06/25 Transmitted 07:47 0.9% Ns 1000 Ml PHA 05/06/25 Transmitted 08:00 Temazepam (Restoril) [facility] 05/06/25 Transmitted 08:00 Ondansetron Hcl [facility] 05/06/25 Transmitted (Zofran) 08:00 Enoxaparin Sodium [facility] 05/06/25 Transmitted (Lovenox) 10:00 Complete Blood Count LAB 05/07/25 Verified 04:00 Comprehensive LAB 05/07/25 Verified Metabolic Panel 04:00 Cardiac DIET 05/06/25 Transmitted Diet-2gna,Lofat,Lochol Breakfast Condition: Stable [facility] 05/06/25 Transmitted 07:[address] [facility] 05/06/25 Transmitted 07:47 Morphine Sulfate [facility] 05/06/25 Transmitted Injection 08:[address] [facility] 05/06/25 Transmitted Compression Device Nitroglycerin [facility] 05/06/25 Transmitted Sublingual (Ntrostat 08:00 Stat Ekg For Chest [facility] 05/06/25 Transmitted Pain 07:47 Notify Md Of Changes [facility] 05/06/25 Transmitted From Base 07:47 Rn Traveling For [facility] 05/06/25 Transmitted 24 Hours 07:47 Emergency [address]hythmia [facility] 05/06/25 Transmitted Protocol 07:47 Rhythm Strips Once [facility] 05/06/25 Transmitted Every Shift 07:47 Oxygen By Nasal RT 05/06/25 Transmitted Cannula 07:47 Date of Service: May 06, 2025 Billing Provider: CONSUELO ANDERSON DNP Common Visit Codes: [id number] INP/OBS CARE (HIGH) CONSUELO ANDERSON DNP May 06, 2025 07:54
[2025-05-06] MEDS ORDERED: CYCLOBENZAPRINE HCL 10 MG TAB PO PRN (08:00)
[2025-05-06] MEDS ORDERED: ONDANSETRON HCL 4 MG/2 ML VIAL IV PRN (08:00)
[2025-05-06] MEDS ORDERED: NITROGLYCERIN 0.4 MG SL TAB SL PRN (08:00)
[2025-05-06] MEDS ORDERED: TEMAZEPAM 15 MG CAP PO PRN (08:00)
[2025-05-06] MEDS: SODIUM CHLORIDE 0.9% 1,000 ML IV SCH (08:56)
[2025-05-06] MEDS: PANTOPRAZOLE 40 MG/10 ML VIAL INJ IV ONE (08:56)
[2025-05-06] MEDS: hydroCHLOROthiazide 25 MG TAB PO SCH (09:14)
[2025-05-06] MEDS: GABAPENTIN 100 MG CAP PO SCH (09:14)
[2025-05-06] MEDS: ENOXAPARIN SOD 40 MG/0.4 ML SYRINGE SC SCH (09:15)
[2025-05-06] MEDS: ALBUTEROL SULF 2.5 MG/0.5ML(0.5%) NEB SOLN NEB SCH (09:44)
[2025-05-06] MEDS: IPRATROPIUM BROM 0.5 MG/2.5ML INH SOL NEB SCH (09:44)
[2025-05-06] MEDS: Fluticasone-Salmeterol (Advair Diskus 250/50) INHALER IN SCH (10:00)
[2025-05-06] MEDS ORDERED: ASPirin-EC 81 mg tab PO SCH (10:00)
[2025-05-06] MEDS: MORPHINE SULFATE 4 MG/ML SYR/VIAL ONE ×2 (12:05→18:47)
[2025-05-06] MEDS: MORPHINE SULFATE INJ 2 MG/ml SYRG IV PRN (12:06)
[2025-05-06] MEDS ORDERED: ALBUTEROL SULF 2.5 MG/0.5ML(0.5%) NEB SOLN NEB PRN (13:30)
[2025-05-06] MEDS: IOHEXOL 350 MG/ML 100ML IJ ONE (13:56)
--- NOTE | 2025-05-06 14:47 | DVHHP2 ---
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 TENDER 04/27/25 Reported Medications Ipratropium-Albuterol (COMBIVENT RESPIMAT) Respimat Aer, 1 IN Q4HPRN PRN for SHORTNESS OF BREATH, AER 04/21/25 Ropinirole Hydrochloride (Ropinirole Hcl) 0.25 Mg Tab, 0.25 MG PO HS, TAB 04/21/25 Atorvastatin Calcium (ATORVASTATIN CALCIUM) 20 Mg Tab, 1 TAB PO HS, #30 TAB 5 Refills 04/21/25 Gabapentin (Gabapentin) 100 Mg Cap, 100 MG PO BID for 30 Days, MG 04/21/25 Fluticasone-Salmeterol (Advair Diskus 250/50) 1 Puff Ih, 1 PUFF INH BID, #3 INHALER 3 Refills 04/21/25 Hydrochlorothiazide (Hydrochlorothiazide) 25 Mg Tab, 1 TAB PO DAILY, #30 TAB 5 Refills 04/21/25 Hydrochlorothiazide (Hydrochlorothiazide) 25 Mg Tab, 25 MG PO DAILY for 30 Days, MG 04/21/25 Aspirin (Aspir-Low) 81 Mg Tab, 81 MG PO DAILY for 30 Days, MG 04/21/25 Oxycodone W/ Acetaminophen (Endocet) 1 Tab Tab, 1 TAB PO Q6HPRN PRN for BREAKTHROUGH PAIN, TAB 04/21/25 Naproxen (NAPROSYN TABLET) 500 Mg Tb, 1 TAB PO BID PRN for PAIN SCALE 1 THRU 6, #60 TAB 1 Refill 04/21/25 Cyclobenzaprine Hcl (Cyclobenzaprine Hcl) 10 Mg Tab, 5 MG PO Q8HP PRN for muscle spasm for 30 Days, MG 04/21/25 Ergocalciferol (VITAMIN D2) 400 Unit Tab, [address] UNIT PO once a week, TAB 04/21/25 Albuterol Sulfate (VENTOLIN MDI) 90 Mcg Ih, 90 MCG IN DAILY, INH 03/05/25 Past Medical History Patient Family History: FHx: breast cancer G8 MOTHER, , Cause: Breast cancer H&P Exam Vital Signs Vital Signs Date Time Temp Pulse Resp B/P (MAP) Pulse Ox O2 Delivery O2 Flow Rate FiO2 05/06/25 13:22 84 24 98 05/06/25 12:06 114/47 05/06/25 10:11 98.1 98.1 05/06/25 10:00 Nasal Cannula 4.0 05/06/25 10:00 36 SEPSIS Sepsis Screen Date sepsis recognized/suspect: May 06, 2025 Time Sepsis recognized/suspect: 519 Recent Procedure: No On Antibiotic Therapy: No Respiratory Rate >20: No Heart Rate >90: Yes Temp<36 C (96.8 F) or >38.3 C: No SBP <90 or MAP <65 mmHG: No New Acute Mental Status Change: No Is the patient on CPAP, BIPAP,: No Physician Orders Albuterol Medneb (Ventolin Medneb) (05/06/25 10:00) Ipratropium Medneb (Atrovent Medneb) (05/06/25 10:00) Methylprednisolone Sod Succ (Solu Medrol (05/06/25 14:00) Aspirin Enteric Coated Tablet (Ecotrin E (05/06/25 10:00) Atorvastatin (Lipitor) (05/06/25 22:00) Cyclobenzaprine Tablet (Flexeril Tablet) (05/06/25 08:00) Gabapentin Capsule (Neurontin Capsule) (05/06/25 10:00) Hydrochlorothiazide Tablet (Hydrochlorot (05/06/25 10:00) (Nf) Fluticasone-Salmeterol (Advair Disk (05/06/25 10:00) (Nf) Ropinirole Hydrochloride (Ropinirol (05/06/25 22:00) Admit (05/06/25 07:47) Code Status (05/06/25 07:47) Sodium Chloride 0.9% (05/06/25 08:00) Temazepam (Restoril) (05/06/25 08:00) Ondansetron Hcl (Zofran) (05/06/25 08:00) Enoxaparin Sodium (Lovenox) (05/06/25 10:00) Complete Blood Count (05/07/25 04:00) Comprehensive Metabolic Panel (05/07/25 04:00) Cardiac Diet-2gna,Lofat,Lochol (05/06/25 Breakfast) Condition: Stable (05/06/25 07:47) BRP (05/06/25 07:47) Morphine Sulfate Injection (05/06/25 08:00) Sequential Compression Device (05/06/25 ) Nitroglycerin Sublingual (Ntrostat Subli (05/06/25 08:00) Stat Ekg For Chest Pain (05/06/25 07:47) Notify Of Changes From Base (05/06/25 07:47) [employer]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 (05/06/25 07:47) Emergency Dysrhythmia Protocol (05/06/25 07:47) Rhythm Strips Once Every Shift (05/06/25 07:47) Oxygen By Nasal Cannula (05/06/25 07:47) Pantoprazole (Protonix) (05/07/25 10:00) Hepatitis B Surface Antigen (05/06/25 11:41) Hepatitis C Antibody (05/06/25 11:41) Admit (05/06/25 11:41) * Clinical Research Physician Consult (05/06/25 ) Ipratropium Medneb (Atrovent Medneb) (05/06/25 13:30) Albuterol Medneb (Ventolin Medneb) (05/06/25 13:30) Ct Angio Chest Contrast (05/06/25 13:20) Vital Signs Date Time Temp Pulse Resp B/P (MAP) Pulse Ox O2 Delivery O2 Flow Rate FiO2 05/06/25 13:22 84 24 98 05/06/25 13:14 97 26 94 05/06/25 12:06 68 18 114/47 05/06/25 10:11 98.1 68 19 114/47 (69) 93 98.1 05/06/25 10:10 98.1 68 114/47 (69) 93 98.1 05/06/25 10:00 93 Nasal Cannula 4.0 05/06/25 10:00 93 Nasal Cannula* 4 36 05/06/25 09:49 89 16 100 05/06/25 09:43 94 16 95 05/06/25 09:14 132/72 05/06/25 09:00 85 18 132/72 (92) 96 05/06/25 08:31 94 Nasal Cannula* 4 36 05/06/25 08:30 94 Nasal Cannula 4.0 05/06/25 08:20 97.0 107 18 119/66 94 4.0 36 97.0 05/06/25 07:18 97.0 107 18 119/66 (83) 100 97.0 Laboratory Tests Test 05/06/25 05:17 Lactic Acid Level 1.3 mmol/L (0.4-2.0) White Blood Count 12.4 10^3/uL (4.4-10.8) H Medications Medications Dose Ordered Sig/Sandra Route Start Time Stop Time Status Last Admin Dose Admin Albuterol 2.5 mg Q4HR [facility] 05/06/25 10:00 05/06/25 13:14 2.5 MG Albuterol 5 mg ONCE ONCE NEB 05/06/25 05:15 05/06/25 05:16 DC 05/06/25 05:33 5 MG Enoxaparin Sodium 40 mg DAILY SC 05/06/25 10:00 05/06/25 09:15 40 MG Gabapentin 100 mg BID PO 05/06/25 10:00 05/06/25 09:14 100 MG Hydrochlorothiazide 25 mg DAILY PO 05/06/25 10:00 05/06/25 09:14 25 MG Ipratropium [place] 0.5 mg Q4HR [facility] 05/06/25 10:00 05/06/25 13:14 0.5 MG Magnesium Sulfate/ Dextrose 100 ml @ 100 mls/hr ONCE ONCE IV 05/06/25 05:15 05/06/25 06:14 [place] 05/06/25 05:46 100 MLS/HR Morphine Sulfate 2 mg Q4HPRN PRN IV 05/06/25 08:00 05/06/25 12:06 2 MG Morphine Sulfate 4 mg ONCE ONCE IV 05/06/25 06:00 05/06/25 06:01 [place] 05/06/25 06:00 4 MG Ondansetron HCl 4 mg ONCE ONCE IV 05/06/25 06:00 05/06/25 06:01 [place] 05/06/25 05:59 4 MG Pantoprazole Sodium 40 mg ONCE ONCE IV 05/06/25 08:00 05/06/25 08:09 [place] 05/06/25 08:56 40 MG Prednisone 40 mg ONCE ONCE PO 05/06/25 05:15 05/06/25 05:16 DC 05/06/25 05:45 40 MG Sodium Chloride 1,000 ml @ 70 mls/hr [id number] IV 05/06/25 08:00 05/06/25 08:56 70 MLS/HR Labs/Xrays Labs Test 05/06/25 08:38 05/06/25 05:17 Range/Units Troponin I High Sensitivity 23 </=54 ng/L White Blood Count 12.4 H 4.4-10.8 10^3/uL Red Blood Count 5.75 4.5-5.90 10^6/uL Hemoglobin 10.5 L 13.5-17.5 g/dL Hematocrit 35.2 L 41.0-53.0 % Mean Corpuscular Volume 61.2 L 80.0-100.0 fL Mean Corpuscular Hemoglobin 18.3 L 28.0-32.0 pg Mean Corpuscular Hemoglobin Concent 29.9 L 32.0-36.0 g/dL Red Cell Distribution Width 17.1 H 11.8-14.3 % Platelet Count 235 140-450 10^3/uL Mean Platelet Volume 9.1 6.9-10.8 fL Neutrophils (%) (Auto) 71.6 37.0-80.0 % Lymphocytes (%) (Auto) 19.6 10.0-50.0 % Monocytes (%) (Auto) 5.3 0.0-12.0 % Eosinophils (%) (Auto) 2.1 0.0-7.0 % Basophils (%) (Auto) 1.4 0.0-2.0 % Neutrophils # (Auto) 8.9 H 1.6-8.6 10 ^3/uL Lymphocytes # (Auto) 2.4 0.4-5.4 10 ^3/uL Monocytes # (Auto) 0.7 0-1.3 10 ^3/uL Eosinophils # (Auto) 0.3 0-0.8 10 ^3/uL Basophils # (Auto) 0.2 0-0.2 10 ^3/uL Nucleated Red Blood Cells 0.1 % Platelet Estimate Adequate Hypochromasia (manual) Moderate Microcytosis Moderate Ovalocytes Few Stomatocytes Few Sodium Level 141 136-145 mmol/L Potassium Level 3.7 3.5-5.1 mmol/L Chloride Level 106 98-107 mmol/L Carbon Dioxide Level 27 20-31 mmol/L Anion Gap 8 5-15 Blood Urea Nitrogen 10 9-23 mg/dL Creatinine 0.77 0.700-1.30 mg/dL Glomerular Filtration Rate Calc 101 >90 mL/min BUN/Creatinine Ratio 13.0 10.0-20.0 Serum Glucose 130 H 74-106 mg/dL Lactic Acid Level 1.3 0.4-2.0 mmol/L Calcium Level 8.9 8.7-10.4 mg/dL Magnesium Level 1.8 1.6-2.6 mg/dL Total Bilirubin 0.7 0.2-1.0 mg/dL Aspartate Amino Transferase (AST) 12 L 13-40 U/L Alanine Aminotransferase (ALT) 10 7-40 U/L Alkaline Phosphatase 70 46-116 U/L B-Type Natriuretic Peptide 22.76 0-100 pg/mL Total Protein 6.5 5.7-8.2 g/dL Albumin 4.0 3.2-4.8 g/dL HERSON ZURITA DO May 06, 2025 14:47
--- NOTE | 2025-05-06 15:07 | DVH ---
CTA Chest with intravenous contrast INDICATION: shortness of breath COMPARISON: XY CHEST PORTABLE on DOS: 05/06/25, XY CHEST XRAY 1 VIEW on DOS: 04/27/25, XR CHEST 1 VIEW on DOS: 04/23/25, XY CHEST XRAY 1 VIEW on DOS: 04/22/25, XY CHEST PORTABLE on DOS: 04/20/25 TECHNIQUE: Multidetector spiral CTA of the chest was performed of the chest with intravenous contrast. PULMONARY ANGIOGRAPHY PROTOCOL was utilized using a bolus- tracking technique centered on the main pulmonary artery. Axial, coronal and sagittal multiplanar and MIP reformats were performed. Radiation Dose : 1. Chest: CTDI volume is 29 mGy. Dose-length product is 1109 mGy*cm The dose indicators for CT are the volume Computed Tomography (CT) Dose Index (CTDIvol) and the Dose Length Product (DLP), and are measured in units of mGy and mGy-cm, respectively. These indicators are not patient dose, but values generated from the CT scanner acquisition factors. The report includes radiation exposure data for exposures received during this examination. FINDINGS: Pulmonary artery: No pulmonary embolism Lower neck: Normal thyroid. Lungs: No focal consolidation, pleural effusion or pneumothorax. Heart/Vascular Structures: Normal heart size. No pericardial effusion. Lymph Nodes: No adenopathy Pleura: No pleural effusion or significant pneumothorax. Musculoskeletal: No acute osseous abnormality. Soft tissues: Normal. Upper abdomen: Limited portions of the upper abdomen are unremarkable. IMPRESSION: 1. No pulmonary embolism. 2. No acute thoracic finding.
[2025-05-06] MEDS: methylPREDNISolone SOD SUCC 40 MG/ML VL IV SCH (15:32)
--- NOTE | 2025-05-06 15:38 | DVHPN2 ---
Progress Note Date Seen: May 06, 2025 Medical Necessity Reason Pt with a Central, PICC or Fol: No Objective vital signs Vital Sign Date Time Temp Pulse Resp B/P (MAP) Pulse Ox O2 Delivery O2 Flow Rate FiO2 05/06/25 13:22 84 24 98 05/06/25 12:06 114/47 05/06/25 10:11 98.1 98.1 05/06/25 10:00 Nasal Cannula 4.0 05/06/25 10:00 36 Total Intake and Output 05/05/25 05/05/25 05/06/25 15:00 23:00 07:00 Intake Total 100 ml Balance 100 ml medications Current Medications Medications Dose Ordered Sig/Sandra Route Start Time Stop Time Status Last Admin Dose Admin Albuterol 2.5 mg Q4HR NEB 05/06/25 10:00 05/06/25 13:14 2.5 MG Ipratropium [place] 0.5 mg Q4HR NEB 05/06/25 10:00 05/06/25 13:14 0.5 MG Methylprednisolone Sodium Succinate 40 mg Q8HR IV 05/06/25 14:00 Pantoprazole Sodium 40 mg DAILY IV 05/07/25 10:00 Aspirin 81 mg DAILY PO 05/06/25 10:00 Hold Atorvastatin Calcium 20 mg HS PO 05/06/25 22:00 Cyclobenzaprine HCl 5 mg Q8HP PRN PO 05/06/25 08:00 Gabapentin 100 mg BID PO 05/06/25 10:00 05/06/25 09:14 100 MG Hydrochlorothiazide 25 mg DAILY PO 05/06/25 10:00 05/06/25 09:14 25 MG Patient Own Medication 1 puff BID IN 05/06/25 10:00 Patient Own Medication 0.25 mg HS PO 05/06/25 22:00 Sodium Chloride 1,000 ml @ 70 mls/hr [id number] IV 05/06/25 08:00 05/06/25 08:56 70 MLS/HR Temazepam 15 mg QHSP PRN PO 05/06/25 08:00 Ondansetron HCl 4 mg Q4HP PRN IV 05/06/25 08:00 Enoxaparin Sodium 40 mg DAILY SC 05/06/25 10:00 05/06/25 09:15 40 MG Morphine Sulfate 2 mg Q4HPRN PRN IV 05/06/25 08:00 05/06/25 12:06 2 MG Nitroglycerin 0.4 mg Q5MINP PRN SL 05/06/25 08:00 Ipratropium [place] 0.5 mg Q2HPRN PRN NEB 05/06/25 13:30 Albuterol 2.5 mg Q2HPRN PRN NEB 05/06/25 13:30 laboratory and microbiology Laboratory Tests 05/06/25 05:17 Test 05/06/25 05:17 Range/Units Serum Glucose 130 H 74-106 mg/dL Labs and/or images reviewed: Labs reviewed by me, Image(s) reviewed by me Problem List/Assessment/Plan Problem List/Assessment/Plan acute hypoxic resp failure Plan discussed with: Patient ZURITAHERSON Stoner Kari SANCHEZ May 06, 2025 15:38
[2025-05-06] MEDS: ALBUTEROL SULF 2.5 MG/0.5ML(0.5%) NEB SOLN NEB PRN (16:23)
[2025-05-06] MEDS: IPRATROPIUM BROM 0.5 MG/2.5ML INH SOL NEB PRN (16:24)
[2025-05-06] MEDS: ATORVASTATIN 20 MG TAB PO SCH (21:54)
[2025-05-06] MEDS: Ropinirole Hydrochloride (Ropinirole Hcl) 0.25 MG TABLETS PO SCH (22:00)
[2025-05-06] MEDS: MORPHINE SULFATE 4 MG/ML SYR/VIAL IV PRN (23:01)
[2025-05-07] VITALS (16 sets, daily range): BP systolic 111–147; BP diastolic 70–85; PULSE 75–108; RESP 16–22; TEMP 97.5–98.1; O2SAT 90–100
[2025-05-07 07:55] LABS: Hemoglobin 10.5 g/dL (13.5-17.5)
[2025-05-07 07:57] LABS: Hematocrit 34.5 % (41.0-53.0); Mean Corpuscular Hemoglobin 18.8 pg (28.0-32.0); Mean Corpuscular Volume 61.5 fL (80.0-100.0); Nucleated Red Blood Cells % 0.2 %
[2025-05-07 08:10] LABS: Alkaline Phosphatase 72 U/L (46-116); Anion Gap 8 (5-15); BUN/Creatinine Ratio 15.1 (10.0-20.0); Blood Urea Nitrogen 13 mg/dL (9-23); Calcium 9.4 mg/dL (8.7-10.4); Carbon Dioxide 30 mmol/L (20-31); Chloride 103 mmol/L (98-107); Potassium 4.4 mmol/L (3.5-5.1); Sodium 141 mmol/L (136-145); Total Protein 6.9 g/dL (5.7-8.2)
[2025-05-07 08:11] LABS: Alanine Aminotransferase < 9 U/L (7-40); Albumin 4.1 g/dL (3.2-4.8); Glucose 170 mg/dL (74-106)
[2025-05-07 08:12] LABS: Bilirubin, Total 0.4 mg/dL (0.2-1.0)
[2025-05-07 09:03] LABS: Anisocytosis Slight; Ovalocytes FEW
[2025-05-07] MEDS: PANTOPRAZOLE 40 MG/10 ML VIAL INJ IV SCH (09:09)
--- NOTE | 2025-05-07 10:09 | ECG ---
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
[2025-05-08] VITALS (28 sets, daily range): BP systolic 95–154; BP diastolic 54–105; PULSE 64–92; RESP 15–24; TEMP 98.1–98.9; O2SAT 93–100
[2025-05-08 13:02] LABS: Hepatitis B Surface Antigen Negative (Negative)
[2025-05-08 13:36] LABS: Hepatitis C Antibody Positive (Negative)
--- NOTE | 2025-05-08 23:25 | DVHINCON2 ---
Date of service: May 08, [address] Morin Reason for Consultation COPD exacerbation History of Present Illness A 65-year-old man with past medical history significant for asthma, COPD, anemia, cancer in remission, CVA, and hypertension who presented to ED from assisted living on 05/06/25 with c/o two days of cough and midsternal chest pain. Patient reported that he could not breathe, and at approximately 1:00 AM, his symptoms worsened, prompting him to call 911 for evaluation. Per patient, he has had asthma since infancy and has never required intubation. At home, he uses albuterol and a compressed air nebulizer machine, though he reports the machine has not been working well. He denied fever, sputum production, or leg swelling. On arrival, the patient was found to be hypoxic to 85%, requiring supplemental oxygen via non-rebreather mask. In the ED, he received Zofran, morphine, albuterol, prednisone, and magnesium. Laboratory evaluation revealed WBC 12.4, hemoglobin 10.5 / hematocrit 35.2, troponin negative, BNP 22.76, and glucose 130. Chest X-ray was unremarkable. Given ongoing hypoxia and wheezing consistent with acute asthma/COPD exacerbation, patient was admitted for further care. Pulmonary consultation is requested for evaluation and management given the above findings. Review of Systems: 14-point review of systems negative unless otherwise noted above. Past Medical History: COPD, asthma, cancer, CVA, hypertension, anemia Past Surgical History: Denies Medications: Reviewed. Allergies: Ibuprofen Family History: Positive for breast cancer. No family history of premature CAD. No family history of lung disorders. Social History: Smoker. No alcohol use. Admits to hx of using marijuana. Family History: FHx: breast cancer G8 MOTHER, , Cause: Breast cancer Allergies: Coded Allergies: Ibuprofen (Verified Allergy, Severe, 12/19/24) Home Meds Active Scripts Azithromycin (Zithromax Z-Jhony) 250 Mg Tab, 250 MG PO DAILY for 5 Days, #5 TAB Prov:GYPSY TANG 04/27/25 Prednisone (Prednisone) 20 Mg Tab, 40 MG PO DAILY for 5 Days, #10 MG Prov:GYPSY TANG 04/27/25 Reported Medications Ipratropium-Albuterol (COMBIVENT RESPIMAT) Respimat Aer, 1 IN Q4HPRN PRN for SHORTNESS OF BREATH, AER 04/21/25 Ropinirole Hydrochloride (Ropinirole Hcl) 0.25 Mg Tab, 0.25 MG PO HS, TAB 04/21/25 Atorvastatin Calcium (ATORVASTATIN CALCIUM) 20 Mg Tab, 1 TAB PO HS, #30 TAB 5 Refills 04/21/25 Gabapentin (Gabapentin) 100 Mg Cap, 100 MG PO BID for 30 Days, MG 04/21/25 Fluticasone-Salmeterol (Advair Diskus 250/50) 1 Puff Ih, 1 PUFF INH BID, #3 INHALER 3 Refills 04/21/25 Hydrochlorothiazide (Hydrochlorothiazide) 25 Mg Tab, 1 TAB PO DAILY, #30 TAB 5 Refills 04/21/25 Hydrochlorothiazide (Hydrochlorothiazide) 25 Mg Tab, 25 MG PO DAILY for 30 Days, MG 04/21/25 Aspirin (Aspir-Low) 81 Mg Tab, 81 MG PO DAILY for 30 Days, MG 04/21/25 Oxycodone W/ Acetaminophen (Endocet) 1 Tab Tab, 1 TAB PO Q6HPRN PRN for BREAKTHROUGH PAIN, TAB 04/21/25 Naproxen (NAPROSYN TABLET) 500 Mg Tb, 1 TAB PO BID PRN for PAIN SCALE 1 THRU 6, #60 TAB 1 Refill 04/21/25 Cyclobenzaprine Hcl (Cyclobenzaprine Hcl) 10 Mg Tab, 5 MG PO Q8HP PRN for muscle spasm for 30 Days, MG 04/21/25 Ergocalciferol (VITAMIN D2) 400 Unit Tab, 23739 UNIT PO once a week, TAB 04/21/25 Albuterol Sulfate (VENTOLIN MDI) 90 Mcg Ih, 90 MCG IN DAILY, INH 03/05/25 Vital Signs Vital Signs Date Time Temp Pulse Resp B/P (MAP) Pulse Ox O2 Delivery O2 Flow Rate FiO2 05/08/25 22:06 76 16 100 05/08/25 22:00 Nasal Cannula* 4 36 05/08/25 21:46 123/88 05/08/25 21:00 98.9 98.9 Physical Exam Gen.: Patient lying in bed in no apparent distress. On supplemental oxygen. Head: Normocephalic, atraumatic. Eyes: EOMI/PERRLA. Ears: Normal hearing. Normal anatomy. Neck/trachea: Trachea midline, supple. Nose: Normal external anatomy. Mouth: Moist mucous membranes. Chest: Decreased air entry bilaterally. No wheezing or rhonchi. Cardiovascular: Positive S1, positive S2. Regular rate and rhythm. Abdomen: Positive bowel sounds in all 4 quadrants. Soft, non-tender, non- distended. : Deferred. Rectal: Deferred. Skin: Warm, dry. Intact. Extremities: 2+ radial pulses bilaterally. No lower extremity edema. Neuro: Awake, alert, oriented x3. No gross motor or sensory deficits. Cranial nerves II through XII intact. Gait not assessed. Labs/Diagnostic Data Labs Test 05/07/25 05:20 05/06/25 08:38 05/06/25 05:17 Range/Units White Blood Count 7.3 # 4.4-10.8 10^3/uL Red Blood Count 5.60 4.5-5.90 10^6/uL Hemoglobin 10.5 L 13.5-17.5 g/dL Hematocrit 34.5 L 41.0-53.0 % Mean Corpuscular Volume 61.5 L 80.0-100.0 fL Mean Corpuscular Hemoglobin 18.8 L 28.0-32.0 pg Mean Corpuscular Hemoglobin Concent 30.5 L 32.0-36.0 g/dL Red Cell Distribution Width 17.4 H 11.8-14.3 % Platelet Count 250 140-450 10^3/uL Mean Platelet Volume 9.9 6.9-10.8 fL Neutrophils (%) (Auto) 91.5 H 37.0-80.0 % Lymphocytes (%) (Auto) 6.1 L 10.0-50.0 % Monocytes (%) (Auto) 1.0 0.0-12.0 % Eosinophils (%) (Auto) 0.1 0.0-7.0 % Basophils (%) (Auto) 1.3 0.0-2.0 % Neutrophils # (Auto) 6.7 1.6-8.6 10 ^3/uL Lymphocytes # (Auto) 0.4 0.4-5.4 10 ^3/uL Monocytes # (Auto) 0.1 0-1.3 10 ^3/uL Eosinophils # (Auto) 0 0-0.8 10 ^3/uL Basophils # (Auto) 0.1 0-0.2 10 ^3/uL Nucleated Red Blood Cells 0.2 % Platelet Estimate Adequate Hypochromasia (manual) Moderate Anisocytosis (manual) Slight Microcytosis Moderate Ovalocytes Few Sodium Level 141 136-145 mmol/L Potassium Level 4.4 3.5-5.1 mmol/L Chloride Level 103 98-107 mmol/L Carbon Dioxide Level 30 20-31 mmol/L Anion Gap 8 5-15 Blood Urea Nitrogen 13 9-23 mg/dL Creatinine 0.86 0.700-1.30 mg/dL Glomerular Filtration Rate Calc 97 >90 mL/min BUN/Creatinine Ratio 15.1 10.0-20.0 Serum Glucose 170 H 74-106 mg/dL Calcium Level 9.4 8.7-10.4 mg/dL Total Bilirubin 0.4 0.2-1.0 mg/dL Aspartate Amino Transferase (AST) 12 L 13-40 U/L Alanine Aminotransferase (ALT) < 9 7-40 U/L Alkaline Phosphatase 72 46-116 U/L Total Protein 6.9 5.7-8.2 g/dL Albumin 4.1 3.2-4.8 g/dL Troponin I High Sensitivity 23 </=54 ng/L Stomatocytes Few Lactic Acid Level 1.3 0.4-2.0 mmol/L Magnesium Level 1.8 1.6-2.6 mg/dL B-Type Natriuretic Peptide 22.76 0-100 pg/mL Hepatitis B Surface Antigen Negative Negative Hepatitis C Antibody Positive *A Negative Microbiology Date/Time Source Procedure Growth Status 05/07/25 22:25 Nose MRSA Screen - Final Complete 05/06/25 05:20 Blood Blood Culture - Preliminary NO GROWTH AFTER 48 HOURS OF INCUBATION. Resulted Assessment Impression: Acute hypoxic respiratory failure 2/2 AE COPD Dependence on supplemental oxygen Acute COPD exacerbation Atelectasis Obesity Plan: Supplemental oxygen Titrate to keep O2 sats above 92%. On 4 LPM NC Taper O2 as tolerated. Continue bronchodilators Atrovent/Ventolin. Steroids - IV Solu-Medrol Continue antibiotics Incentive spirometry CTA negative for pulmonary embolism. Monitor renal function. Monitor electrolytes. Supplement as necessary. Monitor ins and outs. Recommend diet and lifestyle modifications for weight reduction Obesity complicates all care GI prophylaxis- Protonix DVT prophylaxis - Lovenox. Prognosis: Poor given patient's multiple co-morbidities. Rest of plan per hospitalist and other consultants. Thank you, Dr. Morin, for allowing me to participate in this patient's care. Further recommendations will depend on the patient's clinical course. Please do not hesitate to contact me if you have any questions or concerns. This medical document was created using an electronic medical record system with [employer] dictation system. Although these documentations are being carefully reviewed, there may still be some phonetic and typographical changes. The errors are purely typographical, due to imperfection on the software program, and do not reflect any compromise in the patient's medical care. Plan discussed with: Patient, Other (RN/MD) Visit Coding Pulmonary Billing Provider: ANATOLY DUGGAN MD Date of Service if different f: May 08, 2025 Common Visit Codes: [id number] INP/OBS CARE (HIGH) ANATOLY DUGGAN MD May 08, 2025 23:25
[2025-05-09] VITALS (11 sets, daily range): BP systolic 143–151; BP diastolic 71–79; PULSE 71–89; RESP 16–30; TEMP 97.6–97.7; O2SAT 93–100
--- NOTE | 2025-05-09 22:50 | DVHPN2 ---
Subjective DOS: 05/09/2025 Patient seen and examined at bedside. Remains on supplemental oxygen Overnight events reviewed. Changes from previous H/P or p: No Changes Eyes: No Pain, No Vision change, No Conjunctivae inflammation, No Eyelid inflammation, No Other, No Redness ENT: No Ear pain, No Ear discharge, No Nose pain, No Nose discharge, No Nose congestion, No Mouth pain, No Mouth swelling, No Throat pain, No Throat swelling, No Other Cardiovascular: Chest Pain; No Palpitations, No Orthopnea, No Paroxysmal Noc. Dyspnea, No Edema, No Lt Headedness, No Other Respiratory: Cough; No Dry; Shortness of breath, SOB with excertion, Wheezing; No Hemoptysis, No Pleuritic Pain, No Sputum, No Other Gastrointestinal: No Nausea, No Vomiting, No Abdominal Pain, No Diarrhea, No Constipation, No Melena, No Hematochezia, No Other Genitourinary: No Dysuria, No Frequency, No Incontinence, No Hematuria, No Retention, No Other Musculoskeletal: No other, No neck pain, No shoulder pain, No arm pain, No back pain, No hand pain, No leg pain, No foot pain Skin: No Rash, No Lesions, No Jaundice, No Bruising, No Other Objective Vitals Vital Signs Date Time Temp Pulse Resp B/P (MAP) Pulse Ox O2 Delivery O2 Flow Rate FiO2 05/09/25 12:47 97.6 77 18 151/71 (97) 96 97.6 05/09/25 10:00 Nasal Cannula* 3 32 Intake/Output Intake and Output 05/09/25 07:00 Intake Total 2200 ml Output Total 940 ml Balance 1260 ml Intake Oral 2200 ml Output Urine Total 940 ml Exam Gen.: Patient lying in bed in no apparent distress. On supplemental oxygen. Head: Normocephalic, atraumatic. Eyes: EOMI/PERRLA. Ears: Normal hearing. Normal anatomy. Neck/trachea: Trachea midline, supple. Nose: Normal external anatomy. Mouth: Moist mucous membranes. Chest: Decreased air entry bilaterally. No wheezing or rhonchi. Cardiovascular: Positive S1, positive S2. Regular rate and rhythm. Abdomen: Positive bowel sounds in all 4 quadrants. Soft, non-tender, non- distended. : Deferred. Rectal: Deferred. Skin: Warm, dry. Intact. Extremities: 2+ radial pulses bilaterally. No lower extremity edema. Neuro: Awake, alert, oriented x3. No gross motor or sensory deficits. Cranial nerves II through XII intact. Gait not assessed. Laboratory Results Laboratory Tests 05/07/25 05:20 Microbiology Microbiology Date/Time Source Procedure Growth Status 05/07/25 22:25 Nose MRSA Screen - Final Complete 05/06/25 05:20 Blood Blood Culture - Preliminary NO GROWTH AFTER 72 HOURS OF INCUBATION. Resulted Assessment/Plan Assessment/Plan Impression: Acute hypoxic respiratory failure 2/2 AE COPD Dependence on supplemental oxygen Acute COPD exacerbation Atelectasis Obesity Events: Remains on supplemental oxygen, 3 LPM NC Taper O2 as tolerated No acute overnight events. Continue bronchodilators Continue steroids Continue antibiotics Incentive spirometry Pain control Avoid oversedation Patient is stable for discharge from the pulmonary standpoint. Disposition per hospitalist. Labs and imaging reviewed. Rest of plan as noted below. Plan: Supplemental oxygen Titrate to keep O2 sats above 92%. Continue bronchodilators Atrovent/Ventolin. Steroids - IV Solu-Medrol Continue antibiotics Incentive spirometry CTA negative for pulmonary embolism. Monitor renal function. Monitor electrolytes. Supplement as necessary. Monitor ins and outs. Recommend diet and lifestyle modifications for weight reduction Obesity complicates all care GI prophylaxis- Protonix DVT prophylaxis - Lovenox. Prognosis: Guarded given patient's multiple co-morbidities. Rest of plan per hospitalist and other consultants. Thank you, Dr. Morin, for allowing me to participate in this patient's care. Further recommendations will depend on the patient's clinical course. Please do not hesitate to contact me if you have any questions or concerns. This medical document was created using an electronic medical record system with [employer] dictation system. Although these documentations are being carefully reviewed, there may still be some phonetic and typographical changes. The errors are purely typographical, due to imperfection on the software program, and do not reflect any compromise in the patient's medical care. Plan discussed with: Other (TACOS Kuhn) Visit Coding Pulmonary Billing Provider: ANATOLY DUGGAN MD Date of Service if different f: May 09, 2025 Common Visit Codes: [id number] INP/OBS CARE(HIGH) ANATOLY DUGGAN MD May 09, 2025 22:50
[2025-05-10] MEDS ORDERED: AZIT-185 PO (05:35)
== END 2025-05-09 14:09 | disposition home or self-care (01) | DRG 140 ==
LOC: EDBD 04:56 → ER 04:56 → OVERFLOW 07:47 → WEST WING 10:14
PROVIDERS: ADMIT Internal Medicine; ATTEND Internal Medicine
DX: J44.1 Chronic obstructive pulmonary disease with (acute) exacerbation (principal); J96.21 Acute and chronic respiratory failure with hypoxia; J45.901 Unspecified asthma with (acute) exacerbation; E66.9 Obesity, unspecified; I10 Essential (primary) hypertension; Z99.81 Dependence on supplemental oxygen; D72.829 Elevated white blood cell count, unspecified; F17.210 Nicotine dependence, cigarettes, uncomplicated; R07.89 Other chest pain; J98.11 Atelectasis; F12.90 Cannabis use, unspecified, uncomplicated; Z86.73 Personal history of transient ischemic attack (TIA), and cerebral infarction without residual deficits; Z80.3 Family history of malignant neoplasm of breast; Z71.6 Tobacco abuse counseling; Z68.39 Body mass index [BMI] 39.0-39.9, adult; Z88.6 Allergy status to analgesic agent; Z79.899 Other long term (current) drug therapy
CPT/HCPCS: 36415; 71045; 71275; 80053; 83605; 83735; 83880; 84484; 85025; 86803; 87040; 87081; 87340; 93005; 94640; 99291; G0378; J2405; J2470

== ENCOUNTER 2025-05-10 02:54 | Emergency (ER) | payer MEDICAID ==
[~2025-05-10] VITALS: Ht 177.8 cm; Wt 136.1 kg
--- NOTE | 2025-05-10 03:12 | ECG ---
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
[2025-05-10 03:50] VITALS: PULSE 85
--- NOTE | 2025-05-10 03:55 | ED.PDOC ---
History of Present Illness HPI Comments 65 year-old morbidly obese male presents to the ED via EMS with a chief complaint of worsening substernal CP and SOB as of today. Pt has a Hx of COPD, Asthma, Cancer, HTN, and CVA. Patient states chest pain is 8/10, non-radiating, with symptoms exacerbated with deep inhalation. Patient reports being discharged from [facility] at 1500 yesterday, but returned to the ED upon worsening symptoms. Patient was admitted for COPD exacerbation/acute respiratory failure. Per nursing staff, patient was SAT at 77% on RA upon ED arrival. Upon evaluation, patient is currently SAT at 88% with O2. Patient reports being on 3-4L of Oxygen at home. Patient states she hasn't smoked for approximately 6 days. Patient reports using a breathing treatment at home, with no alleviation. There are no further complaints or modifying factors at this time. REVIEW OF SYSTEMS: General: No fever, no chills, or fatigue HEENT: No sore throat, no earache, no congestion, no neck pain. Cardiac: (+) chest pain. No palpitations. Lungs: (+) shortness of breath, no cough. GI: No nausea, no vomiting, no diarrhea, no constipation, no abdominal pain : No dysuria, frequency, or urgency. No hematuria. Musculoskeletal: No joint pain , no joint swelling, no extremity edema. Skin: No rash, no itching. Neuro: No headache, no dizziness, no weakness (And as sated in HPI) PHYSICAL EXAM: General: Awake, alert and oriented. No acute distress. Skin: Skin in warm, dry and intact. Appropriate color for ethnicity. HEENT: The head is normocephalic and atraumatic. Conjunctivae are clear without exudates or hemorrhage. Sclera is non-icteric. Eyelids are normal in appearance without swelling or lesions. Oral mucosa is pink and moist Neck: The neck is supple with normal range of motion. No JVD. Cardiac: Heart rate and rhythm are normal. No murmurs, gallops, or rubs are auscultated. Respiratory: No signs of respiratory distress. Moderate wheezing bilateral Abdominal: Abdomen is soft, non-tender without distention, guarding or rigidity. Bowel sounds are present and normoactive in all four quadrants. Extremities: Lower extremities without edema. Neurological: The patient is awake, alert and oriented to person, place, and time with normal speech. Speech is clear. There is no facial asymmetry. Psychiatric: Appropriate mood and affect. Good judgement and insight. Chief Complaint: Shortness of Breath Time Seen by MD: 03:47 Reviewed Notes: Medications, Allergies Allergies: Coded Allergies: Ibuprofen (Verified Allergy, Severe, 12/19/24) Home Meds Active Scripts Azithromycin (ZITHROMAX TABLET) 250 Mg Tb, 250 MG PO DAILY for 4 Days, #4 TAB Start on 05/11/25 Prov:JOHN KHAN MD 05/10/25 Azithromycin (Zithromax Z-Jhony) 250 Mg Tab, 250 MG PO DAILY for 5 Days, #5 TAB Prov:GYPSY TANG 04/27/25 Prednisone (Prednisone) 20 Mg Tab, 40 MG PO DAILY for 5 Days, #10 MG Prov:GYPSY TANGP 04/27/25 Reported Medications Ipratropium-Albuterol (COMBIVENT RESPIMAT) Respimat Aer, 1 IN Q4HPRN PRN for SHORTNESS OF BREATH, AER 04/21/25 Ropinirole Hydrochloride (Ropinirole Hcl) 0.25 Mg Tab, 0.25 MG PO HS, TAB 04/21/25 Atorvastatin Calcium (ATORVASTATIN CALCIUM) 20 Mg Tab, 1 TAB PO HS, #30 TAB 5 Refills 04/21/25 Gabapentin (Gabapentin) 100 Mg Cap, 100 MG PO BID for 30 Days, MG 04/21/25 Fluticasone-Salmeterol (Advair Diskus 250/50) 1 Puff Ih, 1 PUFF INH BID, #3 INHALER 3 Refills 04/21/25 Hydrochlorothiazide (Hydrochlorothiazide) 25 Mg Tab, 1 TAB PO DAILY, #30 TAB 5 Refills 04/21/25 Hydrochlorothiazide (Hydrochlorothiazide) 25 Mg Tab, 25 MG PO DAILY for 30 Days, MG 04/21/25 Aspirin (Aspir-Low) 81 Mg Tab, 81 MG PO DAILY for 30 Days, MG 04/21/25 Oxycodone W/ Acetaminophen (Endocet) 1 Tab Tab, 1 TAB PO Q6HPRN PRN for BR EAKTHROUGH PAIN, TAB 04/21/25 Naproxen (NAPROSYN TABLET) 500 Mg Tb, 1 TAB PO BID PRN for PAIN SCALE 1 THRU 6, #60 TAB 1 Refill 04/21/25 Cyclobenzaprine Hcl (Cyclobenzaprine Hcl) 10 Mg Tab, 5 MG PO Q8HP PRN for muscle spasm for 30 Days, MG 04/21/25 Ergocalciferol (VITAMIN D2) 400 Unit Tab, 13961 UNIT PO once a week, TAB 04/21/25 Albuterol Sulfate (VENTOLIN MDI) 90 Mcg Ih, 90 MCG IN DAILY, INH 03/05/25 Information Source: Patient, Emergency Med Personnel Mode of Arrival: EMS Severity: Moderate Timing: Hours Duration: Since onset Past Medical History PAST MEDICAL HISTORY: Anemia, Asthma, Cancer, COPD, CVA, HTN Past Medical History (Other): Leg Tumor Surgical History: Denies all surgeries Family History Family History: Reviewed,noncontributory to illness, Unknown Social History Smoker: Cigarettes Alcohol: Denies ETOH Use Drugs: Denies Drug Use Lives In: Assisted Care Was a procedure done? Was a procedure done?: No EKG EKG : Pulse Rate (adult): 89 [place]: Normal Comments Sinus rhythm Abnormal R-wave progression, early transition Differential Dx Considerations may include: Differential diagnoses considered includebut arenot limited to acute Bronchitis, Asthma, COPD, Pneumothorax, PE, CHF, Pulmonary HTN, Anemia, CO Poisoning, Methemoglobinemia, Hyperventilation, Metabolic Acidosis, Pulmonary Edema, Pneumonia, ACS, Pericardial Tamponade, Anxiety, other X-Ray, Labs, Meds, VS Vital Signs Date Time Temp Pulse Resp B/P (MAP) Pulse Ox O2 Delivery O2 Flow Rate FiO2 05/10/25 11:25 18 97 Nasal Cannula* 2 28 05/10/25 09:44 82 18 141/79 (99) 97 05/10/25 07:35 97.6 86 17 159/77 (104) 97.6 05/10/25 07:35 86 17 96 Nasal Cannula* 2 28 05/10/25 06:31 84 20 147/72 05/10/25 06:00 98.6 82 19 147/72 (97) 96 98.6 05/10/25 05:00 98.6 81 19 146/109 (121) 96 98.6 05/10/25 04:15 18 100 Simple Mask* 8 60 05/10/25 04:00 98.6 84 24 144/72 (96) 95 98.6 05/10/25 03:55 89 05/10/25 03:50 85 05/10/25 03:50 98.6 85 21 134/74 (94) 95 98.6 05/10/25 03:06 97.9 88 24 147/72 100 97.9 05/10/25 03:02 89 Lab Test 05/10/25 04:33 Range/Units White Blood Count 12.8 #H 4.4-10.8 10^3/uL Red Blood Count 6.18 H 4.5-5.90 10^6/uL Hemoglobin 11.3 L 13.5-17.5 g/dL Hematocrit 37.9 L 41.0-53.0 % Mean Corpuscular Volume 61.4 L 80.0-100.0 fL Mean Corpuscular Hemoglobin 18.4 L 28.0-32.0 pg Mean Corpuscular Hemoglobin Concent 29.9 L 32.0-36.0 g/dL Red Cell Distribution Width 17.0 H 11.8-14.3 % Platelet Count 261 140-450 10^3/uL Mean Platelet Volume 9.2 6.9-10.8 fL Neutrophils (%) (Auto) 70.8 37.0-80.0 % Lymphocytes (%) (Auto) 19.6 10.0-50.0 % Monocytes (%) (Auto) 9.1 0.0-12.0 % Eosinophils (%) (Auto) 0.2 0.0-7.0 % Basophils (%) (Auto) 0.3 0.0-2.0 % Neutrophils # (Auto) 9.1 H 1.6-8.6 10 ^3/uL Lymphocytes # (Auto) 2.5 0.4-5.4 10 ^3/uL Monocytes # (Auto) 1.2 0-1.3 10 ^3/uL Eosinophils # (Auto) 0 0-0.8 10 ^3/uL Basophils # (Auto) 0 0-0.2 10 ^3/uL Nucleated Red Blood Cells 0.1 % Sodium Level 141 136-145 mmol/L Potassium Level 3.8 3.5-5.1 mmol/L Chloride Level 97 L 98-107 mmol/L Carbon Dioxide Level 38 H 20-31 mmol/L Anion Gap 6 5-15 Blood Urea Nitrogen 27 H 9-23 mg/dL Creatinine 0.96 0.700-1.30 mg/dL Glomerular Filtration Rate Calc 89 >90 mL/min BUN/Creatinine Ratio 28.1 H 10.0-20.0 Serum Glucose 136 H 74-106 mg/dL Calcium Level 9.8 8.7-10.4 mg/dL Troponin I High Sensitivity 20 </=54 ng/L B-Type Natriuretic Peptide 10.76 0-100 pg/mL Current Medications Medications (Trade) Dose Ordered Sig/Sandra Route Start Time Stop Time Status Last Admin Azithromycin 250 ml @ 125 mls/hr ONCE ONCE IV 05/10/25 05:45 05/10/25 07:44 DC 05/10/25 05:57 Methylprednisolone Sodium Succinate (Solu Medrol) 40 mg ONCE ONCE IV 05/10/25 05:45 05/10/25 05:46 DC 05/10/25 05:56 Aspirin 324 mg ONCE ONCE PO 05/10/25 06:15 05/10/25 06:16 DC 05/10/25 06:31 Morphine Sulfate 2 mg ONCE ONCE IV 05/10/25 06:15 05/10/25 06:16 DC 05/10/25 06:31 Albuterol (Ventolin Medneb) 5 mg ONCE ONCE NEB 05/10/25 11:00 05/10/25 11:01 DC 05/10/25 11:24 Time of 1ST Reevaluation: 03:51 Reevaluation 1ST: Unchanged Patient Education/Counseling: Need For Follow Up Family Education/Counseling: No Family Present SEPSIS Sepsis Screen Date sepsis recognized/suspect: May 10, 2025 Time Sepsis recognized/suspect: 312 Recent Procedure: No On Antibiotic Therapy: No Respiratory Rate >20: No Heart Rate >90: No Temp<36 C (96.8 F) or >38.3 C: No SBP <90 or MAP <65 mmHG: No New Acute Mental Status Change: No Is the patient on CPAP, BIPAP,: No Physician Orders Chest Xray 1 View (05/10/25 03:58) * Reed [employer] Instrument Repairer Consult (05/10/25 ) Vital Signs Date Time Temp Pulse Resp B/P (MAP) Pulse Ox O2 Delivery O2 Flow Rate FiO2 05/10/25 11:25 18 97 Nasal Cannula* 2 28 05/10/25 09:44 82 18 141/79 (99) 97 05/10/25 07:35 97.6 86 17 159/77 (104) 97.6 05/10/25 07:35 86 17 96 Nasal Cannula* 2 28 05/10/25 06:31 84 20 147/72 05/10/25 06:00 98.6 82 19 147/72 (97) 96 98.6 05/10/25 05:00 98.6 81 19 146/109 (121) 96 98.6 05/10/25 04:15 18 100 Simple Mask* 8 60 05/10/25 04:00 98.6 84 24 144/72 (96) 95 98.6 05/10/25 03:55 89 05/10/25 03:50 85 05/10/25 03:50 98.6 85 21 134/74 (94) 95 98.6 05/10/25 03:06 97.9 88 24 147/72 100 97.9 05/10/25 03:02 89 Laboratory Tests Test 05/10/25 04:33 White Blood Count 12.8 10^3/uL (4.4-10.8) #H Departure 1 Departure Time of Disposition: 05:33 Impression: Primary Impression: COPD exacerbation Disposition: 01 HOME / SELF CARE / HOMELESS Condition: Stable Additional Instructions: ED DISCHARGE INSTRUCTIONS Instructions: Please read all instructions provided in this packet carefully. Although you have been discharged from the Emergency Department, this does not mean that you have a "clean bill of health". No definitive diagnosis for your symptoms has been made today. It is possible that you are in the process of developing a serious illness. This is why you must return to the ED without fail if any new or worsening symptoms (especially if your symptoms include chest pain, trouble breathing, abdominal pain, fever, headache, confusion, trouble seeing, or trouble walking) It is also very important that you see a primary care provider (PCP) within the next 3-5 days to follow up. If you are unable to get an appointment, return to the ED for re-evaluation. SHORTNESS OF BREATH EDUCATION Shortness of breath has many causes. Sometimes conditions such as anxiety can lead to shortness of breath. Some people get mild shortness of breath when they exercise. Trouble breathing also can be a symptom of a serious problem, such as asthma, lung disease, emphysema, heart problems, and pneumonia. If your shortness of breath continues, you may need tests and treatment. Watch for any changes in your breathing and other symptoms. Follow-up care is a cadena part of your treatment and safety. Be sure to make and go to all appointments, and call your doctor if you are having problems. It's also a good idea to know your test results and keep a list of the medicines you take. How can you care for yourself at home? Do not smoke or allow others to smoke around you. If you need help quitting, julissa k to your doctor about stop-smoking programs and medicines. These can increase your chances of quitting for good. Get plenty of rest and sleep. Take your medicines exactly as prescribed. Call your doctor if you think you are having a problem with your medicine. Find healthy ways to deal with stress. Exercise daily. Get plenty of sleep. Eat regularly and well. When should you call for help? Call 911 anytime you think you may need emergency care. For example, call if: You have severe shortness of breath. You have symptoms of a heart attack. These may include: Chest pain or pressure, or a strange feeling in the chest. Sweating. Shortness of breath. Nausea or vomiting. Pain, pressure, or a strange feeling in the back, neck, jaw, or upper belly or in one or both shoulders or arms. Lightheadedness or sudden weakness. A fast or irregular heartbeat. After you call 911, the forklift truck operator may tell you to chew 1 adult-strength or 2 to 4 low-dose aspirin. Wait for an ambulance. Do not try to drive yourself. Call your doctor now or seek immediate medical care if: Your shortness of breath gets worse or you start to wheeze. Wheezing is a high- pitched sound when you breathe. You wake up at night out of breath or have to prop your head up on several pillows to breathe. You are short of breath after only light activity or while at rest. Watch closely for changes in your health, and be sure to contact your doctor if: You do not get better over the next 1 to 2 days. Credits for Shortness of Breath: Care Instructions Current as of: December 23, 2023 Author: [employer] e-Prescriptions Azithromycin (ZITHROMAX TABLET) 250 Mg Tb 250 MG PO DAILY for 4 Days, #4 TAB Start on 05/11/25 Prov: JOHN KHAN MD 05/10/25 Comments Patient is saturating well on his home oxygen prior to discharge. Patient felt stable for discharge home to follow up with PCP as an outpatient. Critical Care Note Critical Care Time?: No Stability Stability form required: No Heart Score Heart Score: Heart Score Response (Comments) Value History N/A 0 EKG Normal 0 Age 45-64 1 Risk Factors 1 or 2 risk factors 1 Troponin N/A 0 Total 2 I personally scribed for JOHN KHAN MD ([email or web address]) on 05/10/25 at 03:55. Electronically submitted by Chela Salinas ([email or web address]). I personally scribed for JOHN KHAN MD ([email or web address]) on 05/10/25 at 04:01. Electronically submitted by Chela Salinas ([email or web address]). I personally scribed for JOHN KHAN MD ([email or web address]) on 05/10/25 at 04:03. Electronically submitted by Chela Salinas ([email or web address]). JOHN KHAN MD May 10, 2025 03:55
[2025-05-10] MEDS: ALBUTEROL SULF 2.5 MG/0.5ML(0.5%) NEB SOLN NEB ONE ×2 (04:14→11:24)
[2025-05-10] MEDS: IPRATROPIUM BROM 0.5 MG/2.5ML INH SOL NEB ONE (04:14)
--- NOTE | 2025-05-10 04:31 | DVH ---
CHEST RADIOGRAPH INDICATION: Shortness of breath TECHNIQUE: Single frontal view of the chest was obtained COMPARISON: XY CHEST PORTABLE on DOS: 05/06/25, XY CHEST XRAY 1 VIEW on DOS: 04/27/25, XR CHEST 1 VIEW on DOS: 04/23/25, XY CHEST XRAY 1 VIEW on DOS: 04/22/25, XY CHEST PORTABLE on DOS: 04/20/25 FINDINGS: Lines and Tubes: None Lungs: Clear. Bilateral costophrenic sulci excluded. Pleura: No effusion. No pneumothorax. Cardiomediastinal contours: Unremarkable Bones: Unremarkable IMPRESSION: 1. No radiographic evidence of acute cardiopulmonary abnormality.
[2025-05-10 04:56] LABS: Potassium 3.8 mmol/L (3.5-5.1); Sodium 141 mmol/L (136-145)
[2025-05-10 04:57] LABS: Anion Gap 6 (5-15); Calcium 9.8 mg/dL (8.7-10.4)
[2025-05-10 04:58] LABS: Carbon Dioxide 38 mmol/L (20-31); Chloride 97 mmol/L (98-107)
[2025-05-10 05:02] LABS: BUN/Creatinine Ratio 28.1 (10.0-20.0)
[2025-05-10 05:03] LABS: Hemoglobin 11.3 g/dL (13.5-17.5)
[2025-05-10 05:04] LABS: Blood Urea Nitrogen 27 mg/dL (9-23); Glucose 136 mg/dL (74-106); Hematocrit 37.9 % (41.0-53.0); Mean Corpuscular Hemoglobin 18.4 pg (28.0-32.0); Mean Corpuscular Volume 61.4 fL (80.0-100.0); Nucleated Red Blood Cells % 0.1 %
[2025-05-10] MEDS ORDERED: AZIT-185 PO (05:35)
[2025-05-10] MEDS: methylPREDNISolone SOD SUCC 125 MG/2 ML VL IV ONE (05:56)
[2025-05-10] MEDS: AZITHROMYCIN 500MG/250ML 250 ML IV ONE (05:57)
[2025-05-10] MEDS: MORPHINE SULFATE 4 MG/ML SYR/VIAL ONE (06:30)
[2025-05-10] MEDS: MORPHINE SULFATE INJ 2 MG/ml SYRG IV ONE (06:31)
[2025-05-10 07:35] VITALS: PULSE 86; RESP 17; TEMP 97.6; O2SAT 96
[2025-05-10 09:44] VITALS: BP 141/79; PULSE 82
[2025-05-10 11:25] VITALS: RESP 18; O2SAT 97
[2025-05-10] MEDS: ALBUTEROL SULF 2.5 MG/0.5ML(0.5%) NEB SOLN ONE (11:25)
== END 2025-05-10 11:36 ==
LOC: ER 02:54 → EDSEX 02:54 → EDBD 02:54 → ER 11:36
DX: J44.1 Chronic obstructive pulmonary disease with (acute) exacerbation (principal); F17.210 Nicotine dependence, cigarettes, uncomplicated; I10 Essential (primary) hypertension; Z79.899 Other long term (current) drug therapy; Z86.73 Personal history of transient ischemic attack (TIA), and cerebral infarction without residual deficits; Z88.6 Allergy status to analgesic agent
CPT/HCPCS: 36415; 71045; 80048; 83880; 84484; 85025; 93005; 94640; 96365; 96375; 99285; A4649; J0456; J2270; J2919